=== PATIENT | male | born 1965 | race Caucasian/White ===

== ENCOUNTER 2018-12-12 05:18 | Inpatient (IN) | payer MEDICAID ==
[~2018-12-12] VITALS: Ht 170.2 cm; Wt 59.0 kg
[~2018-12-12 05:18] MED LIST: DIVA500T52 PO; QUET400T PO; QUET50TA PO; SIMV-260 PO
[2018-12-12] MEDS ORDERED: QUEtiapine FUMARATE 100 MG TABLET PO PRN (08:30)
[2018-12-12] MEDS ORDERED: LORazepam 2 MG TABLET PO PRN (08:30)
[2018-12-12] MEDS ORDERED: ZOLPIDEM TARTRATE 10 MG TABLET PO PRN (08:30)
[2018-12-12 10:46] VITALS: BP 133/77
[2018-12-12] MEDS ORDERED: NICOTINE 14 MG/24 HOUR PATCH TD PRN (11:15)
[2018-12-12] MEDS ORDERED: DOCUSATE SODIUM 100 MG CAPSULE PO PRN (11:15)
[2018-12-12] MEDS ORDERED: ACETAMINOPHEN 325 MG TABLET PO PRN (11:15)
[2018-12-12] MEDS ORDERED: IBUPROFEN 400 MG TABLET PO PRN (11:15)
[2018-12-12] MEDS ORDERED: PETROLATUM,WHITE 71 GM JELLY TP PRN (11:15)
[2018-12-12] MEDS ORDERED: GuaiFENesin/D-METHORPHAN [SUGAR-FREE] 200-20MG/10 ML SYRUP UDCUP PO PRN (11:15)
[2018-12-12] MEDS ORDERED: ONDANSETRON HCL 4 MG TABLET PO PRN (11:15)
[2018-12-12] MEDS ORDERED: LOPERAMIDE HCL 2 MG CAPSULE PO PRN (11:15)
[2018-12-12] MEDS ORDERED: ALBUTEROL SULFATE HFA 90 MCG/PUFF 8 GM INHALER IH PRN (11:15)
[2018-12-12] MEDS ORDERED: CloNIDine HCL 0.1 MG TABLET PO PRN (11:15)
[2018-12-12] MEDS ORDERED: MAGNESIUM HYDROXIDE SUSPENSION 30 ML UDCUP PO PRN (11:15)
[2018-12-12] MEDS ORDERED: MAG HYDROX/AL HYDROX/SIMETH ES 30 ML SUSPENSION UDCUP PO PRN (11:15)
[2018-12-12 12:18] VITALS: BP 133/77
[2018-12-12 17:18] VITALS: BP 112/65
[2018-12-12] MEDS: TraZODone HCL 150 MG TABLET PO SCH (20:27)
[2018-12-13 07:19] LABS: BASOPHILS % (AUTO) 0.5 % (0.0-2.0); EOSINOPHILS % (AUTO) 5.1 % (1.0-6.0); HEMATOCRIT 44.9 % (41-53); HEMOGLOBIN 15.3 g/dL (13.5-17.5); LYMPHOCYTES # (AUTO) 2.2 K/uL (1.0-4.8); LYMPHOCYTES % (AUTO) 39.8 % (22.0-44.0); MEAN CORPUSCULAR HEMOGLOBIN 34.1 pg (26.0-34.0); MEAN CORPUSCULAR HGB CONC 34.1 G/dL (31.0-37.0); MEAN CORPUSCULAR VOLUME 100 fL (80-100); MONOCYTES # (AUTO) 0.3 K/uL (0.1-1.0); MONOCYTES % (AUTO) 4.8 % (2.0-9.0); NEUTROPHILS # (AUTO) 2.7 K/uL (1.8-7.7); NEUTROPHILS % (AUTO) 49.8 % (40.0-70.0); PLATELET COUNT (AUTO) 258 K/uL (150-450); RED BLOOD CELL COUNT(AUTO) 4.49 MIL/uL (4.50-5.90); RED CELL DISTRIBUTION WIDTH 13.1 % (11.5-14.5)
[2018-12-13 07:20] VITALS: BP_SYST 116; BP_SYST 128; BP_DIAS 70; BP_DIAS 75
[2018-12-13 07:40] LABS: APPEARANCE,URINE TURBID (CLEAR); BILIRUBIN,URINE NEGATIVE (NEGATIVE); GLUCOSE, URINE (UA) NEGATIVE (NEGATIVE); KETONES,URINE TRACE mg/dL (NEGATIVE); LEUKOCYTE ESTERASE ,URINE NEGATIVE (NEGATIVE); NITRATE,URINE NEGATIVE (NEGATIVE); OCCULT BLOOD,URINE SMALL (NEGATIVE); PH,URINE 5.5 (5.0-8.0); PROTEIN,URINE NEGATIVE (NEGATIVE); UROBILINOGEN,URINE 0.2 mg/dL (<=1.0)
[2018-12-13 07:46] LABS: AMPHET/METH SCREEN,URINE NEGATIVE (NEGATIVE); BARBITURATE SCREEN, URINE NEGATIVE (NEGATIVE); CANNABINOID SCREEN,URINE NEGATIVE (NEGATIVE); COCAINE SCREEN,URINE NEGATIVE (NEGATIVE); METHADONE SCREEN, URINE NEGATIVE (NEGATIVE); OPIATE SCREEN,URINE NEGATIVE (NEGATIVE)
[2018-12-13 07:48] LABS: HEMOGLOBIN A1C 5.2 % (4.5-6.2)
[2018-12-13 07:54] LABS: ALANINE AMINOTRANSFERASE 20 U/L (12-78); ALBUMIN 3.4 g/dL (3.4-5.0); ALKALINE PHOSPHATASE 49 U/L (46-116); ANION GAP 6 mmol/L (8-16); ASPARTATE AMINOTRANSFERASE 9 U/L (15-37); BILIRUBIN,TOTAL 0.4 mg/dL (0.1-1.0); CALCIUM, TOTAL 8.3 mg/dL (8.8-10.5); CARBON DIOXIDE 29 mmol/L (22-29); CHLORIDE 110 mmol/L (98-107); CHOL/HDL RATIO 4.1 (4.2-7.3); CHOLESTEROL 186 mg/dL (131-200); CREATININE 0.91 mg/dL (0.60-1.30); GLOMERULAR FILTR. RATE CALC > 60 mL/min (>60); GLUCOSE,RANDOM 86 mg/dL (70-110); HDL CHOLESTEROL 45 mg/dL (40-60); LDL CHOL (CALC.) 129 mg/dL (0-130); POTASSIUM 4.7 mmol/L (3.5-5.1); SODIUM SERUM 145 mmol/L (136-145); TOTAL PROTEIN, SERUM 5.9 g/dL (6.4-8.2); TRIGLYCERIDES 58 mg/dL (15-150); UREA NITROGEN, BLOOD 18 mg/dL (7-18)
[2018-12-13 08:14] LABS: BACTERIA,URINE Moderate /HPF (None Seen); RBC,URINE 0-2 /HPF (0-2); WBC,URINE 0-2 /HPF (0-5)
[2018-12-13 08:15] LABS: AMORPHOUS SEDIMENT,UR Many /LPF (None Seen)
[2018-12-13 08:17] LABS: BENZODIAZEPINES SCREEN,URINE NEGATIVE (NEGATIVE)
[2018-12-13 08:18] LABS: PHENCYCLIDINE SCREEN,URINE NEGATIVE (NEGATIVE)
[2018-12-13 08:34] VITALS: BP 115/78
[2018-12-13] MEDS: CITALOPRAM HYDROBROMIDE 20 MG TABLET PO SCH (08:57)
[2018-12-13 16:12] VITALS: BP 113/78
[2018-12-13] MEDS: TraZODone HCL 150 MG TABLET PO SCH (20:43)
[2018-12-14 00:44] VITALS: BP 106/82
[2018-12-14 08:42] VITALS: BP 101/62
[2018-12-14] MEDS: SIMVASTATIN 20 MG TABLET PO SCH (09:03)
[2018-12-14] MEDS: CITALOPRAM HYDROBROMIDE 20 MG TABLET PO SCH (09:03)
[2018-12-14 16:34] VITALS: BP 106/73
[2018-12-14] MEDS: TraZODone HCL 150 MG TABLET PO SCH (20:42)
[2018-12-15 06:08] VITALS: BP 104/60
[2018-12-15] MEDS: SIMVASTATIN 20 MG TABLET PO SCH (08:44)
[2018-12-15] MEDS: CITALOPRAM HYDROBROMIDE 20 MG TABLET PO SCH (08:44)
[2018-12-15 09:09] VITALS: BP 102/60
[2018-12-15 16:43] VITALS: BP 121/77
[2018-12-15] MEDS: TraZODone HCL 150 MG TABLET PO SCH (20:41)
[2018-12-16 00:53] VITALS: BP 102/63
[2018-12-16 08:31] VITALS: BP 108/68
[2018-12-16] MEDS: SIMVASTATIN 20 MG TABLET PO SCH (09:29)
[2018-12-16] MEDS: CITALOPRAM HYDROBROMIDE 20 MG TABLET PO SCH (09:29)
[2018-12-16] MEDS ORDERED: TRAZ150 PO (13:51)
[2018-12-16] MEDS ORDERED: CITA-106 PO (13:51)
== END 2018-12-16 15:25 | disposition home or self-care (01) | DRG 751 ==
LOC: B2S 08:39
PROVIDERS: ADMIT Psychiatry & Neurology Psychiatry; ATTEND Psychiatry & Neurology Psychiatry
DX: F33.2 Major depressive disorder, recurrent severe without psychotic features (principal); R45.851 Suicidal ideations; E78.00 Pure hypercholesterolemia, unspecified; E78.5 Hyperlipidemia, unspecified; J44.9 Chronic obstructive pulmonary disease, unspecified; K21.9 Gastro-esophageal reflux disease without esophagitis; Z59.0 Homelessness; Z81.8 Family history of other mental and behavioral disorders; Z88.8 Allergy status to other drugs, medicaments and biological substances; Z87.891 Personal history of nicotine dependence
CPT/HCPCS: 80307; 83036; 84443; 87086

== ENCOUNTER 2018-12-23 03:30 | Inpatient (IN) | payer MEDICAID, OTHER ==
[~2018-12-23] VITALS: Ht 170.2 cm; Wt 57.7 kg
[~2018-12-23 03:30] MED LIST changes: +CITA-106 PO; -DIVA500T52 PO; -QUET400T PO; -QUET50TA PO; +TRAZ150 PO
[2018-12-23] MEDS ORDERED: ZOLPIDEM TARTRATE 10 MG TABLET PO PRN ×2 (04:45→05:15)
[2018-12-23] MEDS ORDERED: LORazepam 2 MG TABLET PO PRN (04:45)
[2018-12-23] MEDS ORDERED: HALOPERIDOL 5 MG TABLET PO PRN (04:45)
[2018-12-23 04:49] LABS: BASOPHILS % (AUTO) 0.3 % (0.0-2.0); EOSINOPHILS % (AUTO) 1.7 % (1.0-6.0); HEMATOCRIT 44.4 % (41-53); HEMOGLOBIN 15.4 g/dL (13.5-17.5); LYMPHOCYTES # (AUTO) 2.2 K/uL (1.0-4.8); LYMPHOCYTES % (AUTO) 21.2 % (22.0-44.0); MEAN CORPUSCULAR HEMOGLOBIN 34.1 pg (26.0-34.0); MEAN CORPUSCULAR HGB CONC 34.7 G/dL (31.0-37.0); MEAN CORPUSCULAR VOLUME 98 fL (80-100); MONOCYTES # (AUTO) 0.5 K/uL (0.1-1.0); MONOCYTES % (AUTO) 5.3 % (2.0-9.0); NEUTROPHILS # (AUTO) 7.4 K/uL (1.8-7.7); NEUTROPHILS % (AUTO) 71.5 % (40.0-70.0); PLATELET COUNT (AUTO) 255 K/uL (150-450); RED BLOOD CELL COUNT(AUTO) 4.51 MIL/uL (4.50-5.90); RED CELL DISTRIBUTION WIDTH 12.3 % (11.5-14.5)
[2018-12-23 04:54] LABS: ANION GAP 6 mmol/L (8-16); CALCIUM, TOTAL 8.8 mg/dL (8.8-10.5); CARBON DIOXIDE 32 mmol/L (22-29); CHLORIDE 101 mmol/L (98-107); CREATININE 1.04 mg/dL (0.60-1.30); GLOMERULAR FILTR. RATE CALC > 60 mL/min (>60); GLUCOSE,RANDOM 75 mg/dL (70-110); POTASSIUM 4.2 mmol/L (3.5-5.1); SODIUM SERUM 139 mmol/L (136-145); UREA NITROGEN, BLOOD 24 mg/dL (7-18)
[2018-12-23 05:00] LABS: ALANINE AMINOTRANSFERASE 21 U/L (12-78); ALBUMIN 3.8 g/dL (3.4-5.0); ALKALINE PHOSPHATASE 67 U/L (46-116); ASPARTATE AMINOTRANSFERASE 19 U/L (15-37); BILIRUBIN,TOTAL 0.6 mg/dL (0.1-1.0); TOTAL PROTEIN, SERUM 6.7 g/dL (6.4-8.2)
[2018-12-23 06:22] VITALS: BP 157/84
[2018-12-23 14:28] VITALS: BP 135/79
[2018-12-23] MEDS ORDERED: ALBUTEROL SULFATE HFA 90 MCG/PUFF 8 GM INHALER IH PRN (16:00)
[2018-12-23] MEDS ORDERED: IBUPROFEN 400 MG TABLET PO PRN (16:00)
[2018-12-23] MEDS ORDERED: ACETAMINOPHEN 325 MG TABLET PO PRN (16:00)
[2018-12-23] MEDS ORDERED: ONDANSETRON HCL 4 MG TABLET PO PRN (16:00)
[2018-12-23] MEDS ORDERED: LOPERAMIDE HCL 2 MG CAPSULE PO PRN (16:00)
[2018-12-23] MEDS ORDERED: CloNIDine HCL 0.1 MG TABLET PO PRN (16:00)
[2018-12-23] MEDS ORDERED: MAG HYDROX/AL HYDROX/SIMETH ES 30 ML SUSPENSION UDCUP PO PRN (16:00)
[2018-12-23] MEDS ORDERED: MAGNESIUM HYDROXIDE SUSPENSION 30 ML UDCUP PO PRN (16:00)
[2018-12-23] MEDS ORDERED: NICOTINE 14 MG/24 HOUR PATCH TD PRN (16:00)
[2018-12-23] MEDS ORDERED: PETROLATUM,WHITE 71 GM JELLY TP PRN (16:00)
[2018-12-23] MEDS ORDERED: DOCUSATE SODIUM 100 MG CAPSULE PO PRN (16:00)
[2018-12-23] MEDS ORDERED: GuaiFENesin/D-METHORPHAN [SUGAR-FREE] 200-20MG/10 ML SYRUP UDCUP PO PRN (16:00)
[2018-12-23 18:30] VITALS: BP 130/82
[2018-12-23] MEDS: MIRTAZAPINE 15 MG TABLET PO SCH (20:34)
[2018-12-24 07:15] LABS: ALANINE AMINOTRANSFERASE 22 U/L (12-78); ALBUMIN 3.5 g/dL (3.4-5.0); ALKALINE PHOSPHATASE 52 U/L (46-116); ANION GAP 4 mmol/L (8-16); ASPARTATE AMINOTRANSFERASE 13 U/L (15-37); BILIRUBIN,TOTAL 0.6 mg/dL (0.1-1.0); CALCIUM, TOTAL 8.4 mg/dL (8.8-10.5); CARBON DIOXIDE 31 mmol/L (22-29); CHLORIDE 107 mmol/L (98-107); CHOL/HDL RATIO 3.3 (4.2-7.3); CHOLESTEROL 147 mg/dL (131-200); GLOMERULAR FILTR. RATE CALC > 60 mL/min (>60); GLUCOSE,RANDOM 87 mg/dL (70-110); HDL CHOLESTEROL 44 mg/dL (40-60); LDL CHOL (CALC.) 91 mg/dL (0-130); POTASSIUM 3.9 mmol/L (3.5-5.1); SODIUM SERUM 142 mmol/L (136-145); THYROID STIMULATING HORMONE 0.63 uIU/mL (0.36-3.74); TOTAL PROTEIN, SERUM 6.1 g/dL (6.4-8.2); TRIGLYCERIDES 61 mg/dL (15-150); UREA NITROGEN, BLOOD 13 mg/dL (7-18)
[2018-12-24 07:37] LABS: BASOPHILS % (AUTO) 0.5 % (0.0-2.0); EOSINOPHILS % (AUTO) 5.8 % (1.0-6.0); HEMATOCRIT 42.6 % (41-53); HEMOGLOBIN 14.2 g/dL (13.5-17.5); MEAN CORPUSCULAR HEMOGLOBIN 32.6 pg (26.0-34.0); MEAN CORPUSCULAR HGB CONC 33.3 G/dL (31.0-37.0); MEAN CORPUSCULAR VOLUME 98 fL (80-100); MONOCYTES % (AUTO) 5.4 % (2.0-9.0); NEUTROPHILS % (AUTO) 42.3 % (40.0-70.0); PLATELET COUNT (AUTO) 199 K/uL (150-450); RED BLOOD CELL COUNT(AUTO) 4.36 MIL/uL (4.50-5.90); RED CELL DISTRIBUTION WIDTH 12.6 % (11.5-14.5)
[2018-12-24 07:38] LABS: LYMPHOCYTES # (AUTO) 2.3 K/uL (1.0-4.8); MONOCYTES # (AUTO) 0.3 K/uL (0.1-1.0); NEUTROPHILS # (AUTO) 2.1 K/uL (1.8-7.7)
[2018-12-24 07:52] LABS: HEMOGLOBIN A1C 5.4 % (4.5-6.2)
[2018-12-24 08:00] VITALS: BP 123/90
[2018-12-24] MEDS ORDERED: CITALOPRAM HYDROBROMIDE 20 MG TABLET PO SCH (09:00)
[2018-12-24] MEDS ORDERED: CITALOPRAM HYDROBROMIDE 20 MG TABLET PO ONE (11:15)
[2018-12-24 17:59] LABS: APPEARANCE,URINE CLEAR (CLEAR); BILIRUBIN,URINE NEGATIVE (NEGATIVE); GLUCOSE, URINE (UA) NEGATIVE (NEGATIVE); KETONES,URINE TRACE mg/dL (NEGATIVE); LEUKOCYTE ESTERASE ,URINE NEGATIVE (NEGATIVE); NITRATE,URINE NEGATIVE (NEGATIVE); OCCULT BLOOD,URINE TRACE (NEGATIVE); PH,URINE 5.5 (5.0-8.0); PROTEIN,URINE NEGATIVE (NEGATIVE); UROBILINOGEN,URINE 0.2 mg/dL (<=1.0)
[2018-12-24 18:02] LABS: AMPHET/METH SCREEN,URINE NEGATIVE (NEGATIVE); BARBITURATE SCREEN, URINE NEGATIVE (NEGATIVE); BENZODIAZEPINES SCREEN,URINE NEGATIVE (NEGATIVE); CANNABINOID SCREEN,URINE NEGATIVE (NEGATIVE); COCAINE SCREEN,URINE NEGATIVE (NEGATIVE); METHADONE SCREEN, URINE NEGATIVE (NEGATIVE); OPIATE SCREEN,URINE NEGATIVE (NEGATIVE)
[2018-12-24 18:03] LABS: PHENCYCLIDINE SCREEN,URINE NEGATIVE (NEGATIVE)
[2018-12-24 18:13] LABS: BACTERIA,URINE None Seen /HPF (None Seen); RBC,URINE 0-2 /HPF (0-2); SQUAMOUS EPITHELIAL CELL,UR Rare /LPF (None Seen); WBC,URINE None Seen /HPF (0-5)
[2018-12-24] MEDS: MIRTAZAPINE 15 MG TABLET PO SCH (21:04)
[2018-12-25] MEDS: CITALOPRAM HYDROBROMIDE 20 MG TABLET PO SCH (09:26)
[2018-12-25 10:24] VITALS: BP 152/91
[2018-12-25] MEDS: MIRTAZAPINE 15 MG TABLET PO SCH (21:01)
[2018-12-25 22:36] VITALS: BP 131/84
[2018-12-26 08:30] VITALS: BP 137/87
[2018-12-26] MEDS: CITALOPRAM HYDROBROMIDE 20 MG TABLET PO SCH (09:37)
[2018-12-26] MEDS: MIRTAZAPINE 15 MG TABLET PO SCH (20:36)
[2018-12-26 22:18] VITALS: BP 132/81
[2018-12-27 08:30] VITALS: BP 131/79
[2018-12-27] MEDS: CITALOPRAM HYDROBROMIDE 20 MG TABLET PO SCH (09:19)
[2018-12-27 17:12] VITALS: BP 132/73
[2018-12-27] MEDS: MIRTAZAPINE 15 MG TABLET PO SCH (21:16)
[2018-12-28 08:02] VITALS: BP 143/89
[2018-12-28] MEDS: CITALOPRAM HYDROBROMIDE 20 MG TABLET PO SCH (09:03)
[2018-12-28 16:34] VITALS: BP 174/96
[2018-12-28] MEDS: LORazepam 2 MG TABLET PO PRN (16:36)
[2018-12-28 17:34] VITALS: BP 103/52
[2018-12-28] MEDS: MIRTAZAPINE 15 MG TABLET PO SCH (20:33)
[2018-12-29 08:03] VITALS: BP 143/84
[2018-12-29] MEDS: CITALOPRAM HYDROBROMIDE 20 MG TABLET PO SCH (10:14)
[2018-12-29] MEDS: MIRTAZAPINE 15 MG TABLET PO SCH (21:00)
[2018-12-29 22:40] VITALS: BP 146/100
[2018-12-30 09:27] VITALS: BP 157/94
[2018-12-30] MEDS: CITALOPRAM HYDROBROMIDE 20 MG TABLET PO SCH (09:55)
[2018-12-30 16:30] VITALS: BP 120/76
[2018-12-30] MEDS: MIRTAZAPINE 15 MG TABLET PO SCH (21:14)
[2018-12-31 08:15] VITALS: BP 152/92
[2018-12-31] MEDS: CITALOPRAM HYDROBROMIDE 20 MG TABLET PO SCH (09:05)
[2018-12-31] MEDS: OLANZapine 5 MG TABLET PO SCH ×2 (11:00→16:07)
[2018-12-31] MEDS: HALOPERIDOL 5 MG TABLET PO PRN (17:23)
[2018-12-31] MEDS: MIRTAZAPINE 15 MG TABLET PO SCH (20:50)
[2018-12-31 22:25] VITALS: BP 148/84
[2019-01-01 04:39] VITALS: BP 142/106
[2019-01-01] MEDS: OLANZapine 5 MG TABLET PO SCH ×2 (08:10→17:00)
[2019-01-01] MEDS: LORazepam 2 MG TABLET PO PRN (08:10)
[2019-01-01] MEDS: CITALOPRAM HYDROBROMIDE 20 MG TABLET PO SCH (08:10)
[2019-01-01] MEDS: HALOPERIDOL 5 MG TABLET PO PRN (08:10)
[2019-01-01] MEDS: MIRTAZAPINE 15 MG TABLET PO SCH (21:00)
[2019-01-02 08:10] VITALS: BP 127/74
[2019-01-02] MEDS: LORazepam 2 MG TABLET PO PRN (08:38)
[2019-01-02] MEDS: CITALOPRAM HYDROBROMIDE 20 MG TABLET PO SCH (08:38)
[2019-01-02] MEDS: OLANZapine 5 MG TABLET PO SCH ×3 (08:38→17:00)
[2019-01-02 17:07] VITALS: BP 137/81
[2019-01-02] MEDS: MIRTAZAPINE 15 MG TABLET PO SCH (21:06)
[2019-01-03 01:11] VITALS: BP 138/82
[2019-01-03 08:23] VITALS: BP 147/83
[2019-01-03] MEDS: OLANZapine 5 MG TABLET PO SCH ×2 (08:33→17:00)
[2019-01-03] MEDS: CITALOPRAM HYDROBROMIDE 20 MG TABLET PO SCH (08:33)
[2019-01-03 18:22] VITALS: BP 133/84
[2019-01-03] MEDS ORDERED: LORazepam 2 MG/ML VIAL ONE (19:29)
[2019-01-03] MEDS ORDERED: HALOPERIDOL LACTATE 5 MG/ML VIAL IM ONE (19:30)
[2019-01-03] MEDS ORDERED: HALOPERIDOL LACTATE 5 MG/ML VIAL ONE (19:30)
[2019-01-03] MEDS ORDERED: LORazepam 2 MG/ML VIAL IM ONE (19:30)
[2019-01-03] MEDS ORDERED: DiphenhydrAMINE HCL 50 MG/ML VIAL IM ONE (19:30)
[2019-01-03] MEDS ORDERED: DiphenhydrAMINE HCL 50 MG/ML VIAL ONE (19:30)
[2019-01-03] MEDS: MIRTAZAPINE 15 MG TABLET PO SCH (21:00)
[2019-01-04 03:12] VITALS: BP 122/82
[2019-01-04] MEDS: OLANZapine 5 MG TABLET PO SCH (09:00)
[2019-01-04] MEDS: CITALOPRAM HYDROBROMIDE 20 MG TABLET PO SCH (10:00)
[2019-01-04 10:19] VITALS: BP 125/85
[2019-01-04 17:26] VITALS: BP 137/84
[2019-01-04] MEDS: MIRTAZAPINE 15 MG TABLET PO SCH (20:06)
[2019-01-05 04:39] VITALS: BP 142/89
[2019-01-05 09:45] VITALS: BP 144/93
[2019-01-05] MEDS: CITALOPRAM HYDROBROMIDE 20 MG TABLET PO SCH (11:12)
[2019-01-05 16:10] VITALS: BP 135/86
[2019-01-05] MEDS: MIRTAZAPINE 15 MG TABLET PO SCH (21:00)
[2019-01-06 00:30] VITALS: BP 140/81
[2019-01-06] MEDS: CITALOPRAM HYDROBROMIDE 20 MG TABLET PO SCH (08:28)
[2019-01-06 10:01] VITALS: BP 144/90
[2019-01-06] MEDS ORDERED: MIRT15 PO (12:56)
== END 2019-01-06 15:00 | disposition home or self-care (01) | DRG 753 ==
LOC: EMS 03:32 → 3EI 05:00
PROVIDERS: ADMIT Psychiatry & Neurology Psychiatry; ATTEND Psychiatry & Neurology Psychiatry
DX: F31.5 Bipolar disorder, current episode depressed, severe, with psychotic features (principal); R45.851 Suicidal ideations; E78.5 Hyperlipidemia, unspecified; F17.200 Nicotine dependence, unspecified, uncomplicated; Z71.6 Tobacco abuse counseling; J44.9 Chronic obstructive pulmonary disease, unspecified; K21.9 Gastro-esophageal reflux disease without esophagitis; Z59.0 Homelessness; Z88.8 Allergy status to other drugs, medicaments and biological substances
CPT/HCPCS: 80307; 83036; 84443; 87081; G0480; J1200; J1630; J2060

== ENCOUNTER 2019-01-06 20:50 | Emergency (ER) | payer MEDICAID ==
[~2019-01-06] VITALS: Ht 170.2 cm; Wt 64.5 kg
[~2019-01-06 20:50] MED LIST changes: +MIRT15 PO
[2019-01-06 21:53] VITALS: BP 158/92
[2019-01-06 22:57] LABS: BASOPHILS % (AUTO) 0.6 % (0.0-2.0); EOSINOPHILS % (AUTO) 1.5 % (1.0-6.0); HEMATOCRIT 45.5 % (41-53); LYMPHOCYTES # (AUTO) 2.9 K/uL (1.0-4.8); LYMPHOCYTES % (AUTO) 25.7 % (22.0-44.0); MEAN CORPUSCULAR HEMOGLOBIN 33.7 pg (26.0-34.0); MEAN CORPUSCULAR HGB CONC 35.2 G/dL (31.0-37.0); MEAN CORPUSCULAR VOLUME 96 fL (80-100); MONOCYTES # (AUTO) 0.4 K/uL (0.1-1.0); MONOCYTES % (AUTO) 3.9 % (2.0-9.0); NEUTROPHILS # (AUTO) 7.6 K/uL (1.8-7.7); NEUTROPHILS % (AUTO) 68.3 % (40.0-70.0); PLATELET COUNT (AUTO) 292 K/uL (150-450); RED BLOOD CELL COUNT(AUTO) 4.75 MIL/uL (4.50-5.90); RED CELL DISTRIBUTION WIDTH 12.6 % (11.5-14.5)
[2019-01-06 23:09] LABS: ALANINE AMINOTRANSFERASE 25 U/L (12-78); ALBUMIN 4.1 g/dL (3.4-5.0); ALKALINE PHOSPHATASE 62 U/L (46-116); ANION GAP 9 mmol/L (8-16); ASPARTATE AMINOTRANSFERASE 19 U/L (15-37); BILIRUBIN,TOTAL 0.4 mg/dL (0.1-1.0); CARBON DIOXIDE 28 mmol/L (22-29); CHLORIDE 104 mmol/L (98-107); CREATININE 0.91 mg/dL (0.60-1.30); GLOMERULAR FILTR. RATE CALC > 60 mL/min (>60); GLUCOSE,RANDOM 95 mg/dL (70-110); POTASSIUM 4.4 mmol/L (3.5-5.1); SODIUM SERUM 141 mmol/L (136-145); UREA NITROGEN, BLOOD 16 mg/dL (7-18)
== END 2019-01-07 00:48 | disposition left against medical advice (07) ==
LOC: EMS 20:52
DX: R45.851 Suicidal ideations (principal); Z53.21 Procedure and treatment not carried out due to patient leaving prior to being seen by health care provider
CPT/HCPCS: 36415; 80053; 85025; G0480

== ENCOUNTER 2019-01-08 08:57 | Inpatient (IN) | payer MEDICAID, OTHER ==
[~2019-01-08] VITALS: Ht 170.2 cm; Wt 58.2 kg
[~2019-01-08 08:57] MED LIST changes: -SIMV-260 PO; -TRAZ150 PO
[2019-01-08 09:37] LABS: BASOPHILS % (AUTO) 0.4 % (0.0-2.0); EOSINOPHILS % (AUTO) 3.1 % (1.0-6.0); HEMATOCRIT 47.8 % (41-53); HEMOGLOBIN 17.2 g/dL (13.5-17.5); LYMPHOCYTES # (AUTO) 1.8 K/uL (1.0-4.8); LYMPHOCYTES % (AUTO) 23.6 % (22.0-44.0); MEAN CORPUSCULAR HEMOGLOBIN 34.9 pg (26.0-34.0); MEAN CORPUSCULAR VOLUME 97 fL (80-100); MONOCYTES # (AUTO) 0.3 K/uL (0.1-1.0); MONOCYTES % (AUTO) 4.1 % (2.0-9.0); NEUTROPHILS # (AUTO) 5.1 K/uL (1.8-7.7); NEUTROPHILS % (AUTO) 68.8 % (40.0-70.0); PLATELET COUNT (AUTO) 306 K/uL (150-450); RED BLOOD CELL COUNT(AUTO) 4.93 MIL/uL (4.50-5.90); RED CELL DISTRIBUTION WIDTH 12.6 % (11.5-14.5)
[2019-01-08 09:45] LABS: ANION GAP 4 mmol/L (8-16); CARBON DIOXIDE 31 mmol/L (22-29); CHLORIDE 104 mmol/L (98-107); CREATININE 1.08 mg/dL (0.60-1.30); GLOMERULAR FILTR. RATE CALC > 60 mL/min (>60); GLUCOSE,RANDOM 93 mg/dL (70-110); POTASSIUM 4.2 mmol/L (3.5-5.1); SODIUM SERUM 139 mmol/L (136-145); UREA NITROGEN, BLOOD 14 mg/dL (7-18)
[2019-01-08 09:51] LABS: ALANINE AMINOTRANSFERASE 30 U/L (12-78); ALBUMIN 4.4 g/dL (3.4-5.0); ALKALINE PHOSPHATASE 69 U/L (46-116); ASPARTATE AMINOTRANSFERASE 22 U/L (15-37); BILIRUBIN,TOTAL 0.9 mg/dL (0.1-1.0); TOTAL PROTEIN, SERUM 7.6 g/dL (6.4-8.2)
[2019-01-08 10:11] LABS: AMPHET/METH SCREEN,URINE NEGATIVE (NEGATIVE); BARBITURATE SCREEN, URINE NEGATIVE (NEGATIVE); BENZODIAZEPINES SCREEN,URINE NEGATIVE (NEGATIVE); CANNABINOID SCREEN,URINE NEGATIVE (NEGATIVE); COCAINE SCREEN,URINE NEGATIVE (NEGATIVE); METHADONE SCREEN, URINE NEGATIVE (NEGATIVE); OPIATE SCREEN,URINE NEGATIVE (NEGATIVE)
[2019-01-08 10:16] LABS: PHENCYCLIDINE SCREEN,URINE NEGATIVE (NEGATIVE)
[2019-01-08] MEDS ORDERED: HALOPERIDOL 5 MG TABLET PO ONE (13:30)
[2019-01-08] MEDS ORDERED: LORazepam 2 MG TABLET PO ONE (13:30)
[2019-01-08] MEDS ORDERED: HALOPERIDOL 5 MG TABLET PO PRN (14:00)
[2019-01-08 17:20] VITALS: BP 115/73
[2019-01-08] MEDS ORDERED: ALBUTEROL SULFATE HFA 90 MCG/PUFF 8 GM INHALER IH PRN (17:30)
[2019-01-08] MEDS ORDERED: MAGNESIUM HYDROXIDE SUSPENSION 30 ML UDCUP PO PRN (17:30)
[2019-01-08] MEDS ORDERED: PETROLATUM,WHITE 71 GM JELLY TP PRN (17:30)
[2019-01-08] MEDS ORDERED: DOCUSATE SODIUM 100 MG CAPSULE PO PRN (17:30)
[2019-01-08] MEDS ORDERED: LOPERAMIDE HCL 2 MG CAPSULE PO PRN (17:30)
[2019-01-08] MEDS ORDERED: MAG HYDROX/AL HYDROX/SIMETH ES 30 ML SUSPENSION UDCUP PO PRN (17:30)
[2019-01-08] MEDS ORDERED: IBUPROFEN 400 MG TABLET PO PRN (17:30)
[2019-01-08] MEDS ORDERED: ONDANSETRON HCL 4 MG TABLET PO PRN (17:30)
[2019-01-08] MEDS ORDERED: NICOTINE 14 MG/24 HOUR PATCH TD PRN (17:30)
[2019-01-08] MEDS ORDERED: GuaiFENesin/D-METHORPHAN [SUGAR-FREE] 200-20MG/10 ML SYRUP UDCUP PO PRN (17:30)
[2019-01-08] MEDS ORDERED: CloNIDine HCL 0.1 MG TABLET PO PRN (17:30)
[2019-01-08] MEDS ORDERED: ACETAMINOPHEN 325 MG TABLET PO PRN (17:30)
[2019-01-08] MEDS ORDERED: PNEUMOCOCCAL VACCINE POLYVALENT 0.5 ML VIAL [PPSV23] IM ONE (17:45)
[2019-01-09 00:29] VITALS: BP 118/69
[2019-01-09 08:46] LABS: BASOPHILS % (AUTO) 0.6 % (0.0-2.0); EOSINOPHILS % (AUTO) 5.7 % (1.0-6.0); HEMATOCRIT 46.2 % (41-53); HEMOGLOBIN 16.6 g/dL (13.5-17.5); LYMPHOCYTES # (AUTO) 1.9 K/uL (1.0-4.8); LYMPHOCYTES % (AUTO) 32.7 % (22.0-44.0); MEAN CORPUSCULAR HEMOGLOBIN 35.3 pg (26.0-34.0); MEAN CORPUSCULAR HGB CONC 35.9 G/dL (31.0-37.0); MEAN CORPUSCULAR VOLUME 98 fL (80-100); MONOCYTES # (AUTO) 0.3 K/uL (0.1-1.0); MONOCYTES % (AUTO) 5.2 % (2.0-9.0); NEUTROPHILS # (AUTO) 3.2 K/uL (1.8-7.7); NEUTROPHILS % (AUTO) 55.8 % (40.0-70.0); PLATELET COUNT (AUTO) 311 K/uL (150-450); RED BLOOD CELL COUNT(AUTO) 4.71 MIL/uL (4.50-5.90); RED CELL DISTRIBUTION WIDTH 12.5 % (11.5-14.5)
[2019-01-09 08:57] VITALS: BP 126/65
[2019-01-09 09:10] LABS: HEMOGLOBIN A1C 5.3 % (4.5-6.2)
[2019-01-09 09:15] LABS: ALANINE AMINOTRANSFERASE 29 U/L (12-78); ALKALINE PHOSPHATASE 63 U/L (46-116); ANION GAP 5 mmol/L (8-16); ASPARTATE AMINOTRANSFERASE 15 U/L (15-37); BILIRUBIN,TOTAL 0.5 mg/dL (0.1-1.0); CARBON DIOXIDE 31 mmol/L (22-29); CHLORIDE 106 mmol/L (98-107); CHOL/HDL RATIO 3.1 (4.2-7.3); CHOLESTEROL 159 mg/dL (131-200); GLOMERULAR FILTR. RATE CALC > 60 mL/min (>60); GLUCOSE,RANDOM 84 mg/dL (70-110); HDL CHOLESTEROL 52 mg/dL (40-60); LDL CHOL (CALC.) 96 mg/dL (0-130); POTASSIUM 4.3 mmol/L (3.5-5.1); SODIUM SERUM 142 mmol/L (136-145); THYROID STIMULATING HORMONE 0.43 uIU/mL (0.36-3.74); TRIGLYCERIDES 56 mg/dL (15-150); UREA NITROGEN, BLOOD 14 mg/dL (7-18)
[2019-01-09] MEDS: CITALOPRAM HYDROBROMIDE 20 MG TABLET PO SCH (09:40)
[2019-01-09 16:12] VITALS: BP 141/77
[2019-01-09] MEDS: LORazepam 2 MG TABLET PO PRN (17:02)
[2019-01-10 01:50] VITALS: BP_SYST 124; BP_DIAS 16; BP_DIAS 61
[2019-01-10 08:20] VITALS: BP 119/74
[2019-01-10] MEDS: CITALOPRAM HYDROBROMIDE 20 MG TABLET PO SCH (08:28)
[2019-01-10 16:33] VITALS: BP 115/74
[2019-01-10] MEDS: ZOLPIDEM TARTRATE 10 MG TABLET PO PRN (20:48)
[2019-01-11 03:27] VITALS: BP 132/70
[2019-01-11 08:24] VITALS: BP 119/72
[2019-01-11] MEDS: CITALOPRAM HYDROBROMIDE 20 MG TABLET PO SCH (08:41)
[2019-01-11 16:00] VITALS: BP 129/85
[2019-01-11] MEDS: ZOLPIDEM TARTRATE 10 MG TABLET PO PRN (21:07)
[2019-01-12 03:21] VITALS: BP 118/75
[2019-01-12 08:14] VITALS: BP 116/71
[2019-01-12] MEDS: CITALOPRAM HYDROBROMIDE 20 MG TABLET PO SCH (08:46)
[2019-01-12] MEDS: ARIPiprazole 5 MG TABLET PO SCH (08:46)
[2019-01-12] MEDS: LORazepam 2 MG TABLET PO PRN ×2 (12:23→16:31)
[2019-01-12 16:32] VITALS: BP 128/73
[2019-01-12] MEDS: ZOLPIDEM TARTRATE 10 MG TABLET PO PRN (20:29)
[2019-01-13 02:59] VITALS: BP 115/67
[2019-01-13 08:25] VITALS: BP 123/68
[2019-01-13] MEDS: ARIPiprazole 5 MG TABLET PO SCH (08:30)
[2019-01-13] MEDS: CITALOPRAM HYDROBROMIDE 20 MG TABLET PO SCH (08:30)
[2019-01-13 16:15] VITALS: BP 117/70
[2019-01-13] MEDS: LORazepam 2 MG TABLET PO PRN (18:38)
[2019-01-14] MEDS: ZOLPIDEM TARTRATE 10 MG TABLET PO PRN ×2 (00:05→00:06)
[2019-01-14 00:53] VITALS: BP 117/71
[2019-01-14 08:16] VITALS: BP 116/70
[2019-01-14] MEDS: CITALOPRAM HYDROBROMIDE 20 MG TABLET PO SCH (08:24)
[2019-01-14] MEDS: ARIPiprazole 5 MG TABLET PO SCH (08:24)
[2019-01-14 16:29] VITALS: BP 107/77
[2019-01-15 01:21] VITALS: BP 116/75
[2019-01-15 08:00] VITALS: BP 136/77
[2019-01-15] MEDS: ARIPiprazole 5 MG TABLET PO SCH (08:40)
[2019-01-15] MEDS: CITALOPRAM HYDROBROMIDE 20 MG TABLET PO SCH (08:45)
[2019-01-15] MEDS ORDERED: CITA-106 PO ×2 (09:21→12:05)
[2019-01-15] MEDS ORDERED: ARIP5TAB8 PO ×2 (09:21→12:05)
== END 2019-01-15 13:45 | disposition home or self-care (01) | DRG 753 ==
LOC: EMS 08:58 → B3A 14:39
PROC: 3E0234Z Introduction of Serum, Toxoid and Vaccine into Muscle, Percutaneous Approach (ICD-10-PCS; principal; 2019-01-08)
DX: F31.5 Bipolar disorder, current episode depressed, severe, with psychotic features (principal); E78.5 Hyperlipidemia, unspecified; F41.9 Anxiety disorder, unspecified; F17.200 Nicotine dependence, unspecified, uncomplicated; J44.9 Chronic obstructive pulmonary disease, unspecified; K21.9 Gastro-esophageal reflux disease without esophagitis; Z59.0 Homelessness; Z79.899 Other long term (current) drug therapy; Z91.5 Personal history of self-harm; Z88.1 Allergy status to other antibiotic agents; Z88.8 Allergy status to other drugs, medicaments and biological substances; Z23 Encounter for immunization; Z71.6 Tobacco abuse counseling
CPT/HCPCS: 83036; 84443; 87081; 90732; G0480

== ENCOUNTER 2019-05-10 00:19 | Emergency (ER) | payer MEDICAID, OTHER ==
[~2019-05-10] VITALS: Ht 167.6 cm; Wt 64.5 kg
[~2019-05-10 00:19] MED LIST changes: +ARIP5TAB8 PO; -MIRT15 PO
[2019-05-10] MEDS ORDERED: TRAZ150 PO (01:04)
[2019-05-10] MEDS ORDERED: MIRT15 PO (01:04)
[2019-05-10] MEDS ORDERED: ACETAMINOPHEN 325 MG TABLET PO ONE (03:30)
[2019-05-10 04:14] VITALS: BP 155/98
== END 2019-05-10 04:25 | disposition home or self-care (01) ==
LOC: EMS 00:19
DX: S00.12XA Contusion of left eyelid and periocular area, initial encounter (principal); F31.9 Bipolar disorder, unspecified; F20.9 Schizophrenia, unspecified; F17.210 Nicotine dependence, cigarettes, uncomplicated; Z88.8 Allergy status to other drugs, medicaments and biological substances; Y04.2XXA Assault by strike against or bumped into by another person, initial encounter; Y93.89 Activity, other specified; Y92.89 Other specified places as the place of occurrence of the external cause; Y99.8 Other external cause status
CPT/HCPCS: 70450

== ENCOUNTER 2019-09-17 00:07 | Inpatient (IN) | payer MEDICAID, OTHER ==
[~2019-09-17] VITALS: Ht 170.2 cm; Wt 60.3 kg
[~2019-09-17 00:07] MED LIST changes: -ARIP5TAB8 PO; -CITA-106 PO; +MIRT15 PO; +TRAZ150 PO
[2019-09-17] MEDS ORDERED: LORazepam 1 MG TABLET PO PRN (02:30)
[2019-09-17] MEDS ORDERED: ZOLPIDEM TARTRATE 10 MG TABLET PO PRN (02:30)
[2019-09-17] MEDS ORDERED: HALOPERIDOL 5 MG TABLET PO PRN (02:30)
[2019-09-17] MEDS ORDERED: INFLUENZA VIRUS VACCINE QVS 2019-20 (3YR+)/PF 60 MCG/0.5 ML SYRINGE IM ONE (03:45)
[2019-09-17 08:09] VITALS: BP 106/60
[2019-09-17 16:12] VITALS: BP 135/88
[2019-09-17] MEDS: TraZODone HCL 150 MG TABLET PO SCH (20:16)
[2019-09-17] MEDS: MIRTAZAPINE 15 MG TABLET PO SCH (20:16)
[2019-09-18 05:48] VITALS: BP 118/70
[2019-09-18 07:10] LABS: BASOPHILS % (AUTO) 0.3 % (0.0-2.0); EOSINOPHILS % (AUTO) 2.6 % (1.0-6.0); HEMATOCRIT 42.7 % (41-53); HEMOGLOBIN 14.7 g/dL (13.5-17.5); LYMPHOCYTES # (AUTO) 1.8 K/uL (1.0-4.8); LYMPHOCYTES % (AUTO) 27.9 % (22.0-44.0); MEAN CORPUSCULAR HEMOGLOBIN 34.1 pg (26.0-34.0); MEAN CORPUSCULAR HGB CONC 34.5 G/dL (31.0-37.0); MEAN CORPUSCULAR VOLUME 99 fL (80-100); MONOCYTES # (AUTO) 0.2 K/uL (0.1-1.0); MONOCYTES % (AUTO) 3.5 % (2.0-9.0); NEUTROPHILS # (AUTO) 4.3 K/uL (1.8-7.7); NEUTROPHILS % (AUTO) 65.7 % (40.0-70.0); PLATELET COUNT (AUTO) 259 K/uL (150-450); RED BLOOD CELL COUNT(AUTO) 4.31 MIL/uL (4.50-5.90); RED CELL DISTRIBUTION WIDTH 12.7 % (11.5-14.5)
[2019-09-18 07:30] LABS: HEMOGLOBIN A1C 4.5 % (4.5-6.2)
[2019-09-18 07:37] LABS: ALANINE AMINOTRANSFERASE 19 U/L (12-78); ALBUMIN 3.6 g/dL (3.4-5.0); ALKALINE PHOSPHATASE 56 U/L (46-116); ANION GAP 6 mmol/L (8-16); ASPARTATE AMINOTRANSFERASE 8 U/L (15-37); BILIRUBIN,TOTAL 0.4 mg/dL (0.1-1.0); CALCIUM, TOTAL 8.4 mg/dL (8.8-10.5); CARBON DIOXIDE 28 mmol/L (22-29); CHLORIDE 107 mmol/L (98-107); CHOL/HDL RATIO 3.6 (4.2-7.3); CHOLESTEROL 166 mg/dL (131-200); CREATININE 0.95 mg/dL (0.60-1.30); GLOMERULAR FILTR. RATE CALC > 60 mL/min (>60); GLUCOSE,RANDOM 87 mg/dL (70-110); HDL CHOLESTEROL 46 mg/dL (40-60); LDL CHOL (CALC.) 108 mg/dL (0-130); POTASSIUM 4.7 mmol/L (3.5-5.1); SODIUM SERUM 141 mmol/L (136-145); TOTAL PROTEIN, SERUM 6.2 g/dL (6.4-8.2); TRIGLYCERIDES 60 mg/dL (15-150); UREA NITROGEN, BLOOD 16 mg/dL (7-18)
[2019-09-18 08:00] VITALS: BP 116/50
[2019-09-18 16:10] VITALS: BP 115/61
[2019-09-18] MEDS: MIRTAZAPINE 15 MG TABLET PO SCH (20:04)
[2019-09-18] MEDS: TraZODone HCL 150 MG TABLET PO SCH (20:04)
[2019-09-19 06:15] VITALS: BP 112/68
[2019-09-19 08:25] VITALS: BP 105/59
[2019-09-19 16:00] VITALS: BP 124/76
[2019-09-19] MEDS: MIRTAZAPINE 15 MG TABLET PO SCH (20:14)
[2019-09-19] MEDS: TraZODone HCL 150 MG TABLET PO SCH (20:14)
[2019-09-20 06:14] VITALS: BP 121/71
[2019-09-20 08:03] VITALS: BP 109/70
[2019-09-20 16:08] VITALS: BP 109/70
[2019-09-20] MEDS: MIRTAZAPINE 15 MG TABLET PO SCH (20:11)
[2019-09-20] MEDS: TraZODone HCL 150 MG TABLET PO SCH (20:11)
[2019-09-21 00:27] VITALS: BP 110/66
[2019-09-21 09:06] VITALS: BP 107/69
[2019-09-21 16:11] VITALS: BP 124/77
[2019-09-21] MEDS: MIRTAZAPINE 15 MG TABLET PO SCH (20:10)
[2019-09-21] MEDS: TraZODone HCL 150 MG TABLET PO SCH (20:11)
[2019-09-22 00:42] VITALS: BP 102/63
[2019-09-22 08:12] VITALS: BP 110/63
[2019-09-22 19:04] VITALS: BP 110/63
[2019-09-22] MEDS: TraZODone HCL 150 MG TABLET PO SCH (20:12)
[2019-09-22] MEDS: MIRTAZAPINE 15 MG TABLET PO SCH (20:12)
[2019-09-23 00:05] VITALS: BP 121/66
[2019-09-23] MEDS ORDERED: MIRT15 PO (08:14)
[2019-09-23 08:31] VITALS: BP 118/71
== END 2019-09-23 09:20 | disposition home or self-care (01) | DRG 751 ==
LOC: B2S 03:23
PROVIDERS: ADMIT Psychiatry & Neurology Child & Adolescent Psychiatry; ATTEND Psychiatry & Neurology Child & Adolescent Psychiatry
DX: F33.2 Major depressive disorder, recurrent severe without psychotic features (principal); R45.851 Suicidal ideations; E78.5 Hyperlipidemia, unspecified; F17.200 Nicotine dependence, unspecified, uncomplicated; F41.9 Anxiety disorder, unspecified; G47.00 Insomnia, unspecified; J44.9 Chronic obstructive pulmonary disease, unspecified; K21.9 Gastro-esophageal reflux disease without esophagitis; K59.00 Constipation, unspecified; Z59.0 Homelessness; Z53.20 Procedure and treatment not carried out because of patient's decision for unspecified reasons
CPT/HCPCS: 83036; 84439

== ENCOUNTER 2020-03-24 19:43 | Inpatient (IN) | payer MEDICAID ==
[~2020-03-24] VITALS: Ht 170.2 cm; Wt 60.3 kg
[~2020-03-24 19:43] MED LIST changes: +MIRT-89 PO; -MIRT15 PO
[2020-03-24] MEDS ORDERED: HALOPERIDOL 5 MG TABLET PO PRN (21:45)
[2020-03-24] MEDS ORDERED: LORazepam 2 MG TABLET PO PRN (21:45)
[2020-03-24] MEDS ORDERED: ZOLPIDEM TARTRATE 10 MG TABLET PO PRN (21:45)
[2020-03-24 22:42] VITALS: BP 129/77
[2020-03-25 00:19] VITALS: BP 108/70
[2020-03-25] MEDS ORDERED: ONDANSETRON HCL 4 MG TABLET PO PRN (08:15)
[2020-03-25] MEDS ORDERED: CloNIDine HCL 0.1 MG TABLET PO PRN (08:15)
[2020-03-25] MEDS ORDERED: BACITRACIN 28.4 GM OINTMENT TP PRN (08:15)
[2020-03-25] MEDS ORDERED: DOCUSATE SODIUM 100 MG CAPSULE PO PRN (08:15)
[2020-03-25] MEDS ORDERED: ALBUTEROL SULFATE HFA 90 MCG/PUFF 8 GM INHALER IH PRN (08:15)
[2020-03-25] MEDS ORDERED: MAGNESIUM HYDROXIDE SUSPENSION 30 ML UDCUP PO PRN (08:15)
[2020-03-25] MEDS ORDERED: IBUPROFEN 600 MG TABLET PO PRN (08:15)
[2020-03-25] MEDS ORDERED: PETROLATUM,WHITE 28 GM JELLY TP PRN (08:15)
[2020-03-25] MEDS ORDERED: MAG HYDROX/AL HYDROX/SIMETH ES 30 ML SUSPENSION UDCUP PO PRN (08:15)
[2020-03-25] MEDS ORDERED: OMEPRAZOLE 20 MG CAPSULE PO PRN (08:15)
[2020-03-25] MEDS ORDERED: BENZOCAINE/MENTHOL LOZENGE MM PRN (08:15)
[2020-03-25] MEDS ORDERED: ACETAMINOPHEN 325 MG TABLET PO PRN (08:15)
[2020-03-25] MEDS ORDERED: LOPERAMIDE HCL 2 MG CAPSULE PO PRN (08:15)
[2020-03-25 08:29] LABS: BASOPHILS % (AUTO) 0.4 % (0.0-2.0); EOSINOPHILS % (AUTO) 4.7 % (1.0-6.0); HEMATOCRIT 43.1 % (41-53); HEMOGLOBIN 14.6 g/dL (13.5-17.5); LYMPHOCYTES # (AUTO) 2.5 K/uL (1.0-4.8); LYMPHOCYTES % (AUTO) 37.5 % (22.0-44.0); MEAN CORPUSCULAR HEMOGLOBIN 33.7 pg (26.0-34.0); MEAN CORPUSCULAR VOLUME 99 fL (80-100); MONOCYTES # (AUTO) 0.4 K/uL (0.1-1.0); MONOCYTES % (AUTO) 5.8 % (2.0-9.0); NEUTROPHILS # (AUTO) 3.4 K/uL (1.8-7.7); NEUTROPHILS % (AUTO) 51.6 % (40.0-70.0); PLATELET COUNT (AUTO) 260 K/uL (150-450); RED BLOOD CELL COUNT(AUTO) 4.35 MIL/uL (4.50-5.90); RED CELL DISTRIBUTION WIDTH 12.3 % (11.5-14.5)
[2020-03-25 09:06] LABS: ALANINE AMINOTRANSFERASE 18 U/L (12-78); ALBUMIN 3.6 g/dL (3.4-5.0); ALKALINE PHOSPHATASE 47 U/L (46-116); ANION GAP 11 mmol/L (8-16); ASPARTATE AMINOTRANSFERASE 11 U/L (15-37); BILIRUBIN,TOTAL 0.4 mg/dL (0.1-1.0); CALCIUM, TOTAL 8.3 mg/dL (8.8-10.5); CARBON DIOXIDE 26 mmol/L (22-29); CHLORIDE 107 mmol/L (98-107); CHOL/HDL RATIO 4.1 (4.2-7.3); CHOLESTEROL 167 mg/dL (131-200); CREATININE 0.95 mg/dL (0.60-1.30); FREE T4 (FREE THYROXINE) 1.17 ng/dL (0.76-1.46); GLOMERULAR FILTR. RATE CALC > 60 mL/min (>60); GLUCOSE,RANDOM 74 mg/dL (70-110); HDL CHOLESTEROL 41 mg/dL (40-60); LDL CHOL (CALC.) 118 mg/dL (0-130); POTASSIUM 3.2 mmol/L (3.5-5.1); SODIUM SERUM 144 mmol/L (136-145); THYROID STIMULATING HORMONE 0.93 uIU/mL (0.36-3.74); TRIGLYCERIDES 39 mg/dL (15-150); UREA NITROGEN, BLOOD 15 mg/dL (7-18)
[2020-03-25 09:38] VITALS: BP 128/79
[2020-03-25] MEDS ORDERED: POTASSIUM CHLORIDE 10% 40 MEQ/30 ML LIQUID UDCUP PO ONE (10:15)
[2020-03-25] MEDS ORDERED: POTASSIUM CHLORIDE 20 MEQ ER TABLET PO ONE (10:45)
[2020-03-25 16:00] VITALS: BP 103/79
[2020-03-25] MEDS: MIRTAZAPINE 30 MG TABLET PO SCH (20:07)
[2020-03-25] MEDS: TraZODone HCL 150 MG TABLET PO SCH (20:07)
[2020-03-26 00:24] VITALS: BP 110/65
[2020-03-26 10:48] VITALS: BP 100/63
[2020-03-26 19:13] VITALS: BP 118/64
[2020-03-26] MEDS: MIRTAZAPINE 30 MG TABLET PO SCH (21:04)
[2020-03-26] MEDS: TraZODone HCL 150 MG TABLET PO SCH (21:04)
[2020-03-27 05:21] VITALS: BP 116/70
[2020-03-27 08:48] VITALS: BP 111/59
[2020-03-27 17:27] VITALS: BP 116/72
[2020-03-27] MEDS: MIRTAZAPINE 30 MG TABLET PO SCH (21:02)
[2020-03-27] MEDS: TraZODone HCL 150 MG TABLET PO SCH (21:03)
[2020-03-28 05:27] VITALS: BP 114/70
[2020-03-28 08:05] VITALS: BP 106/69
[2020-03-28 16:13] VITALS: BP 129/77
[2020-03-28] MEDS: MIRTAZAPINE 30 MG TABLET PO SCH (20:40)
[2020-03-28] MEDS: TraZODone HCL 150 MG TABLET PO SCH (20:40)
[2020-03-29 00:19] VITALS: BP 104/65
[2020-03-29 08:15] VITALS: BP 119/72
[2020-03-29 16:30] VITALS: BP 107/60
[2020-03-29] MEDS: TraZODone HCL 150 MG TABLET PO SCH (20:16)
[2020-03-29] MEDS: MIRTAZAPINE 30 MG TABLET PO SCH (20:16)
[2020-03-30 00:50] VITALS: BP 110/63
[2020-03-30 08:14] VITALS: BP 104/63
[2020-03-30 16:42] VITALS: BP 118/76
[2020-03-30] MEDS: TraZODone HCL 150 MG TABLET PO SCH (20:09)
[2020-03-30] MEDS: MIRTAZAPINE 30 MG TABLET PO SCH (20:09)
[2020-03-31 00:13] VITALS: BP 96/61
[2020-03-31 08:51] VITALS: BP 100/60
[2020-03-31 17:25] VITALS: BP 117/72
[2020-03-31] MEDS: MIRTAZAPINE 30 MG TABLET PO SCH (20:11)
[2020-03-31] MEDS: TraZODone HCL 150 MG TABLET PO SCH (20:11)
[2020-04-01 00:23] VITALS: BP 110/69
[2020-04-01 08:32] VITALS: BP 110/57
[2020-04-01 16:08] VITALS: BP 119/77
[2020-04-01] MEDS: TraZODone HCL 150 MG TABLET PO SCH (20:19)
[2020-04-01] MEDS: MIRTAZAPINE 30 MG TABLET PO SCH (20:20)
[2020-04-02 07:01] VITALS: BP 118/82
[2020-04-02 08:10] VITALS: BP 102/69
[2020-04-02 16:10] VITALS: BP 104/65
[2020-04-02] MEDS: TraZODone HCL 150 MG TABLET PO SCH (20:21)
[2020-04-02] MEDS: MIRTAZAPINE 30 MG TABLET PO SCH (20:21)
[2020-04-03 05:27] VITALS: BP 104/65
[2020-04-03 09:22] VITALS: BP 104/73
== END 2020-04-03 16:45 | disposition home or self-care (01) | DRG 754 ==
LOC: B2S 22:58
PROVIDERS: ADMIT Psychiatry & Neurology Child & Adolescent Psychiatry; ATTEND Psychiatry & Neurology Child & Adolescent Psychiatry
DX: F32.9 Major depressive disorder, single episode, unspecified (principal); R45.851 Suicidal ideations; Z91.19 Patient's noncompliance with other medical treatment and regimen; E78.5 Hyperlipidemia, unspecified; F41.9 Anxiety disorder, unspecified; J44.9 Chronic obstructive pulmonary disease, unspecified; Z59.0 Homelessness; G47.00 Insomnia, unspecified; K21.9 Gastro-esophageal reflux disease without esophagitis; K59.00 Constipation, unspecified
CPT/HCPCS: 84132; 84439; 84443

== ENCOUNTER 2020-05-06 18:42 | Inpatient (IN) | payer MEDICAID ==
[~2020-05-06] VITALS: Ht 170.2 cm; Wt 63.5 kg
[2020-05-06] MEDS ORDERED: ZOLPIDEM TARTRATE 10 MG TABLET PO PRN (22:00)
[2020-05-06] MEDS ORDERED: HALOPERIDOL 5 MG TABLET PO PRN (22:00)
[2020-05-06 22:16] VITALS: BP 140/81
[2020-05-07 00:39] VITALS: BP 116/74
[2020-05-07 07:11] LABS: BASOPHILS % (AUTO) 0.8 % (0.0-2.0); EOSINOPHILS % (AUTO) 7.9 % (1.0-6.0); HEMATOCRIT 43.7 % (41-53); LYMPHOCYTES # (AUTO) 2.4 K/uL (1.0-4.8); LYMPHOCYTES % (AUTO) 35.3 % (22.0-44.0); MEAN CORPUSCULAR HEMOGLOBIN 33.8 pg (26.0-34.0); MEAN CORPUSCULAR HGB CONC 34.3 G/dL (31.0-37.0); MEAN CORPUSCULAR VOLUME 98 fL (80-100); MONOCYTES # (AUTO) 0.3 K/uL (0.1-1.0); NEUTROPHILS # (AUTO) 3.5 K/uL (1.8-7.7); PLATELET COUNT (AUTO) 269 K/uL (150-450); RED BLOOD CELL COUNT(AUTO) 4.45 MIL/uL (4.50-5.90); RED CELL DISTRIBUTION WIDTH 13.3 % (11.5-14.5)
[2020-05-07 07:43] LABS: ALANINE AMINOTRANSFERASE 27 U/L (12-78); ALBUMIN 3.6 g/dL (3.4-5.0); ALKALINE PHOSPHATASE 50 U/L (46-116); ANION GAP 9 mmol/L (8-16); ASPARTATE AMINOTRANSFERASE 11 U/L (15-37); BILIRUBIN,TOTAL 0.3 mg/dL (0.1-1.0); CALCIUM, TOTAL 8.6 mg/dL (8.8-10.5); CARBON DIOXIDE 28 mmol/L (22-29); CHLORIDE 106 mmol/L (98-107); CHOL/HDL RATIO 4.5 (4.2-7.3); CHOLESTEROL 178 mg/dL (131-200); CREATININE 0.98 mg/dL (0.60-1.30); FREE T4 (FREE THYROXINE) 1.09 ng/dL (0.76-1.46); GLOMERULAR FILTR. RATE CALC > 60 mL/min (>60); GLUCOSE,RANDOM 93 mg/dL (70-110); HDL CHOLESTEROL 40 mg/dL (40-60); LDL CHOL (CALC.) 110 mg/dL (0-130); POTASSIUM 4.7 mmol/L (3.5-5.1); SODIUM SERUM 143 mmol/L (136-145); THYROID STIMULATING HORMONE 1.12 uIU/mL (0.36-3.74); TOTAL PROTEIN, SERUM 6.3 g/dL (6.4-8.2); TRIGLYCERIDES 142 mg/dL (15-150); UREA NITROGEN, BLOOD 14 mg/dL (7-18)
[2020-05-07 07:52] LABS: HEMOGLOBIN A1C 5.5 % (3.8-5.6)
[2020-05-07 08:19] VITALS: BP 132/89
[2020-05-07 17:08] VITALS: BP 128/75
[2020-05-07] MEDS: MIRTAZAPINE 15 MG TABLET PO SCH (20:18)
[2020-05-07] MEDS: TraZODone HCL 150 MG TABLET PO SCH (20:18)
[2020-05-08 06:03] VITALS: BP 124/82
[2020-05-08] MEDS ORDERED: OMEPRAZOLE 20 MG CAPSULE PO PRN (08:15)
[2020-05-08] MEDS ORDERED: ALBUTEROL SULFATE HFA 90 MCG/PUFF 8 GM INHALER IH PRN (08:15)
[2020-05-08] MEDS ORDERED: ACETAMINOPHEN 325 MG TABLET PO PRN (08:15)
[2020-05-08] MEDS ORDERED: MAG HYDROX/AL HYDROX/SIMETH ES 30 ML SUSPENSION UDCUP PO PRN (08:15)
[2020-05-08] MEDS ORDERED: MAGNESIUM HYDROXIDE SUSPENSION 30 ML UDCUP PO PRN (08:15)
[2020-05-08] MEDS ORDERED: LOPERAMIDE HCL 2 MG CAPSULE PO PRN (08:15)
[2020-05-08] MEDS ORDERED: PETROLATUM,WHITE 28 GM JELLY TP PRN (08:15)
[2020-05-08] MEDS ORDERED: ONDANSETRON HCL 4 MG TABLET PO PRN (08:15)
[2020-05-08] MEDS ORDERED: IBUPROFEN 600 MG TABLET PO PRN (08:15)
[2020-05-08] MEDS ORDERED: DOCUSATE SODIUM 100 MG CAPSULE PO PRN (08:15)
[2020-05-08] MEDS ORDERED: BACITRACIN 28.4 GM OINTMENT TP PRN (08:15)
[2020-05-08] MEDS ORDERED: BENZOCAINE/MENTHOL LOZENGE MM PRN (08:15)
[2020-05-08] MEDS ORDERED: CloNIDine HCL 0.1 MG TABLET PO PRN (08:15)
[2020-05-08 08:36] VITALS: BP 104/63
[2020-05-08 16:05] VITALS: BP 128/85
[2020-05-08] MEDS: MIRTAZAPINE 15 MG TABLET PO SCH (20:08)
[2020-05-08] MEDS: TraZODone HCL 150 MG TABLET PO SCH (20:08)
[2020-05-08] MEDS: LORazepam 2 MG TABLET PO PRN (20:08)
[2020-05-09 00:53] VITALS: BP 105/67
[2020-05-09 08:04] VITALS: BP 116/68
[2020-05-09 16:04] VITALS: BP 128/63
[2020-05-09] MEDS: LORazepam 2 MG TABLET PO PRN (20:11)
[2020-05-09] MEDS: TraZODone HCL 150 MG TABLET PO SCH (20:11)
[2020-05-09] MEDS: MIRTAZAPINE 15 MG TABLET PO SCH (20:11)
[2020-05-10 06:05] VITALS: BP 100/63
[2020-05-10 08:17] VITALS: BP 132/72
[2020-05-10 16:05] VITALS: BP 131/83
[2020-05-10] MEDS: MIRTAZAPINE 15 MG TABLET PO SCH (21:24)
[2020-05-10] MEDS: TraZODone HCL 150 MG TABLET PO SCH (21:24)
[2020-05-11 05:25] VITALS: BP 125/75
[2020-05-11 08:15] VITALS: BP 106/68
[2020-05-11 10:05] LABS: APPEARANCE,URINE CLEAR (CLEAR); BILIRUBIN,URINE NEGATIVE (NEGATIVE); GLUCOSE, URINE (UA) NEGATIVE (NEGATIVE); KETONES,URINE NEGATIVE (NEGATIVE); LEUKOCYTE ESTERASE ,URINE NEGATIVE (NEGATIVE); NITRATE,URINE NEGATIVE (NEGATIVE); OCCULT BLOOD,URINE NEGATIVE (NEGATIVE); PROTEIN,URINE NEGATIVE (NEGATIVE); UROBILINOGEN,URINE 0.2 mg/dL (<=1.0)
[2020-05-11 10:09] LABS: AMPHET/METH SCREEN,URINE NEGATIVE (NEGATIVE); BARBITURATE SCREEN, URINE NEGATIVE (NEGATIVE); BENZODIAZEPINES SCREEN,URINE NEGATIVE (NEGATIVE); CANNABINOID SCREEN,URINE NEGATIVE (NEGATIVE); COCAINE SCREEN,URINE NEGATIVE (NEGATIVE); METHADONE SCREEN, URINE NEGATIVE (NEGATIVE); OPIATE SCREEN,URINE NEGATIVE (NEGATIVE)
[2020-05-11 10:10] LABS: PHENCYCLIDINE SCREEN,URINE NEGATIVE (NEGATIVE)
[2020-05-11 16:13] VITALS: BP 109/72
[2020-05-11] MEDS: MIRTAZAPINE 15 MG TABLET PO SCH (20:26)
[2020-05-11] MEDS: TraZODone HCL 150 MG TABLET PO SCH (20:26)
[2020-05-12 05:26] VITALS: BP 100/60
[2020-05-12 08:05] VITALS: BP 106/56
[2020-05-12 16:07] VITALS: BP 123/66
[2020-05-12] MEDS: MIRTAZAPINE 15 MG TABLET PO SCH (20:37)
[2020-05-12] MEDS: TraZODone HCL 150 MG TABLET PO SCH (20:38)
[2020-05-13 00:30] VITALS: BP 128/79
[2020-05-13 08:41] VITALS: BP 100/64
[2020-05-13 16:00] VITALS: BP 122/83
[2020-05-13] MEDS: MIRTAZAPINE 15 MG TABLET PO SCH (20:10)
[2020-05-13] MEDS: TraZODone HCL 150 MG TABLET PO SCH (20:10)
[2020-05-14 06:35] VITALS: BP 119/74
[2020-05-14 08:08] VITALS: BP 115/67
[2020-05-14 16:44] VITALS: BP 117/79
[2020-05-14] MEDS: TraZODone HCL 150 MG TABLET PO SCH (20:27)
[2020-05-14] MEDS: MIRTAZAPINE 15 MG TABLET PO SCH (20:27)
[2020-05-15 05:34] VITALS: BP 126/84
[2020-05-15 08:07] VITALS: BP 115/67
== END 2020-05-15 15:30 | disposition home or self-care (01) | DRG 885 ==
LOC: B3A 21:55
DX: F33.2 Major depressive disorder, recurrent severe without psychotic features (principal); R45.851 Suicidal ideations; E78.5 Hyperlipidemia, unspecified; J44.9 Chronic obstructive pulmonary disease, unspecified; F41.9 Anxiety disorder, unspecified; G47.00 Insomnia, unspecified; K21.9 Gastro-esophageal reflux disease without esophagitis; Z59.0 Homelessness; Z79.899 Other long term (current) drug therapy
CPT/HCPCS: 80307; 83036; 84439; 84443

== ENCOUNTER 2020-12-12 19:57 | Inpatient (IN) | payer MEDICAID ==
[~2020-12-12] VITALS: Ht 170.2 cm; Wt 63.1 kg
[2020-12-12 21:57] LABS: COVID AG,FIA SOURCE NASAL SWAB
[2020-12-12] MEDS ORDERED: ZOLPIDEM TARTRATE 10 MG TABLET PO PRN (22:30)
[2020-12-12] MEDS ORDERED: LORazepam 2 MG TABLET PO PRN (22:30)
[2020-12-12] MEDS ORDERED: HALOPERIDOL 5 MG TABLET PO PRN (22:30)
[2020-12-13 00:01] VITALS: BP 130/71
[2020-12-13] MEDS ORDERED: NICOTINE 14 MG/24 HOUR PATCH TD PRN (08:15)
[2020-12-13] MEDS ORDERED: ONDANSETRON HCL 4 MG TABLET PO PRN (08:15)
[2020-12-13] MEDS ORDERED: LOPERAMIDE HCL 2 MG CAPSULE PO PRN (08:15)
[2020-12-13] MEDS ORDERED: GuaiFENesin/D-METHORPHAN [SUGAR-FREE] 200-20MG/10 ML SYRUP UDCUP PO PRN (08:15)
[2020-12-13] MEDS ORDERED: MAG HYDROX/AL HYDROX/SIMETH ES 30 ML SUSPENSION UDCUP PO PRN (08:15)
[2020-12-13] MEDS ORDERED: ACETAMINOPHEN 325 MG TABLET PO PRN (08:15)
[2020-12-13] MEDS ORDERED: CloNIDine HCL 0.1 MG TABLET PO PRN (08:15)
[2020-12-13] MEDS ORDERED: MAGNESIUM HYDROXIDE SUSPENSION 30 ML UDCUP PO PRN (08:15)
[2020-12-13] MEDS ORDERED: PETROLATUM,WHITE 28 GM JELLY TP PRN (08:15)
[2020-12-13] MEDS ORDERED: DOCUSATE SODIUM 100 MG CAPSULE PO PRN (08:15)
[2020-12-13] MEDS ORDERED: ALBUTEROL SULFATE HFA 90 MCG/PUFF 8 GM INHALER IH PRN (08:15)
[2020-12-13] MEDS ORDERED: IBUPROFEN 400 MG TABLET PO PRN (08:15)
[2020-12-13 08:40] VITALS: BP 132/79
[2020-12-13 16:12] VITALS: BP 131/78
[2020-12-13] MEDS ORDERED: TraZODone HCL 150 MG TABLET PO SCH (21:00)
[2020-12-13] MEDS: MIRTAZAPINE 15 MG TABLET PO SCH (21:01)
[2020-12-14 05:21] VITALS: BP 128/74
[2020-12-14 08:13] VITALS: BP 130/78
[2020-12-14 08:58] LABS: BASOPHILS % (AUTO) 0.5 % (0.0-2.0); EOSINOPHILS % (AUTO) 6.8 % (1.0-6.0); HEMATOCRIT 43.7 % (41-53); HEMOGLOBIN 15.1 g/dL (13.5-17.5); LYMPHOCYTES % (AUTO) 36.2 % (22.0-44.0); MEAN CORPUSCULAR HEMOGLOBIN 34.8 pg (26.0-34.0); MEAN CORPUSCULAR HGB CONC 34.7 G/dL (31.0-37.0); MEAN CORPUSCULAR VOLUME 100 fL (80-100); MONOCYTES # (AUTO) 0.3 K/uL (0.1-1.0); MONOCYTES % (AUTO) 5.1 % (2.0-9.0); NEUTROPHILS # (AUTO) 2.8 K/uL (1.8-7.7); NEUTROPHILS % (AUTO) 51.4 % (40.0-70.0); PLATELET COUNT (AUTO) 231 K/uL (150-450); RED BLOOD CELL COUNT(AUTO) 4.35 MIL/uL (4.50-5.90); RED CELL DISTRIBUTION WIDTH 12.2 % (11.5-14.5)
[2020-12-14 09:41] LABS: ALANINE AMINOTRANSFERASE 20 U/L (12-78); ALBUMIN 3.7 g/dL (3.4-5.0); ALKALINE PHOSPHATASE 58 U/L (46-116); ANION GAP 4 mmol/L (8-16); ASPARTATE AMINOTRANSFERASE 9 U/L (15-37); BILIRUBIN,TOTAL 0.6 mg/dL (0.1-1.0); CALCIUM, TOTAL 8.4 mg/dL (8.8-10.5); CARBON DIOXIDE 28 mmol/L (22-29); CHLORIDE 107 mmol/L (98-107); CHOL/HDL RATIO 4.7 (4.2-7.3); CHOLESTEROL 208 mg/dL (131-200); CREATININE 1.03 mg/dL (0.60-1.30); FREE T4 (FREE THYROXINE) 1.11 ng/dL (0.76-1.46); GLOMERULAR FILTR. RATE CALC > 60 mL/min (>60); GLUCOSE,RANDOM 75 mg/dL (70-110); HDL CHOLESTEROL 44 mg/dL (40-60); LDL CHOL (CALC.) 150 mg/dL (0-130); POTASSIUM 4.4 mmol/L (3.5-5.1); SODIUM SERUM 139 mmol/L (136-145); THYROID STIMULATING HORMONE 0.59 uIU/mL (0.36-3.74); TOTAL PROTEIN, SERUM 6.6 g/dL (6.4-8.2); TRIGLYCERIDES 71 mg/dL (15-150); UREA NITROGEN, BLOOD 13 mg/dL (7-18)
[2020-12-14 16:15] VITALS: BP 131/64
[2020-12-14] MEDS: MIRTAZAPINE 15 MG TABLET PO SCH (20:34)
[2020-12-14] MEDS: TraZODone HCL 50 MG TABLET PO SCH (20:34)
[2020-12-15 04:27] VITALS: BP 112/62
[2020-12-15 08:40] VITALS: BP 135/78
[2020-12-15 16:17] VITALS: BP 125/73
[2020-12-15] MEDS: TraZODone HCL 50 MG TABLET PO SCH (20:08)
[2020-12-15] MEDS: MIRTAZAPINE 15 MG TABLET PO SCH (20:08)
[2020-12-16 06:52] VITALS: BP 131/74
[2020-12-16 08:20] VITALS: BP 120/65
[2020-12-16 16:24] VITALS: BP 123/78
[2020-12-16] MEDS: MIRTAZAPINE 15 MG TABLET PO SCH (20:13)
[2020-12-16] MEDS: TraZODone HCL 50 MG TABLET PO SCH (20:13)
[2020-12-17 00:43] VITALS: BP 116/76
[2020-12-17 08:31] VITALS: BP 139/83
[2020-12-17 08:44] LABS: COVID AG,FIA SOURCE NASOPHARYNGEAL
[2020-12-17 08:59] LABS: APPEARANCE,URINE CLEAR (CLEAR); BILIRUBIN,URINE NEGATIVE (NEGATIVE); GLUCOSE, URINE (UA) NEGATIVE (NEGATIVE); KETONES,URINE NEGATIVE (NEGATIVE); LEUKOCYTE ESTERASE ,URINE NEGATIVE (NEGATIVE); NITRATE,URINE NEGATIVE (NEGATIVE); OCCULT BLOOD,URINE TRACE (NEGATIVE); PH,URINE 5.5 (5.0-8.0); PROTEIN,URINE NEGATIVE (NEGATIVE); UROBILINOGEN,URINE 0.2 mg/dL (<=1.0)
[2020-12-17 09:10] LABS: AMPHET/METH SCREEN,URINE NEGATIVE (NEGATIVE); BARBITURATE SCREEN, URINE NEGATIVE (NEGATIVE); BENZODIAZEPINES SCREEN,URINE NEGATIVE (NEGATIVE); CANNABINOID SCREEN,URINE NEGATIVE (NEGATIVE); COCAINE SCREEN,URINE NEGATIVE (NEGATIVE); METHADONE SCREEN, URINE NEGATIVE (NEGATIVE); OPIATE SCREEN,URINE NEGATIVE (NEGATIVE); PHENCYCLIDINE SCREEN,URINE NEGATIVE (NEGATIVE)
[2020-12-17 09:24] LABS: BACTERIA,URINE None Seen /HPF (None Seen); RBC,URINE 0-2 /HPF (0-2); SQUAMOUS EPITHELIAL CELL,UR Moderate /LPF (None Seen); WBC,URINE None Seen /HPF (0-5)
[2020-12-17 16:32] VITALS: BP 122/76
[2020-12-17] MEDS: TraZODone HCL 50 MG TABLET PO SCH (21:33)
[2020-12-17] MEDS: MIRTAZAPINE 15 MG TABLET PO SCH (21:33)
[2020-12-18 06:22] VITALS: BP 116/73
[2020-12-18 08:37] VITALS: BP 109/56
[2020-12-18 16:02] VITALS: BP 102/68
[2020-12-18] MEDS: TraZODone HCL 50 MG TABLET PO SCH (20:13)
[2020-12-18] MEDS ORDERED: MIRTAZAPINE 30 MG TABLET PO SCH (21:00)
[2020-12-19 00:31] VITALS: BP 103/62
[2020-12-19 08:08] VITALS: BP 121/69
[2020-12-19 16:08] VITALS: BP 113/72
[2020-12-19] MEDS ORDERED: MIRT30 PO (16:14)
[2020-12-19] MEDS ORDERED: TRAZ-184 PO (16:14)
== END 2020-12-19 17:00 | disposition designated cancer center or children's hospital (05) | DRG 751 ==
LOC: B2S 22:27
DX: F33.2 Major depressive disorder, recurrent severe without psychotic features (principal); R45.851 Suicidal ideations; E78.5 Hyperlipidemia, unspecified; Z20.822 Contact with and (suspected) exposure to COVID-19; K21.9 Gastro-esophageal reflux disease without esophagitis; J44.9 Chronic obstructive pulmonary disease, unspecified; Z59.0 Homelessness; Z87.11 Personal history of peptic ulcer disease; Z79.899 Other long term (current) drug therapy; Z88.8 Allergy status to other drugs, medicaments and biological substances
CPT/HCPCS: 80307; 83036; 84439; 84443; 87426

== ENCOUNTER 2021-01-27 16:14 | Inpatient (IN) | payer MEDICAID ==
[~2021-01-27] VITALS: Ht 170.2 cm; Wt 64.6 kg
[~2021-01-27 16:14] MED LIST changes: -MIRT-89 PO; +MIRT30 PO; +TRAZ-184 PO; -TRAZ150 PO
[2021-01-27 20:30] LABS: COVID AG,FIA SOURCE NASAL SWAB
[2021-01-27] MEDS ORDERED: HALOPERIDOL 5 MG TABLET PO PRN (21:15)
[2021-01-27] MEDS ORDERED: ZOLPIDEM TARTRATE 10 MG TABLET PO PRN (21:15)
[2021-01-27 21:22] VITALS: BP 155/84
[2021-01-27] MEDS: LORazepam 2 MG TABLET PO PRN (21:41)
[2021-01-27] MEDS ORDERED: -PHARMACY VACCINE NOTE- MISC ONE (22:30)
[2021-01-27 23:04] VITALS: BP 105/68
[2021-01-28 05:35] VITALS: BP 147/87
[2021-01-28 09:34] VITALS: BP 131/80
[2021-01-28] MEDS ORDERED: ALBUTEROL SULFATE HFA 90 MCG/PUFF 8 GM INHALER IH PRN (10:30)
[2021-01-28] MEDS ORDERED: ACETAMINOPHEN 325 MG TABLET PO PRN (10:30)
[2021-01-28] MEDS ORDERED: ONDANSETRON HCL 4 MG TABLET PO PRN (10:30)
[2021-01-28] MEDS ORDERED: PETROLATUM,WHITE 28 GM JELLY TP PRN (10:30)
[2021-01-28] MEDS ORDERED: CloNIDine HCL 0.1 MG TABLET PO PRN (10:30)
[2021-01-28] MEDS ORDERED: DOCUSATE SODIUM 100 MG CAPSULE PO PRN (10:30)
[2021-01-28] MEDS ORDERED: GuaiFENesin/D-METHORPHAN [SUGAR-FREE] 200-20MG/10 ML SYRUP UDCUP PO PRN (10:30)
[2021-01-28] MEDS ORDERED: NICOTINE 14 MG/24 HOUR PATCH TD PRN (10:30)
[2021-01-28] MEDS ORDERED: MAGNESIUM HYDROXIDE SUSPENSION 30 ML UDCUP PO PRN (10:30)
[2021-01-28] MEDS ORDERED: IBUPROFEN 400 MG TABLET PO PRN (10:30)
[2021-01-28] MEDS ORDERED: MAG HYDROX/AL HYDROX/SIMETH ES 30 ML SUSPENSION UDCUP PO PRN (10:30)
[2021-01-28] MEDS ORDERED: LOPERAMIDE HCL 2 MG CAPSULE PO PRN (10:30)
[2021-01-28 16:21] VITALS: BP 139/83
[2021-01-28] MEDS: TraZODone HCL 100 MG TABLET PO SCH (20:24)
[2021-01-28] MEDS: MIRTAZAPINE 15 MG TABLET PO SCH (20:24)
[2021-01-29 00:03] VITALS: BP 124/76
[2021-01-29 08:24] VITALS: BP 124/67
[2021-01-29] MEDS: LORazepam 2 MG TABLET PO PRN (09:39)
[2021-01-29 09:46] LABS: BASOPHILS % (AUTO) 0.3 % (0.0-2.0); EOSINOPHILS % (AUTO) 5.9 % (1.0-6.0); HEMATOCRIT 47.4 % (41-53); HEMOGLOBIN 15.7 g/dL (13.5-17.5); LYMPHOCYTES # (AUTO) 2.2 K/uL (1.0-4.8); LYMPHOCYTES % (AUTO) 36.6 % (22.0-44.0); MEAN CORPUSCULAR VOLUME 103 fL (80-100); MONOCYTES # (AUTO) 0.3 K/uL (0.1-1.0); MONOCYTES % (AUTO) 4.8 % (2.0-9.0); NEUTROPHILS # (AUTO) 3.1 K/uL (1.8-7.7); NEUTROPHILS % (AUTO) 52.4 % (40.0-70.0); PLATELET COUNT (AUTO) 260 K/uL (150-450); RED BLOOD CELL COUNT(AUTO) 4.61 MIL/uL (4.50-5.90); RED CELL DISTRIBUTION WIDTH 12.2 % (11.5-14.5)
[2021-01-29 10:03] LABS: HEMOGLOBIN A1C 4.8 % (3.8-5.6)
[2021-01-29 10:28] LABS: ALANINE AMINOTRANSFERASE 16 U/L (12-78); ALBUMIN 3.5 g/dL (3.4-5.0); ALKALINE PHOSPHATASE 53 U/L (46-116); ANION GAP 9 mmol/L (8-16); ASPARTATE AMINOTRANSFERASE 10 U/L (15-37); BILIRUBIN,TOTAL 0.4 mg/dL (0.1-1.0); CALCIUM, TOTAL 8.5 mg/dL (8.8-10.5); CARBON DIOXIDE 25 mmol/L (22-29); CHLORIDE 108 mmol/L (98-107); CHOL/HDL RATIO 4.2 (4.2-7.3); CHOLESTEROL 158 mg/dL (131-200); CREATININE 1.06 mg/dL (0.60-1.30); FREE T4 (FREE THYROXINE) 1.06 ng/dL (0.76-1.46); GLOMERULAR FILTR. RATE CALC > 60 mL/min (>60); GLUCOSE,RANDOM 76 mg/dL (70-110); HDL CHOLESTEROL 38 mg/dL (40-60); LDL CHOL (CALC.) 101 mg/dL (0-130); POTASSIUM 4.6 mmol/L (3.5-5.1); SODIUM SERUM 142 mmol/L (136-145); THYROID STIMULATING HORMONE 0.54 uIU/mL (0.36-3.74); TOTAL PROTEIN, SERUM 6.3 g/dL (6.4-8.2); TRIGLYCERIDES 96 mg/dL (15-150); UREA NITROGEN, BLOOD 14 mg/dL (7-18)
[2021-01-29 10:37] LABS: APPEARANCE,URINE CLEAR (CLEAR); BILIRUBIN,URINE NEGATIVE (NEGATIVE); GLUCOSE, URINE (UA) NEGATIVE (NEGATIVE); KETONES,URINE NEGATIVE (NEGATIVE); LEUKOCYTE ESTERASE ,URINE NEGATIVE (NEGATIVE); NITRATE,URINE NEGATIVE (NEGATIVE); OCCULT BLOOD,URINE SMALL (NEGATIVE); PH,URINE 6.5 (5.0-8.0); PROTEIN,URINE NEGATIVE (NEGATIVE); UROBILINOGEN,URINE 0.2 mg/dL (<=1.0)
[2021-01-29 10:45] LABS: AMPHET/METH SCREEN,URINE NEGATIVE (NEGATIVE); BARBITURATE SCREEN, URINE NEGATIVE (NEGATIVE); BENZODIAZEPINES SCREEN,URINE NEGATIVE (NEGATIVE); CANNABINOID SCREEN,URINE NEGATIVE (NEGATIVE); COCAINE SCREEN,URINE NEGATIVE (NEGATIVE); METHADONE SCREEN, URINE NEGATIVE (NEGATIVE); OPIATE SCREEN,URINE NEGATIVE (NEGATIVE)
[2021-01-29 10:49] LABS: PHENCYCLIDINE SCREEN,URINE NEGATIVE (NEGATIVE)
[2021-01-29 10:55] LABS: BACTERIA,URINE None Seen /HPF (None Seen); RBC,URINE 0-2 /HPF (0-2); WBC,URINE None Seen /HPF (0-5)
[2021-01-29 10:56] LABS: SQUAMOUS EPITHELIAL CELL,UR Few /LPF (None Seen); TRIPLE PHOSPHATE CRYSTAL,UR Few /LPF (None Seen)
[2021-01-29 16:16] VITALS: BP 101/60
[2021-01-29] MEDS: MIRTAZAPINE 15 MG TABLET PO SCH (20:27)
[2021-01-29] MEDS: TraZODone HCL 100 MG TABLET PO SCH (20:27)
[2021-01-30 04:31] VITALS: BP 101/68
[2021-01-30 08:16] VITALS: BP 111/62
[2021-01-30 16:25] VITALS: BP 111/76
[2021-01-30] MEDS: TraZODone HCL 100 MG TABLET PO SCH (20:32)
[2021-01-30] MEDS: MIRTAZAPINE 15 MG TABLET PO SCH (20:32)
[2021-01-31 01:08] VITALS: BP 102/63
[2021-01-31 08:42] VITALS: BP 122/60
[2021-01-31 16:17] VITALS: BP 123/78
[2021-01-31] MEDS: TraZODone HCL 100 MG TABLET PO SCH (20:13)
[2021-01-31] MEDS: MIRTAZAPINE 15 MG TABLET PO SCH (20:13)
[2021-02-01 06:19] VITALS: BP 116/68
[2021-02-01 08:20] LABS: COVID AG,FIA SOURCE NASOPHARYNGEAL
[2021-02-01 08:36] VITALS: BP 122/74
[2021-02-01 16:03] VITALS: BP 116/69
[2021-02-01] MEDS: TraZODone HCL 100 MG TABLET PO SCH (20:53)
[2021-02-01] MEDS: MIRTAZAPINE 15 MG TABLET PO SCH (20:53)
[2021-02-02 06:32] VITALS: BP 103/66
[2021-02-02 08:35] VITALS: BP 119/69
[2021-02-02 16:19] VITALS: BP 127/85
[2021-02-02] MEDS: MIRTAZAPINE 30 MG TABLET PO SCH (20:21)
[2021-02-02] MEDS: TraZODone HCL 100 MG TABLET PO SCH (20:21)
[2021-02-03 00:23] VITALS: BP 125/84
[2021-02-03 09:48] VITALS: BP 128/82
[2021-02-03 16:15] VITALS: BP 110/78
[2021-02-03] MEDS: TraZODone HCL 100 MG TABLET PO SCH (20:07)
[2021-02-03] MEDS: MIRTAZAPINE 30 MG TABLET PO SCH (20:07)
[2021-02-04 00:16] VITALS: BP 104/65
[2021-02-04 08:21] VITALS: BP 118/60
[2021-02-04 16:20] VITALS: BP 135/81
[2021-02-04] MEDS: MIRTAZAPINE 30 MG TABLET PO SCH (20:11)
[2021-02-04] MEDS: TraZODone HCL 100 MG TABLET PO SCH (20:11)
[2021-02-05 06:09] VITALS: BP 103/61
[2021-02-05 09:01] VITALS: BP 126/77
[2021-02-05 16:36] VITALS: BP 113/69
[2021-02-05] MEDS: TraZODone HCL 100 MG TABLET PO SCH (20:46)
[2021-02-05] MEDS: MIRTAZAPINE 30 MG TABLET PO SCH (20:46)
[2021-02-06 00:56] VITALS: BP 116/72
[2021-02-06 08:50] VITALS: BP 110/58
[2021-02-06 16:22] VITALS: BP 122/60
[2021-02-06] MEDS: TraZODone HCL 100 MG TABLET PO SCH (20:40)
[2021-02-06] MEDS: MIRTAZAPINE 30 MG TABLET PO SCH (20:40)
[2021-02-07 01:40] VITALS: BP 103/62
[2021-02-07 08:31] VITALS: BP 123/51
[2021-02-07 16:22] VITALS: BP 109/75
[2021-02-07] MEDS: MIRTAZAPINE 30 MG TABLET PO SCH (20:44)
[2021-02-07] MEDS: TraZODone HCL 100 MG TABLET PO SCH (20:44)
[2021-02-08 00:15] VITALS: BP 96/55
[2021-02-08 08:20] LABS: COVID AG,FIA SOURCE NASOPHARYNGEAL
[2021-02-08 08:27] VITALS: BP 111/79
[2021-02-08 16:34] VITALS: BP 124/82
[2021-02-08] MEDS: TraZODone HCL 100 MG TABLET PO SCH (20:28)
[2021-02-08] MEDS: MIRTAZAPINE 30 MG TABLET PO SCH (20:28)
[2021-02-09 01:10] VITALS: BP 102/64
[2021-02-09 08:35] VITALS: BP 119/66
[2021-02-09 16:21] VITALS: BP 105/61
[2021-02-09] MEDS: MIRTAZAPINE 30 MG TABLET PO SCH (20:33)
[2021-02-09] MEDS: TraZODone HCL 100 MG TABLET PO SCH (20:35)
[2021-02-10 06:04] VITALS: BP 119/78
[2021-02-10 08:25] VITALS: BP 128/75
[2021-02-10 16:00] VITALS: BP 119/77
[2021-02-10] MEDS: TraZODone HCL 100 MG TABLET PO SCH (20:25)
[2021-02-10] MEDS: MIRTAZAPINE 30 MG TABLET PO SCH (20:25)
[2021-02-11 06:02] VITALS: BP 103/50
[2021-02-11 08:00] VITALS: BP 124/75
[2021-02-11 16:23] VITALS: BP 111/64
[2021-02-11] MEDS: TraZODone HCL 100 MG TABLET PO SCH (20:47)
[2021-02-11] MEDS: MIRTAZAPINE 30 MG TABLET PO SCH (20:47)
[2021-02-12 06:27] VITALS: BP 120/83
[2021-02-12 08:46] VITALS: BP 110/71
[2021-02-12 16:24] VITALS: BP 117/68
[2021-02-12] MEDS: LORazepam 2 MG TABLET PO PRN (18:19)
[2021-02-12] MEDS: MIRTAZAPINE 30 MG TABLET PO SCH (20:25)
[2021-02-12] MEDS: TraZODone HCL 100 MG TABLET PO SCH (20:25)
[2021-02-13 00:42] VITALS: BP 105/60
[2021-02-13 08:45] VITALS: BP 106/68
[2021-02-13 16:20] VITALS: BP 115/91
[2021-02-13] MEDS: MIRTAZAPINE 30 MG TABLET PO SCH (20:34)
[2021-02-13] MEDS: TraZODone HCL 100 MG TABLET PO SCH (20:34)
[2021-02-14 06:30] VITALS: BP 119/69
[2021-02-14 08:36] VITALS: BP 138/96
[2021-02-14 16:49] VITALS: BP 118/67
[2021-02-14] MEDS: MIRTAZAPINE 30 MG TABLET PO SCH (20:27)
[2021-02-14] MEDS: TraZODone HCL 100 MG TABLET PO SCH (20:27)
[2021-02-15 01:02] VITALS: BP 105/62
[2021-02-15 08:11] VITALS: BP 114/72
[2021-02-15 08:18] LABS: COVID AG,FIA SOURCE NASOPHARYNGEAL
[2021-02-15] MEDS ORDERED: MIRT30 PO (11:02)
[2021-02-15] MEDS ORDERED: TRAZ-257 PO (11:02)
== END 2021-02-15 17:15 | disposition home or self-care (01) | DRG 751 ==
LOC: B3A 21:05 → B2S 01-28 18:51
DX: F33.2 Major depressive disorder, recurrent severe without psychotic features (principal); R45.851 Suicidal ideations; F41.9 Anxiety disorder, unspecified; J44.9 Chronic obstructive pulmonary disease, unspecified; K21.9 Gastro-esophageal reflux disease without esophagitis; E78.5 Hyperlipidemia, unspecified; G47.00 Insomnia, unspecified; Z88.8 Allergy status to other drugs, medicaments and biological substances; Z79.899 Other long term (current) drug therapy; Z20.822 Contact with and (suspected) exposure to COVID-19
CPT/HCPCS: 80307; 83036; 84439; 84443; 87426

== ENCOUNTER 2021-03-26 09:23 | Emergency (ER) | payer MEDICAID, OTHER ==
[~2021-03-26] VITALS: Ht 170.2 cm; Wt 65.0 kg
[~2021-03-26 09:23] MED LIST changes: -TRAZ-184 PO; +TRAZ-257 PO
[2021-03-26 10:42] LABS: BASOPHILS % (AUTO) 0.4 % (0.0-2.0); EOSINOPHILS % (AUTO) 1.4 % (1.0-6.0); HEMOGLOBIN 14.8 g/dL (13.5-17.5); LYMPHOCYTES # (AUTO) 1.8 K/uL (1.0-4.8); LYMPHOCYTES % (AUTO) 24.6 % (22.0-44.0); MEAN CORPUSCULAR HEMOGLOBIN 33.9 pg (26.0-34.0); MEAN CORPUSCULAR HGB CONC 34.3 G/dL (31.0-37.0); MEAN CORPUSCULAR VOLUME 99 fL (80-100); MONOCYTES # (AUTO) 0.3 K/uL (0.1-1.0); MONOCYTES % (AUTO) 4.3 % (2.0-9.0); NEUTROPHILS # (AUTO) 4.9 K/uL (1.8-7.7); NEUTROPHILS % (AUTO) 69.3 % (40.0-70.0); PLATELET COUNT (AUTO) 246 K/uL (150-450); RED BLOOD CELL COUNT(AUTO) 4.35 MIL/uL (4.50-5.90); RED CELL DISTRIBUTION WIDTH 12.5 % (11.5-14.5)
[2021-03-26 10:52] LABS: ANION GAP 8 mmol/L (8-16); CALCIUM, TOTAL 8.8 mg/dL (8.8-10.5); CARBON DIOXIDE 27 mmol/L (22-29); CHLORIDE 105 mmol/L (98-107); CREATININE 0.87 mg/dL (0.60-1.30); GLOMERULAR FILTR. RATE CALC > 60 mL/min (>60); GLUCOSE,RANDOM 82 mg/dL (70-110); POTASSIUM 5.1 mmol/L (3.5-5.1); SODIUM SERUM 140 mmol/L (136-145); UREA NITROGEN, BLOOD 18 mg/dL (7-18)
[2021-03-26 10:57] LABS: ALANINE AMINOTRANSFERASE 29 U/L (12-78); ALBUMIN 4.1 g/dL (3.4-5.0); ALKALINE PHOSPHATASE 59 U/L (46-116); ASPARTATE AMINOTRANSFERASE 17 U/L (15-37); BILIRUBIN,TOTAL 0.6 mg/dL (0.1-1.0); TOTAL PROTEIN, SERUM 6.6 g/dL (6.4-8.2)
[2021-03-26 11:38] LABS: AMPHET/METH SCREEN,URINE NEGATIVE (NEGATIVE); BARBITURATE SCREEN, URINE NEGATIVE (NEGATIVE); BENZODIAZEPINES SCREEN,URINE NEGATIVE (NEGATIVE); CANNABINOID SCREEN,URINE NEGATIVE (NEGATIVE); COCAINE SCREEN,URINE NEGATIVE (NEGATIVE); METHADONE SCREEN, URINE NEGATIVE (NEGATIVE); OPIATE SCREEN,URINE NEGATIVE (NEGATIVE)
[2021-03-26 11:39] LABS: PHENCYCLIDINE SCREEN,URINE NEGATIVE (NEGATIVE)
[2021-03-26 13:57] VITALS: BP 130/82
== END 2021-03-26 14:23 | disposition home or self-care (01) ==
LOC: EMS 09:27
DX: R45.851 Suicidal ideations (principal); G47.00 Insomnia, unspecified; F41.9 Anxiety disorder, unspecified; F31.9 Bipolar disorder, unspecified; F20.9 Schizophrenia, unspecified; F17.210 Nicotine dependence, cigarettes, uncomplicated; Z88.1 Allergy status to other antibiotic agents
CPT/HCPCS: 36415; 80053; 80307; 85025; 99284; G0480

== ENCOUNTER 2021-04-24 13:55 | Emergency (ER) | payer OTHER ==
[~2021-04-24] VITALS: Ht 170.2 cm; Wt 65.0 kg
[2021-04-24 18:23] LABS: BASOPHILS % (AUTO) 0.4 % (0.0-2.0); EOSINOPHILS % (AUTO) 1.4 % (1.0-6.0); HEMATOCRIT 48.9 % (41-53); HEMOGLOBIN 16.9 g/dL (13.5-17.5); LYMPHOCYTES # (AUTO) 2.3 K/uL (1.0-4.8); LYMPHOCYTES % (AUTO) 22.7 % (22.0-44.0); MEAN CORPUSCULAR HEMOGLOBIN 34.2 pg (26.0-34.0); MEAN CORPUSCULAR HGB CONC 34.6 G/dL (31.0-37.0); MEAN CORPUSCULAR VOLUME 99 fL (80-100); MONOCYTES # (AUTO) 0.4 K/uL (0.1-1.0); MONOCYTES % (AUTO) 3.7 % (2.0-9.0); NEUTROPHILS # (AUTO) 7.3 K/uL (1.8-7.7); NEUTROPHILS % (AUTO) 71.8 % (40.0-70.0); PLATELET COUNT (AUTO) 285 K/uL (150-450); RED BLOOD CELL COUNT(AUTO) 4.96 MIL/uL (4.50-5.90); RED CELL DISTRIBUTION WIDTH 12.5 % (11.5-14.5)
[2021-04-24 18:36] LABS: ANION GAP 12 mmol/L (8-16); CALCIUM, TOTAL 8.8 mg/dL (8.8-10.5); CARBON DIOXIDE 24 mmol/L (22-29); CHLORIDE 107 mmol/L (98-107); CREATININE 1.05 mg/dL (0.60-1.30); GLOMERULAR FILTR. RATE CALC > 60 mL/min (>60); GLUCOSE,RANDOM 97 mg/dL (70-110); SODIUM SERUM 143 mmol/L (136-145); UREA NITROGEN, BLOOD 14 mg/dL (7-18)
[2021-04-24 18:44] LABS: ALANINE AMINOTRANSFERASE 27 U/L (12-78); ALBUMIN 4.7 g/dL (3.4-5.0); ALKALINE PHOSPHATASE 68 U/L (46-116); ASPARTATE AMINOTRANSFERASE 16 U/L (15-37); BILIRUBIN,TOTAL 0.5 mg/dL (0.1-1.0); TOTAL PROTEIN, SERUM 7.7 g/dL (6.4-8.2)
[2021-04-24] MEDS ORDERED: LORazepam 2 MG TABLET PO PRN (19:30)
[2021-04-24] MEDS ORDERED: QUEtiapine FUMARATE 100 MG TABLET PO PRN (19:30)
[2021-04-24] MEDS ORDERED: ZOLPIDEM TARTRATE 10 MG TABLET PO PRN (19:30)
[2021-04-24 19:43] LABS: COVID AG,FIA SOURCE NASOPHARYNGEAL
[2021-04-24 20:32] LABS: AMPHET/METH SCREEN,URINE NEGATIVE (NEGATIVE); BARBITURATE SCREEN, URINE NEGATIVE (NEGATIVE); BENZODIAZEPINES SCREEN,URINE NEGATIVE (NEGATIVE); CANNABINOID SCREEN,URINE NEGATIVE (NEGATIVE); COCAINE SCREEN,URINE NEGATIVE (NEGATIVE); METHADONE SCREEN, URINE NEGATIVE (NEGATIVE); OPIATE SCREEN,URINE NEGATIVE (NEGATIVE); PHENCYCLIDINE SCREEN,URINE NEGATIVE (NEGATIVE)
[2021-04-25 02:23] LABS: APPEARANCE,URINE TURBID (CLEAR); BILIRUBIN,URINE NEGATIVE (NEGATIVE); GLUCOSE, URINE (UA) NEGATIVE (NEGATIVE); KETONES,URINE TRACE mg/dL (NEGATIVE); LEUKOCYTE ESTERASE ,URINE NEGATIVE (NEGATIVE); NITRATE,URINE NEGATIVE (NEGATIVE); OCCULT BLOOD,URINE MODERATE (NEGATIVE); PH,URINE 5.5 (5.0-8.0); PROTEIN,URINE NEGATIVE (NEGATIVE); UROBILINOGEN,URINE 0.2 mg/dL (<=1.0)
[2021-04-25 02:26] LABS: AMORPHOUS SEDIMENT,UR Many /LPF (None Seen); BACTERIA,URINE Moderate /HPF (None Seen); RBC,URINE 0-2 /HPF (0-2); WBC,URINE 0-2 /HPF (0-5)
[2021-04-25 02:26] LABS: CHOL/HDL RATIO 4.5 (4.2-7.3); CHOLESTEROL 238 mg/dL (131-200); HDL CHOLESTEROL 53 mg/dL (40-60); LDL CHOL (CALC.) 169 mg/dL (0-130); TRIGLYCERIDES 81 mg/dL (15-150)
[2021-04-25] MEDS ORDERED: DOCUSATE SODIUM 100 MG CAPSULE PO PRN (08:00)
[2021-04-25] MEDS ORDERED: ONDANSETRON HCL 4 MG TABLET PO PRN (08:00)
[2021-04-25] MEDS ORDERED: NICOTINE 14 MG/24 HOUR PATCH TD PRN (08:00)
[2021-04-25] MEDS ORDERED: LOPERAMIDE HCL 2 MG CAPSULE PO PRN (08:00)
[2021-04-25] MEDS ORDERED: CloNIDine HCL 0.1 MG TABLET PO PRN (08:00)
[2021-04-25] MEDS ORDERED: GuaiFENesin/D-METHORPHAN [SUGAR-FREE] 200-20MG/10 ML SYRUP UDCUP PO PRN (08:00)
[2021-04-25] MEDS ORDERED: MAG HYDROX/AL HYDROX/SIMETH ES 30 ML SUSPENSION UDCUP PO PRN (08:00)
[2021-04-25] MEDS ORDERED: ALBUTEROL SULFATE HFA 90 MCG/PUFF 8 GM INHALER IH PRN (08:00)
[2021-04-25] MEDS ORDERED: MAGNESIUM HYDROXIDE SUSPENSION 30 ML UDCUP PO PRN (08:00)
[2021-04-25] MEDS ORDERED: PETROLATUM,WHITE 28 GM JELLY TP PRN (08:00)
[2021-04-25] MEDS ORDERED: ACETAMINOPHEN 325 MG TABLET PO PRN (08:00)
[2021-04-25] MEDS ORDERED: IBUPROFEN 400 MG TABLET PO PRN (08:00)
[2021-04-25 14:27] VITALS: BP 140/88
== END 2021-04-25 16:58 | disposition home or self-care (01) ==
LOC: EMS 14:16
DX: F33.3 Major depressive disorder, recurrent, severe with psychotic symptoms (principal); Z20.822 Contact with and (suspected) exposure to COVID-19; R82.90 Unspecified abnormal findings in urine
CPT/HCPCS: 36415; 80053; 80061; 80307; 81001; 85025; 87086; 87426; 99285; G0480

== ENCOUNTER 2021-11-26 13:27 | Emergency (ER) | payer MEDICAID, OTHER ==
[~2021-11-26] VITALS: Ht 170.2 cm; Wt 65.9 kg
[~2021-11-26 13:27] MED LIST changes: +MELA5TAB40 PO; +MIRT-89 PO; -MIRT30 PO; +NALT50TA PO; +OLAN10TA26 PO; +OMEG-135 PO; -TRAZ-257 PO; +TRAZ-283 PO
[2021-11-26 13:51] VITALS: BP 147/110
[2021-11-26 14:23] LABS: BASOPHILS % (AUTO) 0.5 % (0.0-2.0); EOSINOPHILS % (AUTO) 0.1 % (1.0-6.0); HEMATOCRIT 52.4 % (41-53); HEMOGLOBIN 18.3 g/dL (13.5-17.5); LYMPHOCYTES # (AUTO) 0.9 K/uL (1.0-4.8); MEAN CORPUSCULAR HEMOGLOBIN 33.3 pg (26.0-34.0); MEAN CORPUSCULAR HGB CONC 34.8 G/dL (31.0-37.0); MEAN CORPUSCULAR VOLUME 96 fL (80-100); MONOCYTES # (AUTO) 0.3 K/uL (0.1-1.0); MONOCYTES % (AUTO) 7.9 % (2.0-9.0); NEUTROPHILS # (AUTO) 2.9 K/uL (1.8-7.7); NEUTROPHILS % (AUTO) 69.5 % (40.0-70.0); PLATELET COUNT (AUTO) 235 K/uL (150-450); RED BLOOD CELL COUNT(AUTO) 5.48 MIL/uL (4.50-5.90); RED CELL DISTRIBUTION WIDTH 12.5 % (11.5-14.5)
[2021-11-26 14:30] LABS: ANION GAP 9 mmol/L (8-16); CALCIUM, TOTAL 8.8 mg/dL (8.8-10.5); CARBON DIOXIDE 26 mmol/L (22-29); CHLORIDE 104 mmol/L (98-107); GLOMERULAR FILTR. RATE CALC 57 mL/min (>60); GLUCOSE,RANDOM 151 mg/dL (70-110); POTASSIUM 4.4 mmol/L (3.5-5.1); SODIUM SERUM 139 mmol/L (136-145); UREA NITROGEN, BLOOD 18 mg/dL (7-18)
[2021-11-26 14:36] LABS: ALANINE AMINOTRANSFERASE 23 U/L (12-78); ALBUMIN 4.2 g/dL (3.4-5.0); ALKALINE PHOSPHATASE 72 U/L (46-116); ASPARTATE AMINOTRANSFERASE 15 U/L (15-37); BILIRUBIN,TOTAL 0.5 mg/dL (0.1-1.0); LIPASE 633 U/L (73-393)
== END 2021-11-26 20:05 | disposition left against medical advice (07) ==
LOC: EMS 13:55
DX: F32.9 Major depressive disorder, single episode, unspecified (principal); R45.851 Suicidal ideations; F20.9 Schizophrenia, unspecified
CPT/HCPCS: 36415; 80053; 83690; 85025; 99283; G0480

== ENCOUNTER 2021-12-02 10:12 | Inpatient (IN) | payer OTHER ==
[~2021-12-02] VITALS: Ht 170.2 cm; Wt 58.3 kg
[2021-12-02 11:20] LABS: COVID AG,FIA SOURCE NASOPHARYNGEAL
[2021-12-02 11:30] LABS: BASOPHILS % (AUTO) 0.3 % (0.0-2.0); EOSINOPHILS % (AUTO) 0.1 % (1.0-6.0); HEMATOCRIT 50.8 % (41-53); HEMOGLOBIN 18.2 g/dL (13.5-17.5); LYMPHOCYTES # (AUTO) 1.1 K/uL (1.0-4.8); LYMPHOCYTES % (AUTO) 13.4 % (22.0-44.0); MEAN CORPUSCULAR HEMOGLOBIN 33.8 pg (26.0-34.0); MEAN CORPUSCULAR HGB CONC 35.8 G/dL (31.0-37.0); MEAN CORPUSCULAR VOLUME 94 fL (80-100); MONOCYTES # (AUTO) 0.6 K/uL (0.1-1.0); MONOCYTES % (AUTO) 6.9 % (2.0-9.0); NEUTROPHILS # (AUTO) 6.4 K/uL (1.8-7.7); NEUTROPHILS % (AUTO) 79.3 % (40.0-70.0); PLATELET COUNT (AUTO) 188 K/uL (150-450); RED BLOOD CELL COUNT(AUTO) 5.38 MIL/uL (4.50-5.90)
[2021-12-02 11:36] LABS: ANION GAP 10 mmol/L (8-16); CALCIUM, TOTAL 8.6 mg/dL (8.8-10.5); CARBON DIOXIDE 28 mmol/L (22-29); CHLORIDE 102 mmol/L (98-107); CREATININE 1.05 mg/dL (0.60-1.30); GLOMERULAR FILTR. RATE CALC > 60 mL/min (>60); GLUCOSE,RANDOM 99 mg/dL (70-110); POTASSIUM 4.2 mmol/L (3.5-5.1); SODIUM SERUM 140 mmol/L (136-145); UREA NITROGEN, BLOOD 14 mg/dL (7-18)
[2021-12-02 11:41] LABS: ALANINE AMINOTRANSFERASE 22 U/L (12-78); ALBUMIN 3.7 g/dL (3.4-5.0); ALKALINE PHOSPHATASE 78 U/L (46-116); ASPARTATE AMINOTRANSFERASE 15 U/L (15-37); BILIRUBIN,TOTAL 0.7 mg/dL (0.1-1.0); TOTAL PROTEIN, SERUM 7.6 g/dL (6.4-8.2)
[2021-12-02 11:48] LABS: AMPHET/METH SCREEN,URINE NEGATIVE (NEGATIVE); BARBITURATE SCREEN, URINE NEGATIVE (NEGATIVE); BENZODIAZEPINES SCREEN,URINE NEGATIVE (NEGATIVE); CANNABINOID SCREEN,URINE NEGATIVE (NEGATIVE); COCAINE SCREEN,URINE NEGATIVE (NEGATIVE); METHADONE SCREEN, URINE NEGATIVE (NEGATIVE); OPIATE SCREEN,URINE NEGATIVE (NEGATIVE); PHENCYCLIDINE SCREEN,URINE NEGATIVE (NEGATIVE)
[2021-12-02] MEDS ORDERED: ACETAMINOPHEN 325 MG TABLET PO PRN (13:00)
[2021-12-02] MEDS ORDERED: ONDANSETRON HCL 4 MG/2 ML VIAL IVP PRN (13:00)
[2021-12-02] MEDS ORDERED: MAGNESIUM HYDROXIDE SUSPENSION 30 ML UDCUP PO PRN (17:00)
[2021-12-02] MEDS ORDERED: ZOLPIDEM TARTRATE 5 MG TABLET PO PRN (17:00)
[2021-12-02] MEDS ORDERED: ALBUTEROL SULFATE HFA 90 MCG/PUFF 8 GM INHALER IH PRN (17:15)
[2021-12-02] MEDS ORDERED: BENZONATATE 100 MG CAPSULE PO PRN (17:15)
[2021-12-02 21:06] VITALS: BP 128/91
[2021-12-02] MEDS: ACETAMINOPHEN 325 MG TABLET PO PRN (21:20)
[2021-12-02] MEDS ORDERED: INFLUENZA VIRUS VACCINE QVS 2021-22 (6MO+)/PF 60 MCG/0.5 ML SYRINGE IM. ONE (21:45)
[2021-12-03] MEDS: HEPARIN SODIUM,PORCINE 5,000 UNITS/ML VIAL SQ SCH ×4 (00:17→23:17)
[2021-12-03 04:23] VITALS: BP 136/88
[2021-12-03 07:52] VITALS: BP 130/86
[2021-12-03] MEDS ORDERED: OLANZapine 5 MG RAPDIS TABLET PO PRN (09:45)
[2021-12-03] MEDS: FAMOTIDINE 20 MG TABLET PO SCH (10:21)
[2021-12-03] MEDS ORDERED: ZOLPIDEM TARTRATE 10 MG TABLET PO PRN (12:00)
[2021-12-03] MEDS ORDERED: HydrOXYzine PAMOATE 50 MG CAPSULE PO PRN (12:00)
[2021-12-03 12:23] LABS: COVID AG,FIA SOURCE NASAL SWAB
[2021-12-03] MEDS: LORazepam 2 MG TABLET PO PRN (12:29)
[2021-12-03 15:37] VITALS: BP 127/94
[2021-12-03 19:45] VITALS: BP 138/84
[2021-12-03] MEDS: MIRTAZAPINE 15 MG TABLET PO SCH (20:05)
[2021-12-03] MEDS: TraZODone HCL 50 MG TABLET PO SCH (20:05)
[2021-12-03] MEDS: MELATONIN 5 MG TABLET PO SCH (20:06)
[2021-12-03] MEDS: OLANZapine 5 MG RAPDIS TABLET PO SCH (20:06)
[2021-12-04 05:15] VITALS: BP 117/71
[2021-12-04] MEDS: ACETAMINOPHEN 325 MG TABLET PO PRN (05:27)
[2021-12-04 07:43] VITALS: BP 108/73
[2021-12-04] MEDS: HEPARIN SODIUM,PORCINE 5,000 UNITS/ML VIAL SQ SCH ×3 (08:00→23:29)
[2021-12-04] MEDS: NALTREXONE HCL 50 MG TABLET PO SCH (10:24)
[2021-12-04] MEDS: OMEGA-3/DHA/EPA/FISH OIL 1,000 MG CAPSULE PO SCH (10:24)
[2021-12-04] MEDS: FAMOTIDINE 20 MG TABLET PO SCH (10:24)
[2021-12-04 15:14] VITALS: BP 125/84
[2021-12-04] MEDS: MIRTAZAPINE 15 MG TABLET PO SCH (20:29)
[2021-12-04] MEDS: OLANZapine 5 MG RAPDIS TABLET PO SCH (20:29)
[2021-12-04] MEDS: TraZODone HCL 50 MG TABLET PO SCH (20:29)
[2021-12-04] MEDS: MELATONIN 5 MG TABLET PO SCH (20:29)
[2021-12-04 20:46] VITALS: BP 115/78
[2021-12-05 04:59] VITALS: BP 118/81
[2021-12-05 07:31] VITALS: BP 126/72
[2021-12-05] MEDS: HEPARIN SODIUM,PORCINE 5,000 UNITS/ML VIAL SQ SCH ×3 (09:28→23:37)
[2021-12-05] MEDS: NALTREXONE HCL 50 MG TABLET PO SCH (09:28)
[2021-12-05] MEDS: FAMOTIDINE 20 MG TABLET PO SCH (09:28)
[2021-12-05] MEDS: OMEGA-3/DHA/EPA/FISH OIL 1,000 MG CAPSULE PO SCH (09:28)
[2021-12-05 15:03] VITALS: BP 121/87
[2021-12-05 20:04] VITALS: BP 108/73
[2021-12-05] MEDS: MELATONIN 5 MG TABLET PO SCH (20:59)
[2021-12-05] MEDS: OLANZapine 5 MG RAPDIS TABLET PO SCH (21:00)
[2021-12-05] MEDS: MIRTAZAPINE 15 MG TABLET PO SCH (21:00)
[2021-12-05] MEDS: TraZODone HCL 50 MG TABLET PO SCH (21:00)
[2021-12-06 05:28] VITALS: BP 123/75
[2021-12-06 07:39] VITALS: BP 118/78
[2021-12-06] MEDS: OMEGA-3/DHA/EPA/FISH OIL 1,000 MG CAPSULE PO SCH (08:46)
[2021-12-06] MEDS: HEPARIN SODIUM,PORCINE 5,000 UNITS/ML VIAL SQ SCH ×3 (08:46→23:09)
[2021-12-06] MEDS: NALTREXONE HCL 50 MG TABLET PO SCH (08:46)
[2021-12-06] MEDS: FAMOTIDINE 20 MG TABLET PO SCH (08:46)
[2021-12-06 15:00] VITALS: BP 132/82
[2021-12-06] MEDS: LORazepam 2 MG TABLET PO PRN (15:10)
[2021-12-06 19:43] VITALS: BP 118/63
[2021-12-06] MEDS: MIRTAZAPINE 15 MG TABLET PO SCH (21:29)
[2021-12-06] MEDS: TraZODone HCL 50 MG TABLET PO SCH (21:29)
[2021-12-06] MEDS: OLANZapine 5 MG RAPDIS TABLET PO SCH (21:30)
[2021-12-06] MEDS: MELATONIN 5 MG TABLET PO SCH (21:30)
[2021-12-07 03:47] VITALS: BP 118/76
[2021-12-07 08:33] VITALS: BP 127/90
[2021-12-07] MEDS: HEPARIN SODIUM,PORCINE 5,000 UNITS/ML VIAL SQ SCH ×3 (08:42→23:42)
[2021-12-07] MEDS: OMEGA-3/DHA/EPA/FISH OIL 1,000 MG CAPSULE PO SCH (08:42)
[2021-12-07] MEDS: NALTREXONE HCL 50 MG TABLET PO SCH (08:43)
[2021-12-07] MEDS: FAMOTIDINE 20 MG TABLET PO SCH (08:43)
[2021-12-07 16:01] VITALS: BP 127/85
[2021-12-07 20:00] VITALS: BP 110/69
[2021-12-07] MEDS: MIRTAZAPINE 15 MG TABLET PO SCH (20:29)
[2021-12-07] MEDS: MELATONIN 5 MG TABLET PO SCH (20:29)
[2021-12-07] MEDS: TraZODone HCL 50 MG TABLET PO SCH (20:29)
[2021-12-07] MEDS: OLANZapine 5 MG RAPDIS TABLET PO SCH (20:30)
[2021-12-08 03:00] VITALS: BP 125/84
[2021-12-08 07:14] LABS: CHOL/HDL RATIO 7.1 (4.2-7.3); MAGNESIUM 2.4 mg/dL (1.80-2.40); PHOSPHORUS 3.6 mg/dL (2.5-4.9)
[2021-12-08] MEDS: OMEGA-3/DHA/EPA/FISH OIL 1,000 MG CAPSULE PO SCH (08:03)
[2021-12-08] MEDS: MULTIVITAMINS WITH MINERALS, THERAPEUTIC TABLET PO SCH (08:03)
[2021-12-08] MEDS: HEPARIN SODIUM,PORCINE 5,000 UNITS/ML VIAL SQ SCH ×3 (08:03→23:46)
[2021-12-08] MEDS: FAMOTIDINE 20 MG TABLET PO SCH (08:04)
[2021-12-08] MEDS: NALTREXONE HCL 50 MG TABLET PO SCH (08:04)
[2021-12-08 09:24] VITALS: BP 133/80
[2021-12-08 15:50] VITALS: BP 127/78
[2021-12-08 19:47] VITALS: BP 106/66
[2021-12-08] MEDS: TraZODone HCL 50 MG TABLET PO SCH (20:28)
[2021-12-08] MEDS: MELATONIN 5 MG TABLET PO SCH (20:28)
[2021-12-08] MEDS: MIRTAZAPINE 15 MG TABLET PO SCH (20:28)
[2021-12-08] MEDS: OLANZapine 5 MG RAPDIS TABLET PO SCH (21:00)
[2021-12-09 00:07] VITALS: BP 120/70
[2021-12-09 04:07] VITALS: BP 150/92
[2021-12-09 07:47] VITALS: BP 128/94
[2021-12-09] MEDS: HEPARIN SODIUM,PORCINE 5,000 UNITS/ML VIAL SQ SCH ×2 (08:29→15:21)
[2021-12-09] MEDS: OMEGA-3/DHA/EPA/FISH OIL 1,000 MG CAPSULE PO SCH (08:30)
[2021-12-09] MEDS: NALTREXONE HCL 50 MG TABLET PO SCH (08:30)
[2021-12-09] MEDS: FAMOTIDINE 20 MG TABLET PO SCH (08:30)
[2021-12-09] MEDS: MULTIVITAMINS WITH MINERALS, THERAPEUTIC TABLET PO SCH (08:30)
[2021-12-09] MEDS: LORazepam 2 MG TABLET PO PRN (10:50)
[2021-12-09 15:28] VITALS: BP 123/80
[2021-12-09 19:45] VITALS: BP 117/71
[2021-12-09] MEDS: OLANZapine 5 MG RAPDIS TABLET PO SCH (20:28)
[2021-12-09] MEDS: MELATONIN 5 MG TABLET PO SCH (20:28)
[2021-12-09] MEDS: TraZODone HCL 50 MG TABLET PO SCH (20:28)
[2021-12-09] MEDS: MIRTAZAPINE 15 MG TABLET PO SCH (20:28)
[2021-12-10 00:04] VITALS: BP 108/68
[2021-12-10] MEDS: HEPARIN SODIUM,PORCINE 5,000 UNITS/ML VIAL SQ SCH ×4 (00:04→23:27)
[2021-12-10 04:08] VITALS: BP 122/72
[2021-12-10 07:35] VITALS: BP 111/76
[2021-12-10] MEDS: FAMOTIDINE 20 MG TABLET PO SCH (09:04)
[2021-12-10] MEDS: MULTIVITAMINS WITH MINERALS, THERAPEUTIC TABLET PO SCH (09:04)
[2021-12-10] MEDS: NALTREXONE HCL 50 MG TABLET PO SCH (09:04)
[2021-12-10] MEDS: OMEGA-3/DHA/EPA/FISH OIL 1,000 MG CAPSULE PO SCH (09:04)
[2021-12-10 15:33] VITALS: BP 114/72
[2021-12-10] MEDS: LORazepam 2 MG TABLET PO PRN (15:39)
[2021-12-10 17:23] LABS: COVID AG,FIA SOURCE NASAL SWAB
[2021-12-10] MEDS: MIRTAZAPINE 15 MG TABLET PO SCH (19:51)
[2021-12-10] MEDS: MELATONIN 5 MG TABLET PO SCH (19:51)
[2021-12-10] MEDS: OLANZapine 5 MG RAPDIS TABLET PO SCH (19:52)
[2021-12-10] MEDS: TraZODone HCL 50 MG TABLET PO SCH (19:52)
[2021-12-10 20:20] VITALS: BP 107/77
[2021-12-10 23:55] VITALS: BP 101/71
[2021-12-11 04:00] VITALS: BP 135/88
[2021-12-11 07:33] VITALS: BP 128/77
[2021-12-11] MEDS: NALTREXONE HCL 50 MG TABLET PO SCH (08:12)
[2021-12-11] MEDS: FAMOTIDINE 20 MG TABLET PO SCH (08:12)
[2021-12-11] MEDS: MULTIVITAMINS WITH MINERALS, THERAPEUTIC TABLET PO SCH (08:12)
[2021-12-11] MEDS: HEPARIN SODIUM,PORCINE 5,000 UNITS/ML VIAL SQ SCH ×3 (08:12→23:15)
[2021-12-11] MEDS: OMEGA-3/DHA/EPA/FISH OIL 1,000 MG CAPSULE PO SCH (08:12)
[2021-12-11 15:46] VITALS: BP 119/71
[2021-12-11 19:50] VITALS: BP 119/74
[2021-12-11] MEDS: TraZODone HCL 50 MG TABLET PO SCH (20:15)
[2021-12-11] MEDS: OLANZapine 5 MG RAPDIS TABLET PO SCH (20:15)
[2021-12-11] MEDS: MIRTAZAPINE 15 MG TABLET PO SCH (20:15)
[2021-12-11] MEDS: MELATONIN 5 MG TABLET PO SCH (20:15)
[2021-12-12 04:35] VITALS: BP 132/87
[2021-12-12] MEDS: OMEGA-3/DHA/EPA/FISH OIL 1,000 MG CAPSULE PO SCH (08:02)
[2021-12-12] MEDS: NALTREXONE HCL 50 MG TABLET PO SCH (08:02)
[2021-12-12] MEDS: MULTIVITAMINS WITH MINERALS, THERAPEUTIC TABLET PO SCH (08:03)
[2021-12-12] MEDS: HEPARIN SODIUM,PORCINE 5,000 UNITS/ML VIAL SQ SCH (08:03)
[2021-12-12] MEDS: FAMOTIDINE 20 MG TABLET PO SCH (08:03)
[2021-12-12 08:19] VITALS: BP_SYST 123; BP_SYST 140; BP_DIAS 59; BP_DIAS 83
[2021-12-12] MEDS: LORazepam 2 MG TABLET PO PRN (08:19)
== END 2021-12-12 13:00 | disposition home or self-care (01) | DRG 137 ==
LOC: EMS 10:12 → 6N 18:09
PROVIDERS: ADMIT Internal Medicine; ATTEND Internal Medicine
DX: U07.1 COVID-19 (principal); R45.851 Suicidal ideations; F20.9 Schizophrenia, unspecified; E78.00 Pure hypercholesterolemia, unspecified; F31.9 Bipolar disorder, unspecified; Z91.51 Personal history of suicidal behavior; Z91.14 Patient's other noncompliance with medication regimen; Z87.891 Personal history of nicotine dependence; Z88.8 Allergy status to other drugs, medicaments and biological substances
CPT/HCPCS: 80053; 80061; 83735; 84100; 85025; 87081; 99285; G0480; J1644; Q9967

== ENCOUNTER 2021-12-24 10:08 | Emergency (ER) | payer OTHER ==
[~2021-12-24] VITALS: Ht 170.2 cm; Wt 65.9 kg
[~2021-12-24 10:08] MED LIST changes: -MELA5TAB40 PO; -NALT50TA PO
[2021-12-24 17:00] VITALS: BP 127/84
== END 2021-12-24 18:01 | disposition home or self-care (01) ==
LOC: EMS 10:12
DX: R45.851 Suicidal ideations (principal); F31.9 Bipolar disorder, unspecified; F41.9 Anxiety disorder, unspecified; F20.9 Schizophrenia, unspecified; Z88.8 Allergy status to other drugs, medicaments and biological substances; Z79.899 Other long term (current) drug therapy
CPT/HCPCS: 99284; Z7502

== ENCOUNTER 2022-01-01 16:07 | Inpatient (IN) | payer MEDICAID, OTHER ==
[~2022-01-01] VITALS: Ht 170.2 cm; Wt 61.8 kg
[2022-01-01 16:58] LABS: BASOPHILS % (AUTO) 0.6 % (0.0-2.0); EOSINOPHILS % (AUTO) 1.8 % (1.0-6.0); HEMATOCRIT 44.2 % (41-53); HEMOGLOBIN 15.5 g/dL (13.5-17.5); LYMPHOCYTES % (AUTO) 22.7 % (22.0-44.0); MEAN CORPUSCULAR HEMOGLOBIN 33.9 pg (26.0-34.0); MEAN CORPUSCULAR HGB CONC 35.1 G/dL (31.0-37.0); MEAN CORPUSCULAR VOLUME 97 fL (80-100); MONOCYTES # (AUTO) 0.4 K/uL (0.1-1.0); MONOCYTES % (AUTO) 4.1 % (2.0-9.0); NEUTROPHILS # (AUTO) 6.2 K/uL (1.8-7.7); NEUTROPHILS % (AUTO) 70.8 % (40.0-70.0); PLATELET COUNT (AUTO) 291 K/uL (150-450); RED BLOOD CELL COUNT(AUTO) 4.57 MIL/uL (4.50-5.90); RED CELL DISTRIBUTION WIDTH 13.3 % (11.5-14.5)
[2022-01-01 17:08] LABS: ANION GAP 9 mmol/L (8-16); CALCIUM, TOTAL 8.7 mg/dL (8.8-10.5); CARBON DIOXIDE 27 mmol/L (22-29); CHLORIDE 107 mmol/L (98-107); CREATININE 0.92 mg/dL (0.60-1.30); GLOMERULAR FILTR. RATE CALC > 60 mL/min (>60); GLUCOSE,RANDOM 96 mg/dL (70-110); SODIUM SERUM 143 mmol/L (136-145); UREA NITROGEN, BLOOD 18 mg/dL (7-18)
[2022-01-01 17:13] LABS: ALANINE AMINOTRANSFERASE 19 U/L (12-78); ALBUMIN 3.7 g/dL (3.4-5.0); ALKALINE PHOSPHATASE 63 U/L (46-116); ASPARTATE AMINOTRANSFERASE 10 U/L (15-37); BILIRUBIN,TOTAL 0.4 mg/dL (0.1-1.0); TOTAL PROTEIN, SERUM 6.9 g/dL (6.4-8.2)
[2022-01-01 17:34] LABS: AMPHET/METH SCREEN,URINE NEGATIVE (NEGATIVE); BARBITURATE SCREEN, URINE NEGATIVE (NEGATIVE); BENZODIAZEPINES SCREEN,URINE NEGATIVE (NEGATIVE); CANNABINOID SCREEN,URINE NEGATIVE (NEGATIVE); COCAINE SCREEN,URINE NEGATIVE (NEGATIVE); METHADONE SCREEN, URINE NEGATIVE (NEGATIVE); OPIATE SCREEN,URINE NEGATIVE (NEGATIVE); PHENCYCLIDINE SCREEN,URINE NEGATIVE (NEGATIVE)
[2022-01-01] MEDS ORDERED: ZOLPIDEM TARTRATE 10 MG TABLET PO PRN (20:15)
[2022-01-01] MEDS ORDERED: OLANZapine 5 MG RAPDIS TABLET PO PRN (20:15)
[2022-01-01 21:39] LABS: COVID AG,FIA SOURCE NASAL SWAB
[2022-01-02] MEDS: LORazepam 2 MG TABLET PO PRN (01:56)
[2022-01-02 02:05] VITALS: BP 138/87
[2022-01-02] MEDS ORDERED: INFLUENZA VIRUS VACCINE QVS 2021-22 (6MO+)/PF 60 MCG/0.5 ML SYRINGE IM. ONE (02:15)
[2022-01-02 07:55] LABS: HEMOGLOBIN A1C 5.3 % (3.8-5.6)
[2022-01-02 08:06] LABS: CHOL/HDL RATIO 5.2 (4.2-7.3); FREE T4 (FREE THYROXINE) 1.14 ng/dL (0.76-1.46); THYROID STIMULATING HORMONE 1.2 uIU/mL (0.36-3.74)
[2022-01-02 08:12] VITALS: BP 117/81
[2022-01-02] MEDS ORDERED: LOPERAMIDE HCL 2 MG CAPSULE PO PRN (12:15)
[2022-01-02] MEDS ORDERED: ACETAMINOPHEN 325 MG TABLET PO PRN (12:15)
[2022-01-02] MEDS ORDERED: CYANOCOBALAMIN 1,000 MCG/ML VIAL IM ONE (12:15)
[2022-01-02] MEDS ORDERED: GuaiFENesin/D-METHORPHAN [SUGAR-FREE] 200-20MG/10 ML SYRUP UDCUP PO PRN (12:15)
[2022-01-02] MEDS ORDERED: MAG HYDROX/AL HYDROX/SIMETH ES 30 ML SUSPENSION UDCUP PO PRN (12:15)
[2022-01-02] MEDS ORDERED: PALIPERIDONE PALMITATE 234 MG/1.5 ML SYRINGE IM ONE (12:15)
[2022-01-02] MEDS ORDERED: HydrOXYzine PAMOATE 50 MG CAPSULE PO PRN (12:15)
[2022-01-02] MEDS ORDERED: MAGNESIUM HYDROXIDE SUSPENSION 30 ML UDCUP PO PRN (12:15)
[2022-01-02] MEDS ORDERED: PROMETHAZINE HCL 25 MG TABLET PO PRN (12:15)
[2022-01-02 16:27] VITALS: BP 100/59
[2022-01-02] MEDS: THIAMINE 100 MG TABLET PO SCH (17:22)
[2022-01-02] MEDS: MIRTAZAPINE 15 MG TABLET PO SCH (21:00)
[2022-01-02] MEDS: TraZODone HCL 50 MG TABLET PO SCH (21:00)
[2022-01-02] MEDS ORDERED: OLANZapine 5 MG RAPDIS TABLET PO SCH (21:00)
[2022-01-02] MEDS: MELATONIN 5 MG TABLET PO SCH (21:00)
[2022-01-03 01:00] VITALS: BP 109/67
[2022-01-03 08:18] VITALS: BP 110/70
[2022-01-03] MEDS: FOLIC ACID 1 MG TABLET PO SCH (08:28)
[2022-01-03] MEDS: OMEGA-3/DHA/EPA/FISH OIL 1,000 MG CAPSULE PO SCH (08:28)
[2022-01-03] MEDS: NALTREXONE HCL 50 MG TABLET PO SCH (08:28)
[2022-01-03] MEDS: MULTIVITAMINS WITH MINERALS, THERAPEUTIC TABLET PO SCH (08:28)
[2022-01-03] MEDS: THIAMINE 100 MG TABLET PO SCH ×2 (08:28→15:56)
[2022-01-03 16:15] VITALS: BP 113/76
[2022-01-03] MEDS: MIRTAZAPINE 15 MG TABLET PO SCH (20:31)
[2022-01-03] MEDS: OLANZapine 10 MG RAPDIS TABLET PO SCH (20:31)
[2022-01-03] MEDS: TraZODone HCL 50 MG TABLET PO SCH (20:31)
[2022-01-03] MEDS: MELATONIN 5 MG TABLET PO SCH (20:31)
[2022-01-04 00:15] VITALS: BP 105/66
[2022-01-04 08:13] VITALS: BP 103/55
[2022-01-04 09:03] LABS: HEMOGLOBIN A1C 5.3 % (3.8-5.6)
[2022-01-04 09:12] LABS: CHOL/HDL RATIO 5.2 (4.2-7.3)
[2022-01-04] MEDS: MULTIVITAMINS WITH MINERALS, THERAPEUTIC TABLET PO SCH (09:24)
[2022-01-04] MEDS: FOLIC ACID 1 MG TABLET PO SCH (09:24)
[2022-01-04] MEDS: OMEGA-3/DHA/EPA/FISH OIL 1,000 MG CAPSULE PO SCH (09:24)
[2022-01-04] MEDS: THIAMINE 100 MG TABLET PO SCH ×2 (09:24→16:48)
[2022-01-04] MEDS: NALTREXONE HCL 50 MG TABLET PO SCH (09:24)
[2022-01-04 16:17] VITALS: BP 129/83
[2022-01-04] MEDS: TraZODone HCL 50 MG TABLET PO SCH (20:46)
[2022-01-04] MEDS: MELATONIN 5 MG TABLET PO SCH (20:46)
[2022-01-04] MEDS: MIRTAZAPINE 30 MG TABLET PO SCH (20:46)
[2022-01-04] MEDS: OLANZapine 10 MG RAPDIS TABLET PO SCH (20:46)
[2022-01-05 01:09] VITALS: BP 121/81
[2022-01-05 08:09] VITALS: BP 110/71
[2022-01-05] MEDS: MULTIVITAMINS WITH MINERALS, THERAPEUTIC TABLET PO SCH (08:24)
[2022-01-05] MEDS: NALTREXONE HCL 50 MG TABLET PO SCH (08:24)
[2022-01-05] MEDS: OMEGA-3/DHA/EPA/FISH OIL 1,000 MG CAPSULE PO SCH (08:24)
[2022-01-05] MEDS: FOLIC ACID 1 MG TABLET PO SCH (08:24)
[2022-01-05] MEDS: THIAMINE 100 MG TABLET PO SCH ×2 (08:24→16:19)
[2022-01-05 16:07] VITALS: BP 128/81
[2022-01-05] MEDS: OLANZapine 10 MG RAPDIS TABLET PO SCH (20:02)
[2022-01-05] MEDS: MIRTAZAPINE 30 MG TABLET PO SCH (20:02)
[2022-01-05] MEDS: TraZODone HCL 50 MG TABLET PO SCH (20:03)
[2022-01-05] MEDS: MELATONIN 5 MG TABLET PO SCH (20:03)
[2022-01-06 01:42] VITALS: BP 119/77
[2022-01-06 08:37] VITALS: BP 127/62
[2022-01-06] MEDS: NALTREXONE HCL 50 MG TABLET PO SCH (08:38)
[2022-01-06] MEDS: FOLIC ACID 1 MG TABLET PO SCH (08:38)
[2022-01-06] MEDS: THIAMINE 100 MG TABLET PO SCH ×2 (08:38→16:21)
[2022-01-06] MEDS: OMEGA-3/DHA/EPA/FISH OIL 1,000 MG CAPSULE PO SCH (08:38)
[2022-01-06] MEDS: MULTIVITAMINS WITH MINERALS, THERAPEUTIC TABLET PO SCH (08:38)
[2022-01-06] MEDS: LORazepam 2 MG TABLET PO PRN (08:38)
[2022-01-06] MEDS ORDERED: PALIPERIDONE PALMITATE 156 MG/ML SYRINGE IM ONE (09:00)
[2022-01-06 09:51] LABS: GLUCOMETER DEV NAME(LOC) POC.BV
[2022-01-06] MEDS ORDERED: BENZTROPINE MESYLATE 1 MG/ML 2 ML VIAL IM ONE (12:45)
[2022-01-06] MEDS ORDERED: LORazepam 2 MG/ML VIAL IM ONE (12:45)
[2022-01-06 14:52] LABS: GLUCOMETER DEV NAME(LOC) POC.BV
[2022-01-06 16:26] VITALS: BP 149/78
[2022-01-06] MEDS ORDERED: BENZ2AMP2 IM (22:16)
[2022-01-06] MEDS ORDERED: PALI156D IM (22:17)
[2022-01-06] MEDS: TraZODone HCL 50 MG TABLET PO SCH (23:06)
[2022-01-06] MEDS: MIRTAZAPINE 30 MG TABLET PO SCH (23:07)
[2022-01-06] MEDS: OLANZapine 10 MG RAPDIS TABLET PO SCH (23:07)
[2022-01-06] MEDS: MELATONIN 5 MG TABLET PO SCH (23:07)
[2022-01-07] MEDS ORDERED: BENZ2TAB10 PO (18:27)
[2022-01-21] MEDS ORDERED: OMEG-135 PO (14:01)
== END 2022-01-06 21:50 | disposition short-term general hospital (02) | DRG 750 ==
LOC: EMS 16:12 → B2S 01-02 00:01
PROVIDERS: ADMIT Psychiatry & Neurology Psychiatry; ATTEND Psychiatry & Neurology Psychiatry
DX: F25.1 Schizoaffective disorder, depressive type (principal); R45.851 Suicidal ideations; Z91.14 Patient's other noncompliance with medication regimen; E78.5 Hyperlipidemia, unspecified; Z20.822 Contact with and (suspected) exposure to COVID-19; F31.9 Bipolar disorder, unspecified; I10 Essential (primary) hypertension; J44.9 Chronic obstructive pulmonary disease, unspecified; F41.9 Anxiety disorder, unspecified; K21.9 Gastro-esophageal reflux disease without esophagitis; Z79.899 Other long term (current) drug therapy; Z86.16 Personal history of COVID-19; Z87.891 Personal history of nicotine dependence; Z88.8 Allergy status to other drugs, medicaments and biological substances
CPT/HCPCS: 80053; 80061; 83036; 84439; 84443; 85025; 87081; 99285; G0480; J0515; J2060; J3420; Q9967

== ENCOUNTER 2022-01-06 21:53 | Inpatient (IN) | payer MEDICAID, OTHER ==
[~2022-01-06] VITALS: Ht 177.8 cm; Wt 62.5 kg
[~2022-01-06 21:53] MED LIST changes: +OMEG-108 PO; -OMEG-135 PO
[2022-01-06] MEDS ORDERED: BENZ2AMP2 IM (22:16)
[2022-01-06] MEDS ORDERED: PALI156D IM (22:17)
[2022-01-06 22:46] LABS: COVID AG,FIA SOURCE NASOPHARYNGEAL
[2022-01-06 22:50] LABS: APPEARANCE,URINE CLEAR (CLEAR); BILIRUBIN,URINE NEGATIVE (NEGATIVE); GLUCOSE, URINE (UA) NEGATIVE (NEGATIVE); KETONES,URINE 15 mg/dL (NEGATIVE); LEUKOCYTE ESTERASE ,URINE NEGATIVE (NEGATIVE); NITRATE,URINE NEGATIVE (NEGATIVE); OCCULT BLOOD,URINE NEGATIVE (NEGATIVE); PH,URINE 6.5 (5.0-8.0); PROTEIN,URINE NEGATIVE (NEGATIVE); UROBILINOGEN,URINE 0.2 mg/dL (<=1.0)
[2022-01-06 22:54] LABS: BASOPHILS % (AUTO) 0.3 % (0.0-2.0); EOSINOPHILS % (AUTO) 0.2 % (1.0-6.0); HEMATOCRIT 42.7 % (41-53); HEMOGLOBIN 14.7 g/dL (13.5-17.5); LYMPHOCYTES # (AUTO) 1.4 K/uL (1.0-4.8); LYMPHOCYTES % (AUTO) 12.2 % (22.0-44.0); MEAN CORPUSCULAR HEMOGLOBIN 33.6 pg (26.0-34.0); MEAN CORPUSCULAR HGB CONC 34.6 G/dL (31.0-37.0); MEAN CORPUSCULAR VOLUME 97 fL (80-100); MONOCYTES # (AUTO) 0.4 K/uL (0.1-1.0); MONOCYTES % (AUTO) 3.8 % (2.0-9.0); NEUTROPHILS # (AUTO) 9.9 K/uL (1.8-7.7); NEUTROPHILS % (AUTO) 83.5 % (40.0-70.0); PLATELET COUNT (AUTO) 237 K/uL (150-450); RED BLOOD CELL COUNT(AUTO) 4.39 MIL/uL (4.50-5.90); RED CELL DISTRIBUTION WIDTH 13.4 % (11.5-14.5)
[2022-01-06 22:55] LABS: AMPHET/METH SCREEN,URINE NEGATIVE (NEGATIVE); BARBITURATE SCREEN, URINE NEGATIVE (NEGATIVE); BENZODIAZEPINES SCREEN,URINE NEGATIVE (NEGATIVE); CANNABINOID SCREEN,URINE NEGATIVE (NEGATIVE); COCAINE SCREEN,URINE NEGATIVE (NEGATIVE); METHADONE SCREEN, URINE NEGATIVE (NEGATIVE); OPIATE SCREEN,URINE NEGATIVE (NEGATIVE); PHENCYCLIDINE SCREEN,URINE NEGATIVE (NEGATIVE)
[2022-01-06 23:03] LABS: ANION GAP 10 mmol/L (8-16); CALCIUM, TOTAL 9.2 mg/dL (8.8-10.5); CARBON DIOXIDE 27 mmol/L (22-29); CHLORIDE 104 mmol/L (98-107); CREATININE 1.07 mg/dL (0.60-1.30); GLOMERULAR FILTR. RATE CALC > 60 mL/min (>60); GLUCOSE,RANDOM 113 mg/dL (70-110); SODIUM SERUM 141 mmol/L (136-145); UREA NITROGEN, BLOOD 15 mg/dL (7-18)
[2022-01-06 23:11] LABS: AMMONIA 11 umol/L (11-32); INR 1.1 (0.9-1.1); PROTHROMBIN TIME 11.4 SEC (9.4-11.6)
[2022-01-06 23:14] LABS: B-TYPE NATRIURETIC PEPTIDE 14 pg/mL (0-100)
[2022-01-06 23:22] LABS: LACTIC ACID 1.7 mmol/L (0.4-2.0)
[2022-01-06 23:39] LABS: ACETAMINOPHEN < 2 mcg/mL (10-30); ALANINE AMINOTRANSFERASE 27 U/L (12-78); ALBUMIN 3.8 g/dL (3.4-5.0); ALKALINE PHOSPHATASE 67 U/L (46-116); ASPARTATE AMINOTRANSFERASE 52 U/L (15-37); BILIRUBIN,TOTAL 0.5 mg/dL (0.1-1.0); CREATINE KINASE, TOTAL ONLY 2613 U/L (39-308); PHOSPHORUS 3.6 mg/dL (2.5-4.9); TOTAL PROTEIN, SERUM 7.2 g/dL (6.4-8.2)
[2022-01-06 23:42] LABS: LITHIUM < 0.20 mmol/L (0.60-1.20); SALICYLATE < 2.8 mg/dL (2.8-20.0)
[2022-01-07] VITALS (7 sets, daily range): BP systolic 112–135; BP diastolic 63–86
[2022-01-07] MEDS ORDERED: LORazepam 2 MG/ML VIAL IVP ONE
[2022-01-07] MEDS ORDERED: SODIUM CHLORIDE 0.9% 1,000 ML IV ONE ×2 (00:30)
[2022-01-07] MEDS ORDERED: ACETAMINOPHEN 325 MG TABLET PO PRN (00:30)
[2022-01-07] MEDS ORDERED: ONDANSETRON HCL 4 MG/2 ML VIAL IVP PRN (00:30)
[2022-01-07] MEDS ORDERED: 0.9% SODIUM CHLORIDE 10 ML SYRINGE IVP PRN (00:30)
[2022-01-07] MEDS ORDERED: BENZ2TAB10 PO (18:27)
[2022-01-07] MEDS: SODIUM CHLORIDE 0.9% 1,000 ML IV SCH (18:27)
[2022-01-08 04:46] VITALS: BP 113/73
[2022-01-08] MEDS: SODIUM CHLORIDE 0.9% 1,000 ML IV SCH ×2 (06:33→21:57)
[2022-01-08 07:32] LABS: BASOPHILS % (AUTO) 0.2 % (0.0-2.0); EOSINOPHILS % (AUTO) 2.9 % (1.0-6.0); HEMATOCRIT 40.8 % (41-53); HEMOGLOBIN 14.1 g/dL (13.5-17.5); LYMPHOCYTES # (AUTO) 1.4 K/uL (1.0-4.8); MEAN CORPUSCULAR HGB CONC 34.7 G/dL (31.0-37.0); MEAN CORPUSCULAR VOLUME 98 fL (80-100); MONOCYTES # (AUTO) 0.3 K/uL (0.1-1.0); MONOCYTES % (AUTO) 3.9 % (2.0-9.0); PLATELET COUNT (AUTO) 201 K/uL (150-450); RED BLOOD CELL COUNT(AUTO) 4.16 MIL/uL (4.50-5.90); RED CELL DISTRIBUTION WIDTH 13.5 % (11.5-14.5)
[2022-01-08 07:48] VITALS: BP 126/86
[2022-01-08 07:51] LABS: ALANINE AMINOTRANSFERASE 24 U/L (12-78); ALBUMIN 3.1 g/dL (3.4-5.0); ALKALINE PHOSPHATASE 58 U/L (46-116); ANION GAP 4 mmol/L (8-16); ASPARTATE AMINOTRANSFERASE 29 U/L (15-37); BILIRUBIN,TOTAL 0.6 mg/dL (0.1-1.0); CALCIUM, TOTAL 8.4 mg/dL (8.8-10.5); CARBON DIOXIDE 28 mmol/L (22-29); CHLORIDE 109 mmol/L (98-107); CREATININE 0.93 mg/dL (0.60-1.30); GLOMERULAR FILTR. RATE CALC > 60 mL/min (>60); GLUCOSE,RANDOM 89 mg/dL (70-110); POTASSIUM 4.6 mmol/L (3.5-5.1); SODIUM SERUM 141 mmol/L (136-145); TOTAL PROTEIN, SERUM 6.2 g/dL (6.4-8.2); UREA NITROGEN, BLOOD 10 mg/dL (7-18)
[2022-01-08 11:10] LABS: CREATINE KINASE, TOTAL ONLY 681 U/L (39-308)
[2022-01-08 11:45] VITALS: BP 119/79
[2022-01-08 15:45] VITALS: BP 143/85
[2022-01-08 19:15] VITALS: BP 125/80
[2022-01-08 23:51] VITALS: BP 143/80
[2022-01-09 04:07] VITALS: BP 126/85
[2022-01-09 08:01] VITALS: BP 141/82
[2022-01-09] MEDS: SODIUM CHLORIDE 0.9% 1,000 ML IV SCH (11:19)
[2022-01-09 12:11] VITALS: BP 149/86
[2022-01-09 12:17] VITALS: BP 149/86
[2022-01-09 16:35] VITALS: BP 142/85
[2022-01-10] VITALS (8 sets, daily range): BP systolic 128–152; BP diastolic 79–93
[2022-01-10] MEDS: SODIUM CHLORIDE 0.9% 1,000 ML IV SCH ×2 (13:24→19:02)
[2022-01-11 04:00] VITALS: BP 132/91
[2022-01-11 08:20] VITALS: BP 144/87
[2022-01-11] MEDS: SODIUM CHLORIDE 0.9% 1,000 ML IV SCH (08:44)
== END 2022-01-11 14:00 | disposition home or self-care (01) | DRG 52 ==
LOC: EMS 21:55 → 5S 01-07 00:26 → 6S 01-10 18:35
PROVIDERS: ADMIT Hospitalist; ATTEND Hospitalist
DX: G93.40 Encephalopathy, unspecified (principal); M62.82 Rhabdomyolysis; F25.8 Other schizoaffective disorders; Z20.822 Contact with and (suspected) exposure to COVID-19; E78.5 Hyperlipidemia, unspecified; J44.9 Chronic obstructive pulmonary disease, unspecified; F31.9 Bipolar disorder, unspecified; F17.210 Nicotine dependence, cigarettes, uncomplicated; Z88.8 Allergy status to other drugs, medicaments and biological substances
CPT/HCPCS: 70450; 71045; 80053; 80178; 81003; 82140; 82550; 83605; 83735; 83880; 84100; 84484; 85025; 85610; 85730; 93005; 99291; G0378; G0480; G0481; J2060; J7030; 36415-L1; 36415-TC

== ENCOUNTER 2022-01-14 11:08 | Inpatient (IN) | payer MEDICAID, OTHER ==
[~2022-01-14] VITALS: Ht 170.2 cm; Wt 61.2 kg
[~2022-01-14 11:08] MED LIST changes: +BENZ2TAB10 PO; +PALI156D IM
[2022-01-14 11:35] LABS: COVID AG,FIA SOURCE NASAL SWAB
[2022-01-14 11:42] LABS: BASOPHILS % (AUTO) 0.3 % (0.0-2.0); EOSINOPHILS % (AUTO) 1.1 % (1.0-6.0); HEMATOCRIT 44.6 % (41-53); HEMOGLOBIN 15.7 g/dL (13.5-17.5); LYMPHOCYTES # (AUTO) 1.4 K/uL (1.0-4.8); LYMPHOCYTES % (AUTO) 19.9 % (22.0-44.0); MEAN CORPUSCULAR HEMOGLOBIN 34.2 pg (26.0-34.0); MEAN CORPUSCULAR HGB CONC 35.2 G/dL (31.0-37.0); MEAN CORPUSCULAR VOLUME 97 fL (80-100); MONOCYTES # (AUTO) 0.2 K/uL (0.1-1.0); MONOCYTES % (AUTO) 3.2 % (2.0-9.0); NEUTROPHILS # (AUTO) 5.3 K/uL (1.8-7.7); NEUTROPHILS % (AUTO) 75.5 % (40.0-70.0); PLATELET COUNT (AUTO) 289 K/uL (150-450); RED BLOOD CELL COUNT(AUTO) 4.59 MIL/uL (4.50-5.90); RED CELL DISTRIBUTION WIDTH 13.7 % (11.5-14.5)
[2022-01-14 11:50] LABS: ANION GAP 11 mmol/L (8-16); CALCIUM, TOTAL 8.8 mg/dL (8.8-10.5); CARBON DIOXIDE 27 mmol/L (22-29); CHLORIDE 103 mmol/L (98-107); CREATININE 0.97 mg/dL (0.60-1.30); GLOMERULAR FILTR. RATE CALC > 60 mL/min (>60); GLUCOSE,RANDOM 101 mg/dL (70-110); POTASSIUM 3.9 mmol/L (3.5-5.1); SODIUM SERUM 141 mmol/L (136-145); UREA NITROGEN, BLOOD 11 mg/dL (7-18)
[2022-01-14 11:53] LABS: AMPHET/METH SCREEN,URINE NEGATIVE (NEGATIVE); BARBITURATE SCREEN, URINE NEGATIVE (NEGATIVE); BENZODIAZEPINES SCREEN,URINE NEGATIVE (NEGATIVE); CANNABINOID SCREEN,URINE NEGATIVE (NEGATIVE); COCAINE SCREEN,URINE NEGATIVE (NEGATIVE); METHADONE SCREEN, URINE NEGATIVE (NEGATIVE); OPIATE SCREEN,URINE NEGATIVE (NEGATIVE)
[2022-01-14 11:54] LABS: PHENCYCLIDINE SCREEN,URINE NEGATIVE (NEGATIVE)
[2022-01-14 11:54] LABS: ALANINE AMINOTRANSFERASE 25 U/L (12-78); ALBUMIN 4.1 g/dL (3.4-5.0); ALKALINE PHOSPHATASE 67 U/L (46-116); ASPARTATE AMINOTRANSFERASE 14 U/L (15-37); BILIRUBIN,TOTAL 0.6 mg/dL (0.1-1.0); TOTAL PROTEIN, SERUM 7.6 g/dL (6.4-8.2)
[2022-01-14] MEDS ORDERED: DiphenhydrAMINE HCL 50 MG CAPSULE PO ONE (12:15)
[2022-01-14] MEDS ORDERED: LORazepam 2 MG TABLET PO ONE (12:15)
[2022-01-14] MEDS ORDERED: HALOPERIDOL 5 MG TABLET PO ONE (12:15)
[2022-01-14] MEDS ORDERED: ACETAMINOPHEN 325 MG TABLET PO PRN (15:30)
[2022-01-14] MEDS ORDERED: LOPERAMIDE HCL 2 MG CAPSULE PO PRN (15:30)
[2022-01-14] MEDS ORDERED: ZOLPIDEM TARTRATE 10 MG TABLET PO PRN (15:30)
[2022-01-14] MEDS ORDERED: MAG HYDROX/AL HYDROX/SIMETH ES 30 ML SUSPENSION UDCUP PO PRN (15:30)
[2022-01-14] MEDS ORDERED: PROMETHAZINE HCL 25 MG TABLET PO PRN (15:30)
[2022-01-14] MEDS ORDERED: HydrOXYzine PAMOATE 50 MG CAPSULE PO PRN (15:30)
[2022-01-14] MEDS ORDERED: GuaiFENesin/D-METHORPHAN [SUGAR-FREE] 200-20MG/10 ML SYRUP UDCUP PO PRN (15:30)
[2022-01-14] MEDS ORDERED: MAGNESIUM HYDROXIDE SUSPENSION 30 ML UDCUP PO PRN (15:30)
[2022-01-14] MEDS: THIAMINE 100 MG TABLET PO SCH (16:39)
[2022-01-14 18:44] VITALS: BP 129/90
[2022-01-14] MEDS ORDERED: -PHARMACY VACCINE NOTE- MISC ONE (19:15)
[2022-01-14] MEDS: OLANZapine 5 MG RAPDIS TABLET PO SCH (20:35)
[2022-01-14] MEDS: MELATONIN 5 MG TABLET PO SCH (20:35)
[2022-01-15 01:57] VITALS: BP 120/83
[2022-01-15 07:58] LABS: CHOL/HDL RATIO 5.2 (4.2-7.3)
[2022-01-15 08:02] LABS: HEMOGLOBIN A1C 5.2 % (3.8-5.6)
[2022-01-15] MEDS: FLUoxetine HCL 20 MG CAPSULE PO SCH (08:22)
[2022-01-15] MEDS: FOLIC ACID 1 MG TABLET PO SCH (08:22)
[2022-01-15] MEDS: MULTIVITAMINS WITH MINERALS, THERAPEUTIC TABLET PO SCH (08:22)
[2022-01-15] MEDS: THIAMINE 100 MG TABLET PO SCH ×2 (08:22→16:29)
[2022-01-15] MEDS: OMEGA-3/DHA/EPA/FISH OIL 1,000 MG CAPSULE PO SCH (08:23)
[2022-01-15] MEDS: NALTREXONE HCL 50 MG TABLET PO SCH (08:23)
[2022-01-15 08:24] VITALS: BP 121/69
[2022-01-15 16:17] VITALS: BP 116/78
[2022-01-15] MEDS: OLANZapine 5 MG RAPDIS TABLET PO SCH (20:34)
[2022-01-15] MEDS: MELATONIN 5 MG TABLET PO SCH (20:34)
[2022-01-15] MEDS ORDERED: OLANZapine 5 MG RAPDIS TABLET PO ONE (21:00)
[2022-01-16 00:37] VITALS: BP 119/75
[2022-01-16 08:15] VITALS: BP 131/81
[2022-01-16] MEDS: FLUoxetine HCL 20 MG CAPSULE PO SCH (09:15)
[2022-01-16] MEDS: THIAMINE 100 MG TABLET PO SCH ×2 (09:15→16:28)
[2022-01-16] MEDS: NALTREXONE HCL 50 MG TABLET PO SCH (09:15)
[2022-01-16] MEDS: OMEGA-3/DHA/EPA/FISH OIL 1,000 MG CAPSULE PO SCH (09:15)
[2022-01-16] MEDS: MULTIVITAMINS WITH MINERALS, THERAPEUTIC TABLET PO SCH (09:15)
[2022-01-16] MEDS: FOLIC ACID 1 MG TABLET PO SCH (09:17)
[2022-01-16] MEDS: LORazepam 1 MG TABLET PO PRN (14:42)
[2022-01-16] MEDS: OLANZapine 5 MG RAPDIS TABLET PO PRN (14:43)
[2022-01-16 16:16] VITALS: BP 109/67
[2022-01-16] MEDS: OLANZapine 5 MG RAPDIS TABLET PO SCH (20:46)
[2022-01-16] MEDS: MELATONIN 5 MG TABLET PO SCH (20:46)
[2022-01-16] MEDS ORDERED: OLANZapine 5 MG RAPDIS TABLET PO SCH (21:00)
[2022-01-17 01:12] VITALS: BP 110/78
[2022-01-17] MEDS: OMEGA-3/DHA/EPA/FISH OIL 1,000 MG CAPSULE PO SCH (08:26)
[2022-01-17] MEDS: THIAMINE 100 MG TABLET PO SCH ×2 (08:26→16:18)
[2022-01-17] MEDS: FLUoxetine HCL 20 MG CAPSULE PO SCH (08:26)
[2022-01-17] MEDS: MULTIVITAMINS WITH MINERALS, THERAPEUTIC TABLET PO SCH (08:26)
[2022-01-17] MEDS: NALTREXONE HCL 50 MG TABLET PO SCH (08:26)
[2022-01-17] MEDS: FOLIC ACID 1 MG TABLET PO SCH (08:26)
[2022-01-17 08:33] VITALS: BP 135/88
[2022-01-17 16:09] VITALS: BP 114/74
[2022-01-17] MEDS: LORazepam 1 MG TABLET PO PRN (17:13)
[2022-01-17] MEDS: MELATONIN 5 MG TABLET PO SCH (20:31)
[2022-01-17] MEDS: OLANZapine 5 MG RAPDIS TABLET PO SCH (20:31)
[2022-01-18 00:40] VITALS: BP 111/69
[2022-01-18 08:18] VITALS: BP 127/70
[2022-01-18] MEDS: MULTIVITAMINS WITH MINERALS, THERAPEUTIC TABLET PO SCH (08:18)
[2022-01-18] MEDS: OMEGA-3/DHA/EPA/FISH OIL 1,000 MG CAPSULE PO SCH (08:19)
[2022-01-18] MEDS: FLUoxetine HCL 20 MG CAPSULE PO SCH (08:19)
[2022-01-18] MEDS: NALTREXONE HCL 50 MG TABLET PO SCH (08:19)
[2022-01-18] MEDS: THIAMINE 100 MG TABLET PO SCH ×2 (08:19→16:06)
[2022-01-18] MEDS: FOLIC ACID 1 MG TABLET PO SCH (08:19)
[2022-01-18] MEDS: LORazepam 1 MG TABLET PO PRN (13:06)
[2022-01-18 16:37] VITALS: BP 129/67
[2022-01-18] MEDS: OLANZapine 5 MG RAPDIS TABLET PO SCH (20:11)
[2022-01-18] MEDS: MELATONIN 5 MG TABLET PO SCH (20:11)
[2022-01-19 00:25] VITALS: BP 116/70
[2022-01-19 07:45] LABS: GLUCOMETER DEV NAME(LOC) POC.BV
[2022-01-19 08:19] VITALS: BP 120/70
[2022-01-19] MEDS: NALTREXONE HCL 50 MG TABLET PO SCH (08:46)
[2022-01-19] MEDS: FOLIC ACID 1 MG TABLET PO SCH (08:47)
[2022-01-19] MEDS: FLUoxetine HCL 20 MG CAPSULE PO SCH (08:47)
[2022-01-19] MEDS: THIAMINE 100 MG TABLET PO SCH ×2 (08:47→16:11)
[2022-01-19] MEDS: OMEGA-3/DHA/EPA/FISH OIL 1,000 MG CAPSULE PO SCH (08:47)
[2022-01-19] MEDS: MULTIVITAMINS WITH MINERALS, THERAPEUTIC TABLET PO SCH (08:47)
[2022-01-19] MEDS: LORazepam 1 MG TABLET PO PRN (12:21)
[2022-01-19 16:20] VITALS: BP 115/76
[2022-01-19] MEDS: MELATONIN 5 MG TABLET PO SCH (20:18)
[2022-01-19] MEDS: OLANZapine 5 MG RAPDIS TABLET PO SCH (20:18)
[2022-01-20 06:36] VITALS: BP 104/62
[2022-01-20 08:15] VITALS: BP 138/77
[2022-01-20] MEDS: OMEGA-3/DHA/EPA/FISH OIL 1,000 MG CAPSULE PO SCH (08:22)
[2022-01-20] MEDS: MULTIVITAMINS WITH MINERALS, THERAPEUTIC TABLET PO SCH (08:22)
[2022-01-20] MEDS: FLUoxetine HCL 20 MG CAPSULE PO SCH (08:22)
[2022-01-20] MEDS: THIAMINE 100 MG TABLET PO SCH ×2 (08:22→16:12)
[2022-01-20] MEDS: FOLIC ACID 1 MG TABLET PO SCH (08:22)
[2022-01-20] MEDS: NALTREXONE HCL 50 MG TABLET PO SCH (08:26)
[2022-01-20] MEDS: LORazepam 0.5 MG TABLET PO PRN (09:05)
[2022-01-20] MEDS: OLANZapine 5 MG RAPDIS TABLET PO PRN (09:29)
[2022-01-20 16:12] VITALS: BP 113/71
[2022-01-20] MEDS: MELATONIN 5 MG TABLET PO SCH (20:17)
[2022-01-20] MEDS: OLANZapine 5 MG RAPDIS TABLET PO SCH (20:18)
[2022-01-21 00:41] VITALS: BP 105/68
[2022-01-21 08:21] VITALS: BP 151/76
[2022-01-21] MEDS: FLUoxetine HCL 20 MG CAPSULE PO SCH (08:30)
[2022-01-21] MEDS: NALTREXONE HCL 50 MG TABLET PO SCH (08:30)
[2022-01-21] MEDS: FOLIC ACID 1 MG TABLET PO SCH (08:30)
[2022-01-21] MEDS: THIAMINE 100 MG TABLET PO SCH ×2 (08:30→16:35)
[2022-01-21] MEDS: OMEGA-3/DHA/EPA/FISH OIL 1,000 MG CAPSULE PO SCH (08:30)
[2022-01-21] MEDS: MULTIVITAMINS WITH MINERALS, THERAPEUTIC TABLET PO SCH (08:30)
[2022-01-21] MEDS: LORazepam 0.5 MG TABLET PO PRN (11:25)
[2022-01-21] MEDS: OLANZapine 5 MG RAPDIS TABLET PO PRN (12:05)
[2022-01-21] MEDS ORDERED: MELA5TAB40 PO (14:01)
[2022-01-21] MEDS ORDERED: NALT50TA PO (14:01)
[2022-01-21] MEDS ORDERED: OLAN5TAB94 PO (14:01)
[2022-01-21] MEDS ORDERED: PROZ20 PO (14:01)
[2022-01-21] MEDS ORDERED: OMEG-108 PO (14:01)
[2022-01-21 16:14] VITALS: BP 140/83
[2022-01-21] MEDS: MELATONIN 5 MG TABLET PO SCH (20:32)
[2022-01-21] MEDS: OLANZapine 5 MG RAPDIS TABLET PO SCH (20:32)
[2022-01-22 03:52] VITALS: BP 102/67
[2022-01-22 09:00] VITALS: BP 131/81
[2022-01-22] MEDS: OMEGA-3/DHA/EPA/FISH OIL 1,000 MG CAPSULE PO SCH (09:13)
[2022-01-22] MEDS: FLUoxetine HCL 20 MG CAPSULE PO SCH (09:14)
[2022-01-22] MEDS: FOLIC ACID 1 MG TABLET PO SCH (09:14)
[2022-01-22] MEDS: MULTIVITAMINS WITH MINERALS, THERAPEUTIC TABLET PO SCH (09:14)
[2022-01-22] MEDS: THIAMINE 100 MG TABLET PO SCH (09:14)
[2022-01-22] MEDS: NALTREXONE HCL 50 MG TABLET PO SCH (09:14)
[2022-01-22] MEDS: LORazepam 0.5 MG TABLET PO PRN (10:17)
== END 2022-01-22 15:20 | disposition home or self-care (01) | DRG 750 ==
LOC: EMS 11:11 → B2S 13:48
PROVIDERS: ADMIT Psychiatry & Neurology Psychiatry; ATTEND Psychiatry & Neurology Psychiatry
DX: F25.1 Schizoaffective disorder, depressive type (principal); R45.851 Suicidal ideations; F31.81 Bipolar II disorder; E78.5 Hyperlipidemia, unspecified; Z20.822 Contact with and (suspected) exposure to COVID-19; Z79.899 Other long term (current) drug therapy; Z88.8 Allergy status to other drugs, medicaments and biological substances; K21.9 Gastro-esophageal reflux disease without esophagitis; R82.4 Acetonuria; F41.9 Anxiety disorder, unspecified; I10 Essential (primary) hypertension; J44.9 Chronic obstructive pulmonary disease, unspecified; Z55.9 Problems related to education and literacy, unspecified; Z59.00 Homelessness unspecified; Z63.9 Problem related to primary support group, unspecified; Z65.3 Problems related to other legal circumstances; Z86.16 Personal history of COVID-19; Z87.891 Personal history of nicotine dependence; Z91.14 Patient's other noncompliance with medication regimen
CPT/HCPCS: 80053; 80061; 83036; 85025; 87081; 99285; G0480; Q9967

== ENCOUNTER 2022-01-23 11:47 | Inpatient (IN) | payer MEDICAID ==
[~2022-01-23] VITALS: Ht 170.2 cm; Wt 59.2 kg
[~2022-01-23 11:47] MED LIST changes: -BENZ2TAB10 PO; +MELA5TAB40 PO; -MIRT-89 PO; +NALT50TA PO; -OLAN10TA26 PO; +OLAN5TAB94 PO; -PALI156D IM; +PROZ20 PO; -TRAZ-283 PO
[2022-01-23 12:22] LABS: BASOPHILS % (AUTO) 0.4 % (0.0-2.0); EOSINOPHILS % (AUTO) 0.6 % (1.0-6.0); HEMATOCRIT 45.7 % (41-53); HEMOGLOBIN 15.7 g/dL (13.5-17.5); MEAN CORPUSCULAR HEMOGLOBIN 33.9 pg (26.0-34.0); MEAN CORPUSCULAR HGB CONC 34.4 G/dL (31.0-37.0); MEAN CORPUSCULAR VOLUME 99 fL (80-100); MONOCYTES # (AUTO) 0.2 K/uL (0.1-1.0); MONOCYTES % (AUTO) 2.4 % (2.0-9.0); PLATELET COUNT (AUTO) 264 K/uL (150-450); RED BLOOD CELL COUNT(AUTO) 4.64 MIL/uL (4.50-5.90); RED CELL DISTRIBUTION WIDTH 13.6 % (11.5-14.5)
[2022-01-23 12:28] LABS: NEUTROPHILS % (AUTO) 85.6 % (40.0-70.0)
[2022-01-23 12:40] LABS: ANION GAP 9 mmol/L (8-16); CALCIUM, TOTAL 8.8 mg/dL (8.8-10.5); CARBON DIOXIDE 27 mmol/L (22-29); CHLORIDE 107 mmol/L (98-107); CREATININE 1.06 mg/dL (0.60-1.30); GLOMERULAR FILTR. RATE CALC > 60 mL/min (>60); GLUCOSE,RANDOM 99 mg/dL (70-110); POTASSIUM 4.7 mmol/L (3.5-5.1); SODIUM SERUM 143 mmol/L (136-145); UREA NITROGEN, BLOOD 10 mg/dL (7-18)
[2022-01-23 12:46] LABS: ALANINE AMINOTRANSFERASE 18 U/L (12-78); ALBUMIN 4.1 g/dL (3.4-5.0); ALKALINE PHOSPHATASE 63 U/L (46-116); ASPARTATE AMINOTRANSFERASE 12 U/L (15-37); BILIRUBIN,TOTAL 0.4 mg/dL (0.1-1.0); TOTAL PROTEIN, SERUM 7.4 g/dL (6.4-8.2)
[2022-01-23 12:46] LABS: AMPHET/METH SCREEN,URINE NEGATIVE (NEGATIVE); BARBITURATE SCREEN, URINE NEGATIVE (NEGATIVE); BENZODIAZEPINES SCREEN,URINE NEGATIVE (NEGATIVE); CANNABINOID SCREEN,URINE NEGATIVE (NEGATIVE); COCAINE SCREEN,URINE NEGATIVE (NEGATIVE); METHADONE SCREEN, URINE NEGATIVE (NEGATIVE); OPIATE SCREEN,URINE NEGATIVE (NEGATIVE)
[2022-01-23 12:50] LABS: PHENCYCLIDINE SCREEN,URINE NEGATIVE (NEGATIVE)
[2022-01-23 18:40] LABS: COVID AG,FIA SOURCE NASOPHARYNGEAL
[2022-01-23] MEDS ORDERED: ZOLPIDEM TARTRATE 10 MG TABLET PO PRN (19:00)
[2022-01-23] MEDS ORDERED: HALOPERIDOL 5 MG TABLET PO PRN (19:00)
[2022-01-23 21:05] VITALS: BP 140/98
[2022-01-23] MEDS: LORazepam 2 MG TABLET PO PRN (21:15)
[2022-01-23] MEDS ORDERED: INFLUENZA VIRUS VACCINE QVS 2021-22 (6MO+)/PF 60 MCG/0.5 ML SYRINGE IM. ONE (23:00)
[2022-01-24 01:53] VITALS: BP 131/85
[2022-01-24 09:16] VITALS: BP 136/80
[2022-01-24] MEDS: LORazepam 2 MG TABLET PO PRN (09:57)
[2022-01-24] MEDS ORDERED: LOPERAMIDE HCL 2 MG CAPSULE PO PRN (15:00)
[2022-01-24] MEDS ORDERED: PROMETHAZINE HCL 25 MG TABLET PO PRN (15:00)
[2022-01-24] MEDS ORDERED: GuaiFENesin/D-METHORPHAN [SUGAR-FREE] 200-20MG/10 ML SYRUP UDCUP PO PRN (15:00)
[2022-01-24] MEDS ORDERED: MAG HYDROX/AL HYDROX/SIMETH ES 30 ML SUSPENSION UDCUP PO PRN (15:00)
[2022-01-24] MEDS ORDERED: ACETAMINOPHEN 325 MG TABLET PO PRN (15:00)
[2022-01-24] MEDS: THIAMINE 100 MG TABLET PO SCH (16:01)
[2022-01-24 16:16] VITALS: BP 130/80
[2022-01-24] MEDS: MELATONIN 5 MG TABLET PO SCH (20:19)
[2022-01-24] MEDS ORDERED: OLANZapine 5 MG RAPDIS TABLET PO SCH (21:00)
[2022-01-25 01:12] VITALS: BP 128/82
[2022-01-25] MEDS: NALTREXONE HCL 50 MG TABLET PO SCH (08:50)
[2022-01-25] MEDS: MULTIVITAMINS WITH MINERALS, THERAPEUTIC TABLET PO SCH (08:51)
[2022-01-25] MEDS: THIAMINE 100 MG TABLET PO SCH ×2 (08:51→17:00)
[2022-01-25] MEDS: OMEGA-3/DHA/EPA/FISH OIL 1,000 MG CAPSULE PO SCH (08:51)
[2022-01-25] MEDS: FLUoxetine HCL 20 MG CAPSULE PO SCH (08:51)
[2022-01-25] MEDS: FOLIC ACID 1 MG TABLET PO SCH (08:51)
[2022-01-25] MEDS: HydrOXYzine PAMOATE 50 MG CAPSULE PO PRN (09:52)
[2022-01-25 10:28] VITALS: BP 132/79
[2022-01-25] MEDS: OLANZapine 5 MG RAPDIS TABLET PO PRN (12:12)
[2022-01-25 16:27] VITALS: BP 121/77
[2022-01-25] MEDS: MELATONIN 5 MG TABLET PO SCH (20:14)
[2022-01-25] MEDS: OLANZapine 10 MG RAPDIS TABLET PO SCH (20:15)
[2022-01-26 00:38] VITALS: BP 120/68
[2022-01-26] MEDS: FOLIC ACID 1 MG TABLET PO SCH (08:07)
[2022-01-26] MEDS: FLUoxetine HCL 20 MG CAPSULE PO SCH (08:07)
[2022-01-26] MEDS: MULTIVITAMINS WITH MINERALS, THERAPEUTIC TABLET PO SCH (08:07)
[2022-01-26] MEDS: OMEGA-3/DHA/EPA/FISH OIL 1,000 MG CAPSULE PO SCH (08:07)
[2022-01-26] MEDS: THIAMINE 100 MG TABLET PO SCH ×2 (08:07→16:38)
[2022-01-26] MEDS: NALTREXONE HCL 50 MG TABLET PO SCH (08:07)
[2022-01-26 08:33] VITALS: BP 145/77
[2022-01-26] MEDS: LORazepam 0.5 MG TABLET PO PRN (09:06)
[2022-01-26] MEDS: HydrOXYzine PAMOATE 50 MG CAPSULE PO PRN (14:17)
[2022-01-26 16:22] VITALS: BP 107/65
[2022-01-26] MEDS: MELATONIN 5 MG TABLET PO SCH (20:33)
[2022-01-26] MEDS: OLANZapine 10 MG RAPDIS TABLET PO SCH (20:33)
[2022-01-27 00:52] VITALS: BP 115/68
[2022-01-27] MEDS: NALTREXONE HCL 50 MG TABLET PO SCH (08:16)
[2022-01-27] MEDS: OMEGA-3/DHA/EPA/FISH OIL 1,000 MG CAPSULE PO SCH (08:16)
[2022-01-27] MEDS: LORazepam 0.5 MG TABLET PO PRN (08:16)
[2022-01-27] MEDS: THIAMINE 100 MG TABLET PO SCH ×2 (08:16→16:42)
[2022-01-27] MEDS: MULTIVITAMINS WITH MINERALS, THERAPEUTIC TABLET PO SCH (08:16)
[2022-01-27] MEDS: FOLIC ACID 1 MG TABLET PO SCH (08:16)
[2022-01-27] MEDS: FLUoxetine HCL 20 MG CAPSULE PO SCH (08:16)
[2022-01-27 08:19] VITALS: BP 136/78
[2022-01-27] MEDS: HydrOXYzine PAMOATE 50 MG CAPSULE PO PRN (13:37)
[2022-01-27 16:01] VITALS: BP 136/78
[2022-01-27] MEDS: OLANZapine 10 MG RAPDIS TABLET PO SCH (20:16)
[2022-01-27] MEDS: MELATONIN 5 MG TABLET PO SCH (20:16)
[2022-01-28 07:34] VITALS: BP 132/80
[2022-01-28 07:36] LABS: APPEARANCE,URINE CLEAR (CLEAR); BILIRUBIN,URINE NEGATIVE (NEGATIVE); GLUCOSE, URINE (UA) NEGATIVE (NEGATIVE); KETONES,URINE NEGATIVE (NEGATIVE); LEUKOCYTE ESTERASE ,URINE NEGATIVE (NEGATIVE); NITRATE,URINE NEGATIVE (NEGATIVE); OCCULT BLOOD,URINE NEGATIVE (NEGATIVE); PROTEIN,URINE NEGATIVE (NEGATIVE); SPECIFIC GRAVITIY, URINE 1.021 (1.003-1.030); UROBILINOGEN,URINE <=1.0 mg/dL (<=1.0)
[2022-01-28 07:44] LABS: AMPHET/METH SCREEN,URINE NEGATIVE (NEGATIVE); BARBITURATE SCREEN, URINE NEGATIVE (NEGATIVE); BENZODIAZEPINES SCREEN,URINE NEGATIVE (NEGATIVE); CANNABINOID SCREEN,URINE NEGATIVE (NEGATIVE); COCAINE SCREEN,URINE NEGATIVE (NEGATIVE); METHADONE SCREEN, URINE NEGATIVE (NEGATIVE); OPIATE SCREEN,URINE NEGATIVE (NEGATIVE)
[2022-01-28 07:46] LABS: PHENCYCLIDINE SCREEN,URINE NEGATIVE (NEGATIVE)
[2022-01-28 08:35] LABS: GLUCOMETER DEV NAME(LOC) POC.BV
[2022-01-28 08:45] VITALS: BP 137/77
[2022-01-28] MEDS: OLANZapine 5 MG RAPDIS TABLET PO PRN (08:54)
[2022-01-28] MEDS: MULTIVITAMINS WITH MINERALS, THERAPEUTIC TABLET PO SCH (08:54)
[2022-01-28] MEDS: NALTREXONE HCL 50 MG TABLET PO SCH (08:54)
[2022-01-28] MEDS: THIAMINE 100 MG TABLET PO SCH ×2 (08:54→16:52)
[2022-01-28] MEDS: FLUoxetine HCL 20 MG CAPSULE PO SCH (08:54)
[2022-01-28] MEDS: FOLIC ACID 1 MG TABLET PO SCH (08:54)
[2022-01-28] MEDS: OMEGA-3/DHA/EPA/FISH OIL 1,000 MG CAPSULE PO SCH (08:54)
[2022-01-28] MEDS: HydrOXYzine PAMOATE 50 MG CAPSULE PO PRN (08:54)
[2022-01-28 16:19] VITALS: BP 144/88
[2022-01-28] MEDS: OLANZapine 10 MG RAPDIS TABLET PO SCH (20:20)
[2022-01-28] MEDS: MELATONIN 5 MG TABLET PO SCH (20:20)
[2022-01-29 00:55] VITALS: BP 135/80
[2022-01-29 06:31] VITALS: BP 138/96
[2022-01-29] MEDS: OLANZapine 5 MG RAPDIS TABLET PO PRN (06:53)
[2022-01-29] MEDS: THIAMINE 100 MG TABLET PO SCH ×2 (09:08→16:37)
[2022-01-29] MEDS: NALTREXONE HCL 50 MG TABLET PO SCH (09:08)
[2022-01-29] MEDS: OMEGA-3/DHA/EPA/FISH OIL 1,000 MG CAPSULE PO SCH (09:08)
[2022-01-29] MEDS: FOLIC ACID 1 MG TABLET PO SCH (09:08)
[2022-01-29] MEDS: FLUoxetine HCL 20 MG CAPSULE PO SCH (09:08)
[2022-01-29] MEDS: MULTIVITAMINS WITH MINERALS, THERAPEUTIC TABLET PO SCH (09:08)
[2022-01-29 09:45] VITALS: BP 126/70
[2022-01-29] MEDS: MAGNESIUM HYDROXIDE SUSPENSION 30 ML UDCUP PO PRN (12:30)
[2022-01-29] MEDS: LORazepam 0.5 MG TABLET PO PRN (15:42)
[2022-01-29 16:27] VITALS: BP 134/88
[2022-01-29] MEDS: MELATONIN 5 MG TABLET PO SCH (20:17)
[2022-01-29] MEDS: OLANZapine 10 MG RAPDIS TABLET PO SCH (20:17)
[2022-01-30 01:28] VITALS: BP 130/79
[2022-01-30 08:14] VITALS: BP 134/78
[2022-01-30] MEDS: NALTREXONE HCL 50 MG TABLET PO SCH (08:28)
[2022-01-30] MEDS: OMEGA-3/DHA/EPA/FISH OIL 1,000 MG CAPSULE PO SCH (08:29)
[2022-01-30] MEDS: THIAMINE 100 MG TABLET PO SCH ×2 (08:29→16:36)
[2022-01-30] MEDS: LORazepam 0.5 MG TABLET PO PRN ×2 (08:29→16:18)
[2022-01-30] MEDS: FLUoxetine HCL 20 MG CAPSULE PO SCH (08:29)
[2022-01-30] MEDS: FOLIC ACID 1 MG TABLET PO SCH (08:29)
[2022-01-30] MEDS: MULTIVITAMINS WITH MINERALS, THERAPEUTIC TABLET PO SCH (08:29)
[2022-01-30 16:18] VITALS: BP 128/82
[2022-01-30] MEDS: MAGNESIUM HYDROXIDE SUSPENSION 30 ML UDCUP PO PRN (16:18)
[2022-01-30] MEDS: MELATONIN 5 MG TABLET PO SCH (20:41)
[2022-01-30] MEDS: OLANZapine 10 MG RAPDIS TABLET PO SCH (20:41)
[2022-01-31 00:37] VITALS: BP 103/62
[2022-01-31 07:18] VITALS: BP 140/90
[2022-01-31] MEDS: OLANZapine 5 MG RAPDIS TABLET PO PRN (07:19)
[2022-01-31 08:06] VITALS: BP 119/68
[2022-01-31] MEDS: MULTIVITAMINS WITH MINERALS, THERAPEUTIC TABLET PO SCH (08:26)
[2022-01-31] MEDS: FLUoxetine HCL 20 MG CAPSULE PO SCH (08:26)
[2022-01-31] MEDS: OMEGA-3/DHA/EPA/FISH OIL 1,000 MG CAPSULE PO SCH (08:27)
[2022-01-31] MEDS: FOLIC ACID 1 MG TABLET PO SCH (08:27)
[2022-01-31] MEDS: THIAMINE 100 MG TABLET PO SCH ×2 (08:27→16:14)
[2022-01-31] MEDS: NALTREXONE HCL 50 MG TABLET PO SCH (08:27)
[2022-01-31] MEDS: LORazepam 0.5 MG TABLET PO PRN (08:55)
[2022-01-31 16:22] VITALS: BP 135/74
[2022-01-31] MEDS: OLANZapine 10 MG RAPDIS TABLET PO SCH (20:09)
[2022-01-31] MEDS: MELATONIN 5 MG TABLET PO SCH (20:09)
[2022-02-01 00:38] VITALS: BP 127/72
[2022-02-01] MEDS: LORazepam 0.5 MG TABLET PO PRN (07:10)
[2022-02-01 08:18] VITALS: BP 115/61
[2022-02-01] MEDS: NALTREXONE HCL 50 MG TABLET PO SCH (08:55)
[2022-02-01] MEDS: MULTIVITAMINS WITH MINERALS, THERAPEUTIC TABLET PO SCH (08:55)
[2022-02-01] MEDS: FLUoxetine HCL 20 MG CAPSULE PO SCH (08:56)
[2022-02-01] MEDS: THIAMINE 100 MG TABLET PO SCH ×2 (08:56→16:37)
[2022-02-01] MEDS: OMEGA-3/DHA/EPA/FISH OIL 1,000 MG CAPSULE PO SCH (08:56)
[2022-02-01] MEDS: FOLIC ACID 1 MG TABLET PO SCH (08:56)
[2022-02-01] MEDS: OLANZapine 5 MG RAPDIS TABLET PO PRN (13:29)
[2022-02-01 16:14] VITALS: BP 110/71
[2022-02-01] MEDS: OLANZapine 10 MG RAPDIS TABLET PO SCH (20:38)
[2022-02-01] MEDS: MELATONIN 5 MG TABLET PO SCH (20:38)
[2022-02-02 01:01] VITALS: BP 119/75
[2022-02-02] MEDS: FOLIC ACID 1 MG TABLET PO SCH (08:14)
[2022-02-02] MEDS: LORazepam 0.5 MG TABLET PO PRN ×2 (08:14→15:48)
[2022-02-02] MEDS: OMEGA-3/DHA/EPA/FISH OIL 1,000 MG CAPSULE PO SCH (08:14)
[2022-02-02] MEDS: THIAMINE 100 MG TABLET PO SCH ×2 (08:14→16:14)
[2022-02-02] MEDS: NALTREXONE HCL 50 MG TABLET PO SCH (08:14)
[2022-02-02] MEDS: FLUoxetine HCL 20 MG CAPSULE PO SCH (08:14)
[2022-02-02] MEDS: MULTIVITAMINS WITH MINERALS, THERAPEUTIC TABLET PO SCH (08:14)
[2022-02-02 08:26] VITALS: BP 143/94
[2022-02-02 16:16] VITALS: BP 128/82
[2022-02-02] MEDS: MELATONIN 5 MG TABLET PO SCH (20:25)
[2022-02-02] MEDS: OLANZapine 10 MG RAPDIS TABLET PO SCH (20:25)
[2022-02-03 06:15] VITALS: BP 118/83
[2022-02-03] MEDS: LORazepam 0.5 MG TABLET PO PRN (07:14)
[2022-02-03 08:17] VITALS: BP 129/72
[2022-02-03] MEDS: THIAMINE 100 MG TABLET PO SCH (08:45)
[2022-02-03] MEDS: FLUoxetine HCL 20 MG CAPSULE PO SCH (08:45)
[2022-02-03] MEDS: FOLIC ACID 1 MG TABLET PO SCH (08:45)
[2022-02-03] MEDS: OMEGA-3/DHA/EPA/FISH OIL 1,000 MG CAPSULE PO SCH (08:45)
[2022-02-03] MEDS: MULTIVITAMINS WITH MINERALS, THERAPEUTIC TABLET PO SCH (08:45)
[2022-02-03] MEDS: NALTREXONE HCL 50 MG TABLET PO SCH (08:45)
[2022-02-03 16:12] VITALS: BP 137/90
[2022-02-03] MEDS: MELATONIN 5 MG TABLET PO SCH (20:13)
[2022-02-03] MEDS: OLANZapine 10 MG RAPDIS TABLET PO SCH (20:13)
[2022-02-04 01:14] VITALS: BP 121/74
[2022-02-04 08:13] VITALS: BP 150/104
[2022-02-04] MEDS: MULTIVITAMINS WITH MINERALS, THERAPEUTIC TABLET PO SCH (08:41)
[2022-02-04] MEDS: OMEGA-3/DHA/EPA/FISH OIL 1,000 MG CAPSULE PO SCH (08:41)
[2022-02-04] MEDS: NALTREXONE HCL 50 MG TABLET PO SCH (08:42)
[2022-02-04] MEDS: FLUoxetine HCL 20 MG CAPSULE PO SCH (08:42)
[2022-02-04] MEDS: LORazepam 0.5 MG TABLET PO PRN ×2 (08:44→18:14)
[2022-02-04] MEDS: MAGNESIUM HYDROXIDE SUSPENSION 30 ML UDCUP PO PRN (09:09)
[2022-02-04 10:15] VITALS: BP 114/75
[2022-02-04 11:26] LABS: GLUCOMETER DEV NAME(LOC) POC.BV
[2022-02-04 16:34] VITALS: BP 125/85
[2022-02-04] MEDS: MELATONIN 5 MG TABLET PO SCH (20:36)
[2022-02-04] MEDS: OLANZapine 10 MG RAPDIS TABLET PO SCH (20:37)
[2022-02-05 00:30] VITALS: BP 126/82
[2022-02-05] MEDS: LORazepam 0.5 MG TABLET PO PRN (06:39)
[2022-02-05 08:13] VITALS: BP 114/61
[2022-02-05] MEDS ORDERED: TUBERCULIN, PURIFIED PROTEIN DERIVATIVE 5 TU/0.1 ML SYRINGE ID ONE (08:15)
[2022-02-05] MEDS: FLUoxetine HCL 20 MG CAPSULE PO SCH (08:57)
[2022-02-05] MEDS: NALTREXONE HCL 50 MG TABLET PO SCH (08:57)
[2022-02-05] MEDS: MULTIVITAMINS WITH MINERALS, THERAPEUTIC TABLET PO SCH (08:57)
[2022-02-05] MEDS: OMEGA-3/DHA/EPA/FISH OIL 1,000 MG CAPSULE PO SCH (08:57)
[2022-02-05] MEDS ORDERED: LACTULOSE 20 GM/30 ML SOLUTION UDCUP PO PRN (10:00)
[2022-02-05] MEDS ORDERED: BISACODYL 5 MG EC TABLET PO PRN (10:00)
[2022-02-05] MEDS: DOCUSATE SODIUM 250 MG CAPSULE PO SCH ×2 (10:43→16:11)
[2022-02-05] MEDS: MAGNESIUM HYDROXIDE SUSPENSION 30 ML UDCUP PO PRN (10:43)
[2022-02-05 16:02] VITALS: BP 128/83
[2022-02-05] MEDS: MELATONIN 5 MG TABLET PO SCH (20:05)
[2022-02-05] MEDS: OLANZapine 10 MG RAPDIS TABLET PO SCH (20:06)
[2022-02-06 01:10] VITALS: BP 120/78
[2022-02-06] MEDS: OLANZapine 5 MG RAPDIS TABLET PO PRN (06:42)
[2022-02-06 08:42] VITALS: BP 140/90
[2022-02-06] MEDS: NALTREXONE HCL 50 MG TABLET PO SCH (08:44)
[2022-02-06] MEDS: LORazepam 0.5 MG TABLET PO PRN (08:44)
[2022-02-06] MEDS: OMEGA-3/DHA/EPA/FISH OIL 1,000 MG CAPSULE PO SCH (08:44)
[2022-02-06] MEDS: MULTIVITAMINS WITH MINERALS, THERAPEUTIC TABLET PO SCH (08:44)
[2022-02-06] MEDS: DOCUSATE SODIUM 250 MG CAPSULE PO SCH ×2 (08:45→16:13)
[2022-02-06] MEDS: FLUoxetine HCL 20 MG CAPSULE PO SCH (08:45)
[2022-02-06 16:17] VITALS: BP 135/82
[2022-02-06] MEDS: OLANZapine 10 MG RAPDIS TABLET PO SCH (20:19)
[2022-02-06] MEDS: MELATONIN 5 MG TABLET PO SCH (20:19)
[2022-02-07 01:12] VITALS: BP 127/80
[2022-02-07] MEDS: OLANZapine 5 MG RAPDIS TABLET PO PRN (06:25)
[2022-02-07] MEDS: LORazepam 0.5 MG TABLET PO PRN (07:10)
[2022-02-07 08:27] VITALS: BP 113/68
[2022-02-07] MEDS: FLUoxetine HCL 20 MG CAPSULE PO SCH (08:53)
[2022-02-07] MEDS: MULTIVITAMINS WITH MINERALS, THERAPEUTIC TABLET PO SCH (08:53)
[2022-02-07] MEDS: OMEGA-3/DHA/EPA/FISH OIL 1,000 MG CAPSULE PO SCH (08:53)
[2022-02-07] MEDS: NALTREXONE HCL 50 MG TABLET PO SCH (08:53)
[2022-02-07] MEDS: DOCUSATE SODIUM 250 MG CAPSULE PO SCH ×2 (08:53→16:16)
[2022-02-07 16:25] VITALS: BP 134/86
[2022-02-07] MEDS: MELATONIN 5 MG TABLET PO SCH (20:15)
[2022-02-07] MEDS: OLANZapine 10 MG RAPDIS TABLET PO SCH (20:15)
[2022-02-08 01:29] VITALS: BP 121/79
[2022-02-08] MEDS: OLANZapine 5 MG RAPDIS TABLET PO PRN (05:37)
[2022-02-08] MEDS: LORazepam 0.5 MG TABLET PO PRN (05:55)
[2022-02-08] MEDS: OMEGA-3/DHA/EPA/FISH OIL 1,000 MG CAPSULE PO SCH (08:36)
[2022-02-08] MEDS: MULTIVITAMINS WITH MINERALS, THERAPEUTIC TABLET PO SCH (08:36)
[2022-02-08] MEDS: NALTREXONE HCL 50 MG TABLET PO SCH (08:36)
[2022-02-08] MEDS: DOCUSATE SODIUM 250 MG CAPSULE PO SCH ×2 (08:36→17:20)
[2022-02-08] MEDS: FLUoxetine HCL 20 MG CAPSULE PO SCH (08:36)
[2022-02-08 08:37] VITALS: BP 115/66
[2022-02-08 16:21] VITALS: BP 119/73
[2022-02-08] MEDS: OLANZapine 10 MG RAPDIS TABLET PO SCH (20:16)
[2022-02-08] MEDS: MELATONIN 5 MG TABLET PO SCH (20:16)
[2022-02-09 00:30] VITALS: BP 118/70
[2022-02-09] MEDS: OLANZapine 5 MG RAPDIS TABLET PO PRN (07:11)
[2022-02-09] MEDS: LORazepam 0.5 MG TABLET PO PRN (07:11)
[2022-02-09] MEDS: MULTIVITAMINS WITH MINERALS, THERAPEUTIC TABLET PO SCH (08:13)
[2022-02-09] MEDS: FLUoxetine HCL 20 MG CAPSULE PO SCH (08:13)
[2022-02-09] MEDS: DOCUSATE SODIUM 250 MG CAPSULE PO SCH ×2 (08:13→17:09)
[2022-02-09] MEDS: NALTREXONE HCL 50 MG TABLET PO SCH (08:13)
[2022-02-09] MEDS: OMEGA-3/DHA/EPA/FISH OIL 1,000 MG CAPSULE PO SCH (08:13)
[2022-02-09 10:32] VITALS: BP 110/66
[2022-02-09 16:41] VITALS: BP 111/68
[2022-02-09] MEDS: MELATONIN 5 MG TABLET PO SCH (20:04)
[2022-02-09] MEDS: OLANZapine 10 MG RAPDIS TABLET PO SCH (20:04)
[2022-02-10 05:56] VITALS: BP 142/93
[2022-02-10] MEDS: OLANZapine 5 MG RAPDIS TABLET PO PRN (05:56)
[2022-02-10] MEDS: LORazepam 0.5 MG TABLET PO PRN ×2 (06:03→15:47)
[2022-02-10] MEDS: MULTIVITAMINS WITH MINERALS, THERAPEUTIC TABLET PO SCH (08:47)
[2022-02-10] MEDS: FLUoxetine HCL 20 MG CAPSULE PO SCH (08:47)
[2022-02-10] MEDS: NALTREXONE HCL 50 MG TABLET PO SCH (08:47)
[2022-02-10] MEDS: OMEGA-3/DHA/EPA/FISH OIL 1,000 MG CAPSULE PO SCH (08:47)
[2022-02-10] MEDS: DOCUSATE SODIUM 250 MG CAPSULE PO SCH ×2 (08:47→16:09)
[2022-02-10 08:55] VITALS: BP 123/75
[2022-02-10 17:08] VITALS: BP 128/94
[2022-02-10] MEDS: OLANZapine 10 MG RAPDIS TABLET PO SCH (20:13)
[2022-02-10] MEDS: MELATONIN 5 MG TABLET PO SCH (20:13)
[2022-02-11 05:39] VITALS: BP 132/88
[2022-02-11 06:18] VITALS: BP 142/98
[2022-02-11] MEDS: LORazepam 0.5 MG TABLET PO PRN ×2 (06:23→13:35)
[2022-02-11 08:16] LABS: GLUCOMETER DEV NAME(LOC) POC.BV
[2022-02-11 08:34] VITALS: BP 100/60
[2022-02-11] MEDS: DOCUSATE SODIUM 250 MG CAPSULE PO SCH ×2 (09:00→16:24)
[2022-02-11] MEDS: NALTREXONE HCL 50 MG TABLET PO SCH (09:00)
[2022-02-11] MEDS: MULTIVITAMINS WITH MINERALS, THERAPEUTIC TABLET PO SCH (09:00)
[2022-02-11] MEDS: OMEGA-3/DHA/EPA/FISH OIL 1,000 MG CAPSULE PO SCH (09:00)
[2022-02-11] MEDS: FLUoxetine HCL 20 MG CAPSULE PO SCH (09:00)
[2022-02-11 16:54] VITALS: BP 130/89
[2022-02-11] MEDS: OLANZapine 10 MG RAPDIS TABLET PO SCH (20:24)
[2022-02-11] MEDS: MELATONIN 5 MG TABLET PO SCH (20:24)
[2022-02-12 06:10] VITALS: BP 136/90
[2022-02-12] MEDS: LORazepam 0.5 MG TABLET PO PRN (06:14)
[2022-02-12] MEDS: OLANZapine 5 MG RAPDIS TABLET PO PRN (08:36)
[2022-02-12] MEDS: DOCUSATE SODIUM 250 MG CAPSULE PO SCH ×2 (08:36→16:11)
[2022-02-12] MEDS: MULTIVITAMINS WITH MINERALS, THERAPEUTIC TABLET PO SCH (08:36)
[2022-02-12] MEDS: FLUoxetine HCL 20 MG CAPSULE PO SCH (08:36)
[2022-02-12] MEDS: OMEGA-3/DHA/EPA/FISH OIL 1,000 MG CAPSULE PO SCH (08:36)
[2022-02-12] MEDS: NALTREXONE HCL 50 MG TABLET PO SCH (08:36)
[2022-02-12 08:40] VITALS: BP 99/57
[2022-02-12 16:34] VITALS: BP 128/87
[2022-02-12] MEDS: OLANZapine 10 MG RAPDIS TABLET PO SCH (20:05)
[2022-02-12] MEDS: MELATONIN 5 MG TABLET PO SCH (20:05)
[2022-02-13 00:50] VITALS: BP 116/68
[2022-02-13 05:56] VITALS: BP 141/95
[2022-02-13] MEDS: LORazepam 0.5 MG TABLET PO PRN (06:02)
[2022-02-13 08:15] VITALS: BP 120/66
[2022-02-13] MEDS: OLANZapine 5 MG RAPDIS TABLET PO PRN (08:15)
[2022-02-13] MEDS: FLUoxetine HCL 20 MG CAPSULE PO SCH (08:46)
[2022-02-13] MEDS: NALTREXONE HCL 50 MG TABLET PO SCH (08:46)
[2022-02-13] MEDS: DOCUSATE SODIUM 250 MG CAPSULE PO SCH ×2 (08:46→16:19)
[2022-02-13] MEDS: OMEGA-3/DHA/EPA/FISH OIL 1,000 MG CAPSULE PO SCH (08:46)
[2022-02-13] MEDS: MULTIVITAMINS WITH MINERALS, THERAPEUTIC TABLET PO SCH (08:46)
[2022-02-13 16:20] VITALS: BP 127/85
[2022-02-13] MEDS: OLANZapine 10 MG RAPDIS TABLET PO SCH (20:05)
[2022-02-13] MEDS: MELATONIN 5 MG TABLET PO SCH (20:05)
[2022-02-14 01:25] VITALS: BP 122/79
[2022-02-14 05:30] VITALS: BP 142/103
[2022-02-14] MEDS: LORazepam 0.5 MG TABLET PO PRN ×2 (05:37→12:53)
[2022-02-14 06:50] VITALS: BP 140/90
[2022-02-14] MEDS: OLANZapine 5 MG RAPDIS TABLET PO PRN (07:00)
[2022-02-14 08:17] VITALS: BP 109/64
[2022-02-14] MEDS: FLUoxetine HCL 20 MG CAPSULE PO SCH (08:33)
[2022-02-14] MEDS: NALTREXONE HCL 50 MG TABLET PO SCH (08:33)
[2022-02-14] MEDS: DOCUSATE SODIUM 250 MG CAPSULE PO SCH ×2 (08:33→17:00)
[2022-02-14] MEDS: MULTIVITAMINS WITH MINERALS, THERAPEUTIC TABLET PO SCH (08:33)
[2022-02-14] MEDS: OMEGA-3/DHA/EPA/FISH OIL 1,000 MG CAPSULE PO SCH (08:33)
[2022-02-14 16:44] VITALS: BP 113/70
[2022-02-14] MEDS: MELATONIN 5 MG TABLET PO SCH (20:25)
[2022-02-14] MEDS: OLANZapine 10 MG RAPDIS TABLET PO SCH (20:25)
[2022-02-15 01:13] VITALS: BP 119/77
[2022-02-15] MEDS: LORazepam 0.5 MG TABLET PO PRN ×2 (02:53→08:30)
[2022-02-15] MEDS: OLANZapine 5 MG RAPDIS TABLET PO PRN (06:30)
[2022-02-15] MEDS: DOCUSATE SODIUM 250 MG CAPSULE PO SCH ×2 (08:30→16:16)
[2022-02-15] MEDS: NALTREXONE HCL 50 MG TABLET PO SCH (08:30)
[2022-02-15] MEDS: OMEGA-3/DHA/EPA/FISH OIL 1,000 MG CAPSULE PO SCH (08:30)
[2022-02-15] MEDS: MULTIVITAMINS WITH MINERALS, THERAPEUTIC TABLET PO SCH (08:30)
[2022-02-15] MEDS: FLUoxetine HCL 20 MG CAPSULE PO SCH (08:30)
[2022-02-15 08:36] VITALS: BP 118/68
[2022-02-15 16:23] VITALS: BP 123/84
[2022-02-15] MEDS: MELATONIN 5 MG TABLET PO SCH (20:17)
[2022-02-15] MEDS: OLANZapine 10 MG RAPDIS TABLET PO SCH (20:17)
[2022-02-16 00:51] VITALS: BP 111/63
[2022-02-16] MEDS: LORazepam 0.5 MG TABLET PO PRN ×2 (05:54→22:22)
[2022-02-16 08:30] VITALS: BP 126/69
[2022-02-16] MEDS: OLANZapine 5 MG RAPDIS TABLET PO PRN (08:37)
[2022-02-16] MEDS: DOCUSATE SODIUM 250 MG CAPSULE PO SCH ×2 (08:37→16:16)
[2022-02-16] MEDS: MULTIVITAMINS WITH MINERALS, THERAPEUTIC TABLET PO SCH (08:37)
[2022-02-16] MEDS: NALTREXONE HCL 50 MG TABLET PO SCH (08:37)
[2022-02-16] MEDS: OMEGA-3/DHA/EPA/FISH OIL 1,000 MG CAPSULE PO SCH (08:37)
[2022-02-16] MEDS: FLUoxetine HCL 20 MG CAPSULE PO SCH (08:37)
[2022-02-16 16:19] VITALS: BP 144/89
[2022-02-16] MEDS: MELATONIN 5 MG TABLET PO SCH (20:11)
[2022-02-16] MEDS: OLANZapine 10 MG RAPDIS TABLET PO SCH (20:11)
[2022-02-16] MEDS ORDERED: BENZTROPINE MESYLATE 2 MG TABLET PO ONE (22:45)
[2022-02-17 06:44] VITALS: BP 135/76
[2022-02-17] MEDS: LORazepam 0.5 MG TABLET PO PRN (07:03)
[2022-02-17 08:38] VITALS: BP 133/72
[2022-02-17] MEDS: NALTREXONE HCL 50 MG TABLET PO SCH (08:51)
[2022-02-17] MEDS: OMEGA-3/DHA/EPA/FISH OIL 1,000 MG CAPSULE PO SCH (08:51)
[2022-02-17] MEDS: DOCUSATE SODIUM 250 MG CAPSULE PO SCH ×2 (08:51→16:17)
[2022-02-17] MEDS: FLUoxetine HCL 20 MG CAPSULE PO SCH (08:51)
[2022-02-17] MEDS: MULTIVITAMINS WITH MINERALS, THERAPEUTIC TABLET PO SCH (08:51)
[2022-02-17 16:14] VITALS: BP 132/76
[2022-02-17] MEDS: BENZTROPINE MESYLATE 2 MG TABLET PO SCH (20:20)
[2022-02-17] MEDS: MELATONIN 5 MG TABLET PO SCH (20:20)
[2022-02-17] MEDS: OLANZapine 10 MG RAPDIS TABLET PO SCH (20:20)
[2022-02-18 01:09] VITALS: BP 127/73
[2022-02-18 08:33] VITALS: BP 130/64
[2022-02-18] MEDS: DOCUSATE SODIUM 250 MG CAPSULE PO SCH ×2 (08:54→16:31)
[2022-02-18] MEDS: FLUoxetine HCL 20 MG CAPSULE PO SCH (08:55)
[2022-02-18] MEDS: OMEGA-3/DHA/EPA/FISH OIL 1,000 MG CAPSULE PO SCH (08:55)
[2022-02-18] MEDS: MULTIVITAMINS WITH MINERALS, THERAPEUTIC TABLET PO SCH (08:55)
[2022-02-18] MEDS: NALTREXONE HCL 50 MG TABLET PO SCH (08:55)
[2022-02-18] MEDS: LORazepam 0.5 MG TABLET PO PRN ×2 (08:59→16:31)
[2022-02-18 10:01] LABS: GLUCOMETER DEV NAME(LOC) POC.BV
[2022-02-18 16:19] VITALS: BP 136/75
[2022-02-18] MEDS: OLANZapine 10 MG RAPDIS TABLET PO SCH (20:26)
[2022-02-18] MEDS: BENZTROPINE MESYLATE 2 MG TABLET PO SCH (20:26)
[2022-02-18] MEDS: MELATONIN 5 MG TABLET PO SCH (20:27)
[2022-02-19 01:06] VITALS: BP 128/78
[2022-02-19 08:10] VITALS: BP 125/75
[2022-02-19] MEDS: MULTIVITAMINS WITH MINERALS, THERAPEUTIC TABLET PO SCH (08:37)
[2022-02-19] MEDS: BuPROPion HCL XL 150 MG ER TABLET PO SCH (08:37)
[2022-02-19] MEDS: LORazepam 0.5 MG TABLET PO PRN (08:37)
[2022-02-19] MEDS: FLUoxetine HCL 20 MG CAPSULE PO SCH (08:37)
[2022-02-19] MEDS: NALTREXONE HCL 50 MG TABLET PO SCH (08:37)
[2022-02-19] MEDS: OMEGA-3/DHA/EPA/FISH OIL 1,000 MG CAPSULE PO SCH (08:37)
[2022-02-19] MEDS: DOCUSATE SODIUM 250 MG CAPSULE PO SCH ×2 (08:37→16:56)
[2022-02-19 16:22] VITALS: BP 133/79
[2022-02-19] MEDS: OLANZapine 10 MG RAPDIS TABLET PO SCH (20:35)
[2022-02-19] MEDS: MELATONIN 5 MG TABLET PO SCH (20:35)
[2022-02-19] MEDS: BENZTROPINE MESYLATE 2 MG TABLET PO SCH (20:35)
[2022-02-20 00:16] VITALS: BP 119/79
[2022-02-20 08:27] VITALS: BP 135/76
[2022-02-20] MEDS: NALTREXONE HCL 50 MG TABLET PO SCH (08:37)
[2022-02-20] MEDS: BuPROPion HCL XL 150 MG ER TABLET PO SCH (08:38)
[2022-02-20] MEDS: DOCUSATE SODIUM 250 MG CAPSULE PO SCH ×2 (08:38→16:20)
[2022-02-20] MEDS: OMEGA-3/DHA/EPA/FISH OIL 1,000 MG CAPSULE PO SCH (08:38)
[2022-02-20] MEDS: MULTIVITAMINS WITH MINERALS, THERAPEUTIC TABLET PO SCH (08:38)
[2022-02-20] MEDS: FLUoxetine HCL 20 MG CAPSULE PO SCH (08:39)
[2022-02-20] MEDS: OLANZapine 5 MG RAPDIS TABLET PO PRN (13:02)
[2022-02-20] MEDS: LORazepam 0.5 MG TABLET PO PRN (13:02)
[2022-02-20 16:17] VITALS: BP 141/95
[2022-02-20] MEDS: BENZTROPINE MESYLATE 2 MG TABLET PO SCH (20:19)
[2022-02-20] MEDS: OLANZapine 10 MG RAPDIS TABLET PO SCH (20:19)
[2022-02-20] MEDS: MELATONIN 5 MG TABLET PO SCH (20:19)
[2022-02-21 00:53] VITALS: BP 125/76
[2022-02-21 08:31] VITALS: BP 155/101
[2022-02-21] MEDS: FLUoxetine HCL 20 MG CAPSULE PO SCH (08:54)
[2022-02-21] MEDS: NALTREXONE HCL 50 MG TABLET PO SCH (08:54)
[2022-02-21] MEDS: DOCUSATE SODIUM 250 MG CAPSULE PO SCH (08:54)
[2022-02-21] MEDS: OMEGA-3/DHA/EPA/FISH OIL 1,000 MG CAPSULE PO SCH (08:55)
[2022-02-21] MEDS: MULTIVITAMINS WITH MINERALS, THERAPEUTIC TABLET PO SCH (08:55)
[2022-02-21] MEDS ORDERED: BuPROPion HCL XL 150 MG ER TABLET PO SCH (09:00)
[2022-02-21] MEDS ORDERED: OMEG-108 PO (13:34)
[2022-02-21] MEDS ORDERED: OLAN10TA26 PO (13:34)
[2022-02-21] MEDS ORDERED: MELA5TAB40 PO (13:34)
[2022-02-21] MEDS ORDERED: BENZ2TAB76 PO (13:34)
[2022-02-21] MEDS ORDERED: BUPR-50 PO (13:34)
[2022-02-21] MEDS ORDERED: NALT50TA PO (13:34)
[2022-02-21] MEDS ORDERED: PROZ20 PO (13:34)
== END 2022-02-21 15:10 | disposition home or self-care (01) | DRG 750 ==
LOC: EMS 11:56 → B2S 19:01
PROVIDERS: ADMIT Psychiatry & Neurology Psychiatry; ATTEND Psychiatry & Neurology Psychiatry
DX: F25.1 Schizoaffective disorder, depressive type (principal); R45.851 Suicidal ideations; Z59.00 Homelessness unspecified; E78.5 Hyperlipidemia, unspecified; F41.9 Anxiety disorder, unspecified; Z20.822 Contact with and (suspected) exposure to COVID-19; I10 Essential (primary) hypertension; J44.9 Chronic obstructive pulmonary disease, unspecified; Z55.9 Problems related to education and literacy, unspecified; Z63.9 Problem related to primary support group, unspecified; Z65.3 Problems related to other legal circumstances; Z79.899 Other long term (current) drug therapy; Z86.16 Personal history of COVID-19; Z87.891 Personal history of nicotine dependence; Z91.14 Patient's other noncompliance with medication regimen; Z88.8 Allergy status to other drugs, medicaments and biological substances
CPT/HCPCS: 80053; 80307; 81003; 85025; 87081; 90686; 99285; G0480; Q9967

== ENCOUNTER 2022-04-01 18:26 | Inpatient (IN) | payer MEDICAID, OTHER ==
[~2022-04-01] VITALS: Ht 167.6 cm; Wt 57.6 kg
[~2022-04-01 18:26] MED LIST changes: +BENZ2TAB76 PO; +BUPR-50 PO; +OLAN10TA26 PO
[2022-04-01] MEDS ORDERED: ZOLPIDEM TARTRATE 10 MG TABLET PO PRN (20:00)
[2022-04-01] MEDS ORDERED: OLANZapine 5 MG RAPDIS TABLET PO PRN (20:00)
[2022-04-01 20:15] LABS: BASOPHILS % (AUTO) 0.4 % (0.0-2.0); EOSINOPHILS % (AUTO) 0.9 % (1.0-6.0); HEMATOCRIT 47.1 % (41-53); HEMOGLOBIN 16.6 g/dL (13.5-17.5); LYMPHOCYTES # (AUTO) 2.3 K/uL (1.0-4.8); LYMPHOCYTES % (AUTO) 23.5 % (22.0-44.0); MEAN CORPUSCULAR HEMOGLOBIN 33.7 pg (26.0-34.0); MEAN CORPUSCULAR HGB CONC 35.3 G/dL (31.0-37.0); MEAN CORPUSCULAR VOLUME 96 fL (80-100); MONOCYTES # (AUTO) 0.4 K/uL (0.1-1.0); MONOCYTES % (AUTO) 3.9 % (2.0-9.0); NEUTROPHILS # (AUTO) 6.9 K/uL (1.8-7.7); NEUTROPHILS % (AUTO) 71.3 % (40.0-70.0); PLATELET COUNT (AUTO) 309 K/uL (150-450); RED BLOOD CELL COUNT(AUTO) 4.93 MIL/uL (4.50-5.90); RED CELL DISTRIBUTION WIDTH 12.2 % (11.5-14.5)
[2022-04-01 20:27] LABS: ANION GAP 7 mmol/L (8-16); CARBON DIOXIDE 28 mmol/L (22-29); CHLORIDE 103 mmol/L (98-107); CREATININE 0.96 mg/dL (0.60-1.30); GLOMERULAR FILTR. RATE CALC > 60 mL/min (>60); GLUCOSE,RANDOM 99 mg/dL (70-110); POTASSIUM 4.1 mmol/L (3.5-5.1); SODIUM SERUM 138 mmol/L (136-145); UREA NITROGEN, BLOOD 14 mg/dL (7-18)
[2022-04-01 20:33] LABS: ALANINE AMINOTRANSFERASE 18 U/L (12-78); ALBUMIN 4.2 g/dL (3.4-5.0); ALKALINE PHOSPHATASE 72 U/L (46-116); ASPARTATE AMINOTRANSFERASE 8 U/L (15-37); BILIRUBIN,TOTAL 0.5 mg/dL (0.1-1.0); TOTAL PROTEIN, SERUM 7.8 g/dL (6.4-8.2)
[2022-04-01 21:09] LABS: COVID AG,FIA SOURCE NASOPHARYNGEAL
[2022-04-01] MEDS ORDERED: ACETAMINOPHEN 325 MG TABLET PO ONE (23:30)
[2022-04-02 03:28] VITALS: BP 150/92
[2022-04-02 03:40] VITALS: BP 150/92
[2022-04-02] MEDS ORDERED: PALIPERIDONE PALMITATE 234 MG/1.5 ML SYRINGE IM ONE (12:30)
[2022-04-02] MEDS ORDERED: MAGNESIUM HYDROXIDE SUSPENSION 30 ML UDCUP PO PRN (12:30)
[2022-04-02] MEDS ORDERED: LOPERAMIDE HCL 2 MG CAPSULE PO PRN (12:30)
[2022-04-02] MEDS ORDERED: GuaiFENesin/D-METHORPHAN [SUGAR-FREE] 200-20MG/10 ML SYRUP UDCUP PO PRN (12:30)
[2022-04-02] MEDS ORDERED: PROMETHAZINE HCL 25 MG TABLET PO PRN (12:30)
[2022-04-02] MEDS ORDERED: MAG HYDROX/AL HYDROX/SIMETH ES 30 ML SUSPENSION UDCUP PO PRN (12:30)
[2022-04-02] MEDS ORDERED: ACETAMINOPHEN 325 MG TABLET PO PRN (12:30)
[2022-04-02] MEDS ORDERED: HydrOXYzine PAMOATE 50 MG CAPSULE PO PRN (12:30)
[2022-04-02] MEDS ORDERED: CloNIDine HCL 0.1 MG TABLET PO PRN (13:15)
[2022-04-02 16:00] VITALS: BP 116/72
[2022-04-02] MEDS: THIAMINE 100 MG TABLET PO SCH (16:57)
[2022-04-02] MEDS: MELATONIN 5 MG TABLET PO SCH (20:35)
[2022-04-02] MEDS ORDERED: OLANZapine 5 MG RAPDIS TABLET PO SCH (21:00)
[2022-04-03 06:40] LABS: CHOL/HDL RATIO 4.6 (4.2-7.3)
[2022-04-03 06:41] LABS: HEMOGLOBIN A1C 5.3 % (3.8-5.6)
[2022-04-03] MEDS: FLUoxetine HCL 20 MG CAPSULE PO SCH (08:23)
[2022-04-03] MEDS: THIAMINE 100 MG TABLET PO SCH ×2 (08:23→16:31)
[2022-04-03] MEDS: FOLIC ACID 1 MG TABLET PO SCH (08:23)
[2022-04-03] MEDS: OMEGA-3/DHA/EPA/FISH OIL 1,000 MG CAPSULE PO SCH (08:23)
[2022-04-03] MEDS: NALTREXONE HCL 50 MG TABLET PO SCH (08:23)
[2022-04-03] MEDS: MULTIVITAMINS WITH MINERALS, THERAPEUTIC TABLET PO SCH (08:23)
[2022-04-03 08:30] VITALS: BP 131/85
[2022-04-03 16:46] VITALS: BP 113/77
[2022-04-03] MEDS: MELATONIN 5 MG TABLET PO SCH (20:36)
[2022-04-04 08:04] VITALS: BP 120/79
[2022-04-04] MEDS: NALTREXONE HCL 50 MG TABLET PO SCH ×2 (08:43→20:31)
[2022-04-04] MEDS: MULTIVITAMINS WITH MINERALS, THERAPEUTIC TABLET PO SCH ×2 (08:43→20:31)
[2022-04-04] MEDS: FOLIC ACID 1 MG TABLET PO SCH ×2 (08:43→20:31)
[2022-04-04] MEDS: OMEGA-3/DHA/EPA/FISH OIL 1,000 MG CAPSULE PO SCH ×2 (08:43→20:31)
[2022-04-04] MEDS: THIAMINE 100 MG TABLET PO SCH ×2 (08:43→20:31)
[2022-04-04] MEDS: FLUoxetine HCL 20 MG CAPSULE PO SCH ×2 (08:43→20:31)
[2022-04-04 16:42] VITALS: BP 107/74
[2022-04-04] MEDS: MELATONIN 5 MG TABLET PO SCH (20:30)
[2022-04-05 08:03] VITALS: BP 112/59
[2022-04-05 16:00] VITALS: BP 119/83
[2022-04-05] MEDS: OMEGA-3/DHA/EPA/FISH OIL 1,000 MG CAPSULE PO SCH (20:23)
[2022-04-05] MEDS: MELATONIN 5 MG TABLET PO SCH (20:23)
[2022-04-05] MEDS: FLUoxetine HCL 20 MG CAPSULE PO SCH (20:23)
[2022-04-05] MEDS: FOLIC ACID 1 MG TABLET PO SCH (20:24)
[2022-04-05] MEDS: NALTREXONE HCL 50 MG TABLET PO SCH (20:24)
[2022-04-05] MEDS: THIAMINE 100 MG TABLET PO SCH (20:28)
[2022-04-05] MEDS: MULTIVITAMINS WITH MINERALS, THERAPEUTIC TABLET PO SCH (20:28)
[2022-04-06 08:55] VITALS: BP 103/62
[2022-04-06] MEDS ORDERED: PALIPERIDONE PALMITATE 156 MG/ML SYRINGE IM ONE (09:00)
[2022-04-06 16:33] VITALS: BP 135/88
[2022-04-06] MEDS: FLUoxetine HCL 20 MG CAPSULE PO SCH (20:06)
[2022-04-06] MEDS: MELATONIN 5 MG TABLET PO SCH (20:07)
[2022-04-06] MEDS: FOLIC ACID 1 MG TABLET PO SCH (20:07)
[2022-04-06] MEDS: THIAMINE 100 MG TABLET PO SCH (20:07)
[2022-04-06] MEDS: NALTREXONE HCL 50 MG TABLET PO SCH (20:07)
[2022-04-06] MEDS: OMEGA-3/DHA/EPA/FISH OIL 1,000 MG CAPSULE PO SCH (20:07)
[2022-04-06] MEDS: MULTIVITAMINS WITH MINERALS, THERAPEUTIC TABLET PO SCH (20:07)
[2022-04-07 00:38] VITALS: BP 135/83
[2022-04-07] MEDS: LORazepam 2 MG TABLET PO PRN (08:29)
[2022-04-07 09:47] VITALS: BP 135/75
[2022-04-07 11:03] LABS: COVID AG,FIA SOURCE NASAL SWAB
[2022-04-07 16:30] VITALS: BP 99/78
[2022-04-07] MEDS: THIAMINE 100 MG TABLET PO SCH (20:24)
[2022-04-07] MEDS: MULTIVITAMINS WITH MINERALS, THERAPEUTIC TABLET PO SCH (20:24)
[2022-04-07] MEDS: FOLIC ACID 1 MG TABLET PO SCH (20:24)
[2022-04-07] MEDS: MELATONIN 5 MG TABLET PO SCH (20:24)
[2022-04-07] MEDS: NALTREXONE HCL 50 MG TABLET PO SCH (20:25)
[2022-04-07] MEDS: FLUoxetine HCL 20 MG CAPSULE PO SCH (20:25)
[2022-04-07] MEDS: OMEGA-3/DHA/EPA/FISH OIL 1,000 MG CAPSULE PO SCH (20:25)
[2022-04-08 09:11] VITALS: BP 100/64
[2022-04-08 16:16] VITALS: BP 122/80
[2022-04-08] MEDS: MELATONIN 5 MG TABLET PO SCH (20:18)
[2022-04-08] MEDS: THIAMINE 100 MG TABLET PO SCH (20:18)
[2022-04-08] MEDS: NALTREXONE HCL 50 MG TABLET PO SCH (20:18)
[2022-04-08] MEDS: FOLIC ACID 1 MG TABLET PO SCH (20:18)
[2022-04-08] MEDS: OMEGA-3/DHA/EPA/FISH OIL 1,000 MG CAPSULE PO SCH (20:18)
[2022-04-08] MEDS: MULTIVITAMINS WITH MINERALS, THERAPEUTIC TABLET PO SCH (20:18)
[2022-04-08] MEDS: FLUoxetine HCL 20 MG CAPSULE PO SCH (20:21)
[2022-04-09] MEDS: LORazepam 2 MG TABLET PO PRN (08:19)
[2022-04-09 16:00] VITALS: BP 109/69
[2022-04-09] MEDS: FLUoxetine HCL 20 MG CAPSULE PO SCH (20:14)
[2022-04-09] MEDS: THIAMINE 100 MG TABLET PO SCH (20:14)
[2022-04-09] MEDS: MULTIVITAMINS WITH MINERALS, THERAPEUTIC TABLET PO SCH (20:14)
[2022-04-09] MEDS: MELATONIN 5 MG TABLET PO SCH (20:14)
[2022-04-09] MEDS: OMEGA-3/DHA/EPA/FISH OIL 1,000 MG CAPSULE PO SCH (20:14)
[2022-04-09] MEDS: FOLIC ACID 1 MG TABLET PO SCH (20:14)
[2022-04-09] MEDS: NALTREXONE HCL 50 MG TABLET PO SCH (20:14)
[2022-04-10 08:30] VITALS: BP 114/70
[2022-04-10 16:41] VITALS: BP 132/82
[2022-04-10] MEDS: NALTREXONE HCL 50 MG TABLET PO SCH (20:38)
[2022-04-10] MEDS: FLUoxetine HCL 20 MG CAPSULE PO SCH (20:38)
[2022-04-10] MEDS: FOLIC ACID 1 MG TABLET PO SCH (20:38)
[2022-04-10] MEDS: THIAMINE 100 MG TABLET PO SCH (20:38)
[2022-04-10] MEDS: MULTIVITAMINS WITH MINERALS, THERAPEUTIC TABLET PO SCH (20:38)
[2022-04-10] MEDS: OMEGA-3/DHA/EPA/FISH OIL 1,000 MG CAPSULE PO SCH (20:38)
[2022-04-10] MEDS: MELATONIN 5 MG TABLET PO SCH (20:38)
[2022-04-11 08:30] VITALS: BP 119/74
[2022-04-11] MEDS: LORazepam 2 MG TABLET PO PRN (09:34)
[2022-04-11] MEDS ORDERED: PROZ20 PO (10:06)
[2022-04-11] MEDS ORDERED: PALI117D IM (10:06)
[2022-04-11] MEDS ORDERED: OMEG-108 PO (10:06)
[2022-04-11] MEDS ORDERED: MELA5TAB40 PO (10:06)
[2022-04-11] MEDS ORDERED: NALT50TA PO (10:06)
[2022-04-11 16:27] VITALS: BP 113/79
[2022-04-11] MEDS: MELATONIN 5 MG TABLET PO SCH ×2 (20:11→21:00)
[2022-04-11] MEDS: FOLIC ACID 1 MG TABLET PO SCH (20:11)
[2022-04-11] MEDS: OMEGA-3/DHA/EPA/FISH OIL 1,000 MG CAPSULE PO SCH ×2 (20:11→21:00)
[2022-04-11] MEDS: THIAMINE 100 MG TABLET PO SCH ×2 (20:12→21:00)
[2022-04-11] MEDS: NALTREXONE HCL 50 MG TABLET PO SCH ×2 (20:12→21:00)
[2022-04-11] MEDS: MULTIVITAMINS WITH MINERALS, THERAPEUTIC TABLET PO SCH ×2 (20:12→21:00)
[2022-04-11] MEDS: FLUoxetine HCL 20 MG CAPSULE PO SCH ×2 (20:12→21:00)
[2022-04-12 08:44] VITALS: BP 104/64
== END 2022-04-12 15:00 | disposition home or self-care (01) | DRG 750 ==
LOC: EMS 18:26 → 3EI 04-02 01:04
PROVIDERS: ADMIT Psychiatry & Neurology Psychiatry; ATTEND Psychiatry & Neurology Psychiatry
DX: F25.1 Schizoaffective disorder, depressive type (principal); R45.851 Suicidal ideations; Z91.19 Patient's noncompliance with other medical treatment and regimen; E78.5 Hyperlipidemia, unspecified; F31.9 Bipolar disorder, unspecified; Z20.822 Contact with and (suspected) exposure to COVID-19; F60.0 Paranoid personality disorder; I10 Essential (primary) hypertension; Z55.9 Problems related to education and literacy, unspecified; Z88.8 Allergy status to other drugs, medicaments and biological substances; Z59.9 Problem related to housing and economic circumstances, unspecified; Z63.9 Problem related to primary support group, unspecified; Z65.3 Problems related to other legal circumstances; Z86.16 Personal history of COVID-19
CPT/HCPCS: 80053; 80061; 83036; 85025; 99285; G0480; Q9967

== ENCOUNTER 2022-04-14 22:04 | Emergency (ER) | payer MEDICAID, OTHER ==
[~2022-04-14] VITALS: Ht 167.6 cm; Wt 57.3 kg
[~2022-04-14 22:04] MED LIST changes: -BENZ2TAB76 PO; -BUPR-50 PO; -OLAN10TA26 PO; -OLAN5TAB94 PO; +PALI117D IM
[2022-04-14] MEDS ORDERED: KETOROLAC TROMETHAMINE 30 MG/ML VIAL IM ONE (23:45)
[2022-04-15 03:27] VITALS: BP 129/67
[2022-04-15 03:31] LABS: APPEARANCE,URINE CLEAR (CLEAR); BILIRUBIN,URINE NEGATIVE (NEGATIVE); GLUCOSE, URINE (UA) NEGATIVE (NEGATIVE); LEUKOCYTE ESTERASE ,URINE NEGATIVE (NEGATIVE); NITRATE,URINE NEGATIVE (NEGATIVE); OCCULT BLOOD,URINE SMALL (NEGATIVE); PH,URINE 5.5 (5.0-8.0); PROTEIN,URINE TRACE mg/dL (NEGATIVE); SPECIFIC GRAVITIY, URINE 1.031 (1.003-1.030); UROBILINOGEN,URINE <=1.0 mg/dL (<=1.0)
[2022-04-15 03:38] LABS: BACTERIA,URINE None Seen /HPF (None Seen); MUCUS,URINE Moderate LPF (None Seen); WBC,URINE 0-2 /HPF (0-5)
[2022-04-15] MEDS ORDERED: CYCL-448 PO (03:56)
== END 2022-04-15 06:38 | disposition home or self-care (01) ==
LOC: EMS 22:08
DX: M54.50 Low back pain, unspecified (principal); F31.9 Bipolar disorder, unspecified; F41.9 Anxiety disorder, unspecified; F20.9 Schizophrenia, unspecified; Z88.8 Allergy status to other drugs, medicaments and biological substances; Z79.899 Other long term (current) drug therapy
CPT/HCPCS: 74018; 81001; 96372; 99284; J1885

== ENCOUNTER 2022-04-15 11:07 | Emergency (ER) | payer OTHER ==
[~2022-04-15] VITALS: Ht 167.6 cm; Wt 56.8 kg
[~2022-04-15 11:07] MED LIST changes: +CYCL-448 PO
[2022-04-15] MEDS ORDERED: BACLOFEN 10 MG TABLET PO ONE (12:30)
[2022-04-15] MEDS ORDERED: LORazepam 2 MG/ML VIAL IM ONE (12:30)
[2022-04-15] MEDS ORDERED: KETOROLAC TROMETHAMINE 60 MG/2 ML VIAL IM ONE (12:30)
[2022-04-15 12:36] LABS: BASOPHILS % (AUTO) 0.2 % (0.0-2.0); EOSINOPHILS % (AUTO) 0.4 % (1.0-6.0); HEMATOCRIT 42.3 % (41-53); HEMOGLOBIN 14.9 g/dL (13.5-17.5); LYMPHOCYTES # (AUTO) 1.2 K/uL (1.0-4.8); MEAN CORPUSCULAR HEMOGLOBIN 33.5 pg (26.0-34.0); MEAN CORPUSCULAR HGB CONC 35.3 G/dL (31.0-37.0); MEAN CORPUSCULAR VOLUME 95 fL (80-100); MONOCYTES # (AUTO) 0.3 K/uL (0.1-1.0); MONOCYTES % (AUTO) 3.1 % (2.0-9.0); NEUTROPHILS # (AUTO) 8.2 K/uL (1.8-7.7); NEUTROPHILS % (AUTO) 84.3 % (40.0-70.0); PLATELET COUNT (AUTO) 268 K/uL (150-450); RED BLOOD CELL COUNT(AUTO) 4.45 MIL/uL (4.50-5.90); RED CELL DISTRIBUTION WIDTH 12.4 % (11.5-14.5)
[2022-04-15 12:57] LABS: ANION GAP 10 mmol/L (8-16); CARBON DIOXIDE 28 mmol/L (22-29); CHLORIDE 105 mmol/L (98-107); GLOMERULAR FILTR. RATE CALC > 60 mL/min (>60); GLUCOSE,RANDOM 93 mg/dL (70-110); POTASSIUM 4.3 mmol/L (3.5-5.1); SODIUM SERUM 143 mmol/L (136-145); UREA NITROGEN, BLOOD 13 mg/dL (7-18)
[2022-04-15 13:01] LABS: LACTIC ACID 0.8 mmol/L (0.4-2.0)
[2022-04-15 13:08] LABS: ALANINE AMINOTRANSFERASE 31 U/L (12-78); ALBUMIN 3.7 g/dL (3.4-5.0); ALKALINE PHOSPHATASE 64 U/L (46-116); ASPARTATE AMINOTRANSFERASE 22 U/L (15-37); BILIRUBIN,TOTAL 0.6 mg/dL (0.1-1.0); LIPASE 171 U/L (73-393); TOTAL PROTEIN, SERUM 7.2 g/dL (6.4-8.2)
[2022-04-15 14:08] VITALS: BP 125/84
== END 2022-04-15 14:34 | disposition home or self-care (01) ==
LOC: EMS 11:07
DX: S39.012A Strain of muscle, fascia and tendon of lower back, initial encounter (principal); F31.9 Bipolar disorder, unspecified; F41.9 Anxiety disorder, unspecified; F25.1 Schizoaffective disorder, depressive type; Z88.8 Allergy status to other drugs, medicaments and biological substances; Z79.899 Other long term (current) drug therapy; X50.9XXA Other and unspecified overexertion or strenuous movements or postures, initial encounter; Y93.89 Activity, other specified; Y92.89 Other specified places as the place of occurrence of the external cause; Y99.8 Other external cause status
CPT/HCPCS: 36415; 80053; 83605; 83690; 84484; 85025; 96372; 99284; J1885; J2060

== ENCOUNTER 2022-05-05 17:40 | Emergency (ER) | payer OTHER ==
[~2022-05-05] VITALS: Ht 167.6 cm; Wt 55.5 kg
[2022-05-05 19:40] LABS: BASOPHILS % (AUTO) 0.3 % (0.0-2.0); EOSINOPHILS % (AUTO) 2.2 % (1.0-6.0); HEMATOCRIT 42.8 % (41-53); HEMOGLOBIN 14.7 g/dL (13.5-17.5); LYMPHOCYTES # (AUTO) 1.9 K/uL (1.0-4.8); LYMPHOCYTES % (AUTO) 20.5 % (22.0-44.0); MEAN CORPUSCULAR HGB CONC 34.3 G/dL (31.0-37.0); MEAN CORPUSCULAR VOLUME 96 fL (80-100); MONOCYTES # (AUTO) 0.4 K/uL (0.1-1.0); NEUTROPHILS # (AUTO) 6.8 K/uL (1.8-7.7); PLATELET COUNT (AUTO) 362 K/uL (150-450); RED BLOOD CELL COUNT(AUTO) 4.45 MIL/uL (4.50-5.90); RED CELL DISTRIBUTION WIDTH 13.3 % (11.5-14.5)
[2022-05-05 19:44] LABS: ANION GAP 10 mmol/L (8-16); CALCIUM, TOTAL 8.9 mg/dL (8.8-10.5); CARBON DIOXIDE 29 mmol/L (22-29); CHLORIDE 104 mmol/L (98-107); CREATININE 0.95 mg/dL (0.60-1.30); GLOMERULAR FILTR. RATE CALC > 60 mL/min (>60); GLUCOSE,RANDOM 105 mg/dL (70-110); POTASSIUM 3.9 mmol/L (3.5-5.1); SODIUM SERUM 143 mmol/L (136-145); UREA NITROGEN, BLOOD 11 mg/dL (7-18)
[2022-05-05 19:45] LABS: AMPHET/METH SCREEN,URINE NEGATIVE (NEGATIVE); BARBITURATE SCREEN, URINE NEGATIVE (NEGATIVE); BENZODIAZEPINES SCREEN,URINE NEGATIVE (NEGATIVE); CANNABINOID SCREEN,URINE NEGATIVE (NEGATIVE); COCAINE SCREEN,URINE NEGATIVE (NEGATIVE); METHADONE SCREEN, URINE NEGATIVE (NEGATIVE); OPIATE SCREEN,URINE NEGATIVE (NEGATIVE)
[2022-05-05 19:46] LABS: PHENCYCLIDINE SCREEN,URINE NEGATIVE (NEGATIVE)
[2022-05-05 19:51] LABS: ALANINE AMINOTRANSFERASE 20 U/L (12-78); ALBUMIN 3.8 g/dL (3.4-5.0); ALKALINE PHOSPHATASE 64 U/L (46-116); ASPARTATE AMINOTRANSFERASE 5 U/L (15-37); BILIRUBIN,TOTAL 0.4 mg/dL (0.1-1.0); TOTAL PROTEIN, SERUM 6.9 g/dL (6.4-8.2)
[2022-05-05 23:20] VITALS: BP 113/73
== END 2022-05-06 | disposition home or self-care (01) ==
LOC: EMS 17:40
DX: S50.01XA Contusion of right elbow, initial encounter (principal); M25.561 Pain in right knee; I10 Essential (primary) hypertension; F31.9 Bipolar disorder, unspecified; F20.9 Schizophrenia, unspecified; Z88.8 Allergy status to other drugs, medicaments and biological substances; Z79.899 Other long term (current) drug therapy; W18.39XA Other fall on same level, initial encounter; Y93.89 Activity, other specified; Y92.89 Other specified places as the place of occurrence of the external cause; Y99.8 Other external cause status
CPT/HCPCS: 36415; 73080; 73562; 80053; 80307; 85025; 99284; G0480

== ENCOUNTER 2022-05-27 17:29 | Inpatient (IN) | payer MEDICAID, OTHER ==
[~2022-05-27] VITALS: Ht 167.6 cm; Wt 58.1 kg
[~2022-05-27 17:29] MED LIST changes: -OMEG-108 PO; +OMEG-135 PO
[2022-05-27] MEDS ORDERED: LITH300C3 PO (19:20)
[2022-05-27] MEDS ORDERED: QUET100T PO (19:20)
[2022-05-27] MEDS ORDERED: CHOL25TA4 PO (19:20)
[2022-05-27] MEDS ORDERED: AMLO-257 PO (19:20)
[2022-05-27] MEDS ORDERED: MIRT30 PO (19:22)
[2022-05-27] MEDS ORDERED: ATOR10TA84 PO (19:22)
[2022-05-27 20:17] LABS: BASOPHILS % (AUTO) 0.6 % (0.0-2.0); EOSINOPHILS % (AUTO) 1.4 % (1.0-6.0); HEMATOCRIT 43.3 % (41-53); HEMOGLOBIN 14.9 g/dL (13.5-17.5); LYMPHOCYTES # (AUTO) 1.9 K/uL (1.0-4.8); LYMPHOCYTES % (AUTO) 21.8 % (22.0-44.0); MEAN CORPUSCULAR HEMOGLOBIN 33.3 pg (26.0-34.0); MEAN CORPUSCULAR HGB CONC 34.5 G/dL (31.0-37.0); MEAN CORPUSCULAR VOLUME 97 fL (80-100); MONOCYTES # (AUTO) 0.3 K/uL (0.1-1.0); MONOCYTES % (AUTO) 3.2 % (2.0-9.0); NEUTROPHILS # (AUTO) 6.4 K/uL (1.8-7.7); PLATELET COUNT (AUTO) 296 K/uL (150-450); RED BLOOD CELL COUNT(AUTO) 4.48 MIL/uL (4.50-5.90); RED CELL DISTRIBUTION WIDTH 13.3 % (11.5-14.5)
[2022-05-27 20:27] LABS: ANION GAP 10 mmol/L (8-16); CALCIUM, TOTAL 8.9 mg/dL (8.8-10.5); CARBON DIOXIDE 25 mmol/L (22-29); CHLORIDE 106 mmol/L (98-107); CREATININE 0.89 mg/dL (0.60-1.30); GLOMERULAR FILTR. RATE CALC > 60 mL/min (>60); GLUCOSE,RANDOM 99 mg/dL (70-110); POTASSIUM 3.7 mmol/L (3.5-5.1); SODIUM SERUM 141 mmol/L (136-145); UREA NITROGEN, BLOOD 10 mg/dL (7-18)
[2022-05-27 20:32] LABS: ALANINE AMINOTRANSFERASE 17 U/L (12-78); ALBUMIN 3.8 g/dL (3.4-5.0); ALKALINE PHOSPHATASE 65 U/L (46-116); ASPARTATE AMINOTRANSFERASE 8 U/L (15-37); BILIRUBIN,TOTAL 0.5 mg/dL (0.1-1.0); TOTAL PROTEIN, SERUM 6.8 g/dL (6.4-8.2)
[2022-05-27 20:35] LABS: AMPHET/METH SCREEN,URINE NEGATIVE (NEGATIVE); BARBITURATE SCREEN, URINE NEGATIVE (NEGATIVE); BENZODIAZEPINES SCREEN,URINE NEGATIVE (NEGATIVE); CANNABINOID SCREEN,URINE NEGATIVE (NEGATIVE); COCAINE SCREEN,URINE NEGATIVE (NEGATIVE); METHADONE SCREEN, URINE NEGATIVE (NEGATIVE); OPIATE SCREEN,URINE NEGATIVE (NEGATIVE)
[2022-05-27 20:36] LABS: PHENCYCLIDINE SCREEN,URINE NEGATIVE (NEGATIVE)
[2022-05-27] MEDS ORDERED: ZOLPIDEM TARTRATE 10 MG TABLET PO PRN (21:30)
[2022-05-28 05:54] LABS: COVID AG,FIA SOURCE NASOPHARYNGEAL
[2022-05-28 11:28] VITALS: BP 152/98
[2022-05-28] MEDS ORDERED: -PHARMACY VACCINE NOTE- MISC ONE (12:00)
[2022-05-28] MEDS: AmLODIPine BESYLATE 5 MG TABLET PO SCH (14:47)
[2022-05-28] MEDS: LORazepam 2 MG TABLET PO PRN (16:10)
[2022-05-28] MEDS: HALOPERIDOL 5 MG TABLET PO PRN (16:10)
[2022-05-28 16:22] VITALS: BP 123/77
[2022-05-29 06:13] VITALS: BP 128/75
[2022-05-29] MEDS ORDERED: ALBUTEROL SULFATE HFA 90 MCG/PUFF 8 GM INHALER IH PRN (07:00)
[2022-05-29] MEDS ORDERED: NICOTINE 14 MG/24 HOUR PATCH TD PRN (07:00)
[2022-05-29] MEDS ORDERED: LOPERAMIDE HCL 2 MG CAPSULE PO PRN (07:00)
[2022-05-29] MEDS ORDERED: PETROLATUM,WHITE 28 GM JELLY TP PRN (07:00)
[2022-05-29] MEDS ORDERED: IBUPROFEN 400 MG TABLET PO PRN (07:00)
[2022-05-29] MEDS ORDERED: DOCUSATE SODIUM 100 MG CAPSULE PO PRN (07:00)
[2022-05-29] MEDS ORDERED: ACETAMINOPHEN 325 MG TABLET PO PRN (07:00)
[2022-05-29] MEDS ORDERED: MAGNESIUM HYDROXIDE SUSPENSION 30 ML UDCUP PO PRN (07:00)
[2022-05-29] MEDS ORDERED: ONDANSETRON HCL 4 MG TABLET PO PRN (07:00)
[2022-05-29] MEDS ORDERED: CloNIDine HCL 0.1 MG TABLET PO PRN (07:00)
[2022-05-29] MEDS ORDERED: GuaiFENesin/D-METHORPHAN [SUGAR-FREE] 200-20MG/10 ML SYRUP UDCUP PO PRN (07:00)
[2022-05-29] MEDS ORDERED: MAG HYDROX/AL HYDROX/SIMETH ES 30 ML SUSPENSION UDCUP PO PRN (07:00)
[2022-05-29] MEDS: CHOLECALCIFEROL (VIT D3) 1,000 UNITS [25 MCG] TABLET PO SCH (08:12)
[2022-05-29] MEDS: AmLODIPine BESYLATE 5 MG TABLET PO SCH (08:12)
[2022-05-29] MEDS: CYCLOBENZAPRINE HCL 10 MG TABLET PO SCH ×2 (08:12→17:10)
[2022-05-29 08:21] VITALS: BP 120/72
[2022-05-29] MEDS ORDERED: AmLODIPine BESYLATE 5 MG TABLET PO SCH (09:00)
[2022-05-29 16:50] VITALS: BP 113/74
[2022-05-29] MEDS: MELATONIN 5 MG TABLET PO SCH (20:42)
[2022-05-29] MEDS: ATORVASTATIN CALCIUM 10 MG TABLET PO SCH (20:42)
[2022-05-29] MEDS: LORazepam 2 MG TABLET PO PRN (20:43)
[2022-05-30 06:32] VITALS: BP 109/80
[2022-05-30 08:15] VITALS: BP 110/66
[2022-05-30] MEDS: AmLODIPine BESYLATE 5 MG TABLET PO SCH (08:25)
[2022-05-30] MEDS: CYCLOBENZAPRINE HCL 10 MG TABLET PO SCH ×2 (08:25→17:13)
[2022-05-30] MEDS: CHOLECALCIFEROL (VIT D3) 1,000 UNITS [25 MCG] TABLET PO SCH (08:25)
[2022-05-30] MEDS ORDERED: PALIPERIDONE PALMITATE 156 MG/ML SYRINGE IM ONE (16:00)
[2022-05-30 16:09] VITALS: BP 105/61
[2022-05-30] MEDS: LORazepam 2 MG TABLET PO PRN (17:13)
[2022-05-30] MEDS: HALOPERIDOL 5 MG TABLET PO PRN (17:13)
[2022-05-30] MEDS: MELATONIN 5 MG TABLET PO SCH (20:46)
[2022-05-30] MEDS: ATORVASTATIN CALCIUM 10 MG TABLET PO SCH (20:46)
[2022-05-31] MEDS: CYCLOBENZAPRINE HCL 10 MG TABLET PO SCH ×2 (08:23→17:14)
[2022-05-31] MEDS: AmLODIPine BESYLATE 5 MG TABLET PO SCH (08:23)
[2022-05-31] MEDS: CHOLECALCIFEROL (VIT D3) 1,000 UNITS [25 MCG] TABLET PO SCH (08:23)
[2022-05-31] MEDS: LORazepam 2 MG TABLET PO PRN (08:24)
[2022-05-31] MEDS: HALOPERIDOL 5 MG TABLET PO PRN (08:24)
[2022-05-31 08:54] VITALS: BP 115/62
[2022-05-31 20:18] VITALS: BP 106/70
[2022-05-31] MEDS: MELATONIN 5 MG TABLET PO SCH (20:40)
[2022-05-31] MEDS: ATORVASTATIN CALCIUM 10 MG TABLET PO SCH (20:40)
[2022-06-01] MEDS: AmLODIPine BESYLATE 5 MG TABLET PO SCH (08:37)
[2022-06-01] MEDS: CYCLOBENZAPRINE HCL 10 MG TABLET PO SCH ×2 (08:37→16:26)
[2022-06-01] MEDS: CHOLECALCIFEROL (VIT D3) 1,000 UNITS [25 MCG] TABLET PO SCH (08:37)
[2022-06-01 09:30] VITALS: BP 93/61
[2022-06-01] MEDS: MELATONIN 5 MG TABLET PO SCH (20:15)
[2022-06-01] MEDS: ATORVASTATIN CALCIUM 10 MG TABLET PO SCH (20:15)
[2022-06-01 20:55] VITALS: BP 104/75
[2022-06-02] MEDS: CHOLECALCIFEROL (VIT D3) 1,000 UNITS [25 MCG] TABLET PO SCH (08:38)
[2022-06-02] MEDS: AmLODIPine BESYLATE 5 MG TABLET PO SCH (08:38)
[2022-06-02] MEDS: CYCLOBENZAPRINE HCL 10 MG TABLET PO SCH ×2 (08:38→16:35)
[2022-06-02 11:13] VITALS: BP 106/66
[2022-06-02] MEDS: ATORVASTATIN CALCIUM 10 MG TABLET PO SCH (21:09)
[2022-06-02] MEDS: MELATONIN 5 MG TABLET PO SCH (21:09)
[2022-06-03 02:13] VITALS: BP 101/64
[2022-06-03 08:27] VITALS: BP 113/78
[2022-06-03] MEDS: CYCLOBENZAPRINE HCL 10 MG TABLET PO SCH ×2 (08:42→16:52)
[2022-06-03] MEDS: CHOLECALCIFEROL (VIT D3) 1,000 UNITS [25 MCG] TABLET PO SCH (08:43)
[2022-06-03] MEDS: LORazepam 2 MG TABLET PO PRN (08:43)
[2022-06-03] MEDS: AmLODIPine BESYLATE 5 MG TABLET PO SCH (08:43)
[2022-06-03] MEDS: ATORVASTATIN CALCIUM 10 MG TABLET PO SCH (20:31)
[2022-06-03] MEDS: MELATONIN 5 MG TABLET PO SCH (20:31)
[2022-06-04 04:26] VITALS: BP 110/69
[2022-06-04 08:12] VITALS: BP 118/64
[2022-06-04] MEDS: CYCLOBENZAPRINE HCL 10 MG TABLET PO SCH ×2 (08:16→17:02)
[2022-06-04] MEDS: CHOLECALCIFEROL (VIT D3) 1,000 UNITS [25 MCG] TABLET PO SCH (08:16)
[2022-06-04] MEDS: LORazepam 2 MG TABLET PO PRN ×2 (08:16→20:34)
[2022-06-04] MEDS: AmLODIPine BESYLATE 5 MG TABLET PO SCH (08:16)
[2022-06-04] MEDS: HALOPERIDOL 5 MG TABLET PO PRN (17:02)
[2022-06-04 20:15] VITALS: BP 104/77
[2022-06-04] MEDS: MELATONIN 5 MG TABLET PO SCH (20:33)
[2022-06-04] MEDS: ATORVASTATIN CALCIUM 10 MG TABLET PO SCH (20:34)
[2022-06-05] MEDS: HALOPERIDOL 5 MG TABLET PO PRN (03:54)
[2022-06-05 08:22] VITALS: BP 102/68
[2022-06-05] MEDS: CYCLOBENZAPRINE HCL 10 MG TABLET PO SCH ×2 (08:37→16:09)
[2022-06-05] MEDS: AmLODIPine BESYLATE 5 MG TABLET PO SCH (08:37)
[2022-06-05] MEDS: LORazepam 2 MG TABLET PO PRN (08:37)
[2022-06-05] MEDS: CHOLECALCIFEROL (VIT D3) 1,000 UNITS [25 MCG] TABLET PO SCH (08:37)
[2022-06-05] MEDS: ATORVASTATIN CALCIUM 10 MG TABLET PO SCH (20:03)
[2022-06-05] MEDS: MELATONIN 5 MG TABLET PO SCH (20:03)
[2022-06-05 20:13] VITALS: BP 116/79
[2022-06-06] MEDS: CYCLOBENZAPRINE HCL 10 MG TABLET PO SCH ×2 (08:31→17:03)
[2022-06-06] MEDS: AmLODIPine BESYLATE 5 MG TABLET PO SCH (08:31)
[2022-06-06] MEDS: CHOLECALCIFEROL (VIT D3) 1,000 UNITS [25 MCG] TABLET PO SCH (08:31)
[2022-06-06 09:19] VITALS: BP 13/89
[2022-06-06 09:32] LABS: GLUCOMETER DEV NAME(LOC) POC.BV
[2022-06-06] MEDS: ATORVASTATIN CALCIUM 10 MG TABLET PO SCH (20:28)
[2022-06-06] MEDS: LORazepam 2 MG TABLET PO PRN (20:28)
[2022-06-06] MEDS: MELATONIN 5 MG TABLET PO SCH (20:28)
[2022-06-07 06:10] VITALS: BP 111/78
[2022-06-07 08:21] VITALS: BP 102/65
[2022-06-07] MEDS: CHOLECALCIFEROL (VIT D3) 1,000 UNITS [25 MCG] TABLET PO SCH (08:21)
[2022-06-07] MEDS: CYCLOBENZAPRINE HCL 10 MG TABLET PO SCH ×2 (08:21→16:17)
[2022-06-07] MEDS: AmLODIPine BESYLATE 5 MG TABLET PO SCH (08:21)
[2022-06-07] MEDS: ATORVASTATIN CALCIUM 10 MG TABLET PO SCH (20:17)
[2022-06-07] MEDS: MELATONIN 5 MG TABLET PO SCH (20:17)
[2022-06-07 21:26] VITALS: BP 98/66
[2022-06-08 08:18] VITALS: BP 104/69
[2022-06-08] MEDS: CHOLECALCIFEROL (VIT D3) 1,000 UNITS [25 MCG] TABLET PO SCH (08:31)
[2022-06-08] MEDS: CYCLOBENZAPRINE HCL 10 MG TABLET PO SCH ×2 (08:31→17:06)
[2022-06-08] MEDS: AmLODIPine BESYLATE 5 MG TABLET PO SCH ×2 (08:31→09:47)
[2022-06-08 09:46] VITALS: BP 114/78
[2022-06-08] MEDS: LORazepam 2 MG TABLET PO PRN (09:47)
[2022-06-08 20:19] VITALS: BP 99/65
[2022-06-08] MEDS: MELATONIN 5 MG TABLET PO SCH (20:38)
[2022-06-08] MEDS: ATORVASTATIN CALCIUM 10 MG TABLET PO SCH (20:38)
[2022-06-09] MEDS: CYCLOBENZAPRINE HCL 10 MG TABLET PO SCH ×2 (08:16→17:07)
[2022-06-09] MEDS: AmLODIPine BESYLATE 5 MG TABLET PO SCH (08:16)
[2022-06-09] MEDS: CHOLECALCIFEROL (VIT D3) 1,000 UNITS [25 MCG] TABLET PO SCH (08:16)
[2022-06-09 09:06] VITALS: BP 133/81
[2022-06-09 20:21] VITALS: BP 120/80
[2022-06-09] MEDS: MELATONIN 5 MG TABLET PO SCH (20:26)
[2022-06-09] MEDS: ATORVASTATIN CALCIUM 10 MG TABLET PO SCH (20:26)
[2022-06-10 08:27] VITALS: BP 133/68
[2022-06-10] MEDS: LORazepam 2 MG TABLET PO PRN (08:39)
[2022-06-10] MEDS: CYCLOBENZAPRINE HCL 10 MG TABLET PO SCH ×2 (08:39→16:58)
[2022-06-10] MEDS: CHOLECALCIFEROL (VIT D3) 1,000 UNITS [25 MCG] TABLET PO SCH (08:39)
[2022-06-10] MEDS: AmLODIPine BESYLATE 5 MG TABLET PO SCH (08:39)
[2022-06-10 20:11] VITALS: BP 121/83
[2022-06-10] MEDS: MELATONIN 5 MG TABLET PO SCH (20:42)
[2022-06-10] MEDS: ATORVASTATIN CALCIUM 10 MG TABLET PO SCH (20:42)
[2022-06-11 08:24] VITALS: BP 125/85
[2022-06-11] MEDS: AmLODIPine BESYLATE 5 MG TABLET PO SCH (09:01)
[2022-06-11] MEDS: CHOLECALCIFEROL (VIT D3) 1,000 UNITS [25 MCG] TABLET PO SCH (09:01)
[2022-06-11] MEDS: CYCLOBENZAPRINE HCL 10 MG TABLET PO SCH ×2 (09:03→16:39)
[2022-06-11 20:09] VITALS: BP 106/75
[2022-06-11] MEDS: MELATONIN 5 MG TABLET PO SCH (20:36)
[2022-06-11] MEDS: ATORVASTATIN CALCIUM 10 MG TABLET PO SCH (20:36)
[2022-06-12] MEDS: CYCLOBENZAPRINE HCL 10 MG TABLET PO SCH ×2 (08:13→17:00)
[2022-06-12] MEDS: AmLODIPine BESYLATE 5 MG TABLET PO SCH (08:14)
[2022-06-12] MEDS: CHOLECALCIFEROL (VIT D3) 1,000 UNITS [25 MCG] TABLET PO SCH (08:14)
[2022-06-12 08:27] VITALS: BP 116/64
[2022-06-12 20:29] VITALS: BP 101/60
[2022-06-12] MEDS: ATORVASTATIN CALCIUM 10 MG TABLET PO SCH (20:40)
[2022-06-12] MEDS: MELATONIN 5 MG TABLET PO SCH (20:40)
[2022-06-13] MEDS: AmLODIPine BESYLATE 5 MG TABLET PO SCH (08:40)
[2022-06-13] MEDS: CHOLECALCIFEROL (VIT D3) 1,000 UNITS [25 MCG] TABLET PO SCH (08:40)
[2022-06-13] MEDS: CYCLOBENZAPRINE HCL 10 MG TABLET PO SCH ×2 (08:41→16:33)
[2022-06-13 09:33] VITALS: BP 112/65
[2022-06-13 20:13] VITALS: BP 116/62
[2022-06-13] MEDS: ATORVASTATIN CALCIUM 10 MG TABLET PO SCH (20:41)
[2022-06-13] MEDS: MELATONIN 5 MG TABLET PO SCH (20:41)
[2022-06-14] MEDS: CHOLECALCIFEROL (VIT D3) 1,000 UNITS [25 MCG] TABLET PO SCH (08:17)
[2022-06-14] MEDS: AmLODIPine BESYLATE 5 MG TABLET PO SCH (08:17)
[2022-06-14] MEDS: CYCLOBENZAPRINE HCL 10 MG TABLET PO SCH ×2 (08:17→16:12)
[2022-06-14 08:23] VITALS: BP 118/78
[2022-06-14] MEDS: LORazepam 2 MG TABLET PO PRN (12:17)
[2022-06-14 15:01] LABS: GLUCOMETER DEV NAME(LOC) POC.BV
[2022-06-14 20:00] VITALS: BP 115/86
[2022-06-14] MEDS: ATORVASTATIN CALCIUM 10 MG TABLET PO SCH (20:21)
[2022-06-14] MEDS: MELATONIN 5 MG TABLET PO SCH (20:21)
[2022-06-15 08:08] VITALS: BP 116/64
[2022-06-15] MEDS: CHOLECALCIFEROL (VIT D3) 1,000 UNITS [25 MCG] TABLET PO SCH (08:18)
[2022-06-15] MEDS: CYCLOBENZAPRINE HCL 10 MG TABLET PO SCH ×2 (08:18→16:07)
[2022-06-15] MEDS: AmLODIPine BESYLATE 5 MG TABLET PO SCH (08:18)
[2022-06-15] MEDS: LORazepam 2 MG TABLET PO PRN (16:08)
[2022-06-15] MEDS: MELATONIN 5 MG TABLET PO SCH (21:06)
[2022-06-15] MEDS: ATORVASTATIN CALCIUM 10 MG TABLET PO SCH (21:06)
[2022-06-15 22:26] VITALS: BP 118/71
[2022-06-16] MEDS: CHOLECALCIFEROL (VIT D3) 1,000 UNITS [25 MCG] TABLET PO SCH (09:04)
[2022-06-16] MEDS: CYCLOBENZAPRINE HCL 10 MG TABLET PO SCH ×2 (09:04→16:19)
[2022-06-16 09:24] VITALS: BP 107/72
[2022-06-16] MEDS: AmLODIPine BESYLATE 5 MG TABLET PO SCH (10:21)
[2022-06-16 17:37] VITALS: BP 119/83
[2022-06-16] MEDS: ATORVASTATIN CALCIUM 10 MG TABLET PO SCH (20:51)
[2022-06-16] MEDS: MELATONIN 5 MG TABLET PO SCH (20:51)
[2022-06-16 22:58] VITALS: BP 110/69
[2022-06-17 08:13] VITALS: BP 100/65
[2022-06-17] MEDS: AmLODIPine BESYLATE 5 MG TABLET PO SCH (08:24)
[2022-06-17] MEDS: CHOLECALCIFEROL (VIT D3) 1,000 UNITS [25 MCG] TABLET PO SCH (08:24)
[2022-06-17] MEDS: CYCLOBENZAPRINE HCL 10 MG TABLET PO SCH ×2 (08:24→17:15)
[2022-06-17] MEDS: MELATONIN 5 MG TABLET PO SCH (20:34)
[2022-06-17] MEDS: ATORVASTATIN CALCIUM 10 MG TABLET PO SCH (20:34)
[2022-06-17 20:43] VITALS: BP 106/79
[2022-06-18] MEDS: CHOLECALCIFEROL (VIT D3) 1,000 UNITS [25 MCG] TABLET PO SCH (08:48)
[2022-06-18] MEDS: CYCLOBENZAPRINE HCL 10 MG TABLET PO SCH ×2 (08:48→16:20)
[2022-06-18] MEDS: AmLODIPine BESYLATE 5 MG TABLET PO SCH (08:48)
[2022-06-18 09:04] VITALS: BP 106/67
[2022-06-18] MEDS: ATORVASTATIN CALCIUM 10 MG TABLET PO SCH (20:12)
[2022-06-18] MEDS: MELATONIN 5 MG TABLET PO SCH (20:12)
[2022-06-18 20:30] VITALS: BP 101/68
[2022-06-19 08:44] VITALS: BP 123/76
[2022-06-19] MEDS: CYCLOBENZAPRINE HCL 10 MG TABLET PO SCH ×2 (09:13→16:26)
[2022-06-19] MEDS: AmLODIPine BESYLATE 5 MG TABLET PO SCH (09:13)
[2022-06-19] MEDS: CHOLECALCIFEROL (VIT D3) 1,000 UNITS [25 MCG] TABLET PO SCH (09:13)
[2022-06-19] MEDS: ATORVASTATIN CALCIUM 10 MG TABLET PO SCH (20:14)
[2022-06-19] MEDS: MELATONIN 5 MG TABLET PO SCH (20:14)
[2022-06-19 20:19] VITALS: BP 109/69
[2022-06-20 05:34] VITALS: BP 113/74
[2022-06-20 08:22] VITALS: BP 116/74
[2022-06-20] MEDS: CHOLECALCIFEROL (VIT D3) 1,000 UNITS [25 MCG] TABLET PO SCH (08:59)
[2022-06-20] MEDS: CYCLOBENZAPRINE HCL 10 MG TABLET PO SCH ×2 (08:59→16:22)
[2022-06-20] MEDS: AmLODIPine BESYLATE 5 MG TABLET PO SCH (08:59)
[2022-06-20] MEDS: MELATONIN 5 MG TABLET PO SCH (20:23)
[2022-06-20] MEDS: ATORVASTATIN CALCIUM 10 MG TABLET PO SCH (20:23)
[2022-06-20 21:18] VITALS: BP 106/68
[2022-06-21] MEDS: CHOLECALCIFEROL (VIT D3) 1,000 UNITS [25 MCG] TABLET PO SCH (08:47)
[2022-06-21] MEDS: AmLODIPine BESYLATE 5 MG TABLET PO SCH (08:47)
[2022-06-21] MEDS: CYCLOBENZAPRINE HCL 10 MG TABLET PO SCH ×2 (08:48→16:24)
[2022-06-21 08:52] VITALS: BP 124/89
[2022-06-21 13:07] LABS: GLUCOMETER DEV NAME(LOC) POC.BV
[2022-06-21] MEDS: LORazepam 2 MG TABLET PO PRN (13:45)
[2022-06-21] MEDS: MELATONIN 5 MG TABLET PO SCH (20:19)
[2022-06-21] MEDS: ATORVASTATIN CALCIUM 10 MG TABLET PO SCH (20:19)
[2022-06-21 21:26] VITALS: BP 121/69
[2022-06-22] MEDS: CHOLECALCIFEROL (VIT D3) 1,000 UNITS [25 MCG] TABLET PO SCH (08:28)
[2022-06-22] MEDS: CYCLOBENZAPRINE HCL 10 MG TABLET PO SCH ×2 (08:28→16:07)
[2022-06-22] MEDS: AmLODIPine BESYLATE 5 MG TABLET PO SCH (08:29)
[2022-06-22 08:33] VITALS: BP 116/73
[2022-06-22] MEDS: ATORVASTATIN CALCIUM 10 MG TABLET PO SCH (20:27)
[2022-06-22] MEDS: MELATONIN 5 MG TABLET PO SCH (20:27)
[2022-06-22 20:29] VITALS: BP 115/71
[2022-06-23] MEDS: LORazepam 2 MG TABLET PO PRN (02:55)
[2022-06-23 08:43] VITALS: BP 121/90
[2022-06-23] MEDS: CHOLECALCIFEROL (VIT D3) 1,000 UNITS [25 MCG] TABLET PO SCH (09:37)
[2022-06-23] MEDS: CYCLOBENZAPRINE HCL 10 MG TABLET PO SCH ×2 (09:38→16:29)
[2022-06-23] MEDS: AmLODIPine BESYLATE 5 MG TABLET PO SCH (09:38)
[2022-06-23] MEDS: ATORVASTATIN CALCIUM 10 MG TABLET PO SCH (20:51)
[2022-06-23] MEDS: MELATONIN 5 MG TABLET PO SCH (20:51)
[2022-06-23 20:52] VITALS: BP 120/84
[2022-06-24 08:44] VITALS: BP 124/61
[2022-06-24] MEDS: CYCLOBENZAPRINE HCL 10 MG TABLET PO SCH ×2 (09:52→16:30)
[2022-06-24] MEDS: AmLODIPine BESYLATE 5 MG TABLET PO SCH (09:52)
[2022-06-24] MEDS: CHOLECALCIFEROL (VIT D3) 1,000 UNITS [25 MCG] TABLET PO SCH (09:53)
[2022-06-24 20:31] VITALS: BP 115/83
[2022-06-24] MEDS: ATORVASTATIN CALCIUM 10 MG TABLET PO SCH (21:20)
[2022-06-24] MEDS: MELATONIN 5 MG TABLET PO SCH (21:21)
[2022-06-25 08:21] VITALS: BP 123/69
[2022-06-25] MEDS: AmLODIPine BESYLATE 5 MG TABLET PO SCH (09:20)
[2022-06-25] MEDS: CHOLECALCIFEROL (VIT D3) 1,000 UNITS [25 MCG] TABLET PO SCH (09:20)
[2022-06-25] MEDS: CYCLOBENZAPRINE HCL 10 MG TABLET PO SCH ×2 (09:20→16:42)
[2022-06-25 20:22] VITALS: BP 118/76
[2022-06-25] MEDS: ATORVASTATIN CALCIUM 10 MG TABLET PO SCH (20:31)
[2022-06-25] MEDS: MELATONIN 5 MG TABLET PO SCH (20:31)
[2022-06-26 08:31] VITALS: BP 113/74
[2022-06-26] MEDS: CYCLOBENZAPRINE HCL 10 MG TABLET PO SCH (09:00)
[2022-06-26] MEDS: AmLODIPine BESYLATE 5 MG TABLET PO SCH (09:01)
[2022-06-26] MEDS: CHOLECALCIFEROL (VIT D3) 1,000 UNITS [25 MCG] TABLET PO SCH (09:01)
[2022-06-26] MEDS ORDERED: MELA5TAB40 PO (10:44)
[2022-06-27] MEDS ORDERED: PALIPERIDONE PALMITATE 156 MG/ML SYRINGE IM SCH (09:00)
== END 2022-06-26 14:03 | disposition home or self-care (01) | DRG 750 ==
LOC: EMS 17:29 → B3A 05-28 09:52 → B2S 06-17 19:59
PROVIDERS: ADMIT Psychiatry & Neurology Child & Adolescent Psychiatry; ATTEND Psychiatry & Neurology Child & Adolescent Psychiatry
DX: F25.1 Schizoaffective disorder, depressive type (principal); R45.851 Suicidal ideations; F31.9 Bipolar disorder, unspecified; F41.9 Anxiety disorder, unspecified; I10 Essential (primary) hypertension; J44.9 Chronic obstructive pulmonary disease, unspecified; E56.9 Vitamin deficiency, unspecified; E78.5 Hyperlipidemia, unspecified; E55.9 Vitamin D deficiency, unspecified; Z20.822 Contact with and (suspected) exposure to COVID-19; Z59.00 Homelessness unspecified; Z79.899 Other long term (current) drug therapy; Z88.8 Allergy status to other drugs, medicaments and biological substances
CPT/HCPCS: 80053; 85025; 87081; 99285; G0480; Q9967

== ENCOUNTER 2022-07-01 09:47 | Inpatient (IN) | payer MEDICAID, OTHER ==
[~2022-07-01] VITALS: Ht 167.6 cm; Wt 59.0 kg
[~2022-07-01 09:47] MED LIST changes: +AMLO-257 PO; +ATOR10TA84 PO; -NALT50TA PO; -OMEG-135 PO; -PALI117D IM; -PROZ20 PO
[2022-07-01 10:35] LABS: COVID AG,FIA SOURCE NASOPHARYNGEAL
[2022-07-01 10:54] LABS: BASOPHILS % (AUTO) 0.4 % (0.0-2.0); EOSINOPHILS % (AUTO) 1.6 % (1.0-6.0); HEMATOCRIT 42.2 % (41-53); HEMOGLOBIN 14.8 g/dL (13.5-17.5); LYMPHOCYTES # (AUTO) 1.7 K/uL (1.0-4.8); LYMPHOCYTES % (AUTO) 24.2 % (22.0-44.0); MEAN CORPUSCULAR HEMOGLOBIN 33.1 pg (26.0-34.0); MEAN CORPUSCULAR HGB CONC 35.1 G/dL (31.0-37.0); MEAN CORPUSCULAR VOLUME 94 fL (80-100); MONOCYTES # (AUTO) 0.3 K/uL (0.1-1.0); NEUTROPHILS # (AUTO) 4.8 K/uL (1.8-7.7); NEUTROPHILS % (AUTO) 69.8 % (40.0-70.0); PLATELET COUNT (AUTO) 290 K/uL (150-450); RED BLOOD CELL COUNT(AUTO) 4.49 MIL/uL (4.50-5.90); RED CELL DISTRIBUTION WIDTH 12.2 % (11.5-14.5)
[2022-07-01 11:00] LABS: ANION GAP 6 mmol/L (8-16); CALCIUM, TOTAL 8.3 mg/dL (8.8-10.5); CARBON DIOXIDE 28 mmol/L (22-29); CHLORIDE 103 mmol/L (98-107); CREATININE 0.84 mg/dL (0.60-1.30); GLUCOSE,RANDOM 93 mg/dL (70-110); POTASSIUM 3.9 mmol/L (3.5-5.1); SODIUM SERUM 137 mmol/L (136-145); UREA NITROGEN, BLOOD 12 mg/dL (7-18)
[2022-07-01 11:04] LABS: GLOMERULAR FILTR. RATE CALC > 60 mL/min (>60)
[2022-07-01 11:06] LABS: ALANINE AMINOTRANSFERASE 21 U/L (12-78); ALBUMIN 3.9 g/dL (3.4-5.0); ALKALINE PHOSPHATASE 67 U/L (46-116); ASPARTATE AMINOTRANSFERASE 9 U/L (15-37); BILIRUBIN,TOTAL 0.7 mg/dL (0.1-1.0); TOTAL PROTEIN, SERUM 6.7 g/dL (6.4-8.2)
[2022-07-01] MEDS ORDERED: HALOPERIDOL 5 MG TABLET PO PRN (11:15)
[2022-07-01] MEDS ORDERED: ZOLPIDEM TARTRATE 10 MG TABLET PO PRN (11:15)
[2022-07-01] MEDS ORDERED: LORazepam 2 MG TABLET PO PRN (11:15)
[2022-07-01 15:15] VITALS: BP 145/91
[2022-07-01 16:33] VITALS: BP 145/85
[2022-07-01 20:15] VITALS: BP 138/74
[2022-07-02] MEDS ORDERED: PETROLATUM,WHITE 28 GM JELLY TP PRN (06:45)
[2022-07-02] MEDS ORDERED: MAG HYDROX/AL HYDROX/SIMETH ES 30 ML SUSPENSION UDCUP PO PRN (06:45)
[2022-07-02] MEDS ORDERED: ACETAMINOPHEN 325 MG TABLET PO PRN (06:45)
[2022-07-02] MEDS ORDERED: ALBUTEROL SULFATE HFA 90 MCG/PUFF 8 GM INHALER IH PRN (06:45)
[2022-07-02] MEDS ORDERED: IBUPROFEN 400 MG TABLET PO PRN (06:45)
[2022-07-02] MEDS ORDERED: CloNIDine HCL 0.1 MG TABLET PO PRN (06:45)
[2022-07-02] MEDS ORDERED: LOPERAMIDE HCL 2 MG CAPSULE PO PRN (06:45)
[2022-07-02] MEDS ORDERED: MAGNESIUM HYDROXIDE SUSPENSION 30 ML UDCUP PO PRN (06:45)
[2022-07-02] MEDS ORDERED: NICOTINE 14 MG/24 HOUR PATCH TD PRN (06:45)
[2022-07-02] MEDS ORDERED: GuaiFENesin/D-METHORPHAN [SUGAR-FREE] 200-20MG/10 ML SYRUP UDCUP PO PRN (06:45)
[2022-07-02] MEDS ORDERED: DOCUSATE SODIUM 100 MG CAPSULE PO PRN (06:45)
[2022-07-02] MEDS ORDERED: ONDANSETRON HCL 4 MG TABLET PO PRN (06:45)
[2022-07-02] MEDS: AmLODIPine BESYLATE 5 MG TABLET PO SCH (09:23)
[2022-07-02] MEDS: CYCLOBENZAPRINE HCL 10 MG TABLET PO SCH ×2 (09:24→16:35)
[2022-07-02] MEDS ORDERED: PALIPERIDONE PALMITATE 156 MG/ML SYRINGE IM ONE (10:15)
[2022-07-02 16:33] VITALS: BP 117/88
[2022-07-02] MEDS: MELATONIN 5 MG TABLET PO SCH (20:41)
[2022-07-02] MEDS: ATORVASTATIN CALCIUM 10 MG TABLET PO SCH (20:41)
[2022-07-03 08:30] VITALS: BP 107/77
[2022-07-03] MEDS: CYCLOBENZAPRINE HCL 10 MG TABLET PO SCH ×2 (08:30→17:19)
[2022-07-03] MEDS: AmLODIPine BESYLATE 5 MG TABLET PO SCH (08:30)
[2022-07-03 16:00] VITALS: BP 123/74
[2022-07-03] MEDS: MELATONIN 5 MG TABLET PO SCH (20:49)
[2022-07-03] MEDS: ATORVASTATIN CALCIUM 10 MG TABLET PO SCH (20:49)
[2022-07-04 08:01] VITALS: BP 140/82
[2022-07-04 09:16] VITALS: BP 141/81
[2022-07-04] MEDS: AmLODIPine BESYLATE 5 MG TABLET PO SCH (09:37)
[2022-07-04] MEDS: CYCLOBENZAPRINE HCL 10 MG TABLET PO SCH ×2 (09:37→16:32)
[2022-07-04 16:42] VITALS: BP 121/70
[2022-07-04] MEDS: MELATONIN 5 MG TABLET PO SCH (20:01)
[2022-07-04] MEDS: ATORVASTATIN CALCIUM 10 MG TABLET PO SCH (20:01)
[2022-07-05 08:00] VITALS: BP 114/74
[2022-07-05] MEDS: CYCLOBENZAPRINE HCL 10 MG TABLET PO SCH ×2 (08:21→16:45)
[2022-07-05] MEDS: AmLODIPine BESYLATE 5 MG TABLET PO SCH (08:21)
[2022-07-05 16:00] VITALS: BP 116/79
[2022-07-05] MEDS: ATORVASTATIN CALCIUM 10 MG TABLET PO SCH (20:53)
[2022-07-05] MEDS: MELATONIN 5 MG TABLET PO SCH (20:53)
[2022-07-06 08:00] VITALS: BP 115/78
[2022-07-06] MEDS: CYCLOBENZAPRINE HCL 10 MG TABLET PO SCH ×2 (08:16→16:28)
[2022-07-06] MEDS: AmLODIPine BESYLATE 5 MG TABLET PO SCH (08:17)
[2022-07-06 16:55] VITALS: BP 125/86
[2022-07-06] MEDS: MELATONIN 5 MG TABLET PO SCH (20:16)
[2022-07-06] MEDS: ATORVASTATIN CALCIUM 10 MG TABLET PO SCH (20:16)
[2022-07-07 06:47] LABS: COVID AG,FIA SOURCE NASAL SWAB
[2022-07-07] MEDS: AmLODIPine BESYLATE 5 MG TABLET PO SCH (08:28)
[2022-07-07] MEDS: CYCLOBENZAPRINE HCL 10 MG TABLET PO SCH ×2 (08:28→16:29)
[2022-07-07 10:23] VITALS: BP 129/89
[2022-07-07 16:00] VITALS: BP 122/75
[2022-07-07] MEDS: ATORVASTATIN CALCIUM 10 MG TABLET PO SCH (21:18)
[2022-07-07] MEDS: MELATONIN 5 MG TABLET PO SCH (21:18)
[2022-07-08 08:05] VITALS: BP 111/71
[2022-07-08] MEDS: AmLODIPine BESYLATE 5 MG TABLET PO SCH (08:49)
[2022-07-08] MEDS: CYCLOBENZAPRINE HCL 10 MG TABLET PO SCH ×2 (08:49→16:36)
[2022-07-08 16:15] VITALS: BP 108/69
[2022-07-08] MEDS: MELATONIN 5 MG TABLET PO SCH (20:16)
[2022-07-08] MEDS: ATORVASTATIN CALCIUM 10 MG TABLET PO SCH (20:16)
[2022-07-08 20:33] VITALS: BP 123/80
[2022-07-09 08:00] VITALS: BP 87/56
[2022-07-09] MEDS: AmLODIPine BESYLATE 5 MG TABLET PO SCH ×2 (08:28→08:55)
[2022-07-09] MEDS: CYCLOBENZAPRINE HCL 10 MG TABLET PO SCH ×2 (08:28→16:17)
[2022-07-09 10:36] VITALS: BP 105/64
[2022-07-09 16:00] VITALS: BP 104/63
[2022-07-09] MEDS: MELATONIN 5 MG TABLET PO SCH (20:02)
[2022-07-09] MEDS: ATORVASTATIN CALCIUM 10 MG TABLET PO SCH (20:02)
[2022-07-10 08:06] VITALS: BP 105/72
[2022-07-10] MEDS: AmLODIPine BESYLATE 5 MG TABLET PO SCH ×2 (08:20→09:00)
[2022-07-10] MEDS: CYCLOBENZAPRINE HCL 10 MG TABLET PO SCH ×2 (08:20→16:10)
[2022-07-10 16:34] VITALS: BP 130/78
[2022-07-10] MEDS: MELATONIN 5 MG TABLET PO SCH (20:34)
[2022-07-10] MEDS: ATORVASTATIN CALCIUM 10 MG TABLET PO SCH (20:34)
[2022-07-11 08:12] VITALS: BP 138/104
[2022-07-11] MEDS: AmLODIPine BESYLATE 5 MG TABLET PO SCH (08:22)
[2022-07-11] MEDS: CYCLOBENZAPRINE HCL 10 MG TABLET PO SCH (08:22)
[2022-07-11] MEDS ORDERED: CYCL-448 PO (14:01)
[2022-07-11] MEDS ORDERED: PALI156D IM (14:01)
[2022-07-11] MEDS ORDERED: MELA5TAB40 PO (14:01)
[2022-07-11] MEDS ORDERED: ATOR10TA84 PO (14:01)
[2022-07-11] MEDS ORDERED: AMLO-257 PO (14:01)
== END 2022-07-11 16:30 | disposition home or self-care (01) | DRG 750 ==
LOC: EMS 09:49 → 3EI 13:30
PROVIDERS: ADMIT Psychiatry & Neurology Child & Adolescent Psychiatry; ATTEND Psychiatry & Neurology Child & Adolescent Psychiatry
DX: F25.1 Schizoaffective disorder, depressive type (principal); R45.851 Suicidal ideations; Z91.14 Patient's other noncompliance with medication regimen; F31.9 Bipolar disorder, unspecified; F41.0 Panic disorder [episodic paroxysmal anxiety]; G47.00 Insomnia, unspecified; I10 Essential (primary) hypertension; E78.5 Hyperlipidemia, unspecified; Z20.822 Contact with and (suspected) exposure to COVID-19; Z88.8 Allergy status to other drugs, medicaments and biological substances; Z79.899 Other long term (current) drug therapy; Z59.00 Homelessness unspecified
CPT/HCPCS: 80053; 85025; 87081; 99285; G0480; Q9967

== ENCOUNTER 2022-07-12 14:30 | Emergency (ER) | payer MEDICAID, OTHER ==
[~2022-07-12] VITALS: Ht 167.6 cm; Wt 59.0 kg
[~2022-07-12 14:30] MED LIST changes: +PALI156D IM
[2022-07-12 15:46] LABS: BASOPHILS % (AUTO) 0.5 % (0.0-2.0); HEMATOCRIT 44.4 % (41-53); HEMOGLOBIN 15.1 g/dL (13.5-17.5); LYMPHOCYTES # (AUTO) 1.7 K/uL (1.0-4.8); MEAN CORPUSCULAR HEMOGLOBIN 32.7 pg (26.0-34.0); MEAN CORPUSCULAR VOLUME 96 fL (80-100); MONOCYTES # (AUTO) 0.3 K/uL (0.1-1.0); MONOCYTES % (AUTO) 3.6 % (2.0-9.0); NEUTROPHILS # (AUTO) 7.1 K/uL (1.8-7.7); NEUTROPHILS % (AUTO) 76.9 % (40.0-70.0); PLATELET COUNT (AUTO) 304 K/uL (150-450); RED BLOOD CELL COUNT(AUTO) 4.63 MIL/uL (4.50-5.90); RED CELL DISTRIBUTION WIDTH 12.1 % (11.5-14.5)
[2022-07-12 15:56] LABS: ANION GAP 8 mmol/L (8-16); CALCIUM, TOTAL 9.1 mg/dL (8.8-10.5); CARBON DIOXIDE 30 mmol/L (22-29); CHLORIDE 101 mmol/L (98-107); GLUCOSE,RANDOM 129 mg/dL (70-110); POTASSIUM 4.2 mmol/L (3.5-5.1); SODIUM SERUM 139 mmol/L (136-145); UREA NITROGEN, BLOOD 13 mg/dL (7-18)
[2022-07-12 15:59] LABS: GLOMERULAR FILTR. RATE CALC > 60 mL/min (>60)
[2022-07-12 16:03] LABS: ALANINE AMINOTRANSFERASE 29 U/L (12-78); ALKALINE PHOSPHATASE 63 U/L (46-116); ASPARTATE AMINOTRANSFERASE 14 U/L (15-37); BILIRUBIN,TOTAL 0.3 mg/dL (0.1-1.0); TOTAL PROTEIN, SERUM 7.2 g/dL (6.4-8.2)
[2022-07-12 18:59] LABS: AMPHET/METH SCREEN,URINE NEGATIVE (NEGATIVE); BARBITURATE SCREEN, URINE NEGATIVE (NEGATIVE); BENZODIAZEPINES SCREEN,URINE NEGATIVE (NEGATIVE); CANNABINOID SCREEN,URINE NEGATIVE (NEGATIVE); COCAINE SCREEN,URINE NEGATIVE (NEGATIVE); METHADONE SCREEN, URINE NEGATIVE (NEGATIVE); OPIATE SCREEN,URINE NEGATIVE (NEGATIVE)
[2022-07-12 19:00] LABS: PHENCYCLIDINE SCREEN,URINE NEGATIVE (NEGATIVE)
[2022-07-12 20:00] VITALS: BP 125/73
[2022-07-12] MEDS ORDERED: HALOPERIDOL 5 MG TABLET PO ONE (20:00)
[2022-07-12] MEDS ORDERED: LORazepam 1 MG TABLET PO ONE (20:00)
[2022-07-12] MEDS ORDERED: CYCLOBENZAPRINE HCL 10 MG TABLET PO ONE (20:00)
[2022-07-12] MEDS ORDERED: GuaiFENesin/D-METHORPHAN [SUGAR-FREE] 200-20MG/10 ML SYRUP UDCUP PO ONE (20:00)
== END 2022-07-12 23:44 | disposition home or self-care (01) ==
LOC: EMS 14:30
DX: F25.1 Schizoaffective disorder, depressive type (principal); F31.9 Bipolar disorder, unspecified; F41.9 Anxiety disorder, unspecified; I10 Essential (primary) hypertension; Z88.8 Allergy status to other drugs, medicaments and biological substances
CPT/HCPCS: 99284; 80053; 85025; 36415; 80307; G0480

== ENCOUNTER 2022-07-14 16:09 | Emergency (ER) | payer OTHER ==
[~2022-07-14] VITALS: Ht 170.2 cm; Wt 70.5 kg
[2022-07-14 17:30] LABS: BASOPHILS % (AUTO) 0.5 % (0.0-2.0); HEMATOCRIT 43.1 % (41-53); HEMOGLOBIN 14.9 g/dL (13.5-17.5); LYMPHOCYTES % (AUTO) 22.9 % (22.0-44.0); MEAN CORPUSCULAR HGB CONC 34.6 G/dL (31.0-37.0); MEAN CORPUSCULAR VOLUME 95 fL (80-100); MONOCYTES # (AUTO) 0.3 K/uL (0.1-1.0); MONOCYTES % (AUTO) 3.6 % (2.0-9.0); NEUTROPHILS # (AUTO) 6.3 K/uL (1.8-7.7); PLATELET COUNT (AUTO) 279 K/uL (150-450); RED BLOOD CELL COUNT(AUTO) 4.52 MIL/uL (4.50-5.90); RED CELL DISTRIBUTION WIDTH 11.8 % (11.5-14.5)
[2022-07-14 17:37] LABS: ANION GAP 2 mmol/L (8-16); CALCIUM, TOTAL 9.2 mg/dL (8.8-10.5); CARBON DIOXIDE 29 mmol/L (22-29); CHLORIDE 103 mmol/L (98-107); CREATININE 0.98 mg/dL (0.60-1.30); GLOMERULAR FILTR. RATE CALC > 60 mL/min (>60); GLUCOSE,RANDOM 88 mg/dL (70-110); POTASSIUM 3.8 mmol/L (3.5-5.1); SODIUM SERUM 134 mmol/L (136-145); UREA NITROGEN, BLOOD 10 mg/dL (7-18)
[2022-07-14 17:43] LABS: ALANINE AMINOTRANSFERASE 23 U/L (12-78); ALKALINE PHOSPHATASE 69 U/L (46-116); ASPARTATE AMINOTRANSFERASE 12 U/L (15-37); BILIRUBIN,TOTAL 0.4 mg/dL (0.1-1.0); TOTAL PROTEIN, SERUM 7.3 g/dL (6.4-8.2)
[2022-07-14 19:13] VITALS: BP 155/98
[2022-07-14] MEDS ORDERED: DIPH25CA85 PO (20:35)
[2022-07-15 11:28] LABS: AMPHET/METH SCREEN,URINE NEGATIVE (NEGATIVE); BARBITURATE SCREEN, URINE NEGATIVE (NEGATIVE); BENZODIAZEPINES SCREEN,URINE NEGATIVE (NEGATIVE); CANNABINOID SCREEN,URINE NEGATIVE (NEGATIVE); COCAINE SCREEN,URINE NEGATIVE (NEGATIVE); METHADONE SCREEN, URINE NEGATIVE (NEGATIVE); OPIATE SCREEN,URINE NEGATIVE (NEGATIVE)
[2022-07-15 11:30] LABS: PHENCYCLIDINE SCREEN,URINE NEGATIVE (NEGATIVE)
== END 2022-07-14 20:42 | disposition home or self-care (01) ==
LOC: EMS 16:11
DX: F25.1 Schizoaffective disorder, depressive type (principal); G47.00 Insomnia, unspecified; F31.9 Bipolar disorder, unspecified; F41.9 Anxiety disorder, unspecified; I10 Essential (primary) hypertension; Z88.8 Allergy status to other drugs, medicaments and biological substances; Z79.899 Other long term (current) drug therapy
CPT/HCPCS: 99284; 80053; 85025; 36415; 80307; G0480

== ENCOUNTER 2022-07-15 08:32 | Inpatient (IN) | payer MEDICAID, OTHER ==
[~2022-07-15] VITALS: Ht 167.6 cm; Wt 59.0 kg
[~2022-07-15 08:32] MED LIST changes: +DIPH25CA85 PO
[2022-07-15 11:50] LABS: COVID AG,FIA SOURCE NASAL SWAB
[2022-07-15 12:08] LABS: BASOPHILS % (AUTO) 0.4 % (0.0-2.0); EOSINOPHILS % (AUTO) 1.9 % (1.0-6.0); HEMATOCRIT 42.8 % (41-53); HEMOGLOBIN 14.9 g/dL (13.5-17.5); LYMPHOCYTES # (AUTO) 1.6 K/uL (1.0-4.8); MEAN CORPUSCULAR HEMOGLOBIN 33.2 pg (26.0-34.0); MEAN CORPUSCULAR HGB CONC 34.9 G/dL (31.0-37.0); MEAN CORPUSCULAR VOLUME 95 fL (80-100); MONOCYTES # (AUTO) 0.2 K/uL (0.1-1.0); NEUTROPHILS # (AUTO) 4.1 K/uL (1.8-7.7); NEUTROPHILS % (AUTO) 67.7 % (40.0-70.0); PLATELET COUNT (AUTO) 272 K/uL (150-450)
[2022-07-15 12:30] LABS: ANION GAP 5 mmol/L (8-16); CALCIUM, TOTAL 8.9 mg/dL (8.8-10.5); CARBON DIOXIDE 32 mmol/L (22-29); CHLORIDE 102 mmol/L (98-107); CREATININE 0.94 mg/dL (0.60-1.30); GLUCOSE,RANDOM 87 mg/dL (70-110); POTASSIUM 4.2 mmol/L (3.5-5.1); SODIUM SERUM 139 mmol/L (136-145); UREA NITROGEN, BLOOD 9 mg/dL (7-18)
[2022-07-15 12:31] LABS: GLOMERULAR FILTR. RATE CALC > 60 mL/min (>60)
[2022-07-15 12:38] LABS: ALANINE AMINOTRANSFERASE 23 U/L (12-78); ALBUMIN 3.8 g/dL (3.4-5.0); ALKALINE PHOSPHATASE 65 U/L (46-116); ASPARTATE AMINOTRANSFERASE 12 U/L (15-37); BILIRUBIN,TOTAL 0.5 mg/dL (0.1-1.0)
[2022-07-15 14:54] LABS: APPEARANCE,URINE CLEAR (CLEAR); BILIRUBIN,URINE NEGATIVE (NEGATIVE); GLUCOSE, URINE (UA) NEGATIVE (NEGATIVE); KETONES,URINE NEGATIVE (NEGATIVE); LEUKOCYTE ESTERASE ,URINE NEGATIVE (NEGATIVE); NITRATE,URINE NEGATIVE (NEGATIVE); OCCULT BLOOD,URINE SMALL (NEGATIVE); PH,URINE 7.5 (5.0-8.0); PROTEIN,URINE NEGATIVE (NEGATIVE); SPECIFIC GRAVITIY, URINE 1.009 (1.003-1.030); UROBILINOGEN,URINE <=1.0 mg/dL (<=1.0)
[2022-07-15 14:58] LABS: AMPHET/METH SCREEN,URINE NEGATIVE (NEGATIVE); BARBITURATE SCREEN, URINE NEGATIVE (NEGATIVE); BENZODIAZEPINES SCREEN,URINE NEGATIVE (NEGATIVE); CANNABINOID SCREEN,URINE NEGATIVE (NEGATIVE); COCAINE SCREEN,URINE NEGATIVE (NEGATIVE); METHADONE SCREEN, URINE NEGATIVE (NEGATIVE); OPIATE SCREEN,URINE NEGATIVE (NEGATIVE)
[2022-07-15 14:59] LABS: PHENCYCLIDINE SCREEN,URINE NEGATIVE (NEGATIVE)
[2022-07-15 15:09] LABS: BACTERIA,URINE None Seen /HPF (None Seen); SQUAMOUS EPITHELIAL CELL,UR Few /LPF (None Seen); WBC,URINE 0-2 /HPF (0-5)
[2022-07-15] MEDS: LORazepam 2 MG TABLET PO PRN (19:56)
[2022-07-15] MEDS: HALOPERIDOL 5 MG TABLET PO PRN (19:57)
[2022-07-15 20:03] VITALS: BP 131/87
[2022-07-15] MEDS: ATORVASTATIN CALCIUM 10 MG TABLET PO SCH (21:21)
[2022-07-16] MEDS ORDERED: DOCUSATE SODIUM 100 MG CAPSULE PO PRN (06:15)
[2022-07-16] MEDS ORDERED: ALBUTEROL SULFATE HFA 90 MCG/PUFF 8 GM INHALER IH PRN (06:15)
[2022-07-16] MEDS ORDERED: GuaiFENesin/D-METHORPHAN [SUGAR-FREE] 200-20MG/10 ML SYRUP UDCUP PO PRN (06:15)
[2022-07-16] MEDS ORDERED: MAG HYDROX/AL HYDROX/SIMETH ES 30 ML SUSPENSION UDCUP PO PRN (06:15)
[2022-07-16] MEDS ORDERED: ACETAMINOPHEN 325 MG TABLET PO PRN (06:15)
[2022-07-16] MEDS ORDERED: LOPERAMIDE HCL 2 MG CAPSULE PO PRN (06:15)
[2022-07-16] MEDS ORDERED: CloNIDine HCL 0.1 MG TABLET PO PRN (06:15)
[2022-07-16] MEDS ORDERED: ONDANSETRON HCL 4 MG TABLET PO PRN (06:15)
[2022-07-16] MEDS ORDERED: IBUPROFEN 400 MG TABLET PO PRN (06:15)
[2022-07-16] MEDS ORDERED: MAGNESIUM HYDROXIDE SUSPENSION 30 ML UDCUP PO PRN (06:15)
[2022-07-16] MEDS ORDERED: PETROLATUM,WHITE 28 GM JELLY TP PRN (06:15)
[2022-07-16] MEDS ORDERED: NICOTINE 14 MG/24 HOUR PATCH TD PRN (06:15)
[2022-07-16 08:04] VITALS: BP 124/77
[2022-07-16] MEDS: AmLODIPine BESYLATE 5 MG TABLET PO SCH (08:18)
[2022-07-16] MEDS: LORazepam 2 MG TABLET PO PRN ×2 (08:18→17:03)
[2022-07-16] MEDS: CYCLOBENZAPRINE HCL 10 MG TABLET PO SCH ×2 (08:18→17:03)
[2022-07-16] MEDS: HALOPERIDOL 5 MG TABLET PO PRN (08:18)
[2022-07-16 08:32] LABS: HEMOGLOBIN A1C 5.2 % (3.8-5.6)
[2022-07-16 08:36] LABS: CHOL/HDL RATIO 3.7 (4.2-7.3); FREE T4 (FREE THYROXINE) 1.14 ng/dL (0.76-1.46); THYROID STIMULATING HORMONE 1.12 uIU/mL (0.36-3.74)
[2022-07-16] MEDS: QUEtiapine FUMARATE 25 MG TABLET PO SCH (17:03)
[2022-07-16 20:15] VITALS: BP 120/77
[2022-07-16] MEDS: ATORVASTATIN CALCIUM 10 MG TABLET PO SCH (20:44)
[2022-07-16] MEDS: ZOLPIDEM TARTRATE 10 MG TABLET PO PRN (20:44)
[2022-07-17] MEDS: AmLODIPine BESYLATE 5 MG TABLET PO SCH (08:13)
[2022-07-17] MEDS: CYCLOBENZAPRINE HCL 10 MG TABLET PO SCH ×2 (08:13→17:10)
[2022-07-17] MEDS: LORazepam 2 MG TABLET PO PRN (08:13)
[2022-07-17] MEDS: QUEtiapine FUMARATE 25 MG TABLET PO SCH ×2 (08:13→17:10)
[2022-07-17 08:19] VITALS: BP 125/68
[2022-07-17 20:12] VITALS: BP 115/74
[2022-07-17] MEDS: ATORVASTATIN CALCIUM 10 MG TABLET PO SCH (20:39)
[2022-07-18 04:44] VITALS: BP 103/63
[2022-07-18 08:08] VITALS: BP 116/70
[2022-07-18] MEDS: QUEtiapine FUMARATE 25 MG TABLET PO SCH ×2 (08:24→17:00)
[2022-07-18] MEDS: AmLODIPine BESYLATE 5 MG TABLET PO SCH (08:24)
[2022-07-18] MEDS: CYCLOBENZAPRINE HCL 10 MG TABLET PO SCH ×2 (08:24→17:00)
[2022-07-18] MEDS: LORazepam 2 MG TABLET PO PRN (08:25)
[2022-07-18] MEDS: ATORVASTATIN CALCIUM 10 MG TABLET PO SCH (20:13)
[2022-07-18 20:18] VITALS: BP 105/69
[2022-07-18] MEDS: ZOLPIDEM TARTRATE 10 MG TABLET PO PRN (21:16)
[2022-07-19 08:28] VITALS: BP 121/80
[2022-07-19] MEDS: QUEtiapine FUMARATE 25 MG TABLET PO SCH ×2 (08:32→16:52)
[2022-07-19] MEDS: CYCLOBENZAPRINE HCL 10 MG TABLET PO SCH ×2 (08:32→16:52)
[2022-07-19] MEDS: AmLODIPine BESYLATE 5 MG TABLET PO SCH (08:32)
[2022-07-19] MEDS: LORazepam 2 MG TABLET PO PRN (16:52)
[2022-07-19] MEDS: ATORVASTATIN CALCIUM 10 MG TABLET PO SCH (20:37)
[2022-07-19 20:38] VITALS: BP 109/64
[2022-07-20] MEDS: CYCLOBENZAPRINE HCL 10 MG TABLET PO SCH ×2 (08:27→17:03)
[2022-07-20] MEDS: LORazepam 2 MG TABLET PO PRN (08:27)
[2022-07-20] MEDS: AmLODIPine BESYLATE 5 MG TABLET PO SCH (08:27)
[2022-07-20] MEDS: QUEtiapine FUMARATE 25 MG TABLET PO SCH ×2 (08:27→17:03)
[2022-07-20 08:39] VITALS: BP 109/76
[2022-07-20 20:23] VITALS: BP 109/76
[2022-07-20] MEDS: ATORVASTATIN CALCIUM 10 MG TABLET PO SCH (20:46)
[2022-07-20] MEDS: ZOLPIDEM TARTRATE 10 MG TABLET PO PRN (20:46)
[2022-07-21] MEDS: CYCLOBENZAPRINE HCL 10 MG TABLET PO SCH ×2 (08:16→17:06)
[2022-07-21] MEDS: AmLODIPine BESYLATE 5 MG TABLET PO SCH (08:16)
[2022-07-21] MEDS: QUEtiapine FUMARATE 25 MG TABLET PO SCH ×2 (08:16→17:06)
[2022-07-21 10:32] VITALS: BP 118/79
[2022-07-21 20:14] VITALS: BP 112/75
[2022-07-21] MEDS: ATORVASTATIN CALCIUM 10 MG TABLET PO SCH (20:20)
[2022-07-22] MEDS: LORazepam 2 MG TABLET PO PRN (08:26)
[2022-07-22] MEDS: AmLODIPine BESYLATE 5 MG TABLET PO SCH (08:26)
[2022-07-22] MEDS: QUEtiapine FUMARATE 25 MG TABLET PO SCH ×2 (08:26→16:07)
[2022-07-22] MEDS: CYCLOBENZAPRINE HCL 10 MG TABLET PO SCH ×2 (08:26→16:07)
[2022-07-22 08:40] VITALS: BP 118/71
[2022-07-22] MEDS: ATORVASTATIN CALCIUM 10 MG TABLET PO SCH (20:04)
[2022-07-22] MEDS: ZOLPIDEM TARTRATE 10 MG TABLET PO PRN (20:04)
[2022-07-22 20:17] VITALS: BP 114/75
[2022-07-23] MEDS: CYCLOBENZAPRINE HCL 10 MG TABLET PO SCH ×2 (08:29→16:43)
[2022-07-23] MEDS: AmLODIPine BESYLATE 5 MG TABLET PO SCH (08:29)
[2022-07-23] MEDS: QUEtiapine FUMARATE 25 MG TABLET PO SCH ×2 (08:29→16:43)
[2022-07-23] MEDS: LORazepam 2 MG TABLET PO PRN (08:29)
[2022-07-23 08:55] VITALS: BP 124/76
[2022-07-23 20:09] VITALS: BP 126/80
[2022-07-23] MEDS: ATORVASTATIN CALCIUM 10 MG TABLET PO SCH (20:32)
[2022-07-24 08:11] VITALS: BP 140/73
[2022-07-24] MEDS: QUEtiapine FUMARATE 25 MG TABLET PO SCH ×2 (08:46→16:50)
[2022-07-24] MEDS: CYCLOBENZAPRINE HCL 10 MG TABLET PO SCH ×2 (08:46→16:51)
[2022-07-24] MEDS: AmLODIPine BESYLATE 5 MG TABLET PO SCH (08:46)
[2022-07-24] MEDS: LORazepam 2 MG TABLET PO PRN (12:29)
[2022-07-24 13:51] LABS: GLUCOMETER DEV NAME(LOC) POC.BV
[2022-07-24 20:25] VITALS: BP 107/76
[2022-07-24] MEDS: ATORVASTATIN CALCIUM 10 MG TABLET PO SCH (20:40)
[2022-07-25] VITALS (10 sets, daily range): BP systolic 94–129; BP diastolic 51–92
[2022-07-25] MEDS: LORazepam 2 MG TABLET PO PRN (08:18)
[2022-07-25] MEDS: AmLODIPine BESYLATE 5 MG TABLET PO SCH (08:18)
[2022-07-25] MEDS: CYCLOBENZAPRINE HCL 10 MG TABLET PO SCH ×2 (08:18→17:22)
[2022-07-25] MEDS: QUEtiapine FUMARATE 25 MG TABLET PO SCH ×2 (08:18→17:22)
[2022-07-25] MEDS ORDERED: HydrOXYzine PAMOATE 50 MG CAPSULE PO PRN (17:00)
[2022-07-25] MEDS: ATORVASTATIN CALCIUM 10 MG TABLET PO SCH (20:11)
[2022-07-26 08:19] VITALS: BP 105/72
[2022-07-26 08:53] VITALS: BP 112/72
[2022-07-26] MEDS: CYCLOBENZAPRINE HCL 10 MG TABLET PO SCH ×2 (08:53→16:12)
[2022-07-26] MEDS: AmLODIPine BESYLATE 5 MG TABLET PO SCH (08:53)
[2022-07-26] MEDS: QUEtiapine FUMARATE 25 MG TABLET PO SCH ×2 (08:53→16:12)
[2022-07-26 10:18] VITALS: BP 105/72
[2022-07-26 20:00] VITALS: BP 123/82
[2022-07-26] MEDS: ATORVASTATIN CALCIUM 10 MG TABLET PO SCH (20:09)
[2022-07-27 08:02] VITALS: BP 113/80
[2022-07-27] MEDS: CYCLOBENZAPRINE HCL 10 MG TABLET PO SCH ×2 (08:23→16:24)
[2022-07-27] MEDS: AmLODIPine BESYLATE 5 MG TABLET PO SCH (08:23)
[2022-07-27] MEDS: QUEtiapine FUMARATE 25 MG TABLET PO SCH ×2 (08:24→16:24)
[2022-07-27] MEDS: ATORVASTATIN CALCIUM 10 MG TABLET PO SCH (20:05)
[2022-07-27 20:24] VITALS: BP 108/70
[2022-07-28] MEDS: AmLODIPine BESYLATE 5 MG TABLET PO SCH (08:23)
[2022-07-28] MEDS: QUEtiapine FUMARATE 25 MG TABLET PO SCH ×2 (08:23→16:26)
[2022-07-28] MEDS: CYCLOBENZAPRINE HCL 10 MG TABLET PO SCH ×2 (08:23→16:26)
[2022-07-28 09:01] VITALS: BP 124/72
[2022-07-28] MEDS: ATORVASTATIN CALCIUM 10 MG TABLET PO SCH (20:30)
[2022-07-28 20:35] VITALS: BP 123/81
[2022-07-29 08:20] VITALS: BP 128/78
[2022-07-29] MEDS: AmLODIPine BESYLATE 5 MG TABLET PO SCH (08:44)
[2022-07-29] MEDS: CYCLOBENZAPRINE HCL 10 MG TABLET PO SCH ×2 (08:44→15:46)
[2022-07-29] MEDS: QUEtiapine FUMARATE 25 MG TABLET PO SCH ×2 (08:44→15:46)
[2022-07-29 20:05] VITALS: BP 117/75
[2022-07-29] MEDS: ATORVASTATIN CALCIUM 10 MG TABLET PO SCH (20:21)
[2022-07-30] MEDS: AmLODIPine BESYLATE 5 MG TABLET PO SCH (08:01)
[2022-07-30] MEDS: CYCLOBENZAPRINE HCL 10 MG TABLET PO SCH (08:02)
[2022-07-30] MEDS: QUEtiapine FUMARATE 25 MG TABLET PO SCH (08:02)
[2022-07-30 08:14] VITALS: BP 125/76
[2022-07-30] MEDS ORDERED: QUET25TA36 PO (13:05)
== END 2022-07-30 13:15 | disposition home or self-care (01) | DRG 751 ==
LOC: EMS 08:36 → B3A 16:17 → B2S 07-23 16:50
PROVIDERS: ADMIT Psychiatry & Neurology Child & Adolescent Psychiatry; ATTEND Psychiatry & Neurology Child & Adolescent Psychiatry
DX: F33.2 Major depressive disorder, recurrent severe without psychotic features (principal); R45.851 Suicidal ideations; E78.5 Hyperlipidemia, unspecified; Z20.822 Contact with and (suspected) exposure to COVID-19; F41.9 Anxiety disorder, unspecified; G47.00 Insomnia, unspecified; I10 Essential (primary) hypertension; J44.9 Chronic obstructive pulmonary disease, unspecified; Z59.00 Homelessness unspecified; Z88.8 Allergy status to other drugs, medicaments and biological substances
CPT/HCPCS: 80053; 80061; 81001; 83036; 84439; 84443; 85025; 87081; 99285; G0480

== ENCOUNTER 2022-08-26 18:03 | Inpatient (IN) | payer MEDICAID, OTHER ==
[~2022-08-26] VITALS: Ht 168.9 cm; Wt 58.1 kg
[~2022-08-26 18:03] MED LIST changes: -AMLO-257 PO; -ATOR10TA84 PO; -CYCL-448 PO; -DIPH25CA85 PO; -MELA5TAB40 PO; -PALI156D IM; +QUET25TA36 PO
[2022-08-26 20:10] LABS: BASOPHILS % (AUTO) 0.3 % (0.0-2.0); EOSINOPHILS % (AUTO) 2.5 % (1.0-6.0); HEMATOCRIT 47.9 % (41-53); HEMOGLOBIN 16.6 g/dL (13.5-17.5); LYMPHOCYTES # (AUTO) 2.3 K/uL (1.0-4.8); LYMPHOCYTES % (AUTO) 25.4 % (22.0-44.0); MEAN CORPUSCULAR HEMOGLOBIN 32.9 pg (26.0-34.0); MEAN CORPUSCULAR HGB CONC 34.5 G/dL (31.0-37.0); MEAN CORPUSCULAR VOLUME 95 fL (80-100); MONOCYTES # (AUTO) 0.4 K/uL (0.1-1.0); MONOCYTES % (AUTO) 3.8 % (2.0-9.0); NEUTROPHILS # (AUTO) 6.3 K/uL (1.8-7.7); PLATELET COUNT (AUTO) 304 K/uL (150-450); RED BLOOD CELL COUNT(AUTO) 5.03 MIL/uL (4.50-5.90); RED CELL DISTRIBUTION WIDTH 12.4 % (11.5-14.5)
[2022-08-26 20:18] LABS: ANION GAP 6 mmol/L (8-16); CALCIUM, TOTAL 9.2 mg/dL (8.8-10.5); CARBON DIOXIDE 28 mmol/L (22-29); CHLORIDE 106 mmol/L (98-107); CREATININE 0.93 mg/dL (0.60-1.30); GLUCOSE,RANDOM 89 mg/dL (70-110); POTASSIUM 4.1 mmol/L (3.5-5.1); SODIUM SERUM 140 mmol/L (136-145); UREA NITROGEN, BLOOD 10 mg/dL (7-18)
[2022-08-26 20:24] LABS: ALANINE AMINOTRANSFERASE 16 U/L (12-78); ALBUMIN 4.2 g/dL (3.4-5.0); ALKALINE PHOSPHATASE 69 U/L (46-116); ASPARTATE AMINOTRANSFERASE 10 U/L (15-37); BILIRUBIN,TOTAL 0.5 mg/dL (0.1-1.0); TOTAL PROTEIN, SERUM 7.7 g/dL (6.4-8.2)
[2022-08-26 20:25] LABS: GLOMERULAR FILTR. RATE CALC > 60 mL/min (>60)
[2022-08-26] MEDS ORDERED: DiphenhydrAMINE HCL 25 MG CAPSULE PO ONE (21:30)
[2022-08-26] MEDS ORDERED: HALOPERIDOL 5 MG TABLET PO ONE (21:30)
[2022-08-26] MEDS ORDERED: LORazepam 1 MG TABLET PO ONE (21:30)
[2022-08-26] MEDS ORDERED: LORazepam 2 MG TABLET PO PRN (21:45)
[2022-08-26 21:47] LABS: COVID AG,FIA SOURCE NASAL SWAB
[2022-08-27 00:05] VITALS: BP 141/102
[2022-08-27 06:26] VITALS: BP 125/80
[2022-08-27] MEDS ORDERED: MAG HYDROX/AL HYDROX/SIMETH ES 30 ML SUSPENSION UDCUP PO PRN (07:00)
[2022-08-27] MEDS ORDERED: ALBUTEROL SULFATE HFA 90 MCG/PUFF 8 GM INHALER IH PRN (07:00)
[2022-08-27] MEDS ORDERED: PETROLATUM,WHITE 28 GM JELLY TP PRN (07:00)
[2022-08-27] MEDS ORDERED: ONDANSETRON HCL 4 MG TABLET PO PRN (07:00)
[2022-08-27] MEDS ORDERED: CloNIDine HCL 0.1 MG TABLET PO PRN (07:00)
[2022-08-27] MEDS ORDERED: NICOTINE 14 MG/24 HOUR PATCH TD PRN (07:00)
[2022-08-27] MEDS ORDERED: LOPERAMIDE HCL 2 MG CAPSULE PO PRN (07:00)
[2022-08-27] MEDS ORDERED: DOCUSATE SODIUM 100 MG CAPSULE PO PRN (07:00)
[2022-08-27] MEDS ORDERED: GuaiFENesin/D-METHORPHAN [SUGAR-FREE] 200-20MG/10 ML SYRUP UDCUP PO PRN (07:00)
[2022-08-27] MEDS ORDERED: MAGNESIUM HYDROXIDE SUSPENSION 30 ML UDCUP PO PRN (07:00)
[2022-08-27] MEDS ORDERED: ACETAMINOPHEN 325 MG TABLET PO PRN (07:00)
[2022-08-27 08:00] VITALS: BP 135/78
[2022-08-27] MEDS: AmLODIPine BESYLATE 5 MG TABLET PO SCH (09:00)
[2022-08-27 16:00] VITALS: BP 125/77
[2022-08-28 08:00] VITALS: BP 106/71
[2022-08-28] MEDS: HALOPERIDOL 5 MG TABLET PO PRN ×2 (08:42→17:43)
[2022-08-28] MEDS: AmLODIPine BESYLATE 5 MG TABLET PO SCH (08:48)
[2022-08-28 10:49] LABS: APPEARANCE,URINE CLEAR (CLEAR); BILIRUBIN,URINE NEGATIVE (NEGATIVE); GLUCOSE, URINE (UA) NEGATIVE (NEGATIVE); KETONES,URINE NEGATIVE (NEGATIVE); LEUKOCYTE ESTERASE ,URINE TRACE (NEGATIVE); NITRATE,URINE NEGATIVE (NEGATIVE); OCCULT BLOOD,URINE TRACE (NEGATIVE); PH,URINE 5.5 (5.0-8.0); PROTEIN,URINE TRACE mg/dL (NEGATIVE); SPECIFIC GRAVITIY, URINE 1.033 (1.003-1.030); UROBILINOGEN,URINE <=1.0 mg/dL (<=1.0)
[2022-08-28 10:55] LABS: AMPHET/METH SCREEN,URINE NEGATIVE (NEGATIVE); BARBITURATE SCREEN, URINE NEGATIVE (NEGATIVE); BENZODIAZEPINES SCREEN,URINE NEGATIVE (NEGATIVE); CANNABINOID SCREEN,URINE NEGATIVE (NEGATIVE); COCAINE SCREEN,URINE NEGATIVE (NEGATIVE); METHADONE SCREEN, URINE NEGATIVE (NEGATIVE); OPIATE SCREEN,URINE NEGATIVE (NEGATIVE)
[2022-08-28 11:04] LABS: PHENCYCLIDINE SCREEN,URINE NEGATIVE (NEGATIVE)
[2022-08-28 11:22] LABS: SQUAMOUS EPITHELIAL CELL,UR Few /LPF (None Seen)
[2022-08-28 11:24] LABS: BACTERIA,URINE Rare /HPF (None Seen); CALCIUM OXALATE CRYSTALS,UR Moderate /LPF (None Seen); RBC,URINE 0-2 /HPF (0-2)
[2022-08-28 16:05] VITALS: BP 105/65
[2022-08-29] MEDS: HALOPERIDOL 5 MG TABLET PO PRN ×2 (06:40→21:18)
[2022-08-29] MEDS: HydrOXYzine PAMOATE 50 MG CAPSULE PO PRN ×3 (06:40→17:56)
[2022-08-29] MEDS: AmLODIPine BESYLATE 5 MG TABLET PO SCH (08:13)
[2022-08-29 08:32] VITALS: BP 144/92
[2022-08-29 16:39] VITALS: BP 136/90
[2022-08-29 17:56] VITALS: BP 136/90
[2022-08-29] MEDS: IBUPROFEN 400 MG TABLET PO PRN (17:56)
[2022-08-29] MEDS: ZOLPIDEM TARTRATE 10 MG TABLET PO PRN (21:18)
[2022-08-30 03:04] VITALS: BP 132/92
[2022-08-30] MEDS: HALOPERIDOL 5 MG TABLET PO PRN ×2 (03:08→21:01)
[2022-08-30] MEDS: HydrOXYzine PAMOATE 50 MG CAPSULE PO PRN ×2 (03:08→21:01)
[2022-08-30 08:00] VITALS: BP 134/79
[2022-08-30] MEDS: AmLODIPine BESYLATE 5 MG TABLET PO SCH (09:34)
[2022-08-30 16:50] VITALS: BP 151/107
[2022-08-30 17:59] VITALS: BP 130/96
[2022-08-30] MEDS: QUEtiapine FUMARATE 25 MG TABLET PO SCH (21:01)
[2022-08-30] MEDS: ZOLPIDEM TARTRATE 10 MG TABLET PO PRN (22:45)
[2022-08-31] MEDS: HydrOXYzine PAMOATE 50 MG CAPSULE PO PRN ×2 (05:13→20:26)
[2022-08-31] MEDS: HALOPERIDOL 5 MG TABLET PO PRN ×2 (05:13→20:26)
[2022-08-31 05:35] VITALS: BP 140/104
[2022-08-31 08:00] VITALS: BP 123/90
[2022-08-31] MEDS: AmLODIPine BESYLATE 5 MG TABLET PO SCH (10:00)
[2022-08-31] MEDS: QUEtiapine FUMARATE 25 MG TABLET PO SCH ×2 (10:00→20:26)
[2022-08-31 17:09] VITALS: BP 135/83
[2022-09-01 05:57] LABS: COVID AG,FIA SOURCE NASAL SWAB
[2022-09-01 08:00] VITALS: BP 126/76
[2022-09-01] MEDS: HydrOXYzine PAMOATE 50 MG CAPSULE PO PRN (09:02)
[2022-09-01] MEDS: AmLODIPine BESYLATE 5 MG TABLET PO SCH (09:02)
[2022-09-01] MEDS: QUEtiapine FUMARATE 25 MG TABLET PO SCH ×2 (09:02→20:10)
[2022-09-01 16:00] VITALS: BP 134/84
[2022-09-02] VITALS (7 sets, daily range): BP systolic 123–135; BP diastolic 76–94
[2022-09-02] MEDS: QUEtiapine FUMARATE 25 MG TABLET PO SCH ×2 (08:37→21:11)
[2022-09-02] MEDS: AmLODIPine BESYLATE 5 MG TABLET PO SCH (08:37)
[2022-09-02] MEDS ORDERED: QUET25TA36 PO (10:44)
[2022-09-03 08:00] VITALS: BP 137/89
[2022-09-03] MEDS: AmLODIPine BESYLATE 5 MG TABLET PO SCH (08:37)
[2022-09-03] MEDS: QUEtiapine FUMARATE 25 MG TABLET PO SCH ×2 (08:37→20:28)
[2022-09-03 16:00] VITALS: BP 132/93
[2022-09-03 20:53] VITALS: BP 126/81
[2022-09-04 08:00] VITALS: BP 121/65
[2022-09-04] MEDS: QUEtiapine FUMARATE 25 MG TABLET PO SCH ×2 (08:34→21:19)
[2022-09-04] MEDS: AmLODIPine BESYLATE 5 MG TABLET PO SCH (08:35)
[2022-09-04] MEDS: VENLAFAXINE HCL 150 MG ER CAPSULE PO SCH (12:24)
[2022-09-04 16:00] VITALS: BP 113/60
[2022-09-04] MEDS: BusPIRone HCL 15 MG TABLET PO SCH (16:40)
[2022-09-04] MEDS: OLANZapine 5 MG TABLET PO SCH (21:19)
[2022-09-05 10:03] VITALS: BP 129/83
[2022-09-05] MEDS: QUEtiapine FUMARATE 25 MG TABLET PO SCH ×2 (10:05→20:25)
[2022-09-05] MEDS: BusPIRone HCL 15 MG TABLET PO SCH ×2 (10:05→16:14)
[2022-09-05] MEDS: AmLODIPine BESYLATE 5 MG TABLET PO SCH (10:05)
[2022-09-05] MEDS: VENLAFAXINE HCL 150 MG ER CAPSULE PO SCH (10:05)
[2022-09-05 16:16] VITALS: BP 143/85
[2022-09-05] MEDS: OLANZapine 5 MG TABLET PO SCH (20:26)
[2022-09-06 08:36] VITALS: BP 125/81
[2022-09-06] MEDS: VENLAFAXINE HCL 150 MG ER CAPSULE PO SCH (08:48)
[2022-09-06] MEDS: BusPIRone HCL 15 MG TABLET PO SCH ×2 (08:48→16:45)
[2022-09-06] MEDS: QUEtiapine FUMARATE 25 MG TABLET PO SCH ×2 (08:48→20:29)
[2022-09-06] MEDS: AmLODIPine BESYLATE 5 MG TABLET PO SCH (08:49)
[2022-09-06 16:05] VITALS: BP 112/73
[2022-09-06] MEDS: OLANZapine 5 MG TABLET PO SCH (20:28)
[2022-09-07 08:30] VITALS: BP 141/94
[2022-09-07] MEDS: BusPIRone HCL 15 MG TABLET PO SCH ×2 (08:54→16:21)
[2022-09-07] MEDS: AmLODIPine BESYLATE 5 MG TABLET PO SCH (08:54)
[2022-09-07] MEDS: QUEtiapine FUMARATE 25 MG TABLET PO SCH ×2 (08:54→20:33)
[2022-09-07] MEDS: VENLAFAXINE HCL 150 MG ER CAPSULE PO SCH (08:54)
[2022-09-07 16:05] VITALS: BP 134/84
[2022-09-07] MEDS: OLANZapine 5 MG TABLET PO SCH (20:33)
[2022-09-08 06:37] LABS: COVID AG,FIA SOURCE NASAL SWAB
[2022-09-08 08:10] VITALS: BP 134/93
[2022-09-08] MEDS: VENLAFAXINE HCL 150 MG ER CAPSULE PO SCH (08:13)
[2022-09-08] MEDS: IBUPROFEN 400 MG TABLET PO PRN (08:13)
[2022-09-08] MEDS: AmLODIPine BESYLATE 5 MG TABLET PO SCH (08:13)
[2022-09-08] MEDS: BusPIRone HCL 15 MG TABLET PO SCH ×2 (08:13→16:59)
[2022-09-08] MEDS: QUEtiapine FUMARATE 25 MG TABLET PO SCH ×2 (08:13→20:49)
[2022-09-08 16:15] VITALS: BP 138/82
[2022-09-08] MEDS: OLANZapine 5 MG TABLET PO SCH (20:49)
[2022-09-09 08:36] VITALS: BP 148/90
[2022-09-09] MEDS: AmLODIPine BESYLATE 5 MG TABLET PO SCH (08:45)
[2022-09-09] MEDS: VENLAFAXINE HCL 150 MG ER CAPSULE PO SCH (08:46)
[2022-09-09] MEDS: BusPIRone HCL 15 MG TABLET PO SCH ×2 (08:46→16:18)
[2022-09-09] MEDS: QUEtiapine FUMARATE 25 MG TABLET PO SCH ×2 (08:46→20:16)
[2022-09-09 16:25] VITALS: BP 153/83
[2022-09-09] MEDS: OLANZapine 5 MG TABLET PO SCH (20:16)
[2022-09-10 08:00] VITALS: BP 165/90
[2022-09-10] MEDS: QUEtiapine FUMARATE 25 MG TABLET PO SCH ×2 (09:17→20:51)
[2022-09-10] MEDS: VENLAFAXINE HCL 150 MG ER CAPSULE PO SCH (09:17)
[2022-09-10] MEDS: AmLODIPine BESYLATE 5 MG TABLET PO SCH (09:17)
[2022-09-10] MEDS: BusPIRone HCL 15 MG TABLET PO SCH ×2 (09:17→18:24)
[2022-09-10 16:00] VITALS: BP 134/84
[2022-09-10] MEDS: OLANZapine 5 MG TABLET PO SCH (20:51)
[2022-09-11 08:00] VITALS: BP 127/82
[2022-09-11] MEDS: AmLODIPine BESYLATE 5 MG TABLET PO SCH (09:21)
[2022-09-11] MEDS: VENLAFAXINE HCL 150 MG ER CAPSULE PO SCH (09:21)
[2022-09-11] MEDS: QUEtiapine FUMARATE 25 MG TABLET PO SCH ×2 (09:22→20:29)
[2022-09-11] MEDS: BusPIRone HCL 15 MG TABLET PO SCH ×2 (09:23→16:28)
[2022-09-11 16:00] VITALS: BP 117/75
[2022-09-11 16:11] VITALS: BP 117/75
[2022-09-11] MEDS: OLANZapine 5 MG TABLET PO SCH (20:29)
[2022-09-12 08:54] VITALS: BP 125/77
[2022-09-12] MEDS: BusPIRone HCL 15 MG TABLET PO SCH ×2 (08:54→16:19)
[2022-09-12] MEDS: VENLAFAXINE HCL 150 MG ER CAPSULE PO SCH (08:54)
[2022-09-12] MEDS: QUEtiapine FUMARATE 25 MG TABLET PO SCH ×2 (08:54→20:46)
[2022-09-12] MEDS: AmLODIPine BESYLATE 5 MG TABLET PO SCH (08:54)
[2022-09-12 08:55] VITALS: BP 132/87
[2022-09-12 16:13] VITALS: BP 127/62
[2022-09-12] MEDS: OLANZapine 5 MG TABLET PO SCH (20:46)
[2022-09-13] MEDS: QUEtiapine FUMARATE 25 MG TABLET PO SCH ×2 (08:38→20:51)
[2022-09-13] MEDS: VENLAFAXINE HCL 150 MG ER CAPSULE PO SCH (08:38)
[2022-09-13] MEDS: BusPIRone HCL 15 MG TABLET PO SCH ×2 (08:38→16:55)
[2022-09-13 09:10] VITALS: BP 121/80
[2022-09-13] MEDS: AmLODIPine BESYLATE 5 MG TABLET PO SCH (09:12)
[2022-09-13 16:31] VITALS: BP 123/73
[2022-09-13] MEDS: OLANZapine 5 MG TABLET PO SCH (20:51)
[2022-09-14 08:00] VITALS: BP 126/87
[2022-09-14] MEDS: QUEtiapine FUMARATE 25 MG TABLET PO SCH ×2 (08:56→20:53)
[2022-09-14] MEDS: BusPIRone HCL 15 MG TABLET PO SCH ×2 (08:56→16:32)
[2022-09-14] MEDS: VENLAFAXINE HCL 150 MG ER CAPSULE PO SCH (08:56)
[2022-09-14] MEDS: AmLODIPine BESYLATE 5 MG TABLET PO SCH (08:57)
[2022-09-14 16:15] VITALS: BP 113/75
[2022-09-14] MEDS: OLANZapine 5 MG TABLET PO SCH (20:53)
[2022-09-15 07:53] LABS: COVID AG,FIA SOURCE NASAL SWAB
[2022-09-15 08:00] VITALS: BP 112/75
[2022-09-15] MEDS: BusPIRone HCL 15 MG TABLET PO SCH ×2 (08:35→16:02)
[2022-09-15] MEDS: VENLAFAXINE HCL 150 MG ER CAPSULE PO SCH (08:35)
[2022-09-15] MEDS: QUEtiapine FUMARATE 25 MG TABLET PO SCH ×2 (08:35→20:52)
[2022-09-15] MEDS: AmLODIPine BESYLATE 5 MG TABLET PO SCH (08:36)
[2022-09-15 16:00] VITALS: BP 122/84
[2022-09-15] MEDS: OLANZapine 5 MG TABLET PO SCH (20:51)
[2022-09-16 08:00] VITALS: BP 158/89
[2022-09-16] MEDS: VENLAFAXINE HCL 150 MG ER CAPSULE PO SCH (09:30)
[2022-09-16] MEDS: BusPIRone HCL 15 MG TABLET PO SCH ×2 (09:30→16:40)
[2022-09-16] MEDS: QUEtiapine FUMARATE 25 MG TABLET PO SCH ×2 (09:31→20:44)
[2022-09-16] MEDS: AmLODIPine BESYLATE 5 MG TABLET PO SCH (09:31)
[2022-09-16 16:23] VITALS: BP 118/73
[2022-09-16] MEDS: OLANZapine 5 MG TABLET PO SCH (20:44)
[2022-09-17] MEDS: VENLAFAXINE HCL 150 MG ER CAPSULE PO SCH (08:18)
[2022-09-17] MEDS: BusPIRone HCL 15 MG TABLET PO SCH ×2 (08:18→17:10)
[2022-09-17] MEDS: QUEtiapine FUMARATE 25 MG TABLET PO SCH ×2 (08:19→21:12)
[2022-09-17] MEDS: AmLODIPine BESYLATE 5 MG TABLET PO SCH (08:19)
[2022-09-17 08:31] VITALS: BP 142/98
[2022-09-17 17:19] VITALS: BP 133/94
[2022-09-17 17:20] VITALS: BP 133/94
[2022-09-17] MEDS: OLANZapine 5 MG TABLET PO SCH (21:12)
[2022-09-18 08:00] VITALS: BP 119/73
[2022-09-18] MEDS: VENLAFAXINE HCL 150 MG ER CAPSULE PO SCH (08:51)
[2022-09-18] MEDS: QUEtiapine FUMARATE 25 MG TABLET PO SCH ×2 (08:51→20:44)
[2022-09-18] MEDS: AmLODIPine BESYLATE 5 MG TABLET PO SCH (08:51)
[2022-09-18] MEDS: BusPIRone HCL 15 MG TABLET PO SCH ×2 (08:51→16:19)
[2022-09-18 16:55] VITALS: BP 118/75
[2022-09-18] MEDS: OLANZapine 5 MG TABLET PO SCH (20:44)
[2022-09-19 08:00] VITALS: BP 108/66
[2022-09-19] MEDS: BusPIRone HCL 15 MG TABLET PO SCH ×2 (10:26→16:18)
[2022-09-19] MEDS: VENLAFAXINE HCL 150 MG ER CAPSULE PO SCH (10:26)
[2022-09-19] MEDS: AmLODIPine BESYLATE 5 MG TABLET PO SCH (10:26)
[2022-09-19] MEDS: QUEtiapine FUMARATE 25 MG TABLET PO SCH ×2 (10:27→20:43)
[2022-09-19 16:00] VITALS: BP 104/65
[2022-09-19] MEDS: OLANZapine 5 MG TABLET PO SCH (20:43)
[2022-09-20] MEDS: QUEtiapine FUMARATE 25 MG TABLET PO SCH ×2 (08:46→20:25)
[2022-09-20] MEDS: VENLAFAXINE HCL 150 MG ER CAPSULE PO SCH (08:46)
[2022-09-20] MEDS: BusPIRone HCL 15 MG TABLET PO SCH ×2 (08:46→17:27)
[2022-09-20] MEDS: AmLODIPine BESYLATE 5 MG TABLET PO SCH (08:46)
[2022-09-20 09:37] VITALS: BP 111/81
[2022-09-20 16:00] VITALS: BP 123/83
[2022-09-20] MEDS: OLANZapine 5 MG TABLET PO SCH (20:25)
[2022-09-21] MEDS: VENLAFAXINE HCL 150 MG ER CAPSULE PO SCH (09:10)
[2022-09-21] MEDS: BusPIRone HCL 15 MG TABLET PO SCH ×2 (09:12→16:27)
[2022-09-21] MEDS: AmLODIPine BESYLATE 5 MG TABLET PO SCH (09:13)
[2022-09-21] MEDS: QUEtiapine FUMARATE 25 MG TABLET PO SCH ×2 (09:13→21:16)
[2022-09-21 09:26] VITALS: BP 121/80
[2022-09-21 17:15] VITALS: BP 115/81
[2022-09-21] MEDS: OLANZapine 5 MG TABLET PO SCH (21:16)
[2022-09-21 22:22] VITALS: BP 122/77
[2022-09-22 06:43] LABS: COVID AG,FIA SOURCE NASAL SWAB
[2022-09-22] MEDS: VENLAFAXINE HCL 150 MG ER CAPSULE PO SCH (09:23)
[2022-09-22] MEDS: BusPIRone HCL 15 MG TABLET PO SCH ×2 (09:23→16:13)
[2022-09-22] MEDS: QUEtiapine FUMARATE 25 MG TABLET PO SCH ×2 (09:23→20:12)
[2022-09-22] MEDS: AmLODIPine BESYLATE 5 MG TABLET PO SCH (09:23)
[2022-09-22 09:36] VITALS: BP 116/68
[2022-09-22] MEDS: OLANZapine 5 MG TABLET PO SCH (20:12)
[2022-09-22 21:00] VITALS: BP 129/67
[2022-09-23 09:00] VITALS: BP 115/74
[2022-09-23] MEDS: AmLODIPine BESYLATE 5 MG TABLET PO SCH (09:04)
[2022-09-23] MEDS: VENLAFAXINE HCL 150 MG ER CAPSULE PO SCH (09:04)
[2022-09-23] MEDS: QUEtiapine FUMARATE 25 MG TABLET PO SCH ×2 (09:04→20:30)
[2022-09-23] MEDS: BusPIRone HCL 15 MG TABLET PO SCH ×2 (09:04→17:30)
[2022-09-23 16:52] VITALS: BP 110/77
[2022-09-23] MEDS: OLANZapine 5 MG TABLET PO SCH (20:30)
[2022-09-23 21:34] VITALS: BP 120/73
[2022-09-24 08:30] VITALS: BP 146/86
[2022-09-24] MEDS: VENLAFAXINE HCL 150 MG ER CAPSULE PO SCH (08:39)
[2022-09-24] MEDS: BusPIRone HCL 15 MG TABLET PO SCH ×2 (08:39→16:40)
[2022-09-24] MEDS: QUEtiapine FUMARATE 25 MG TABLET PO SCH ×2 (08:39→20:40)
[2022-09-24] MEDS: AmLODIPine BESYLATE 5 MG TABLET PO SCH (08:39)
[2022-09-24] MEDS: OLANZapine 5 MG TABLET PO SCH (20:40)
[2022-09-25] MEDS ORDERED: AMLO-257 PO (07:53)
[2022-09-25] MEDS: VENLAFAXINE HCL 150 MG ER CAPSULE PO SCH (08:23)
[2022-09-25] MEDS: AmLODIPine BESYLATE 5 MG TABLET PO SCH (08:23)
[2022-09-25] MEDS: BusPIRone HCL 15 MG TABLET PO SCH (08:23)
[2022-09-25] MEDS: QUEtiapine FUMARATE 25 MG TABLET PO SCH (08:23)
[2022-09-25] MEDS ORDERED: BUSP15 PO (09:07)
[2022-09-25] MEDS ORDERED: OLAN5TAB52 PO (09:07)
[2022-09-25] MEDS ORDERED: VENL150C4 PO (09:07)
== END 2022-09-25 08:40 | DRG 750 ==
LOC: EMS 18:03 → 3EI 08-27 00:24
PROVIDERS: ADMIT Psychiatry & Neurology Child & Adolescent Psychiatry; ATTEND Psychiatry & Neurology Child & Adolescent Psychiatry
DX: F25.1 Schizoaffective disorder, depressive type (principal); R45.851 Suicidal ideations; E78.5 Hyperlipidemia, unspecified; F31.9 Bipolar disorder, unspecified; J44.9 Chronic obstructive pulmonary disease, unspecified; Z20.822 Contact with and (suspected) exposure to COVID-19; I10 Essential (primary) hypertension; Z59.00 Homelessness unspecified; Z88.8 Allergy status to other drugs, medicaments and biological substances; Z79.899 Other long term (current) drug therapy
CPT/HCPCS: 80053; 80307; 81001; 85025; 87081; 99285; G0480

== ENCOUNTER 2022-10-12 11:17 | Emergency (ER) | payer MEDICAID ==
[~2022-10-12] VITALS: Ht 167.6 cm; Wt 58.0 kg
[~2022-10-12 11:17] MED LIST changes: +AMLO-257 PO; +BUSP15 PO; +OLAN5TAB52 PO; +VENL150C4 PO
[2022-10-12 11:25] VITALS: BP 139/89
[2022-10-12 12:02] LABS: BASOPHILS % (AUTO) 0.3 % (0.0-2.0); EOSINOPHILS % (AUTO) 0.8 % (1.0-6.0); HEMATOCRIT 46.1 % (41-53); HEMOGLOBIN 15.7 g/dL (13.5-17.5); LYMPHOCYTES # (AUTO) 1.1 K/uL (1.0-4.8); LYMPHOCYTES % (AUTO) 7.2 % (22.0-44.0); MEAN CORPUSCULAR HEMOGLOBIN 32.9 pg (26.0-34.0); MEAN CORPUSCULAR HGB CONC 34.1 G/dL (31.0-37.0); MEAN CORPUSCULAR VOLUME 96 fL (80-100); MONOCYTES # (AUTO) 0.6 K/uL (0.1-1.0); MONOCYTES % (AUTO) 3.8 % (2.0-9.0); NEUTROPHILS % (AUTO) 87.9 % (40.0-70.0); PLATELET COUNT (AUTO) 289 K/uL (150-450); RED BLOOD CELL COUNT(AUTO) 4.78 MIL/uL (4.50-5.90); RED CELL DISTRIBUTION WIDTH 13.7 % (11.5-14.5)
[2022-10-12 12:14] LABS: ANION GAP 6 mmol/L (8-16); CALCIUM, TOTAL 8.7 mg/dL (8.8-10.5); CARBON DIOXIDE 28 mmol/L (22-29); CHLORIDE 105 mmol/L (98-107); GLUCOSE,RANDOM 101 mg/dL (70-110); POTASSIUM 4.3 mmol/L (3.5-5.1); SODIUM SERUM 139 mmol/L (136-145); UREA NITROGEN, BLOOD 20 mg/dL (7-18)
[2022-10-12 12:15] LABS: GLOMERULAR FILTR. RATE CALC > 60 mL/min (>60)
[2022-10-12 12:17] LABS: ALANINE AMINOTRANSFERASE 14 U/L (12-78); ALBUMIN 3.9 g/dL (3.4-5.0); ALKALINE PHOSPHATASE 66 U/L (46-116); ASPARTATE AMINOTRANSFERASE 8 U/L (15-37); BILIRUBIN,TOTAL 0.3 mg/dL (0.1-1.0); TOTAL PROTEIN, SERUM 7.1 g/dL (6.4-8.2)
[2022-10-12 12:31] LABS: AMPHET/METH SCREEN,URINE NEGATIVE (NEGATIVE); BARBITURATE SCREEN, URINE NEGATIVE (NEGATIVE); BENZODIAZEPINES SCREEN,URINE NEGATIVE (NEGATIVE); CANNABINOID SCREEN,URINE NEGATIVE (NEGATIVE); COCAINE SCREEN,URINE NEGATIVE (NEGATIVE); METHADONE SCREEN, URINE NEGATIVE (NEGATIVE); OPIATE SCREEN,URINE NEGATIVE (NEGATIVE)
[2022-10-12 12:33] LABS: PHENCYCLIDINE SCREEN,URINE NEGATIVE (NEGATIVE)
[2022-10-12] MEDS ORDERED: OLANZapine 5 MG RAPDIS TABLET PO ONE (13:00)
== END 2022-10-12 13:32 | disposition home or self-care (01) ==
LOC: EMS 11:20
DX: F25.1 Schizoaffective disorder, depressive type (principal); R45.851 Suicidal ideations; F41.8 Other specified anxiety disorders; F31.9 Bipolar disorder, unspecified; I10 Essential (primary) hypertension; Z88.5 Allergy status to narcotic agent
CPT/HCPCS: 99284; 80053; 85025; 36415; 80307; G0480

== ENCOUNTER 2022-10-15 15:30 | Inpatient (IN) | payer MEDICAID, OTHER ==
[~2022-10-15] VITALS: Ht 167.6 cm; Wt 58.3 kg
[2022-10-15] MEDS ORDERED: OLANZapine 5 MG TABLET PO ONE (17:15)
[2022-10-15] MEDS ORDERED: HALOPERIDOL 5 MG TABLET PO PRN (18:15)
[2022-10-15] MEDS ORDERED: ZOLPIDEM TARTRATE 10 MG TABLET PO PRN (18:15)
[2022-10-15] MEDS ORDERED: LORazepam 2 MG TABLET PO PRN (18:15)
[2022-10-15 18:36] LABS: BASOPHILS % (AUTO) 0.6 % (0.0-2.0); HEMATOCRIT 44.6 % (41-53); HEMOGLOBIN 15.3 g/dL (13.5-17.5); LYMPHOCYTES # (AUTO) 2.9 K/uL (1.0-4.8); LYMPHOCYTES % (AUTO) 28.8 % (22.0-44.0); MEAN CORPUSCULAR HGB CONC 34.3 G/dL (31.0-37.0); MEAN CORPUSCULAR VOLUME 96 fL (80-100); MONOCYTES # (AUTO) 0.4 K/uL (0.1-1.0); MONOCYTES % (AUTO) 4.2 % (2.0-9.0); NEUTROPHILS # (AUTO) 6.6 K/uL (1.8-7.7); NEUTROPHILS % (AUTO) 64.4 % (40.0-70.0); PLATELET COUNT (AUTO) 311 K/uL (150-450); RED BLOOD CELL COUNT(AUTO) 4.64 MIL/uL (4.50-5.90); RED CELL DISTRIBUTION WIDTH 13.5 % (11.5-14.5)
[2022-10-15 18:41] LABS: AMPHET/METH SCREEN,URINE NEGATIVE (NEGATIVE); BARBITURATE SCREEN, URINE NEGATIVE (NEGATIVE); BENZODIAZEPINES SCREEN,URINE NEGATIVE (NEGATIVE); CANNABINOID SCREEN,URINE NEGATIVE (NEGATIVE); COCAINE SCREEN,URINE NEGATIVE (NEGATIVE); METHADONE SCREEN, URINE NEGATIVE (NEGATIVE); OPIATE SCREEN,URINE NEGATIVE (NEGATIVE)
[2022-10-15 18:42] LABS: PHENCYCLIDINE SCREEN,URINE NEGATIVE (NEGATIVE)
[2022-10-15 18:45] LABS: ANION GAP 7 mmol/L (8-16); CALCIUM, TOTAL 9.1 mg/dL (8.8-10.5); CARBON DIOXIDE 27 mmol/L (22-29); CHLORIDE 103 mmol/L (98-107); CREATININE 0.89 mg/dL (0.60-1.30); GLUCOSE,RANDOM 93 mg/dL (70-110); POTASSIUM 3.3 mmol/L (3.5-5.1); SODIUM SERUM 137 mmol/L (136-145); UREA NITROGEN, BLOOD 12 mg/dL (7-18)
[2022-10-15 18:49] LABS: GLOMERULAR FILTR. RATE CALC > 60 mL/min (>60)
[2022-10-15 18:50] LABS: COVID AG,FIA SOURCE NASOPHARYNGEAL
[2022-10-15 18:51] LABS: ALANINE AMINOTRANSFERASE 11 U/L (12-78); ALKALINE PHOSPHATASE 61 U/L (46-116); ASPARTATE AMINOTRANSFERASE 10 U/L (15-37); BILIRUBIN,TOTAL 0.5 mg/dL (0.1-1.0)
[2022-10-15] MEDS ORDERED: POTASSIUM CHLORIDE 10% 40 MEQ/30 ML LIQUID UDCUP PO ONE (19:30)
[2022-10-16 00:03] VITALS: BP 148/102
[2022-10-16 08:50] VITALS: BP 130/90
[2022-10-16] MEDS: QUEtiapine FUMARATE 100 MG TABLET PO SCH ×2 (09:59→20:31)
[2022-10-16] MEDS: VENLAFAXINE HCL 150 MG ER CAPSULE PO SCH (09:59)
[2022-10-16] MEDS: BusPIRone HCL 15 MG TABLET PO SCH ×2 (09:59→20:31)
[2022-10-16 20:36] VITALS: BP 128/88
[2022-10-17 08:21] VITALS: BP 130/84
[2022-10-17] MEDS: VENLAFAXINE HCL 150 MG ER CAPSULE PO SCH (09:49)
[2022-10-17] MEDS: BusPIRone HCL 15 MG TABLET PO SCH ×2 (09:50→20:37)
[2022-10-17] MEDS: QUEtiapine FUMARATE 100 MG TABLET PO SCH ×2 (09:50→20:37)
[2022-10-17 20:47] VITALS: BP 124/82
[2022-10-18] MEDS: BusPIRone HCL 15 MG TABLET PO SCH ×2 (09:30→20:17)
[2022-10-18] MEDS: VENLAFAXINE HCL 150 MG ER CAPSULE PO SCH (09:30)
[2022-10-18] MEDS: QUEtiapine FUMARATE 100 MG TABLET PO SCH ×2 (09:30→20:17)
[2022-10-18 09:42] VITALS: BP 126/81
[2022-10-18 20:11] VITALS: BP 147/85
[2022-10-19] MEDS: BusPIRone HCL 15 MG TABLET PO SCH ×2 (08:24→20:40)
[2022-10-19] MEDS: VENLAFAXINE HCL 150 MG ER CAPSULE PO SCH (08:24)
[2022-10-19] MEDS: QUEtiapine FUMARATE 100 MG TABLET PO SCH ×2 (08:24→20:40)
[2022-10-19 08:43] VITALS: BP 123/84
[2022-10-19 20:29] VITALS: BP 130/76
[2022-10-20 08:29] VITALS: BP 141/79
[2022-10-20 08:50] LABS: GLUCOMETER DEV NAME(LOC) POC.BV
[2022-10-20] MEDS: BusPIRone HCL 15 MG TABLET PO SCH ×2 (09:15→21:19)
[2022-10-20] MEDS: VENLAFAXINE HCL 150 MG ER CAPSULE PO SCH (09:15)
[2022-10-20] MEDS: QUEtiapine FUMARATE 100 MG TABLET PO SCH ×2 (09:15→21:19)
[2022-10-20 21:20] VITALS: BP 117/76
[2022-10-21 08:35] VITALS: BP 133/85
[2022-10-21] MEDS: QUEtiapine FUMARATE 100 MG TABLET PO SCH ×2 (09:16→20:46)
[2022-10-21] MEDS: BusPIRone HCL 15 MG TABLET PO SCH ×2 (09:16→20:46)
[2022-10-21] MEDS: VENLAFAXINE HCL 150 MG ER CAPSULE PO SCH (09:16)
[2022-10-21 20:06] VITALS: BP 124/83
[2022-10-22 08:24] VITALS: BP 120/80
[2022-10-22] MEDS: QUEtiapine FUMARATE 100 MG TABLET PO SCH ×2 (09:04→20:31)
[2022-10-22] MEDS: VENLAFAXINE HCL 150 MG ER CAPSULE PO SCH (09:04)
[2022-10-22] MEDS: BusPIRone HCL 15 MG TABLET PO SCH ×2 (09:04→20:31)
[2022-10-22 21:00] VITALS: BP 129/85
[2022-10-23 08:48] VITALS: BP 132/75
[2022-10-23] MEDS: VENLAFAXINE HCL 150 MG ER CAPSULE PO SCH (08:52)
[2022-10-23] MEDS: BusPIRone HCL 15 MG TABLET PO SCH ×2 (08:52→20:32)
[2022-10-23] MEDS: QUEtiapine FUMARATE 100 MG TABLET PO SCH ×2 (08:52→20:32)
[2022-10-23 20:21] VITALS: BP 111/82
[2022-10-24 09:17] VITALS: BP 136/77
[2022-10-24] MEDS: QUEtiapine FUMARATE 100 MG TABLET PO SCH ×2 (09:47→20:35)
[2022-10-24] MEDS: BusPIRone HCL 15 MG TABLET PO SCH ×2 (09:47→20:35)
[2022-10-24] MEDS: VENLAFAXINE HCL 150 MG ER CAPSULE PO SCH (09:47)
[2022-10-24 15:51] LABS: GLUCOMETER DEV NAME(LOC) POC.BV
[2022-10-24 20:40] VITALS: BP 110/61
[2022-10-25 09:04] VITALS: BP 123/88
[2022-10-25] MEDS: BusPIRone HCL 15 MG TABLET PO SCH ×2 (09:14→20:25)
[2022-10-25] MEDS: QUEtiapine FUMARATE 100 MG TABLET PO SCH ×2 (09:14→20:25)
[2022-10-25] MEDS: VENLAFAXINE HCL 150 MG ER CAPSULE PO SCH (09:14)
[2022-10-25] MEDS ORDERED: VENL150C4 PO (12:21)
[2022-10-25] MEDS ORDERED: BUSP15 PO (12:21)
[2022-10-25] MEDS ORDERED: QUET100T34 PO (12:21)
[2022-10-25 20:00] VITALS: BP 120/88
== END 2022-10-26 07:00 | disposition home or self-care (01) | DRG 750 ==
LOC: EMS 15:34 → B2S 19:00
PROVIDERS: ADMIT Psychiatry & Neurology Psychiatry; ATTEND Psychiatry & Neurology Child & Adolescent Psychiatry
DX: F25.1 Schizoaffective disorder, depressive type (principal); E78.5 Hyperlipidemia, unspecified; Z20.822 Contact with and (suspected) exposure to COVID-19; E87.6 Hypokalemia; F41.9 Anxiety disorder, unspecified; I10 Essential (primary) hypertension; J44.9 Chronic obstructive pulmonary disease, unspecified; Z59.00 Homelessness unspecified; Z88.8 Allergy status to other drugs, medicaments and biological substances; Z91.51 Personal history of suicidal behavior; Z79.899 Other long term (current) drug therapy
CPT/HCPCS: 80053; 84132; 85025; 87081; 99285; G0480

== ENCOUNTER 2022-12-21 11:24 | Emergency (ER) | payer MEDICAID, OTHER ==
[~2022-12-21] VITALS: Ht 167.6 cm; Wt 60.0 kg
[~2022-12-21 11:24] MED LIST changes: -AMLO-257 PO; -OLAN5TAB52 PO; +QUET100T34 PO; -QUET25TA36 PO
[2022-12-21 12:16] LABS: COVID AG,FIA SOURCE NASOPHARYNGEAL
[2022-12-21 12:52] LABS: BASOPHILS % (AUTO) 0.4 % (0.0-2.0); HEMOGLOBIN 15.1 g/dL (13.5-17.5); LYMPHOCYTES # (AUTO) 1.8 K/uL (1.0-4.8); LYMPHOCYTES % (AUTO) 29.9 % (22.0-44.0); MEAN CORPUSCULAR HEMOGLOBIN 32.9 pg (26.0-34.0); MEAN CORPUSCULAR HGB CONC 33.5 G/dL (31.0-37.0); MEAN CORPUSCULAR VOLUME 98 fL (80-100); MONOCYTES # (AUTO) 0.3 K/uL (0.1-1.0); MONOCYTES % (AUTO) 4.5 % (2.0-9.0); NEUTROPHILS # (AUTO) 3.8 K/uL (1.8-7.7); NEUTROPHILS % (AUTO) 63.2 % (40.0-70.0); PLATELET COUNT (AUTO) 273 K/uL (150-450); RED BLOOD CELL COUNT(AUTO) 4.58 MIL/uL (4.50-5.90); RED CELL DISTRIBUTION WIDTH 12.6 % (11.5-14.5)
[2022-12-21 13:11] LABS: ANION GAP 8 mmol/L (8-16); CALCIUM, TOTAL 8.8 mg/dL (8.8-10.5); CARBON DIOXIDE 29 mmol/L (22-29); CHLORIDE 105 mmol/L (98-107); CREATININE 0.96 mg/dL (0.60-1.30); GLUCOSE,RANDOM 90 mg/dL (70-110); POTASSIUM 4.4 mmol/L (3.5-5.1); SODIUM SERUM 142 mmol/L (136-145); UREA NITROGEN, BLOOD 9 mg/dL (7-18)
[2022-12-21 13:14] LABS: GLOMERULAR FILTR. RATE CALC > 60 mL/min (>60)
[2022-12-21 13:16] LABS: ALANINE AMINOTRANSFERASE 20 U/L (12-78); ALBUMIN 3.8 g/dL (3.4-5.0); ALKALINE PHOSPHATASE 66 U/L (46-116); ASPARTATE AMINOTRANSFERASE 12 U/L (15-37); BILIRUBIN,TOTAL 0.3 mg/dL (0.1-1.0); TOTAL PROTEIN, SERUM 7.2 g/dL (6.4-8.2)
[2022-12-21 14:03] LABS: AMPHET/METH SCREEN,URINE NEGATIVE (NEGATIVE); BARBITURATE SCREEN, URINE NEGATIVE (NEGATIVE); BENZODIAZEPINES SCREEN,URINE NEGATIVE (NEGATIVE); CANNABINOID SCREEN,URINE NEGATIVE (NEGATIVE); COCAINE SCREEN,URINE NEGATIVE (NEGATIVE); METHADONE SCREEN, URINE NEGATIVE (NEGATIVE); OPIATE SCREEN,URINE NEGATIVE (NEGATIVE)
[2022-12-21 14:15] LABS: PHENCYCLIDINE SCREEN,URINE NEGATIVE (NEGATIVE)
[2022-12-22 08:24] VITALS: BP 140/91
== END 2022-12-22 09:13 | disposition home or self-care (01) ==
LOC: EMS 11:40
DX: F25.1 Schizoaffective disorder, depressive type (principal); F41.9 Anxiety disorder, unspecified; F31.9 Bipolar disorder, unspecified; I10 Essential (primary) hypertension; F17.210 Nicotine dependence, cigarettes, uncomplicated; Z88.5 Allergy status to narcotic agent; Z88.8 Allergy status to other drugs, medicaments and biological substances; Z20.822 Contact with and (suspected) exposure to COVID-19
CPT/HCPCS: 99285; 87426; 80053; 85025; 36415; 80307 ×2; G0480

== ENCOUNTER 2022-12-26 04:51 | Inpatient (IN) | payer MEDICAID ==
[~2022-12-26] VITALS: Ht 167.6 cm; Wt 59.0 kg
[2022-12-26 10:36] VITALS: BP 135/90
[2022-12-26] MEDS: LORazepam 2 MG TABLET PO PRN (11:23)
[2022-12-26] MEDS ORDERED: INFLUENZA VIRUS VACCINE QVS 2022-23 (6MO+)/PF 60 MCG/0.5 ML SYRINGE IM. ONE (12:45)
[2022-12-26 20:20] VITALS: BP 138/82
[2022-12-27] MEDS ORDERED: LOPERAMIDE HCL 2 MG CAPSULE PO PRN (06:45)
[2022-12-27] MEDS ORDERED: GuaiFENesin/D-METHORPHAN [SUGAR-FREE] 200-20MG/10 ML SYRUP UDCUP PO PRN (06:45)
[2022-12-27] MEDS ORDERED: DOCUSATE SODIUM 100 MG CAPSULE PO PRN (06:45)
[2022-12-27] MEDS ORDERED: MAG HYDROX/AL HYDROX/SIMETH ES 30 ML SUSPENSION UDCUP PO PRN (06:45)
[2022-12-27] MEDS ORDERED: ONDANSETRON HCL 4 MG TABLET PO PRN (06:45)
[2022-12-27] MEDS ORDERED: NICOTINE 14 MG/24 HOUR PATCH TD PRN (06:45)
[2022-12-27] MEDS ORDERED: CloNIDine HCL 0.1 MG TABLET PO PRN (06:45)
[2022-12-27] MEDS ORDERED: ACETAMINOPHEN 325 MG TABLET PO PRN (06:45)
[2022-12-27] MEDS ORDERED: PETROLATUM,WHITE 28 GM JELLY TP PRN (06:45)
[2022-12-27] MEDS ORDERED: MAGNESIUM HYDROXIDE SUSPENSION 30 ML UDCUP PO PRN (06:45)
[2022-12-27] MEDS ORDERED: ALBUTEROL SULFATE HFA 90 MCG/PUFF 8 GM INHALER IH PRN (06:45)
[2022-12-27 07:24] LABS: BASOPHILS % (AUTO) 0.5 % (0.0-2.0); EOSINOPHILS % (AUTO) 4.6 % (1.0-6.0); HEMATOCRIT 44.4 % (41-53); HEMOGLOBIN 15.3 g/dL (13.5-17.5); LYMPHOCYTES # (AUTO) 2.1 K/uL (1.0-4.8); LYMPHOCYTES % (AUTO) 29.7 % (22.0-44.0); MEAN CORPUSCULAR HEMOGLOBIN 33.7 pg (26.0-34.0); MEAN CORPUSCULAR HGB CONC 34.5 G/dL (31.0-37.0); MEAN CORPUSCULAR VOLUME 98 fL (80-100); MONOCYTES # (AUTO) 0.4 K/uL (0.1-1.0); MONOCYTES % (AUTO) 5.6 % (2.0-9.0); NEUTROPHILS # (AUTO) 4.2 K/uL (1.8-7.7); NEUTROPHILS % (AUTO) 59.6 % (40.0-70.0); PLATELET COUNT (AUTO) 274 K/uL (150-450); RED BLOOD CELL COUNT(AUTO) 4.55 MIL/uL (4.50-5.90); RED CELL DISTRIBUTION WIDTH 12.2 % (11.5-14.5)
[2022-12-27 07:33] LABS: HEMOGLOBIN A1C 5.4 % (3.8-5.6)
[2022-12-27 07:53] LABS: ALANINE AMINOTRANSFERASE 19 U/L (12-78); ALBUMIN 3.4 g/dL (3.4-5.0); ALKALINE PHOSPHATASE 60 U/L (46-116); ANION GAP 7 mmol/L (8-16); ASPARTATE AMINOTRANSFERASE 11 U/L (15-37); BILIRUBIN,TOTAL 0.4 mg/dL (0.1-1.0); CALCIUM, TOTAL 8.4 mg/dL (8.8-10.5); CARBON DIOXIDE 27 mmol/L (22-29); CHLORIDE 109 mmol/L (98-107); CHOLESTEROL 204 mg/dL (131-200); CREATININE 0.95 mg/dL (0.60-1.30); FREE T4 (FREE THYROXINE) 1.04 ng/dL (0.76-1.46); GLOMERULAR FILTR. RATE CALC > 60 mL/min (>60); GLUCOSE,RANDOM 86 mg/dL (70-110); HDL CHOLESTEROL 41 mg/dL (40-60); LDL CHOL (CALC.) 145 mg/dL (0-130); POTASSIUM 4.2 mmol/L (3.5-5.1); SODIUM SERUM 143 mmol/L (136-145); THYROID STIMULATING HORMONE 0.71 uIU/mL (0.36-3.74); TOTAL PROTEIN, SERUM 6.5 g/dL (6.4-8.2); TRIGLYCERIDES 89 mg/dL (15-150); UREA NITROGEN, BLOOD 14 mg/dL (7-18)
[2022-12-27 09:35] VITALS: BP 140/83
[2022-12-27] MEDS: LORazepam 2 MG TABLET PO PRN (10:02)
[2022-12-27] MEDS: HALOPERIDOL 5 MG TABLET PO PRN (10:02)
[2022-12-27] MEDS: BusPIRone HCL 15 MG TABLET PO SCH ×2 (13:56→20:15)
[2022-12-27] MEDS: VENLAFAXINE HCL 150 MG ER CAPSULE PO SCH (13:56)
[2022-12-27] MEDS: QUEtiapine FUMARATE 100 MG TABLET PO SCH ×2 (13:56→20:15)
[2022-12-27 20:12] VITALS: BP 124/65
[2022-12-28] MEDS: QUEtiapine FUMARATE 100 MG TABLET PO SCH ×2 (08:14→20:22)
[2022-12-28] MEDS: BusPIRone HCL 15 MG TABLET PO SCH ×2 (08:14→20:22)
[2022-12-28] MEDS: VENLAFAXINE HCL 150 MG ER CAPSULE PO SCH (08:14)
[2022-12-28 08:52] VITALS: BP 135/88
[2022-12-28 20:04] VITALS: BP 126/82
[2022-12-29] MEDS: VENLAFAXINE HCL 150 MG ER CAPSULE PO SCH (08:39)
[2022-12-29] MEDS: BusPIRone HCL 15 MG TABLET PO SCH ×2 (08:39→21:01)
[2022-12-29] MEDS: QUEtiapine FUMARATE 100 MG TABLET PO SCH ×2 (08:39→21:01)
[2022-12-29 11:13] VITALS: BP 145/94
[2022-12-29 23:45] VITALS: BP 136/98
[2022-12-30] MEDS: BusPIRone HCL 15 MG TABLET PO SCH ×2 (08:13→20:25)
[2022-12-30] MEDS: QUEtiapine FUMARATE 100 MG TABLET PO SCH ×2 (08:13→20:25)
[2022-12-30] MEDS: VENLAFAXINE HCL 150 MG ER CAPSULE PO SCH (08:13)
[2022-12-30 08:21] VITALS: BP 119/76
[2022-12-30 20:17] VITALS: BP 124/75
[2022-12-31 07:50] LABS: APPEARANCE,URINE CLEAR (CLEAR); BILIRUBIN,URINE NEGATIVE (NEGATIVE); GLUCOSE, URINE (UA) NEGATIVE (NEGATIVE); KETONES,URINE NEGATIVE (NEGATIVE); LEUKOCYTE ESTERASE ,URINE NEGATIVE (NEGATIVE); NITRATE,URINE NEGATIVE (NEGATIVE); OCCULT BLOOD,URINE NEGATIVE (NEGATIVE); PROTEIN,URINE TRACE mg/dL (NEGATIVE); SPECIFIC GRAVITIY, URINE 1.022 (1.003-1.030); UROBILINOGEN,URINE <=1.0 mg/dL (<=1.0)
[2022-12-31 07:56] LABS: AMPHET/METH SCREEN,URINE NEGATIVE (NEGATIVE); BARBITURATE SCREEN, URINE NEGATIVE (NEGATIVE); BENZODIAZEPINES SCREEN,URINE NEGATIVE (NEGATIVE); CANNABINOID SCREEN,URINE NEGATIVE (NEGATIVE); COCAINE SCREEN,URINE NEGATIVE (NEGATIVE); METHADONE SCREEN, URINE NEGATIVE (NEGATIVE); OPIATE SCREEN,URINE NEGATIVE (NEGATIVE); PHENCYCLIDINE SCREEN,URINE NEGATIVE (NEGATIVE)
[2022-12-31] MEDS: QUEtiapine FUMARATE 100 MG TABLET PO SCH ×2 (08:20→20:13)
[2022-12-31] MEDS: BusPIRone HCL 15 MG TABLET PO SCH ×2 (08:20→20:13)
[2022-12-31] MEDS: VENLAFAXINE HCL 150 MG ER CAPSULE PO SCH (08:20)
[2022-12-31 08:25] VITALS: BP 106/69
[2022-12-31 20:24] VITALS: BP 116/68
[2023-01-01 08:25] VITALS: BP 140/83
[2023-01-01] MEDS: QUEtiapine FUMARATE 100 MG TABLET PO SCH ×2 (08:26→20:19)
[2023-01-01] MEDS: VENLAFAXINE HCL 150 MG ER CAPSULE PO SCH (08:26)
[2023-01-01] MEDS: BusPIRone HCL 15 MG TABLET PO SCH ×2 (08:27→20:19)
[2023-01-01 20:11] VITALS: BP 116/80
[2023-01-02 09:37] VITALS: BP 124/76
[2023-01-02] MEDS: VENLAFAXINE HCL 150 MG ER CAPSULE PO SCH (09:45)
[2023-01-02] MEDS: QUEtiapine FUMARATE 100 MG TABLET PO SCH ×2 (09:45→20:07)
[2023-01-02] MEDS: BusPIRone HCL 15 MG TABLET PO SCH ×2 (09:45→20:07)
[2023-01-02 09:55] LABS: GLUCOMETER DEV NAME(LOC) POC.BV
[2023-01-02 20:18] VITALS: BP 123/74
[2023-01-03 08:41] VITALS: BP 126/76
[2023-01-03] MEDS: BusPIRone HCL 15 MG TABLET PO SCH ×2 (08:53→20:25)
[2023-01-03] MEDS: VENLAFAXINE HCL 150 MG ER CAPSULE PO SCH (08:53)
[2023-01-03] MEDS: QUEtiapine FUMARATE 100 MG TABLET PO SCH ×2 (08:53→20:25)
[2023-01-03 20:43] VITALS: BP 118/93
[2023-01-04] MEDS: QUEtiapine FUMARATE 100 MG TABLET PO SCH ×2 (08:11→20:28)
[2023-01-04] MEDS: BusPIRone HCL 15 MG TABLET PO SCH ×2 (08:11→20:28)
[2023-01-04] MEDS: VENLAFAXINE HCL 150 MG ER CAPSULE PO SCH (08:11)
[2023-01-04 09:21] VITALS: BP 122/76
[2023-01-04 20:16] VITALS: BP 117/74
[2023-01-05] MEDS: VENLAFAXINE HCL 150 MG ER CAPSULE PO SCH (08:40)
[2023-01-05] MEDS: QUEtiapine FUMARATE 100 MG TABLET PO SCH ×2 (08:40→20:13)
[2023-01-05] MEDS: BusPIRone HCL 15 MG TABLET PO SCH ×2 (08:40→20:13)
[2023-01-05 08:44] VITALS: BP 111/61
[2023-01-05 20:15] VITALS: BP 130/82
[2023-01-06] MEDS: VENLAFAXINE HCL 150 MG ER CAPSULE PO SCH (08:23)
[2023-01-06] MEDS: BusPIRone HCL 15 MG TABLET PO SCH ×2 (08:23→20:21)
[2023-01-06] MEDS: QUEtiapine FUMARATE 100 MG TABLET PO SCH ×2 (08:23→20:21)
[2023-01-06 09:57] VITALS: BP 113/69
[2023-01-06 20:12] VITALS: BP 128/75
[2023-01-07] MEDS: LORazepam 2 MG TABLET PO PRN (07:22)
[2023-01-07 08:16] VITALS: BP 111/70
[2023-01-07] MEDS: QUEtiapine FUMARATE 100 MG TABLET PO SCH ×2 (08:18→20:26)
[2023-01-07] MEDS: VENLAFAXINE HCL 150 MG ER CAPSULE PO SCH (08:18)
[2023-01-07] MEDS: BusPIRone HCL 15 MG TABLET PO SCH ×2 (08:18→20:26)
[2023-01-07 20:13] VITALS: BP 120/83
[2023-01-08 08:22] VITALS: BP 125/71
[2023-01-08] MEDS: QUEtiapine FUMARATE 100 MG TABLET PO SCH ×2 (08:39→20:17)
[2023-01-08] MEDS: VENLAFAXINE HCL 150 MG ER CAPSULE PO SCH (08:39)
[2023-01-08] MEDS: BusPIRone HCL 15 MG TABLET PO SCH ×2 (08:39→20:17)
[2023-01-08 20:03] VITALS: BP 118/90
[2023-01-09] MEDS: QUEtiapine FUMARATE 100 MG TABLET PO SCH ×2 (08:49→20:16)
[2023-01-09] MEDS: BusPIRone HCL 15 MG TABLET PO SCH ×2 (08:49→20:16)
[2023-01-09] MEDS: VENLAFAXINE HCL 150 MG ER CAPSULE PO SCH (08:49)
[2023-01-09 09:26] VITALS: BP 128/79
[2023-01-09 09:36] LABS: GLUCOMETER DEV NAME(LOC) POC.BV
[2023-01-09 20:15] VITALS: BP 129/90
[2023-01-09] MEDS: LORazepam 2 MG TABLET PO PRN (20:16)
[2023-01-10 08:46] VITALS: BP 116/75
[2023-01-10] MEDS: BusPIRone HCL 15 MG TABLET PO SCH ×2 (08:52→20:16)
[2023-01-10] MEDS: VENLAFAXINE HCL 150 MG ER CAPSULE PO SCH (08:52)
[2023-01-10] MEDS: QUEtiapine FUMARATE 100 MG TABLET PO SCH ×2 (08:52→20:16)
[2023-01-10 20:13] VITALS: BP 126/84
[2023-01-11] MEDS: LORazepam 2 MG TABLET PO PRN (08:17)
[2023-01-11] MEDS: BusPIRone HCL 15 MG TABLET PO SCH ×2 (08:17→20:45)
[2023-01-11] MEDS: VENLAFAXINE HCL 150 MG ER CAPSULE PO SCH (08:17)
[2023-01-11] MEDS: QUEtiapine FUMARATE 100 MG TABLET PO SCH ×2 (08:17→20:45)
[2023-01-11 09:46] VITALS: BP 125/89
[2023-01-11 20:33] VITALS: BP 127/77
[2023-01-12 08:00] VITALS: BP 129/80
[2023-01-12] MEDS: VENLAFAXINE HCL 150 MG ER CAPSULE PO SCH (08:51)
[2023-01-12] MEDS: QUEtiapine FUMARATE 100 MG TABLET PO SCH ×2 (08:52→20:13)
[2023-01-12] MEDS: BusPIRone HCL 15 MG TABLET PO SCH ×2 (08:52→20:13)
[2023-01-12 20:41] VITALS: BP 135/94
[2023-01-13] MEDS: VENLAFAXINE HCL 150 MG ER CAPSULE PO SCH (08:22)
[2023-01-13] MEDS: QUEtiapine FUMARATE 100 MG TABLET PO SCH ×2 (08:23→21:19)
[2023-01-13] MEDS: BusPIRone HCL 15 MG TABLET PO SCH ×2 (08:23→21:19)
[2023-01-13 08:33] VITALS: BP 138/81
[2023-01-13] MEDS: LORazepam 2 MG TABLET PO PRN ×2 (12:52→21:20)
[2023-01-13 20:12] VITALS: BP 131/90
[2023-01-14] MEDS: BusPIRone HCL 15 MG TABLET PO SCH ×2 (08:23→20:25)
[2023-01-14] MEDS: VENLAFAXINE HCL 150 MG ER CAPSULE PO SCH (08:23)
[2023-01-14] MEDS: QUEtiapine FUMARATE 100 MG TABLET PO SCH ×2 (08:23→20:25)
[2023-01-14 08:42] VITALS: BP 116/79
[2023-01-14 20:11] VITALS: BP 132/72
[2023-01-15 08:18] VITALS: BP 131/85
[2023-01-15] MEDS: QUEtiapine FUMARATE 100 MG TABLET PO SCH ×2 (08:25→20:02)
[2023-01-15] MEDS: BusPIRone HCL 15 MG TABLET PO SCH ×2 (08:25→20:02)
[2023-01-15] MEDS: VENLAFAXINE HCL 150 MG ER CAPSULE PO SCH (08:26)
[2023-01-15] MEDS: LORazepam 2 MG TABLET PO PRN ×2 (12:22→20:02)
[2023-01-15 20:09] VITALS: BP 123/77
[2023-01-16] MEDS: BusPIRone HCL 15 MG TABLET PO SCH ×2 (08:07→20:47)
[2023-01-16] MEDS: VENLAFAXINE HCL 150 MG ER CAPSULE PO SCH (08:07)
[2023-01-16] MEDS: QUEtiapine FUMARATE 100 MG TABLET PO SCH ×2 (08:07→20:47)
[2023-01-16] MEDS: PALIPERIDONE PALMITATE 234 MG/1.5 ML SYRINGE IM SCH (09:25)
[2023-01-16 09:39] VITALS: BP 127/83
[2023-01-16] MEDS ORDERED: TUBERCULIN, PURIFIED PROTEIN DERIVATIVE 5 TU/0.1 ML SYRINGE ID ONE (15:45)
[2023-01-16 18:12] LABS: GLUCOMETER DEV NAME(LOC) POC.BV
[2023-01-16 20:13] VITALS: BP 140/83
[2023-01-16] MEDS: LORazepam 2 MG TABLET PO PRN (20:47)
[2023-01-17 08:31] VITALS: BP 140/85
[2023-01-17] MEDS: BusPIRone HCL 15 MG TABLET PO SCH ×2 (08:33→20:12)
[2023-01-17] MEDS: VENLAFAXINE HCL 150 MG ER CAPSULE PO SCH (08:33)
[2023-01-17] MEDS: QUEtiapine FUMARATE 100 MG TABLET PO SCH ×2 (08:33→20:11)
[2023-01-17 20:00] VITALS: BP 135/85
[2023-01-18] MEDS: QUEtiapine FUMARATE 100 MG TABLET PO SCH ×2 (08:42→20:19)
[2023-01-18] MEDS: VENLAFAXINE HCL 150 MG ER CAPSULE PO SCH (08:42)
[2023-01-18] MEDS: BusPIRone HCL 15 MG TABLET PO SCH ×2 (08:42→20:19)
[2023-01-18] MEDS: LORazepam 2 MG TABLET PO PRN (08:42)
[2023-01-18 10:36] VITALS: BP 128/88
[2023-01-18 20:40] VITALS: BP 124/99
[2023-01-19] MEDS: QUEtiapine FUMARATE 100 MG TABLET PO SCH ×2 (08:11→21:16)
[2023-01-19] MEDS: BusPIRone HCL 15 MG TABLET PO SCH ×2 (08:11→21:16)
[2023-01-19] MEDS: VENLAFAXINE HCL 150 MG ER CAPSULE PO SCH (08:11)
[2023-01-19 08:20] VITALS: BP 134/84
[2023-01-19 23:30] VITALS: BP 132/80
[2023-01-20 08:22] VITALS: BP 108/77
[2023-01-20] MEDS: BusPIRone HCL 15 MG TABLET PO SCH ×2 (09:06→20:30)
[2023-01-20] MEDS: QUEtiapine FUMARATE 100 MG TABLET PO SCH ×2 (09:06→20:30)
[2023-01-20] MEDS: VENLAFAXINE HCL 150 MG ER CAPSULE PO SCH (09:06)
[2023-01-20 18:40] LABS: GLUCOMETER DEV NAME(LOC) POC.BV
[2023-01-20 20:25] VITALS: BP 101/62
[2023-01-21 08:15] VITALS: BP 114/78
[2023-01-21] MEDS: BusPIRone HCL 15 MG TABLET PO SCH ×2 (08:22→20:27)
[2023-01-21] MEDS: QUEtiapine FUMARATE 100 MG TABLET PO SCH ×2 (08:22→20:28)
[2023-01-21] MEDS: VENLAFAXINE HCL 150 MG ER CAPSULE PO SCH (08:22)
[2023-01-21 20:27] VITALS: BP 136/94
[2023-01-22 08:31] VITALS: BP 129/79
[2023-01-22] MEDS: VENLAFAXINE HCL 150 MG ER CAPSULE PO SCH (09:28)
[2023-01-22] MEDS: QUEtiapine FUMARATE 100 MG TABLET PO SCH ×2 (09:28→20:04)
[2023-01-22] MEDS: BusPIRone HCL 15 MG TABLET PO SCH ×2 (09:28→20:04)
[2023-01-22 20:16] VITALS: BP 126/76
[2023-01-23] MEDS: VENLAFAXINE HCL 150 MG ER CAPSULE PO SCH (08:52)
[2023-01-23] MEDS: BusPIRone HCL 15 MG TABLET PO SCH ×2 (08:52→20:03)
[2023-01-23 09:08] VITALS: BP 131/83
[2023-01-23 12:22] LABS: GLUCOMETER DEV NAME(LOC) POC.BV
[2023-01-23 20:18] VITALS: BP 141/97
[2023-01-24 02:21] VITALS: BP 132/90
[2023-01-24] MEDS: ZOLPIDEM TARTRATE 10 MG TABLET PO PRN (02:21)
[2023-01-24 08:39] VITALS: BP 131/75
[2023-01-24] MEDS: VENLAFAXINE HCL 150 MG ER CAPSULE PO SCH (08:46)
[2023-01-24] MEDS: BusPIRone HCL 15 MG TABLET PO SCH ×2 (08:47→20:28)
[2023-01-24] MEDS: LORazepam 2 MG TABLET PO PRN (09:54)
[2023-01-24 20:08] VITALS: BP 131/80
[2023-01-25] VITALS (8 sets, daily range): BP systolic 120–146; BP diastolic 80–95
[2023-01-25] MEDS: BusPIRone HCL 15 MG TABLET PO SCH ×2 (08:59→20:19)
[2023-01-25] MEDS: VENLAFAXINE HCL 150 MG ER CAPSULE PO SCH (08:59)
[2023-01-26 08:40] LABS: BASOPHILS % (AUTO) 0.2 % (0.0-2.0); EOSINOPHILS % (AUTO) 0.5 % (1.0-6.0); HEMATOCRIT 48.2 % (41-53); HEMOGLOBIN 16.2 g/dL (13.5-17.5); LYMPHOCYTES # (AUTO) 1.5 K/uL (1.0-4.8); LYMPHOCYTES % (AUTO) 14.5 % (22.0-44.0); MEAN CORPUSCULAR HEMOGLOBIN 32.7 pg (26.0-34.0); MEAN CORPUSCULAR HGB CONC 33.7 G/dL (31.0-37.0); MEAN CORPUSCULAR VOLUME 97 fL (80-100); MONOCYTES # (AUTO) 0.4 K/uL (0.1-1.0); MONOCYTES % (AUTO) 3.9 % (2.0-9.0); NEUTROPHILS # (AUTO) 8.5 K/uL (1.8-7.7); NEUTROPHILS % (AUTO) 80.9 % (40.0-70.0); PLATELET COUNT (AUTO) 303 K/uL (150-450); RED BLOOD CELL COUNT(AUTO) 4.96 MIL/uL (4.50-5.90); RED CELL DISTRIBUTION WIDTH 12.5 % (11.5-14.5)
[2023-01-26 08:45] VITALS: BP 135/90
[2023-01-26 09:23] LABS: ALANINE AMINOTRANSFERASE 19 U/L (12-78); ALBUMIN 4.3 g/dL (3.4-5.0); ALKALINE PHOSPHATASE 72 U/L (46-116); ANION GAP 16 mmol/L (8-16); ASPARTATE AMINOTRANSFERASE 23 U/L (15-37); BILIRUBIN,TOTAL 0.6 mg/dL (0.1-1.0); CALCIUM, TOTAL 9.1 mg/dL (8.8-10.5); CARBON DIOXIDE 23 mmol/L (22-29); CHLORIDE 101 mmol/L (98-107); CREATININE 0.94 mg/dL (0.60-1.30); GLOMERULAR FILTR. RATE CALC > 60 mL/min (>60); GLUCOSE,RANDOM 109 mg/dL (70-110); POTASSIUM 3.5 mmol/L (3.5-5.1); SODIUM SERUM 140 mmol/L (136-145); TOTAL PROTEIN, SERUM 7.6 g/dL (6.4-8.2); UREA NITROGEN, BLOOD 7 mg/dL (7-18)
[2023-01-26] MEDS: VENLAFAXINE HCL 150 MG ER CAPSULE PO SCH (09:45)
[2023-01-26] MEDS: BusPIRone HCL 15 MG TABLET PO SCH ×2 (09:46→20:19)
[2023-01-26 21:49] VITALS: BP 152/93
[2023-01-27 08:56] VITALS: BP 115/74
[2023-01-27] MEDS: VENLAFAXINE HCL 150 MG ER CAPSULE PO SCH (09:04)
[2023-01-27] MEDS: BusPIRone HCL 15 MG TABLET PO SCH ×2 (09:04→20:32)
[2023-01-27 20:31] VITALS: BP 123/80
[2023-01-28] MEDS ORDERED: LORazepam 2 MG/ML VIAL IM ONE ×2 (09:00→11:15)
[2023-01-28] MEDS: BusPIRone HCL 15 MG TABLET PO SCH ×2 (09:23→20:31)
[2023-01-28] MEDS: VENLAFAXINE HCL 150 MG ER CAPSULE PO SCH (09:23)
[2023-01-28 09:36] VITALS: BP 136/96
[2023-01-28 10:30] VITALS: BP 130/90
[2023-01-28 20:21] VITALS: BP 120/90
[2023-01-29 07:45] LABS: APPEARANCE,URINE TURBID (CLEAR); BILIRUBIN,URINE NEGATIVE (NEGATIVE); GLUCOSE, URINE (UA) NEGATIVE (NEGATIVE); KETONES,URINE 40-60 mg/dL (NEGATIVE); LEUKOCYTE ESTERASE ,URINE NEGATIVE (NEGATIVE); NITRATE,URINE NEGATIVE (NEGATIVE); OCCULT BLOOD,URINE TRACE (NEGATIVE); PH,URINE 5.5 (5.0-8.0); PROTEIN,URINE 30-70 mg/dL (NEGATIVE); SPECIFIC GRAVITIY, URINE 1.032 (1.003-1.030); UROBILINOGEN,URINE <=1.0 mg/dL (<=1.0)
[2023-01-29 07:54] LABS: BACTERIA,URINE Moderate /HPF (None Seen); RBC,URINE None Seen /HPF (0-2); SQUAMOUS EPITHELIAL CELL,UR Few /LPF (None Seen); WBC,URINE 0-2 /HPF (0-5)
[2023-01-29 08:11] VITALS: BP 117/82
[2023-01-29] MEDS: VENLAFAXINE HCL 150 MG ER CAPSULE PO SCH (08:57)
[2023-01-29] MEDS: BusPIRone HCL 15 MG TABLET PO SCH ×2 (08:57→20:21)
[2023-01-29 20:13] VITALS: BP_SYST 135; BP_SYST 143; BP_DIAS 82
[2023-01-29] MEDS: ZOLPIDEM TARTRATE 10 MG TABLET PO PRN (22:48)
[2023-01-30] VITALS (9 sets, daily range): BP systolic 125–142; BP diastolic 76–94
[2023-01-30] MEDS: IBUPROFEN 400 MG TABLET PO PRN (00:04)
[2023-01-30] MEDS: VENLAFAXINE HCL 150 MG ER CAPSULE PO SCH (08:07)
[2023-01-30] MEDS: BusPIRone HCL 15 MG TABLET PO SCH ×2 (08:07→21:53)
[2023-01-30 10:52] LABS: GLUCOMETER DEV NAME(LOC) POC.BV
[2023-01-31] VITALS (12 sets, daily range): BP systolic 123–145; BP diastolic 73–95
[2023-01-31] MEDS: BusPIRone HCL 15 MG TABLET PO SCH ×2 (08:09→20:08)
[2023-01-31] MEDS: VENLAFAXINE HCL 150 MG ER CAPSULE PO SCH (08:09)
[2023-01-31] MEDS ORDERED: BACITRACIN 28 GM OINTMENT TP PRN (20:30)
[2023-01-31] MEDS: ZOLPIDEM TARTRATE 10 MG TABLET PO PRN (22:02)
[2023-02-01 08:02] VITALS: BP 147/90
[2023-02-01] MEDS: VENLAFAXINE HCL 150 MG ER CAPSULE PO SCH (08:06)
[2023-02-01] MEDS: HALOPERIDOL 5 MG TABLET PO PRN (08:06)
[2023-02-01] MEDS: BusPIRone HCL 15 MG TABLET PO SCH ×2 (08:06→21:37)
[2023-02-01] MEDS: LORazepam 2 MG TABLET PO PRN (19:36)
[2023-02-01 20:08] VITALS: BP 143/97
[2023-02-02] MEDS: BusPIRone HCL 15 MG TABLET PO SCH ×2 (09:26→21:29)
[2023-02-02] MEDS: VENLAFAXINE HCL 150 MG ER CAPSULE PO SCH (09:26)
[2023-02-02 10:45] VITALS: BP 135/74
[2023-02-02 20:00] VITALS: BP 148/86
[2023-02-02] MEDS: ZOLPIDEM TARTRATE 10 MG TABLET PO PRN (21:29)
[2023-02-02] MEDS: LORazepam 2 MG TABLET PO PRN (21:29)
[2023-02-03] VITALS (9 sets, daily range): BP systolic 110–145; BP diastolic 58–90
[2023-02-03 07:34] LABS: BASOPHILS % (AUTO) 0.5 % (0.0-2.0); EOSINOPHILS % (AUTO) 3.3 % (1.0-6.0); HEMATOCRIT 42.2 % (41-53); HEMOGLOBIN 14.8 g/dL (13.5-17.5); LYMPHOCYTES # (AUTO) 2.5 K/uL (1.0-4.8); LYMPHOCYTES % (AUTO) 30.2 % (22.0-44.0); MEAN CORPUSCULAR HEMOGLOBIN 33.8 pg (26.0-34.0); MEAN CORPUSCULAR HGB CONC 35.2 G/dL (31.0-37.0); MEAN CORPUSCULAR VOLUME 96 fL (80-100); MONOCYTES # (AUTO) 0.4 K/uL (0.1-1.0); MONOCYTES % (AUTO) 4.9 % (2.0-9.0); NEUTROPHILS # (AUTO) 5.1 K/uL (1.8-7.7); NEUTROPHILS % (AUTO) 61.1 % (40.0-70.0); PLATELET COUNT (AUTO) 276 K/uL (150-450); RED BLOOD CELL COUNT(AUTO) 4.39 MIL/uL (4.50-5.90); RED CELL DISTRIBUTION WIDTH 12.1 % (11.5-14.5)
[2023-02-03 07:48] LABS: ANION GAP 4 mmol/L (8-16); CALCIUM, TOTAL 8.5 mg/dL (8.8-10.5); CARBON DIOXIDE 32 mmol/L (22-29); CHLORIDE 106 mmol/L (98-107); CREATININE 0.97 mg/dL (0.60-1.30); GLOMERULAR FILTR. RATE CALC > 60 mL/min (>60); GLUCOSE,RANDOM 85 mg/dL (70-110); POTASSIUM 3.6 mmol/L (3.5-5.1); SODIUM SERUM 142 mmol/L (136-145); UREA NITROGEN, BLOOD 10 mg/dL (7-18)
[2023-02-03] MEDS: BusPIRone HCL 15 MG TABLET PO SCH ×2 (08:56→20:27)
[2023-02-03] MEDS: VENLAFAXINE HCL 150 MG ER CAPSULE PO SCH (08:56)
[2023-02-03] MEDS: ZOLPIDEM TARTRATE 10 MG TABLET PO PRN (22:09)
[2023-02-04 07:30] LABS: APPEARANCE,URINE CLEAR (CLEAR); BILIRUBIN,URINE NEGATIVE (NEGATIVE); GLUCOSE, URINE (UA) NEGATIVE (NEGATIVE); KETONES,URINE NEGATIVE (NEGATIVE); LEUKOCYTE ESTERASE ,URINE NEGATIVE (NEGATIVE); NITRATE,URINE NEGATIVE (NEGATIVE); OCCULT BLOOD,URINE NEGATIVE (NEGATIVE); PROTEIN,URINE NEGATIVE (NEGATIVE); SPECIFIC GRAVITIY, URINE 1.017 (1.003-1.030); UROBILINOGEN,URINE <=1.0 mg/dL (<=1.0)
[2023-02-04] MEDS: BusPIRone HCL 15 MG TABLET PO SCH ×2 (08:15→20:25)
[2023-02-04] MEDS: VENLAFAXINE HCL 150 MG ER CAPSULE PO SCH (08:15)
[2023-02-04 09:05] VITALS: BP 146/77
[2023-02-05 08:15] VITALS: BP 142/96
[2023-02-05] MEDS: VENLAFAXINE HCL 150 MG ER CAPSULE PO SCH (08:58)
[2023-02-05] MEDS: BusPIRone HCL 15 MG TABLET PO SCH ×2 (08:59→20:30)
[2023-02-06] MEDS: VENLAFAXINE HCL 150 MG ER CAPSULE PO SCH (08:12)
[2023-02-06] MEDS: BusPIRone HCL 15 MG TABLET PO SCH ×2 (08:12→20:26)
[2023-02-06 10:35] LABS: GLUCOMETER DEV NAME(LOC) POC.BV
[2023-02-06 20:20] VITALS: BP 134/89
[2023-02-07] MEDS: BusPIRone HCL 15 MG TABLET PO SCH ×2 (08:28→20:14)
[2023-02-07] MEDS: VENLAFAXINE HCL 150 MG ER CAPSULE PO SCH (08:28)
[2023-02-07 08:56] VITALS: BP 147/89
[2023-02-07 20:11] VITALS: BP 121/86
[2023-02-08 08:07] VITALS: BP 125/86
[2023-02-08] MEDS: VENLAFAXINE HCL 150 MG ER CAPSULE PO SCH (08:37)
[2023-02-08] MEDS: BusPIRone HCL 15 MG TABLET PO SCH ×2 (08:37→20:29)
[2023-02-08 20:45] VITALS: BP 146/92
[2023-02-09 08:13] VITALS: BP 118/69
[2023-02-09] MEDS: VENLAFAXINE HCL 150 MG ER CAPSULE PO SCH (08:16)
[2023-02-09] MEDS: BusPIRone HCL 15 MG TABLET PO SCH ×2 (08:16→20:39)
[2023-02-09 20:46] VITALS: BP 136/91
[2023-02-10 08:55] VITALS: BP 129/89
[2023-02-10] MEDS: VENLAFAXINE HCL 150 MG ER CAPSULE PO SCH (09:04)
[2023-02-10] MEDS: BusPIRone HCL 15 MG TABLET PO SCH ×2 (09:04→20:05)
[2023-02-10] MEDS: MULTIVITAMINS WITH MINERALS, THERAPEUTIC TABLET PO SCH (13:27)
[2023-02-10] MEDS: MEGESTROL ACETATE 400 MG/10 ML SUSPENSION UDCUP PO SCH (16:28)
[2023-02-10 20:15] VITALS: BP 134/81
[2023-02-11 08:13] VITALS: BP 135/85
[2023-02-11] MEDS: VENLAFAXINE HCL 150 MG ER CAPSULE PO SCH (08:57)
[2023-02-11] MEDS: MEGESTROL ACETATE 400 MG/10 ML SUSPENSION UDCUP PO SCH (08:57)
[2023-02-11] MEDS: MULTIVITAMINS WITH MINERALS, THERAPEUTIC TABLET PO SCH (08:57)
[2023-02-11] MEDS: BusPIRone HCL 15 MG TABLET PO SCH ×2 (08:57→20:13)
[2023-02-11 20:21] VITALS: BP 113/80
[2023-02-12] MEDS: VENLAFAXINE HCL 150 MG ER CAPSULE PO SCH (08:49)
[2023-02-12] MEDS: MULTIVITAMINS WITH MINERALS, THERAPEUTIC TABLET PO SCH (08:49)
[2023-02-12] MEDS: BusPIRone HCL 15 MG TABLET PO SCH ×2 (08:49→20:37)
[2023-02-12] MEDS: MEGESTROL ACETATE 400 MG/10 ML SUSPENSION UDCUP PO SCH (08:49)
[2023-02-12 09:13] VITALS: BP 119/77
[2023-02-12 20:25] VITALS: BP 116/77
[2023-02-13] MEDS: VENLAFAXINE HCL 150 MG ER CAPSULE PO SCH (08:59)
[2023-02-13] MEDS: PALIPERIDONE PALMITATE 234 MG/1.5 ML SYRINGE IM SCH (08:59)
[2023-02-13] MEDS: BusPIRone HCL 15 MG TABLET PO SCH ×2 (08:59→21:35)
[2023-02-13] MEDS: MULTIVITAMINS WITH MINERALS, THERAPEUTIC TABLET PO SCH (09:34)
[2023-02-13] MEDS: MEGESTROL ACETATE 400 MG/10 ML SUSPENSION UDCUP PO SCH (09:34)
[2023-02-13 10:34] VITALS: BP 140/72
[2023-02-13 16:15] LABS: GLUCOMETER DEV NAME(LOC) POC.BV
[2023-02-13 20:09] VITALS: BP 136/82
[2023-02-14 08:02] VITALS: BP 118/81
[2023-02-14] MEDS: VENLAFAXINE HCL 150 MG ER CAPSULE PO SCH (08:27)
[2023-02-14] MEDS: BusPIRone HCL 15 MG TABLET PO SCH ×2 (08:28→20:32)
[2023-02-14] MEDS: MEGESTROL ACETATE 400 MG/10 ML SUSPENSION UDCUP PO SCH (08:28)
[2023-02-14] MEDS: MULTIVITAMINS WITH MINERALS, THERAPEUTIC TABLET PO SCH (08:28)
[2023-02-14 16:30] VITALS: BP 155/105
[2023-02-15] MEDS: BusPIRone HCL 15 MG TABLET PO SCH ×3 (01:30→20:30)
[2023-02-15] MEDS: IBUPROFEN 400 MG TABLET PO PRN (01:31)
[2023-02-15] MEDS: ZOLPIDEM TARTRATE 10 MG TABLET PO PRN (01:31)
[2023-02-15 01:33] VITALS: BP 113/69
[2023-02-15 08:32] VITALS: BP 143/83
[2023-02-15] MEDS: MULTIVITAMINS WITH MINERALS, THERAPEUTIC TABLET PO SCH (08:45)
[2023-02-15] MEDS: VENLAFAXINE HCL 150 MG ER CAPSULE PO SCH (08:45)
[2023-02-15] MEDS: MEGESTROL ACETATE 400 MG/10 ML SUSPENSION UDCUP PO SCH (08:46)
[2023-02-15 20:11] VITALS: BP 133/80
[2023-02-16] MEDS: MULTIVITAMINS WITH MINERALS, THERAPEUTIC TABLET PO SCH (08:41)
[2023-02-16] MEDS: BusPIRone HCL 15 MG TABLET PO SCH ×2 (08:41→20:33)
[2023-02-16] MEDS: VENLAFAXINE HCL 150 MG ER CAPSULE PO SCH (08:41)
[2023-02-16] MEDS: MEGESTROL ACETATE 400 MG/10 ML SUSPENSION UDCUP PO SCH (08:41)
[2023-02-16] MEDS: IBUPROFEN 400 MG TABLET PO PRN (10:10)
[2023-02-16] MEDS: LORazepam 2 MG TABLET PO PRN (12:40)
[2023-02-16 16:04] VITALS: BP 121/75
[2023-02-16 20:11] VITALS: BP 118/68
[2023-02-16] MEDS: ZOLPIDEM TARTRATE 10 MG TABLET PO PRN (20:34)
[2023-02-17 08:21] VITALS: BP 121/78
[2023-02-17] MEDS: MEGESTROL ACETATE 400 MG/10 ML SUSPENSION UDCUP PO SCH (08:44)
[2023-02-17] MEDS: VENLAFAXINE HCL 150 MG ER CAPSULE PO SCH (08:44)
[2023-02-17] MEDS: BusPIRone HCL 15 MG TABLET PO SCH ×2 (09:19→20:19)
[2023-02-17] MEDS: MULTIVITAMINS WITH MINERALS, THERAPEUTIC TABLET PO SCH (09:20)
[2023-02-17 20:10] VITALS: BP 126/74
[2023-02-18] MEDS: BusPIRone HCL 15 MG TABLET PO SCH ×2 (08:12→20:19)
[2023-02-18] MEDS: MULTIVITAMINS WITH MINERALS, THERAPEUTIC TABLET PO SCH (08:12)
[2023-02-18] MEDS: VENLAFAXINE HCL 150 MG ER CAPSULE PO SCH (08:12)
[2023-02-18] MEDS: MEGESTROL ACETATE 400 MG/10 ML SUSPENSION UDCUP PO SCH (08:13)
[2023-02-18 08:53] VITALS: BP 125/77
[2023-02-18 20:33] VITALS: BP 134/75
[2023-02-19 08:39] VITALS: BP 132/80
[2023-02-19] MEDS: BusPIRone HCL 15 MG TABLET PO SCH ×2 (09:06→20:31)
[2023-02-19] MEDS: MULTIVITAMINS WITH MINERALS, THERAPEUTIC TABLET PO SCH (09:06)
[2023-02-19] MEDS: VENLAFAXINE HCL 150 MG ER CAPSULE PO SCH (09:06)
[2023-02-19] MEDS: MEGESTROL ACETATE 400 MG/10 ML SUSPENSION UDCUP PO SCH (09:14)
[2023-02-19 15:31] LABS: GLUCOMETER DEV NAME(LOC) POC.BV
[2023-02-19 20:17] VITALS: BP 123/75
[2023-02-20] MEDS: VENLAFAXINE HCL 150 MG ER CAPSULE PO SCH (08:22)
[2023-02-20] MEDS: MULTIVITAMINS WITH MINERALS, THERAPEUTIC TABLET PO SCH (08:22)
[2023-02-20] MEDS: BusPIRone HCL 15 MG TABLET PO SCH (08:22)
[2023-02-20 08:30] VITALS: BP 113/70
[2023-02-20 09:00] VITALS: BP 113/70
[2023-02-20] MEDS: MEGESTROL ACETATE 400 MG/10 ML SUSPENSION UDCUP PO SCH (09:21)
[2023-02-20] MEDS ORDERED: BUSP15 PO (09:55)
[2023-02-20] MEDS ORDERED: VENL150C4 PO (09:55)
[2023-02-20] MEDS ORDERED: MEGE400O23 PO (09:55)
[2023-02-20] MEDS ORDERED: MULT-1239 PO (09:55)
[2023-02-20] MEDS ORDERED: PALI234D IM (09:55)
[2023-02-20 15:40] VITALS: BP 113/70
[2023-02-20 16:07] VITALS: BP 132/80
== END 2023-02-20 19:12 | DRG 750 ==
LOC: B3A 09:35 → B2S 01-18 13:07 → B3A 02-05 12:00
PROVIDERS: ADMIT Psychiatry & Neurology Psychiatry; ATTEND Psychiatry & Neurology Psychiatry
DX: F25.1 Schizoaffective disorder, depressive type (principal); R45.851 Suicidal ideations; E78.5 Hyperlipidemia, unspecified; Z20.822 Contact with and (suspected) exposure to COVID-19; F10.10 Alcohol abuse, uncomplicated; F41.9 Anxiety disorder, unspecified; F19.10 Other psychoactive substance abuse, uncomplicated; I10 Essential (primary) hypertension; J44.9 Chronic obstructive pulmonary disease, unspecified; Z59.00 Homelessness unspecified; Z71.41 Alcohol abuse counseling and surveillance of alcoholic; Z76.5 Malingerer [conscious simulation]; Z79.899 Other long term (current) drug therapy; Z88.8 Allergy status to other drugs, medicaments and biological substances
CPT/HCPCS: 71046; 80048; 80053; 80061; 80307; 81001; 81003; 83036; 84436; 84439; 84443; 85025; 86592; 87081; 87086; 87186; G0480; J2060; 36415-L1; 36415-TC

== ENCOUNTER 2023-01-30 15:30 | Emergency (ER) | payer MEDICAID, OTHER ==
[~2023-01-30] VITALS: Ht 167.6 cm; Wt 55.5 kg
[2023-01-30] MEDS ORDERED: DiphenhydrAMINE HCL 50 MG/ML VIAL IVP ONE (19:15)
[2023-01-30 19:38] LABS: BASOPHILS % (AUTO) 0.5 % (0.0-2.0); EOSINOPHILS % (AUTO) 2.4 % (1.0-6.0); HEMOGLOBIN 16.4 g/dL (13.5-17.5); LYMPHOCYTES # (AUTO) 2.2 K/uL (1.0-4.8); LYMPHOCYTES % (AUTO) 25.3 % (22.0-44.0); MEAN CORPUSCULAR HGB CONC 34.2 G/dL (31.0-37.0); MEAN CORPUSCULAR VOLUME 96 fL (80-100); MONOCYTES # (AUTO) 0.4 K/uL (0.1-1.0); MONOCYTES % (AUTO) 4.2 % (2.0-9.0); NEUTROPHILS # (AUTO) 5.9 K/uL (1.8-7.7); NEUTROPHILS % (AUTO) 67.6 % (40.0-70.0); PLATELET COUNT (AUTO) 292 K/uL (150-450); RED BLOOD CELL COUNT(AUTO) 4.98 MIL/uL (4.50-5.90); RED CELL DISTRIBUTION WIDTH 12.3 % (11.5-14.5)
[2023-01-30 19:44] LABS: ANION GAP 7 mmol/L (8-16); CALCIUM, TOTAL 8.9 mg/dL (8.8-10.5); CARBON DIOXIDE 31 mmol/L (22-29); CHLORIDE 103 mmol/L (98-107); CREATININE 0.97 mg/dL (0.60-1.30); GLOMERULAR FILTR. RATE CALC > 60 mL/min (>60); GLUCOSE,RANDOM 99 mg/dL (70-110); POTASSIUM 3.5 mmol/L (3.5-5.1); SODIUM SERUM 141 mmol/L (136-145); UREA NITROGEN, BLOOD 8 mg/dL (7-18)
[2023-01-30 20:09] LABS: ALANINE AMINOTRANSFERASE 17 U/L (12-78); ALKALINE PHOSPHATASE 67 U/L (46-116); ASPARTATE AMINOTRANSFERASE 15 U/L (15-37); BILIRUBIN,TOTAL 0.6 mg/dL (0.1-1.0); CREATINE KINASE, TOTAL ONLY 98 U/L (39-308); TOTAL PROTEIN, SERUM 7.1 g/dL (6.4-8.2)
[2023-01-30 21:19] VITALS: BP 140/93
== END 2023-01-30 21:34 | disposition home or self-care (01) ==
LOC: EMS 15:37
DX: S80.211A Abrasion, right knee, initial encounter (principal); G24.9 Dystonia, unspecified; F41.9 Anxiety disorder, unspecified; F31.9 Bipolar disorder, unspecified; I10 Essential (primary) hypertension; F20.9 Schizophrenia, unspecified; F17.210 Nicotine dependence, cigarettes, uncomplicated; Z88.8 Allergy status to other drugs, medicaments and biological substances; W19.XXXA Unspecified fall, initial encounter; Y93.89 Activity, other specified; Y92.89 Other specified places as the place of occurrence of the external cause; Y99.8 Other external cause status
CPT/HCPCS: 99284; 96374; 70450; 80053; 82550; 85025; 36415; J1200

== ENCOUNTER 2023-02-04 22:31 | Emergency (ER) | payer OTHER ==
[~2023-02-04] VITALS: Ht 167.6 cm; Wt 54.5 kg
[2023-02-05] MEDS ORDERED: SODIUM CHLORIDE 0.9% 1,000 ML IV ONE
[2023-02-05] MEDS ORDERED: HALOPERIDOL LACTATE 5 MG/ML VIAL IM ONE (00:30)
[2023-02-05] MEDS ORDERED: DiphenhydrAMINE HCL 50 MG/ML VIAL IM ONE (00:30)
[2023-02-05] MEDS ORDERED: LORazepam 2 MG/ML VIAL IM ONE (00:30)
[2023-02-05 00:35] LABS: BASOPHILS % (AUTO) 0.5 % (0.0-2.0); EOSINOPHILS % (AUTO) 1.6 % (1.0-6.0); HEMATOCRIT 44.9 % (41-53); HEMOGLOBIN 15.3 g/dL (13.5-17.5); LYMPHOCYTES % (AUTO) 22.3 % (22.0-44.0); MEAN CORPUSCULAR HEMOGLOBIN 33.1 pg (26.0-34.0); MEAN CORPUSCULAR HGB CONC 34.2 G/dL (31.0-37.0); MEAN CORPUSCULAR VOLUME 97 fL (80-100); MONOCYTES # (AUTO) 0.6 K/uL (0.1-1.0); MONOCYTES % (AUTO) 6.2 % (2.0-9.0); NEUTROPHILS # (AUTO) 6.4 K/uL (1.8-7.7); NEUTROPHILS % (AUTO) 69.4 % (40.0-70.0); PLATELET COUNT (AUTO) 295 K/uL (150-450); RED BLOOD CELL COUNT(AUTO) 4.63 MIL/uL (4.50-5.90); RED CELL DISTRIBUTION WIDTH 12.3 % (11.5-14.5)
[2023-02-05 00:43] LABS: ANION GAP 10 mmol/L (8-16); CALCIUM, TOTAL 8.8 mg/dL (8.8-10.5); CARBON DIOXIDE 27 mmol/L (22-29); CHLORIDE 104 mmol/L (98-107); CREATININE 0.94 mg/dL (0.60-1.30); GLOMERULAR FILTR. RATE CALC > 60 mL/min (>60); GLUCOSE,RANDOM 103 mg/dL (70-110); POTASSIUM 3.6 mmol/L (3.5-5.1); SODIUM SERUM 141 mmol/L (136-145); UREA NITROGEN, BLOOD 9 mg/dL (7-18)
[2023-02-05 00:58] LABS: B-TYPE NATRIURETIC PEPTIDE 5 pg/mL (0-100)
[2023-02-05 00:59] LABS: ALANINE AMINOTRANSFERASE 7 U/L (12-78); ALBUMIN 3.7 g/dL (3.4-5.0); ALKALINE PHOSPHATASE 63 U/L (46-116); ASPARTATE AMINOTRANSFERASE 15 U/L (15-37); BILIRUBIN,TOTAL 0.4 mg/dL (0.1-1.0); CREATINE KINASE, TOTAL ONLY 115 U/L (39-308); TOTAL PROTEIN, SERUM 6.6 g/dL (6.4-8.2)
[2023-02-05 02:48] VITALS: BP 133/90
== END 2023-02-05 05:54 | disposition home or self-care (01) ==
LOC: EMS 22:39
DX: F31.9 Bipolar disorder, unspecified (principal); I10 Essential (primary) hypertension; F20.9 Schizophrenia, unspecified; F17.210 Nicotine dependence, cigarettes, uncomplicated; Z88.6 Allergy status to analgesic agent
CPT/HCPCS: 99285; 80053; 82550; 83880; 84484; 85025; 96360; 70450; 71045; 93005; G0480; J7030

== ENCOUNTER 2023-02-14 17:14 | Emergency (ER) | payer OTHER ==
[~2023-02-14] VITALS: Ht 167.6 cm; Wt 55.9 kg
[2023-02-14 20:04] VITALS: BP 138/87
[2023-02-14] MEDS ORDERED: ACETAMINOPHEN 325 MG TABLET PO ONE (22:15)
== END 2023-02-15 01:31 ==
LOC: EMS 17:15
DX: S80.01XA Contusion of right knee, initial encounter (principal); S80.02XA Contusion of left knee, initial encounter; F20.9 Schizophrenia, unspecified; F41.9 Anxiety disorder, unspecified; F31.9 Bipolar disorder, unspecified; I10 Essential (primary) hypertension; F17.210 Nicotine dependence, cigarettes, uncomplicated; Z88.8 Allergy status to other drugs, medicaments and biological substances; W19.XXXA Unspecified fall, initial encounter; Y93.89 Activity, other specified; Y92.89 Other specified places as the place of occurrence of the external cause; Y99.8 Other external cause status
CPT/HCPCS: 99285; 73562-TC; Z7502; Z7610

== ENCOUNTER 2023-02-22 14:09 | Inpatient (IN) | payer MEDICAID, OTHER ==
[~2023-02-22] VITALS: Ht 165.1 cm; Wt 52.6 kg
[~2023-02-22 14:09] MED LIST changes: +MEGE400O17 PO; +MULT-1239 PO; +PALI234D IM; -QUET100T34 PO
[2023-02-22 15:05] LABS: BASOPHILS % (AUTO) 0.3 % (0.0-2.0); EOSINOPHILS % (AUTO) 0.9 % (1.0-6.0); HEMATOCRIT 42.9 % (41-53); HEMOGLOBIN 14.5 g/dL (13.5-17.5); LYMPHOCYTES # (AUTO) 1.7 K/uL (1.0-4.8); LYMPHOCYTES % (AUTO) 21.6 % (22.0-44.0); MEAN CORPUSCULAR HEMOGLOBIN 33.1 pg (26.0-34.0); MEAN CORPUSCULAR HGB CONC 33.8 G/dL (31.0-37.0); MEAN CORPUSCULAR VOLUME 98 fL (80-100); MONOCYTES # (AUTO) 0.3 K/uL (0.1-1.0); MONOCYTES % (AUTO) 3.8 % (2.0-9.0); NEUTROPHILS # (AUTO) 5.9 K/uL (1.8-7.7); NEUTROPHILS % (AUTO) 73.4 % (40.0-70.0); PLATELET COUNT (AUTO) 269 K/uL (150-450); RED BLOOD CELL COUNT(AUTO) 4.38 MIL/uL (4.50-5.90); RED CELL DISTRIBUTION WIDTH 13.1 % (11.5-14.5)
[2023-02-22 15:15] LABS: ANION GAP 5 mmol/L (8-16); CALCIUM, TOTAL 8.8 mg/dL (8.8-10.5); CARBON DIOXIDE 27 mmol/L (22-29); CHLORIDE 109 mmol/L (98-107); GLOMERULAR FILTR. RATE CALC > 60 mL/min (>60); GLUCOSE,RANDOM 158 mg/dL (70-110); POTASSIUM 3.8 mmol/L (3.5-5.1); SODIUM SERUM 141 mmol/L (136-145)
[2023-02-22 15:29] LABS: ALANINE AMINOTRANSFERASE 18 U/L (12-78); ALBUMIN 3.4 g/dL (3.4-5.0); ALKALINE PHOSPHATASE 57 U/L (46-116); ASPARTATE AMINOTRANSFERASE 11 U/L (15-37); BILIRUBIN,TOTAL 0.3 mg/dL (0.1-1.0); THYROID STIMULATING HORMONE 0.87 uIU/mL (0.36-3.74); TOTAL PROTEIN, SERUM 6.2 g/dL (6.4-8.2)
[2023-02-22] MEDS ORDERED: LORA2I IM (16:10)
[2023-02-22] MEDS ORDERED: MYLANTA SUSPENSION PO (16:10)
[2023-02-22] MEDS ORDERED: BUSP15 PO (16:10)
[2023-02-22] MEDS ORDERED: ACET-784 PO (16:10)
[2023-02-22] MEDS ORDERED: MULT-1239 PO (16:10)
[2023-02-22] MEDS ORDERED: LORA-1001 PO (16:10)
[2023-02-22] MEDS ORDERED: MAGN-169 PO (16:10)
[2023-02-22] MEDS ORDERED: BISA10SU11 PR (16:10)
[2023-02-22] MEDS ORDERED: NA P133E4 PR (16:10)
[2023-02-22] MEDS ORDERED: NALO4SPR NASAL (16:10)
[2023-02-22] MEDS ORDERED: HALO5VIA16 IM (16:10)
[2023-02-22] MEDS ORDERED: ZOLP10TA8 PO (16:10)
[2023-02-22] MEDS ORDERED: HALO5TAB23 PO (16:10)
[2023-02-22 17:05] LABS: COVID AG,FIA SOURCE NASOPHARYNGEAL
[2023-02-22 17:15] LABS: AMPHET/METH SCREEN,URINE NEGATIVE (NEGATIVE); BARBITURATE SCREEN, URINE NEGATIVE (NEGATIVE); BENZODIAZEPINES SCREEN,URINE NEGATIVE (NEGATIVE); CANNABINOID SCREEN,URINE NEGATIVE (NEGATIVE); COCAINE SCREEN,URINE NEGATIVE (NEGATIVE); METHADONE SCREEN, URINE NEGATIVE (NEGATIVE); OPIATE SCREEN,URINE NEGATIVE (NEGATIVE); PHENCYCLIDINE SCREEN,URINE NEGATIVE (NEGATIVE)
[2023-02-22 17:18] LABS: APPEARANCE,URINE CLEAR (CLEAR)
[2023-02-22 17:19] LABS: BILIRUBIN,URINE NEGATIVE (NEGATIVE); GLUCOSE, URINE (UA) NEGATIVE (NEGATIVE); OCCULT BLOOD,URINE TRACE (NEGATIVE); PROTEIN,URINE NEGATIVE (NEGATIVE)
[2023-02-22 17:20] LABS: KETONES,URINE NEGATIVE (NEGATIVE); LEUKOCYTE ESTERASE ,URINE NEGATIVE (NEGATIVE); NITRATE,URINE NEGATIVE (NEGATIVE); UROBILINOGEN,URINE <=1.0 mg/dL (<=1.0)
[2023-02-22 17:31] LABS: BACTERIA,URINE Few /HPF (None Seen); SQUAMOUS EPITHELIAL CELL,UR Rare /LPF (None Seen); WBC,URINE 0-2 /HPF (0-5)
[2023-02-22] MEDS ORDERED: MAG10ORA PO (18:51)
[2023-02-24] MEDS ORDERED: MAG HYDROX/AL HYDROX/SIMETH ES 30 ML SUSPENSION UDCUP PO PRN (06:45)
[2023-02-24] MEDS ORDERED: ALBUTEROL SULFATE HFA 90 MCG/PUFF 8 GM INHALER IH PRN (06:45)
[2023-02-24] MEDS ORDERED: CloNIDine HCL 0.1 MG TABLET PO PRN (06:45)
[2023-02-24] MEDS ORDERED: ACETAMINOPHEN 325 MG TABLET PO PRN (06:45)
[2023-02-24] MEDS ORDERED: GuaiFENesin/D-METHORPHAN [SUGAR-FREE] 200-20MG/10 ML SYRUP UDCUP PO PRN (06:45)
[2023-02-24] MEDS ORDERED: DOCUSATE SODIUM 100 MG CAPSULE PO PRN (06:45)
[2023-02-24] MEDS ORDERED: NICOTINE 14 MG/24 HOUR PATCH TD PRN (06:45)
[2023-02-24] MEDS ORDERED: PETROLATUM,WHITE 28 GM JELLY TP PRN (06:45)
[2023-02-24] MEDS ORDERED: ONDANSETRON HCL 4 MG TABLET PO PRN (06:45)
[2023-02-24] MEDS ORDERED: LOPERAMIDE HCL 2 MG CAPSULE PO PRN (06:45)
[2023-02-24 08:44] VITALS: BP 118/91
[2023-02-24] MEDS: VENLAFAXINE HCL 150 MG ER CAPSULE PO SCH (10:43)
[2023-02-24] MEDS: MULTIVITAMINS WITH MINERALS, THERAPEUTIC TABLET PO SCH (10:43)
[2023-02-24] MEDS: BusPIRone HCL 15 MG TABLET PO SCH ×2 (10:44→17:13)
[2023-02-24] MEDS: MEGESTROL ACETATE 400 MG/10 ML SUSPENSION UDCUP PO SCH (12:34)
[2023-02-24 16:07] VITALS: BP 133/80
[2023-02-24 21:25] VITALS: BP 128/82
[2023-02-25] MEDS: ZOLPIDEM TARTRATE 10 MG TABLET PO PRN (01:46)
[2023-02-25] MEDS: LORazepam 2 MG TABLET PO PRN ×2 (01:46→17:17)
[2023-02-25] MEDS: MEGESTROL ACETATE 400 MG/10 ML SUSPENSION UDCUP PO SCH (08:26)
[2023-02-25] MEDS: VENLAFAXINE HCL 150 MG ER CAPSULE PO SCH (08:27)
[2023-02-25] MEDS: BusPIRone HCL 15 MG TABLET PO SCH ×2 (08:27→17:17)
[2023-02-25] MEDS: MULTIVITAMINS WITH MINERALS, THERAPEUTIC TABLET PO SCH (08:27)
[2023-02-25 20:19] VITALS: BP 130/82
[2023-02-26] MEDS: BusPIRone HCL 15 MG TABLET PO SCH ×2 (08:36→17:03)
[2023-02-26] MEDS: MEGESTROL ACETATE 400 MG/10 ML SUSPENSION UDCUP PO SCH (08:38)
[2023-02-26] MEDS: VENLAFAXINE HCL 150 MG ER CAPSULE PO SCH (08:38)
[2023-02-26 08:41] VITALS: BP 131/76
[2023-02-26] MEDS: MULTIVITAMINS WITH MINERALS, THERAPEUTIC TABLET PO SCH (09:04)
[2023-02-26] MEDS: LORazepam 2 MG TABLET PO PRN (17:03)
[2023-02-26 20:19] VITALS: BP 113/78
[2023-02-27 08:26] VITALS: BP 122/84
[2023-02-27] MEDS: MEGESTROL ACETATE 400 MG/10 ML SUSPENSION UDCUP PO SCH (08:26)
[2023-02-27] MEDS: BusPIRone HCL 15 MG TABLET PO SCH ×2 (08:32→16:29)
[2023-02-27] MEDS: MULTIVITAMINS WITH MINERALS, THERAPEUTIC TABLET PO SCH (08:33)
[2023-02-27] MEDS: VENLAFAXINE HCL 150 MG ER CAPSULE PO SCH (08:33)
[2023-02-27] MEDS: ZOLPIDEM TARTRATE 10 MG TABLET PO PRN (20:08)
[2023-02-27 20:09] VITALS: BP 119/83
[2023-02-28 08:21] LABS: GLUCOMETER DEV NAME(LOC) POC.BV
[2023-02-28] MEDS: BusPIRone HCL 15 MG TABLET PO SCH ×2 (08:45→17:28)
[2023-02-28] MEDS: MULTIVITAMINS WITH MINERALS, THERAPEUTIC TABLET PO SCH (08:45)
[2023-02-28] MEDS: VENLAFAXINE HCL 150 MG ER CAPSULE PO SCH (08:45)
[2023-02-28] MEDS: MEGESTROL ACETATE 400 MG/10 ML SUSPENSION UDCUP PO SCH (08:45)
[2023-02-28 08:49] VITALS: BP 126/61
[2023-02-28] MEDS: LORazepam 2 MG TABLET PO PRN (17:28)
[2023-02-28 20:00] VITALS: BP 128/88
[2023-03-01] MEDS: BusPIRone HCL 15 MG TABLET PO SCH ×2 (08:13→16:50)
[2023-03-01] MEDS: MULTIVITAMINS WITH MINERALS, THERAPEUTIC TABLET PO SCH (08:13)
[2023-03-01] MEDS: VENLAFAXINE HCL 150 MG ER CAPSULE PO SCH (08:13)
[2023-03-01] MEDS: MEGESTROL ACETATE 400 MG/10 ML SUSPENSION UDCUP PO SCH (08:14)
[2023-03-01 08:32] VITALS: BP 125/75
[2023-03-01] MEDS: LORazepam 2 MG TABLET PO PRN (16:50)
[2023-03-01 20:12] VITALS: BP 128/64
[2023-03-02 08:11] VITALS: BP 160/84
[2023-03-02] MEDS: VENLAFAXINE HCL 150 MG ER CAPSULE PO SCH (09:13)
[2023-03-02] MEDS: MULTIVITAMINS WITH MINERALS, THERAPEUTIC TABLET PO SCH (09:13)
[2023-03-02] MEDS: BusPIRone HCL 15 MG TABLET PO SCH ×2 (09:13→16:48)
[2023-03-02] MEDS: MEGESTROL ACETATE 400 MG/10 ML SUSPENSION UDCUP PO SCH (09:14)
[2023-03-02 16:17] VITALS: BP 143/86
[2023-03-02 21:45] VITALS: BP 143/86
[2023-03-03 01:15] VITALS: BP 138/74
[2023-03-03] MEDS: MULTIVITAMINS WITH MINERALS, THERAPEUTIC TABLET PO SCH (09:10)
[2023-03-03] MEDS: VENLAFAXINE HCL 150 MG ER CAPSULE PO SCH (09:10)
[2023-03-03] MEDS: BusPIRone HCL 15 MG TABLET PO SCH ×2 (09:10→17:02)
[2023-03-03] MEDS: MEGESTROL ACETATE 400 MG/10 ML SUSPENSION UDCUP PO SCH (09:11)
[2023-03-03 10:14] VITALS: BP 132/78
[2023-03-03 20:23] VITALS: BP 124/70
[2023-03-04 08:15] VITALS: BP 119/69
[2023-03-04] MEDS: MULTIVITAMINS WITH MINERALS, THERAPEUTIC TABLET PO SCH (08:19)
[2023-03-04] MEDS: VENLAFAXINE HCL 150 MG ER CAPSULE PO SCH (08:19)
[2023-03-04] MEDS: BusPIRone HCL 15 MG TABLET PO SCH ×2 (08:19→16:01)
[2023-03-04] MEDS: MEGESTROL ACETATE 400 MG/10 ML SUSPENSION UDCUP PO SCH (08:20)
[2023-03-04 20:12] VITALS: BP 127/65
[2023-03-05 08:10] VITALS: BP 136/83
[2023-03-05] MEDS: BusPIRone HCL 15 MG TABLET PO SCH ×2 (08:26→16:03)
[2023-03-05] MEDS: MEGESTROL ACETATE 400 MG/10 ML SUSPENSION UDCUP PO SCH (08:27)
[2023-03-05] MEDS: VENLAFAXINE HCL 150 MG ER CAPSULE PO SCH (08:27)
[2023-03-05] MEDS: MULTIVITAMINS WITH MINERALS, THERAPEUTIC TABLET PO SCH (08:27)
[2023-03-05 20:44] VITALS: BP 118/84
[2023-03-06] MEDS: MULTIVITAMINS WITH MINERALS, THERAPEUTIC TABLET PO SCH (08:16)
[2023-03-06] MEDS: BusPIRone HCL 15 MG TABLET PO SCH ×2 (08:16→16:51)
[2023-03-06] MEDS: MEGESTROL ACETATE 400 MG/10 ML SUSPENSION UDCUP PO SCH (08:17)
[2023-03-06] MEDS: VENLAFAXINE HCL 150 MG ER CAPSULE PO SCH (08:17)
[2023-03-06 08:20] VITALS: BP 115/74
[2023-03-06 20:15] VITALS: BP 118/76
[2023-03-07] MEDS: VENLAFAXINE HCL 150 MG ER CAPSULE PO SCH (08:13)
[2023-03-07] MEDS: MULTIVITAMINS WITH MINERALS, THERAPEUTIC TABLET PO SCH (08:13)
[2023-03-07] MEDS: MEGESTROL ACETATE 400 MG/10 ML SUSPENSION UDCUP PO SCH (08:13)
[2023-03-07] MEDS: BusPIRone HCL 15 MG TABLET PO SCH ×2 (08:13→16:54)
[2023-03-07 09:53] VITALS: BP 137/77
[2023-03-07 20:06] VITALS: BP 140/82
[2023-03-08 08:02] VITALS: BP 119/75
[2023-03-08] MEDS: BusPIRone HCL 15 MG TABLET PO SCH ×2 (08:13→16:34)
[2023-03-08] MEDS: VENLAFAXINE HCL 150 MG ER CAPSULE PO SCH (08:13)
[2023-03-08] MEDS: MEGESTROL ACETATE 400 MG/10 ML SUSPENSION UDCUP PO SCH (08:13)
[2023-03-08] MEDS: MULTIVITAMINS WITH MINERALS, THERAPEUTIC TABLET PO SCH (08:13)
[2023-03-08 16:16] LABS: GLUCOMETER DEV NAME(LOC) POC.BV
[2023-03-08 20:19] VITALS: BP 129/78
[2023-03-09 08:08] VITALS: BP 134/71
[2023-03-09] MEDS: BusPIRone HCL 15 MG TABLET PO SCH ×2 (08:45→16:13)
[2023-03-09] MEDS: MEGESTROL ACETATE 400 MG/10 ML SUSPENSION UDCUP PO SCH (08:45)
[2023-03-09] MEDS: VENLAFAXINE HCL 150 MG ER CAPSULE PO SCH (08:45)
[2023-03-09] MEDS: MULTIVITAMINS WITH MINERALS, THERAPEUTIC TABLET PO SCH (08:45)
[2023-03-09 20:06] VITALS: BP 119/75
[2023-03-09] MEDS: LORazepam 2 MG TABLET PO PRN (20:16)
[2023-03-10] MEDS: MULTIVITAMINS WITH MINERALS, THERAPEUTIC TABLET PO SCH (08:18)
[2023-03-10] MEDS: VENLAFAXINE HCL 150 MG ER CAPSULE PO SCH (08:19)
[2023-03-10] MEDS: BusPIRone HCL 15 MG TABLET PO SCH ×2 (08:19→16:15)
[2023-03-10] MEDS: MEGESTROL ACETATE 400 MG/10 ML SUSPENSION UDCUP PO SCH (08:19)
[2023-03-10 08:40] VITALS: BP 110/78
[2023-03-10 20:09] VITALS: BP 107/79
[2023-03-11] MEDS: MEGESTROL ACETATE 400 MG/10 ML SUSPENSION UDCUP PO SCH (08:05)
[2023-03-11] MEDS: VENLAFAXINE HCL 150 MG ER CAPSULE PO SCH (08:05)
[2023-03-11] MEDS: MULTIVITAMINS WITH MINERALS, THERAPEUTIC TABLET PO SCH (08:05)
[2023-03-11] MEDS: BusPIRone HCL 15 MG TABLET PO SCH ×2 (08:05→16:05)
[2023-03-11 08:28] VITALS: BP 140/87
[2023-03-11 20:16] VITALS: BP 145/92
[2023-03-11] MEDS: ZOLPIDEM TARTRATE 10 MG TABLET PO PRN (23:27)
[2023-03-12] MEDS: VENLAFAXINE HCL 150 MG ER CAPSULE PO SCH (08:02)
[2023-03-12] MEDS: MULTIVITAMINS WITH MINERALS, THERAPEUTIC TABLET PO SCH (08:02)
[2023-03-12] MEDS: MEGESTROL ACETATE 400 MG/10 ML SUSPENSION UDCUP PO SCH (08:02)
[2023-03-12] MEDS: BusPIRone HCL 15 MG TABLET PO SCH ×2 (08:03→17:00)
[2023-03-12 08:44] VITALS: BP 128/85
[2023-03-12 20:12] VITALS: BP 124/70
[2023-03-12] MEDS: ZOLPIDEM TARTRATE 10 MG TABLET PO PRN (23:50)
[2023-03-13 08:25] VITALS: BP 119/77
[2023-03-13] MEDS: MULTIVITAMINS WITH MINERALS, THERAPEUTIC TABLET PO SCH (08:25)
[2023-03-13] MEDS: BusPIRone HCL 15 MG TABLET PO SCH ×2 (08:25→16:20)
[2023-03-13] MEDS: VENLAFAXINE HCL 150 MG ER CAPSULE PO SCH (08:25)
[2023-03-13] MEDS: MEGESTROL ACETATE 400 MG/10 ML SUSPENSION UDCUP PO SCH (08:25)
[2023-03-13] MEDS ORDERED: PALIPERIDONE PALMITATE 234 MG/1.5 ML SYRINGE IM SCH (09:00)
[2023-03-13 20:16] VITALS: BP 143/84
[2023-03-13] MEDS: ZOLPIDEM TARTRATE 10 MG TABLET PO PRN (22:54)
[2023-03-14] MEDS: MULTIVITAMINS WITH MINERALS, THERAPEUTIC TABLET PO SCH (08:55)
[2023-03-14] MEDS: BusPIRone HCL 15 MG TABLET PO SCH ×2 (08:55→16:26)
[2023-03-14] MEDS: MEGESTROL ACETATE 400 MG/10 ML SUSPENSION UDCUP PO SCH (08:55)
[2023-03-14] MEDS: PALIPERIDONE PALMITATE 234 MG/1.5 ML SYRINGE IM SCH (08:55)
[2023-03-14] MEDS: VENLAFAXINE HCL 150 MG ER CAPSULE PO SCH (10:18)
[2023-03-14 10:20] VITALS: BP 133/78
[2023-03-14 20:15] VITALS: BP 107/88
[2023-03-15] MEDS: VENLAFAXINE HCL 150 MG ER CAPSULE PO SCH (08:58)
[2023-03-15] MEDS: MULTIVITAMINS WITH MINERALS, THERAPEUTIC TABLET PO SCH (08:58)
[2023-03-15] MEDS: BusPIRone HCL 15 MG TABLET PO SCH ×2 (08:58→16:35)
[2023-03-15] MEDS: MEGESTROL ACETATE 400 MG/10 ML SUSPENSION UDCUP PO SCH (08:58)
[2023-03-15 09:24] VITALS: BP 132/83
[2023-03-15] MEDS: IBUPROFEN 400 MG TABLET PO PRN (09:39)
[2023-03-15 15:56] LABS: GLUCOMETER DEV NAME(LOC) POC.BV
[2023-03-15 20:11] VITALS: BP 122/83
[2023-03-16] MEDS: BusPIRone HCL 15 MG TABLET PO SCH ×2 (08:58→16:44)
[2023-03-16] MEDS: MULTIVITAMINS WITH MINERALS, THERAPEUTIC TABLET PO SCH (08:59)
[2023-03-16] MEDS: MEGESTROL ACETATE 400 MG/10 ML SUSPENSION UDCUP PO SCH (08:59)
[2023-03-16] MEDS: VENLAFAXINE HCL 150 MG ER CAPSULE PO SCH (08:59)
[2023-03-16 09:38] VITALS: BP 124/97
[2023-03-16 20:14] VITALS: BP 130/82
[2023-03-17 08:46] VITALS: BP 134/92
[2023-03-17] MEDS: MULTIVITAMINS WITH MINERALS, THERAPEUTIC TABLET PO SCH (08:46)
[2023-03-17] MEDS: VENLAFAXINE HCL 150 MG ER CAPSULE PO SCH (08:46)
[2023-03-17] MEDS: MEGESTROL ACETATE 400 MG/10 ML SUSPENSION UDCUP PO SCH (08:46)
[2023-03-17] MEDS: BusPIRone HCL 15 MG TABLET PO SCH ×2 (08:46→16:26)
[2023-03-17 20:23] VITALS: BP 124/84
[2023-03-18 08:29] VITALS: BP 132/80
[2023-03-18] MEDS: VENLAFAXINE HCL 150 MG ER CAPSULE PO SCH (08:38)
[2023-03-18] MEDS: BusPIRone HCL 15 MG TABLET PO SCH ×2 (08:38→16:29)
[2023-03-18] MEDS: MULTIVITAMINS WITH MINERALS, THERAPEUTIC TABLET PO SCH (08:38)
[2023-03-18] MEDS: MEGESTROL ACETATE 400 MG/10 ML SUSPENSION UDCUP PO SCH (08:39)
[2023-03-18 20:12] VITALS: BP 146/87
[2023-03-18] MEDS: ZOLPIDEM TARTRATE 10 MG TABLET PO PRN (21:02)
[2023-03-19] MEDS: BusPIRone HCL 15 MG TABLET PO SCH ×2 (08:52→16:06)
[2023-03-19] MEDS: VENLAFAXINE HCL 150 MG ER CAPSULE PO SCH (08:52)
[2023-03-19] MEDS: MULTIVITAMINS WITH MINERALS, THERAPEUTIC TABLET PO SCH (08:52)
[2023-03-19] MEDS: MEGESTROL ACETATE 400 MG/10 ML SUSPENSION UDCUP PO SCH (08:53)
[2023-03-19 09:12] VITALS: BP 122/71
[2023-03-19 20:40] VITALS: BP 133/91
[2023-03-19 21:31] LABS: GLUCOMETER DEV NAME(LOC) POC.BV
[2023-03-20 08:34] VITALS: BP 118/76
[2023-03-20] MEDS: MEGESTROL ACETATE 400 MG/10 ML SUSPENSION UDCUP PO SCH (08:45)
[2023-03-20] MEDS: BusPIRone HCL 15 MG TABLET PO SCH ×2 (08:46→16:03)
[2023-03-20] MEDS: VENLAFAXINE HCL 150 MG ER CAPSULE PO SCH (08:46)
[2023-03-20] MEDS: MULTIVITAMINS WITH MINERALS, THERAPEUTIC TABLET PO SCH (08:46)
[2023-03-20 20:13] VITALS: BP 112/75
[2023-03-21 08:50] VITALS: BP 140/80
[2023-03-21] MEDS: MULTIVITAMINS WITH MINERALS, THERAPEUTIC TABLET PO SCH (09:03)
[2023-03-21] MEDS: VENLAFAXINE HCL 150 MG ER CAPSULE PO SCH (09:03)
[2023-03-21] MEDS: BusPIRone HCL 15 MG TABLET PO SCH ×2 (09:03→16:57)
[2023-03-21] MEDS: MEGESTROL ACETATE 400 MG/10 ML SUSPENSION UDCUP PO SCH (09:03)
[2023-03-21 20:32] VITALS: BP 134/84
[2023-03-22 08:50] VITALS: BP 100/66
[2023-03-22] MEDS: BusPIRone HCL 15 MG TABLET PO SCH ×2 (09:09→16:43)
[2023-03-22] MEDS: MEGESTROL ACETATE 400 MG/10 ML SUSPENSION UDCUP PO SCH (09:47)
[2023-03-22] MEDS: VENLAFAXINE HCL 150 MG ER CAPSULE PO SCH (09:49)
[2023-03-22] MEDS: MULTIVITAMINS WITH MINERALS, THERAPEUTIC TABLET PO SCH (09:50)
[2023-03-22 21:00] VITALS: BP 142/94
[2023-03-23] MEDS: BusPIRone HCL 15 MG TABLET PO SCH ×2 (08:40→16:31)
[2023-03-23] MEDS: VENLAFAXINE HCL 150 MG ER CAPSULE PO SCH (08:40)
[2023-03-23] MEDS: MULTIVITAMINS WITH MINERALS, THERAPEUTIC TABLET PO SCH (08:40)
[2023-03-23] MEDS: MEGESTROL ACETATE 400 MG/10 ML SUSPENSION UDCUP PO SCH (08:41)
[2023-03-23 09:00] VITALS: BP 133/88
[2023-03-23 21:01] VITALS: BP 133/94
[2023-03-24] MEDS: MEGESTROL ACETATE 400 MG/10 ML SUSPENSION UDCUP PO SCH (08:42)
[2023-03-24] MEDS: BusPIRone HCL 15 MG TABLET PO SCH ×2 (08:42→16:46)
[2023-03-24] MEDS: VENLAFAXINE HCL 150 MG ER CAPSULE PO SCH (08:42)
[2023-03-24] MEDS: MULTIVITAMINS WITH MINERALS, THERAPEUTIC TABLET PO SCH (08:42)
[2023-03-24 10:09] VITALS: BP 122/77
[2023-03-24 20:30] VITALS: BP 136/91
[2023-03-25 00:34] VITALS: BP 128/96
[2023-03-25] MEDS: ZOLPIDEM TARTRATE 10 MG TABLET PO PRN (00:34)
[2023-03-25] MEDS: LORazepam 2 MG TABLET PO PRN (00:34)
[2023-03-25] MEDS: MEGESTROL ACETATE 400 MG/10 ML SUSPENSION UDCUP PO SCH (08:16)
[2023-03-25] MEDS: BusPIRone HCL 15 MG TABLET PO SCH ×2 (08:16→17:07)
[2023-03-25] MEDS: MULTIVITAMINS WITH MINERALS, THERAPEUTIC TABLET PO SCH (08:16)
[2023-03-25] MEDS: VENLAFAXINE HCL 150 MG ER CAPSULE PO SCH (08:16)
[2023-03-25 20:34] VITALS: BP 130/82
[2023-03-26] MEDS: VENLAFAXINE HCL 150 MG ER CAPSULE PO SCH (08:05)
[2023-03-26] MEDS: BusPIRone HCL 15 MG TABLET PO SCH ×2 (08:05→16:44)
[2023-03-26] MEDS: MULTIVITAMINS WITH MINERALS, THERAPEUTIC TABLET PO SCH (08:05)
[2023-03-26] MEDS: MEGESTROL ACETATE 400 MG/10 ML SUSPENSION UDCUP PO SCH (08:05)
[2023-03-26 08:20] VITALS: BP 106/74
[2023-03-26 20:14] VITALS: BP 133/85
[2023-03-26] MEDS: LORazepam 2 MG TABLET PO PRN (21:56)
[2023-03-27] MEDS: BusPIRone HCL 15 MG TABLET PO SCH ×2 (08:44→17:12)
[2023-03-27] MEDS: LORazepam 2 MG TABLET PO PRN (08:44)
[2023-03-27] MEDS: MULTIVITAMINS WITH MINERALS, THERAPEUTIC TABLET PO SCH (08:44)
[2023-03-27] MEDS: VENLAFAXINE HCL 150 MG ER CAPSULE PO SCH (08:44)
[2023-03-27] MEDS: MEGESTROL ACETATE 400 MG/10 ML SUSPENSION UDCUP PO SCH (08:44)
[2023-03-27 08:59] VITALS: BP 120/82
[2023-03-27 20:19] VITALS: BP 130/82
[2023-03-28] MEDS: BusPIRone HCL 15 MG TABLET PO SCH ×2 (08:06→16:11)
[2023-03-28] MEDS: VENLAFAXINE HCL 150 MG ER CAPSULE PO SCH (08:06)
[2023-03-28] MEDS: MEGESTROL ACETATE 400 MG/10 ML SUSPENSION UDCUP PO SCH (08:06)
[2023-03-28] MEDS: MULTIVITAMINS WITH MINERALS, THERAPEUTIC TABLET PO SCH (08:06)
[2023-03-28 08:30] VITALS: BP 121/66
[2023-03-28 20:33] VITALS: BP 152/91
[2023-03-28] MEDS: LORazepam 2 MG TABLET PO PRN (20:40)
[2023-03-29 08:39] VITALS: BP 113/81
[2023-03-29] MEDS: BusPIRone HCL 15 MG TABLET PO SCH ×2 (08:39→16:53)
[2023-03-29] MEDS: MULTIVITAMINS WITH MINERALS, THERAPEUTIC TABLET PO SCH (08:39)
[2023-03-29] MEDS: VENLAFAXINE HCL 150 MG ER CAPSULE PO SCH (08:39)
[2023-03-29] MEDS: MEGESTROL ACETATE 400 MG/10 ML SUSPENSION UDCUP PO SCH (08:39)
[2023-03-29 16:47] LABS: GLUCOMETER DEV NAME(LOC) POC.BV
[2023-03-29 20:17] VITALS: BP 126/80
[2023-03-30] MEDS: VENLAFAXINE HCL 150 MG ER CAPSULE PO SCH (08:03)
[2023-03-30] MEDS: MEGESTROL ACETATE 400 MG/10 ML SUSPENSION UDCUP PO SCH (08:03)
[2023-03-30] MEDS: BusPIRone HCL 15 MG TABLET PO SCH ×2 (08:03→17:09)
[2023-03-30] MEDS: MULTIVITAMINS WITH MINERALS, THERAPEUTIC TABLET PO SCH (08:04)
[2023-03-30 08:29] VITALS: BP 115/70
[2023-03-30] MEDS: LORazepam 2 MG TABLET PO PRN (09:19)
[2023-03-30 20:13] VITALS: BP 122/78
[2023-03-31 08:00] VITALS: BP 101/65
[2023-03-31] MEDS: MULTIVITAMINS WITH MINERALS, THERAPEUTIC TABLET PO SCH (08:38)
[2023-03-31] MEDS: VENLAFAXINE HCL 150 MG ER CAPSULE PO SCH (08:38)
[2023-03-31] MEDS: MEGESTROL ACETATE 400 MG/10 ML SUSPENSION UDCUP PO SCH (08:38)
[2023-03-31] MEDS: BusPIRone HCL 15 MG TABLET PO SCH ×2 (08:38→17:01)
[2023-03-31] MEDS: LORazepam 2 MG TABLET PO PRN (20:05)
[2023-03-31 20:20] VITALS: BP 123/80
[2023-04-01 07:53] VITALS: BP 120/79
[2023-04-01 08:05] VITALS: BP 120/79
[2023-04-01] MEDS: MEGESTROL ACETATE 400 MG/10 ML SUSPENSION UDCUP PO SCH (08:14)
[2023-04-01] MEDS: VENLAFAXINE HCL 150 MG ER CAPSULE PO SCH (08:14)
[2023-04-01] MEDS: BusPIRone HCL 15 MG TABLET PO SCH ×2 (08:15→16:18)
[2023-04-01] MEDS: MULTIVITAMINS WITH MINERALS, THERAPEUTIC TABLET PO SCH (08:15)
[2023-04-01] MEDS: LORazepam 2 MG TABLET PO PRN (20:07)
[2023-04-01 20:17] VITALS: BP 117/71
[2023-04-02] MEDS: VENLAFAXINE HCL 150 MG ER CAPSULE PO SCH (08:02)
[2023-04-02] MEDS: MEGESTROL ACETATE 400 MG/10 ML SUSPENSION UDCUP PO SCH (08:02)
[2023-04-02] MEDS: MULTIVITAMINS WITH MINERALS, THERAPEUTIC TABLET PO SCH (08:02)
[2023-04-02] MEDS: BusPIRone HCL 15 MG TABLET PO SCH ×2 (08:02→16:16)
[2023-04-02 08:49] VITALS: BP 135/83
[2023-04-02] MEDS: LORazepam 2 MG TABLET PO PRN (16:16)
[2023-04-02 20:46] VITALS: BP 131/87
[2023-04-03 08:04] VITALS: BP 111/69
[2023-04-03] MEDS: MULTIVITAMINS WITH MINERALS, THERAPEUTIC TABLET PO SCH (08:44)
[2023-04-03] MEDS: VENLAFAXINE HCL 150 MG ER CAPSULE PO SCH (08:44)
[2023-04-03] MEDS: BusPIRone HCL 15 MG TABLET PO SCH ×2 (08:44→17:10)
[2023-04-03] MEDS: MEGESTROL ACETATE 400 MG/10 ML SUSPENSION UDCUP PO SCH (08:48)
[2023-04-03] MEDS: LORazepam 2 MG TABLET PO PRN (17:10)
[2023-04-03] MEDS: ZOLPIDEM TARTRATE 10 MG TABLET PO PRN (20:04)
[2023-04-03 20:09] VITALS: BP 140/82
[2023-04-04] MEDS: MEGESTROL ACETATE 400 MG/10 ML SUSPENSION UDCUP PO SCH (08:11)
[2023-04-04] MEDS: MULTIVITAMINS WITH MINERALS, THERAPEUTIC TABLET PO SCH (08:11)
[2023-04-04] MEDS: VENLAFAXINE HCL 150 MG ER CAPSULE PO SCH (08:11)
[2023-04-04] MEDS: BusPIRone HCL 15 MG TABLET PO SCH ×2 (08:11→16:14)
[2023-04-04] MEDS: LORazepam 2 MG TABLET PO PRN ×2 (08:14→16:14)
[2023-04-04 08:26] VITALS: BP 132/87
[2023-04-04 21:28] VITALS: BP 122/80
[2023-04-05 08:10] VITALS: BP 113/68
[2023-04-05] MEDS: MEGESTROL ACETATE 400 MG/10 ML SUSPENSION UDCUP PO SCH (08:32)
[2023-04-05] MEDS: BusPIRone HCL 15 MG TABLET PO SCH ×2 (08:32→16:45)
[2023-04-05] MEDS: HALOPERIDOL 5 MG TABLET PO PRN ×2 (08:32→18:40)
[2023-04-05] MEDS: MULTIVITAMINS WITH MINERALS, THERAPEUTIC TABLET PO SCH (08:32)
[2023-04-05] MEDS: VENLAFAXINE HCL 150 MG ER CAPSULE PO SCH (08:32)
[2023-04-05] MEDS: LORazepam 2 MG TABLET PO PRN ×2 (08:32→18:40)
[2023-04-05] MEDS: BACITRACIN 28 GM OINTMENT TP PRN (12:29)
[2023-04-05 20:40] VITALS: BP 100/69
[2023-04-06] MEDS: LORazepam 2 MG TABLET PO PRN (07:38)
[2023-04-06] MEDS: VENLAFAXINE HCL 150 MG ER CAPSULE PO SCH (08:00)
[2023-04-06] MEDS: BusPIRone HCL 15 MG TABLET PO SCH ×2 (08:00→16:19)
[2023-04-06] MEDS: MULTIVITAMINS WITH MINERALS, THERAPEUTIC TABLET PO SCH (08:01)
[2023-04-06] MEDS: MEGESTROL ACETATE 400 MG/10 ML SUSPENSION UDCUP PO SCH (08:01)
[2023-04-06 08:18] VITALS: BP 138/94
[2023-04-06 11:00] VITALS: BP 127/85
[2023-04-06] MEDS ORDERED: LORazepam 2 MG/ML VIAL IM ONE ×2 (11:00)
[2023-04-06] MEDS ORDERED: DiphenhydrAMINE HCL 50 MG/ML VIAL IM ONE ×2 (11:00)
[2023-04-06] MEDS ORDERED: HALOPERIDOL LACTATE 5 MG/ML VIAL IM ONE ×2 (11:00)
[2023-04-06] MEDS ORDERED: HALOPERIDOL LACTATE 5 MG/ML VIAL ONE (11:01)
[2023-04-06] MEDS ORDERED: DiphenhydrAMINE HCL 50 MG/ML VIAL ONE (11:01)
[2023-04-06] MEDS ORDERED: LORazepam 2 MG/ML VIAL ONE (11:01)
[2023-04-06 12:30] VITALS: BP 127/84
[2023-04-06 20:07] VITALS: BP 119/75
[2023-04-07] MEDS: MEGESTROL ACETATE 400 MG/10 ML SUSPENSION UDCUP PO SCH (08:20)
[2023-04-07] MEDS: BusPIRone HCL 15 MG TABLET PO SCH ×2 (08:20→16:02)
[2023-04-07] MEDS: VENLAFAXINE HCL 150 MG ER CAPSULE PO SCH (08:20)
[2023-04-07 08:48] VITALS: BP 126/75
[2023-04-07] MEDS: MULTIVITAMINS WITH MINERALS, THERAPEUTIC TABLET PO SCH (09:31)
[2023-04-07 20:11] VITALS: BP 115/63
[2023-04-08] VITALS (7 sets, daily range): BP systolic 124–156; BP diastolic 78–94
[2023-04-08] MEDS: ZOLPIDEM TARTRATE 10 MG TABLET PO PRN (01:26)
[2023-04-08] MEDS: LORazepam 2 MG TABLET PO PRN ×2 (01:27→12:55)
[2023-04-08] MEDS: HALOPERIDOL 5 MG TABLET PO PRN ×2 (01:27→12:55)
[2023-04-08] MEDS: VENLAFAXINE HCL 150 MG ER CAPSULE PO SCH (08:08)
[2023-04-08] MEDS: BusPIRone HCL 15 MG TABLET PO SCH ×2 (08:08→17:13)
[2023-04-08] MEDS: MEGESTROL ACETATE 400 MG/10 ML SUSPENSION UDCUP PO SCH (08:08)
[2023-04-08] MEDS: MULTIVITAMINS WITH MINERALS, THERAPEUTIC TABLET PO SCH (08:08)
[2023-04-09] MEDS: VENLAFAXINE HCL 150 MG ER CAPSULE PO SCH (08:00)
[2023-04-09] MEDS: BusPIRone HCL 15 MG TABLET PO SCH ×2 (08:00→16:32)
[2023-04-09] MEDS: MEGESTROL ACETATE 400 MG/10 ML SUSPENSION UDCUP PO SCH (08:00)
[2023-04-09] MEDS: MULTIVITAMINS WITH MINERALS, THERAPEUTIC TABLET PO SCH (08:00)
[2023-04-09 08:32] LABS: BASOPHILS % (AUTO) 0.3 % (0.0-2.0); EOSINOPHILS % (AUTO) 1.9 % (1.0-6.0); HEMATOCRIT 42.1 % (41-53); HEMOGLOBIN 14.3 g/dL (13.5-17.5); LYMPHOCYTES # (AUTO) 1.9 K/uL (1.0-4.8); LYMPHOCYTES % (AUTO) 19.5 % (22.0-44.0); MEAN CORPUSCULAR HEMOGLOBIN 34.1 pg (26.0-34.0); MEAN CORPUSCULAR HGB CONC 34.1 G/dL (31.0-37.0); MEAN CORPUSCULAR VOLUME 100 fL (80-100); MONOCYTES # (AUTO) 0.4 K/uL (0.1-1.0); MONOCYTES % (AUTO) 4.4 % (2.0-9.0); NEUTROPHILS # (AUTO) 7.1 K/uL (1.8-7.7); NEUTROPHILS % (AUTO) 73.9 % (40.0-70.0); PLATELET COUNT (AUTO) 311 K/uL (150-450); RED BLOOD CELL COUNT(AUTO) 4.21 MIL/uL (4.50-5.90); RED CELL DISTRIBUTION WIDTH 13.3 % (11.5-14.5)
[2023-04-09 08:38] LABS: ANION GAP 13 mmol/L (8-16); CALCIUM, TOTAL 8.5 mg/dL (8.8-10.5); CARBON DIOXIDE 22 mmol/L (22-29); CHLORIDE 105 mmol/L (98-107); CREATININE 0.85 mg/dL (0.60-1.30); GLOMERULAR FILTR. RATE CALC > 60 mL/min (>60); GLUCOSE,RANDOM 64 mg/dL (70-110); POTASSIUM 3.8 mmol/L (3.5-5.1); SODIUM SERUM 140 mmol/L (136-145)
[2023-04-09 09:38] VITALS: BP 123/80
[2023-04-09] MEDS: LORazepam 2 MG TABLET PO PRN (10:04)
[2023-04-09] MEDS: HALOPERIDOL 5 MG TABLET PO PRN (10:23)
[2023-04-09 20:27] VITALS: BP 126/85
[2023-04-10] MEDS: BusPIRone HCL 15 MG TABLET PO SCH ×2 (08:11→16:05)
[2023-04-10] MEDS: MULTIVITAMINS WITH MINERALS, THERAPEUTIC TABLET PO SCH (08:11)
[2023-04-10] MEDS: VENLAFAXINE HCL 150 MG ER CAPSULE PO SCH (08:11)
[2023-04-10] MEDS: MEGESTROL ACETATE 400 MG/10 ML SUSPENSION UDCUP PO SCH (08:12)
[2023-04-10 08:23] VITALS: BP 150/95
[2023-04-10] MEDS: LORazepam 2 MG TABLET PO PRN ×2 (13:14→20:51)
[2023-04-10] MEDS: HALOPERIDOL 5 MG TABLET PO PRN ×2 (13:14→20:51)
[2023-04-10 20:32] VITALS: BP 145/98
[2023-04-10] MEDS: ZOLPIDEM TARTRATE 10 MG TABLET PO PRN (20:51)
[2023-04-11] MEDS: VENLAFAXINE HCL 150 MG ER CAPSULE PO SCH (08:16)
[2023-04-11] MEDS: MEGESTROL ACETATE 400 MG/10 ML SUSPENSION UDCUP PO SCH (08:16)
[2023-04-11] MEDS: MULTIVITAMINS WITH MINERALS, THERAPEUTIC TABLET PO SCH (08:16)
[2023-04-11] MEDS: BusPIRone HCL 15 MG TABLET PO SCH ×2 (08:16→16:29)
[2023-04-11 08:34] VITALS: BP 144/92
[2023-04-11] MEDS: PALIPERIDONE PALMITATE 234 MG/1.5 ML SYRINGE IM SCH (13:41)
[2023-04-11 20:16] VITALS: BP 138/94
[2023-04-12] MEDS: LORazepam 2 MG TABLET PO PRN ×2 (02:38→17:21)
[2023-04-12] MEDS: ZOLPIDEM TARTRATE 10 MG TABLET PO PRN (02:38)
[2023-04-12] MEDS: MULTIVITAMINS WITH MINERALS, THERAPEUTIC TABLET PO SCH (08:41)
[2023-04-12] MEDS: BusPIRone HCL 15 MG TABLET PO SCH ×2 (08:41→17:21)
[2023-04-12] MEDS: VENLAFAXINE HCL 150 MG ER CAPSULE PO SCH (08:41)
[2023-04-12] MEDS: MEGESTROL ACETATE 400 MG/10 ML SUSPENSION UDCUP PO SCH (08:41)
[2023-04-12 08:55] VITALS: BP 128/82
[2023-04-12] MEDS: HALOPERIDOL 5 MG TABLET PO PRN (17:21)
[2023-04-12 21:21] VITALS: BP 129/78
[2023-04-13] MEDS: ZOLPIDEM TARTRATE 10 MG TABLET PO PRN (00:20)
[2023-04-13] MEDS: LORazepam 2 MG TABLET PO PRN (00:20)
[2023-04-13 08:43] VITALS: BP 131/82
[2023-04-13] MEDS: BusPIRone HCL 15 MG TABLET PO SCH ×2 (09:20→17:21)
[2023-04-13] MEDS: HALOPERIDOL 5 MG TABLET PO PRN (09:20)
[2023-04-13] MEDS: MULTIVITAMINS WITH MINERALS, THERAPEUTIC TABLET PO SCH (09:20)
[2023-04-13] MEDS: VENLAFAXINE HCL 150 MG ER CAPSULE PO SCH (09:20)
[2023-04-13] MEDS: MEGESTROL ACETATE 400 MG/10 ML SUSPENSION UDCUP PO SCH (09:21)
[2023-04-13 19:45] VITALS: BP 122/82
[2023-04-13 21:24] VITALS: BP 114/79
[2023-04-14 08:31] VITALS: BP 113/75
[2023-04-14 09:18] VITALS: BP 118/76
[2023-04-14] MEDS: MULTIVITAMINS WITH MINERALS, THERAPEUTIC TABLET PO SCH (09:18)
[2023-04-14] MEDS: MEGESTROL ACETATE 400 MG/10 ML SUSPENSION UDCUP PO SCH (09:18)
[2023-04-14] MEDS: IBUPROFEN 400 MG TABLET PO PRN (09:18)
[2023-04-14] MEDS: BusPIRone HCL 15 MG TABLET PO SCH ×2 (09:18→16:41)
[2023-04-14] MEDS: VENLAFAXINE HCL 150 MG ER CAPSULE PO SCH (09:18)
[2023-04-14] MEDS: HALOPERIDOL 5 MG TABLET PO PRN (09:21)
[2023-04-14 10:18] VITALS: BP 106/74
[2023-04-14 20:56] VITALS: BP 148/91
[2023-04-14] MEDS: ZOLPIDEM TARTRATE 10 MG TABLET PO PRN (21:20)
[2023-04-15 08:42] VITALS: BP_SYST 120; BP_SYST 138; BP_DIAS 59; BP_DIAS 90
[2023-04-15] MEDS: MEGESTROL ACETATE 400 MG/10 ML SUSPENSION UDCUP PO SCH (09:05)
[2023-04-15] MEDS: HALOPERIDOL 5 MG TABLET PO PRN (09:06)
[2023-04-15] MEDS: MULTIVITAMINS WITH MINERALS, THERAPEUTIC TABLET PO SCH (09:06)
[2023-04-15] MEDS: BusPIRone HCL 15 MG TABLET PO SCH ×2 (09:06→16:12)
[2023-04-15] MEDS: VENLAFAXINE HCL 150 MG ER CAPSULE PO SCH (09:06)
[2023-04-15] MEDS ORDERED: GADOTERATE MEGLUMINE 10 MMOL/20 ML VIAL IVP ONE (09:17)
[2023-04-16] MEDS ORDERED: LIDOCAINE/PF 1% 30 ML VIAL ONE (07:38)
[2023-04-16 08:26] VITALS: BP 146/76
[2023-04-16] MEDS: MULTIVITAMINS WITH MINERALS, THERAPEUTIC TABLET PO SCH (08:28)
[2023-04-16] MEDS: MEGESTROL ACETATE 400 MG/10 ML SUSPENSION UDCUP PO SCH (08:28)
[2023-04-16] MEDS: VENLAFAXINE HCL 150 MG ER CAPSULE PO SCH (08:29)
[2023-04-16] MEDS: BusPIRone HCL 15 MG TABLET PO SCH ×2 (08:29→16:17)
[2023-04-16] MEDS: BACITRACIN 28 GM OINTMENT TP PRN (08:30)
[2023-04-16] MEDS ORDERED: LIDOCAINE 1% 10 ML VIAL SQ ONE ×2 (09:00)
[2023-04-16] MEDS ORDERED: NEOMYCIN/BACITRACIN/POLYMYXIN B OINTMENT PACKET TP ONE (09:00)
[2023-04-16 14:02] VITALS: BP 126/80
[2023-04-16] MEDS: IBUPROFEN 400 MG TABLET PO PRN (14:02)
[2023-04-16 15:02] VITALS: BP 131/82
[2023-04-16 21:28] VITALS: BP 133/79
[2023-04-17] MEDS: NEOMYCIN/BACITRACIN/POLYMYXIN B 30 GM OINTMENT TP SCH (08:19)
[2023-04-17] MEDS: MULTIVITAMINS WITH MINERALS, THERAPEUTIC TABLET PO SCH (08:19)
[2023-04-17] MEDS: MEGESTROL ACETATE 400 MG/10 ML SUSPENSION UDCUP PO SCH (08:19)
[2023-04-17] MEDS: BusPIRone HCL 15 MG TABLET PO SCH ×2 (08:20→16:34)
[2023-04-17] MEDS: VENLAFAXINE HCL 150 MG ER CAPSULE PO SCH (08:20)
[2023-04-17 08:24] VITALS: BP 122/77
[2023-04-17] MEDS: ZOLPIDEM TARTRATE 10 MG TABLET PO PRN (21:00)
[2023-04-17] MEDS: ATORVASTATIN CALCIUM 40 MG TABLET PO SCH (21:00)
[2023-04-18 08:50] VITALS: BP 133/84
[2023-04-18] MEDS: MULTIVITAMINS WITH MINERALS, THERAPEUTIC TABLET PO SCH (09:05)
[2023-04-18] MEDS: VENLAFAXINE HCL 150 MG ER CAPSULE PO SCH (09:06)
[2023-04-18] MEDS: MEGESTROL ACETATE 400 MG/10 ML SUSPENSION UDCUP PO SCH (09:06)
[2023-04-18] MEDS: BusPIRone HCL 15 MG TABLET PO SCH ×2 (09:06→16:13)
[2023-04-18] MEDS: IBUPROFEN 400 MG TABLET PO PRN (14:48)
[2023-04-18] MEDS: ATORVASTATIN CALCIUM 40 MG TABLET PO SCH (20:31)
[2023-04-19 08:26] VITALS: BP 149/77
[2023-04-19] MEDS: MEGESTROL ACETATE 400 MG/10 ML SUSPENSION UDCUP PO SCH (09:24)
[2023-04-19] MEDS: BusPIRone HCL 15 MG TABLET PO SCH ×2 (09:25→16:08)
[2023-04-19] MEDS: MULTIVITAMINS WITH MINERALS, THERAPEUTIC TABLET PO SCH (09:25)
[2023-04-19] MEDS: VENLAFAXINE HCL 150 MG ER CAPSULE PO SCH (09:25)
[2023-04-19] MEDS: NEOMYCIN/BACITRACIN/POLYMYXIN B 30 GM OINTMENT TP SCH (09:43)
[2023-04-19] MEDS: MAGNESIUM HYDROXIDE SUSPENSION 30 ML UDCUP PO PRN ×2 (11:18→11:22)
[2023-04-19] MEDS: ATORVASTATIN CALCIUM 40 MG TABLET PO SCH (20:05)
[2023-04-19 21:05] VITALS: BP 138/83
[2023-04-19] MEDS: ZOLPIDEM TARTRATE 10 MG TABLET PO PRN (21:21)
[2023-04-20 08:00] VITALS: BP 141/95
[2023-04-20] MEDS: BusPIRone HCL 15 MG TABLET PO SCH ×2 (09:00→17:37)
[2023-04-20] MEDS: MEGESTROL ACETATE 400 MG/10 ML SUSPENSION UDCUP PO SCH (09:00)
[2023-04-20] MEDS: VENLAFAXINE HCL 150 MG ER CAPSULE PO SCH (09:00)
[2023-04-20] MEDS: MULTIVITAMINS WITH MINERALS, THERAPEUTIC TABLET PO SCH (09:00)
[2023-04-20 20:00] VITALS: BP 109/78
[2023-04-20] MEDS: ATORVASTATIN CALCIUM 40 MG TABLET PO SCH (21:53)
[2023-04-21 09:25] VITALS: BP 141/94
== END 2023-04-21 09:37 | disposition short-term general hospital (02) | DRG 750 ==
LOC: EMS 14:09 → UNDOADMIN 02-23 17:06 → B3A 02-23 17:06 → 3EI 04-13 20:45
PROVIDERS: ADMIT Psychiatry & Neurology Psychiatry; ATTEND Psychiatry & Neurology Psychiatry
DX: F25.1 Schizoaffective disorder, depressive type (principal); I62.02 Nontraumatic subacute subdural hemorrhage; E46 Unspecified protein-calorie malnutrition; F31.9 Bipolar disorder, unspecified; F41.9 Anxiety disorder, unspecified; I10 Essential (primary) hypertension; E78.5 Hyperlipidemia, unspecified; F10.10 Alcohol abuse, uncomplicated; J44.9 Chronic obstructive pulmonary disease, unspecified; R45.851 Suicidal ideations; S80.212A Abrasion, left knee, initial encounter; S80.211A Abrasion, right knee, initial encounter; W18.39XA Other fall on same level, initial encounter; R62.7 Adult failure to thrive; Z20.822 Contact with and (suspected) exposure to COVID-19; S80.01XA Contusion of right knee, initial encounter; Z79.899 Other long term (current) drug therapy; Z87.891 Personal history of nicotine dependence; Z91.51 Personal history of suicidal behavior; Z91.81 History of falling; Y93.89 Activity, other specified; Y92.89 Other specified places as the place of occurrence of the external cause; Y99.8 Other external cause status; Z88.8 Allergy status to other drugs, medicaments and biological substances; Z68.1 Body mass index [BMI] 19.9 or less, adult
CPT/HCPCS: 70450; 70553; 80048; 80053; 80307; 81001; 84443; 85025; 87081; 87205; 88300; 92610; 97163; 99285; G0480; J1200; J1630; J2060; J3490

== ENCOUNTER 2023-04-21 10:15 | Inpatient (IN) | payer MEDICAID, OTHER ==
[~2023-04-21 10:15] MED LIST changes: -MEGE400O17 PO
[2023-04-21] MEDS ORDERED: ONDANSETRON HCL 4 MG/2 ML VIAL IVP PRN (10:30)
[2023-04-21] MEDS ORDERED: ACETAMINOPHEN 325 MG TABLET PO PRN (10:30)
[2023-04-21] MEDS ORDERED: SODIUM CHLORIDE 0.9% 1,000 ML IV ONE (10:30)
[2023-04-21 12:45] VITALS: BP 134/88; PULSE 121; RESP 18; TEMP 98
[2023-04-21 12:50] LABS: BASOPHILS % (AUTO) 0.2 % (0.0-2.0); EOSINOPHILS % (AUTO) 1.3 % (1.0-6.0); HEMATOCRIT 44.3 % (41-53); HEMOGLOBIN 14.6 g/dL (13.5-17.5); LYMPHOCYTES # (AUTO) 1.6 K/uL (1.0-4.8); LYMPHOCYTES % (AUTO) 12.2 % (22.0-44.0); MEAN CORPUSCULAR HEMOGLOBIN 33.1 pg (26.0-34.0); MEAN CORPUSCULAR HGB CONC 32.8 G/dL (31.0-37.0); MEAN CORPUSCULAR VOLUME 101 fL (80-100); MONOCYTES # (AUTO) 0.6 K/uL (0.1-1.0); MONOCYTES % (AUTO) 4.4 % (2.0-9.0); NEUTROPHILS # (AUTO) 10.9 K/uL (1.8-7.7); NEUTROPHILS % (AUTO) 81.9 % (40.0-70.0); PLATELET COUNT (AUTO) 372 K/uL (150-450); RED CELL DISTRIBUTION WIDTH 13.4 % (11.5-14.5)
[2023-04-21 13:04] LABS: ANION GAP 13 mmol/L (8-16); CALCIUM, TOTAL 8.8 mg/dL (8.8-10.5); CARBON DIOXIDE 23 mmol/L (22-29); CHLORIDE 107 mmol/L (98-107); CREATININE 0.98 mg/dL (0.60-1.30); GLOMERULAR FILTR. RATE CALC > 60 mL/min (>60); GLUCOSE,RANDOM 142 mg/dL (70-110); POTASSIUM 3.9 mmol/L (3.5-5.1); SODIUM SERUM 143 mmol/L (136-145)
[2023-04-21 13:18] LABS: ALANINE AMINOTRANSFERASE 14 U/L (12-78); ALKALINE PHOSPHATASE 69 U/L (46-116); ASPARTATE AMINOTRANSFERASE 11 U/L (15-37); BILIRUBIN,TOTAL 0.4 mg/dL (0.1-1.0); THYROID STIMULATING HORMONE 1.14 uIU/mL (0.36-3.74); TOTAL PROTEIN, SERUM 6.9 g/dL (6.4-8.2)
[2023-04-21 16:42] VITALS: BP 137/88; PULSE 112; RESP 18; TEMP 97.6
[2023-04-21] MEDS: HEPARIN SODIUM,PORCINE 5,000 UNITS/ML VIAL SQ SCH ×2 (16:49→23:50)
[2023-04-21 20:07] VITALS: BP 144/99; PULSE 118; RESP 18; TEMP 98.9
[2023-04-21 20:08] LABS: APPEARANCE,URINE CLEAR (CLEAR); BILIRUBIN,URINE NEGATIVE (NEGATIVE); GLUCOSE, URINE (UA) NEGATIVE (NEGATIVE); KETONES,URINE NEGATIVE (NEGATIVE); LEUKOCYTE ESTERASE ,URINE NEGATIVE (NEGATIVE); NITRATE,URINE NEGATIVE (NEGATIVE); OCCULT BLOOD,URINE NEGATIVE (NEGATIVE); PROTEIN,URINE TRACE mg/dL (NEGATIVE); SPECIFIC GRAVITIY, URINE 1.036 (1.003-1.030); UROBILINOGEN,URINE <=1.0 mg/dL (<=1.0)
[2023-04-21] MEDS: DOCUSATE SODIUM 100 MG CAPSULE PO SCH (21:00)
[2023-04-22 00:35] VITALS: BP 140/89; PULSE 119; RESP 18; TEMP 98.7
[2023-04-22 04:00] VITALS: BP 130/81; PULSE 100; RESP 18; TEMP 98
[2023-04-22 06:45] LABS: BASOPHILS % (AUTO) 0.5 % (0.0-2.0); EOSINOPHILS % (AUTO) 0.8 % (1.0-6.0); HEMATOCRIT 41.6 % (41-53); HEMOGLOBIN 13.8 g/dL (13.5-17.5); LYMPHOCYTES # (AUTO) 1.8 K/uL (1.0-4.8); MEAN CORPUSCULAR HEMOGLOBIN 33.2 pg (26.0-34.0); MEAN CORPUSCULAR HGB CONC 33.2 G/dL (31.0-37.0); MEAN CORPUSCULAR VOLUME 100 fL (80-100); MONOCYTES # (AUTO) 0.5 K/uL (0.1-1.0); MONOCYTES % (AUTO) 4.6 % (2.0-9.0); NEUTROPHILS # (AUTO) 8.8 K/uL (1.8-7.7); NEUTROPHILS % (AUTO) 78.1 % (40.0-70.0); PLATELET COUNT (AUTO) 385 K/uL (150-450); RED BLOOD CELL COUNT(AUTO) 4.16 MIL/uL (4.50-5.90); RED CELL DISTRIBUTION WIDTH 12.8 % (11.5-14.5)
[2023-04-22 07:10] LABS: ANION GAP 10 mmol/L (8-16); CALCIUM, TOTAL 8.6 mg/dL (8.8-10.5); CARBON DIOXIDE 23 mmol/L (22-29); CHLORIDE 110 mmol/L (98-107); CREATININE 0.75 mg/dL (0.60-1.30); GLOMERULAR FILTR. RATE CALC > 60 mL/min (>60); GLUCOSE,RANDOM 92 mg/dL (70-110); POTASSIUM 4.1 mmol/L (3.5-5.1); SODIUM SERUM 143 mmol/L (136-145)
[2023-04-22 08:09] VITALS: BP 159/111; PULSE 122; RESP 22; TEMP 99.2
[2023-04-22] MEDS: DOCUSATE SODIUM 100 MG CAPSULE PO SCH ×2 (08:45→19:36)
[2023-04-22] MEDS: HEPARIN SODIUM,PORCINE 5,000 UNITS/ML VIAL SQ SCH ×3 (08:47→23:39)
[2023-04-22] MEDS: PANTOPRAZOLE SODIUM 40 MG/VIAL IVP SCH (08:50)
[2023-04-22 11:25] VITALS: BP 159/120; PULSE 126; RESP 21; TEMP 98.2
[2023-04-22] MEDS: DEXTROSE 5%-0.45% SODIUM CHL 1,000 ML IV SCH (11:40)
[2023-04-22 15:24] VITALS: BP 162/112; PULSE 116; RESP 22; TEMP 98.5
[2023-04-22 21:00] VITALS: BP 151/95; PULSE 101; RESP 18; TEMP 98.8
[2023-04-23] VITALS: BP 172/106; PULSE 105; RESP 17; TEMP 98.1
[2023-04-23 04:00] VITALS: BP 140/92; PULSE 97; RESP 18; TEMP 98.3
[2023-04-23] MEDS: DEXTROSE 5%-0.45% SODIUM CHL 1,000 ML IV SCH ×2 (04:22→20:03)
[2023-04-23 07:21] VITALS: BP 138/96; PULSE 100; RESP 18; TEMP 98.1
[2023-04-23] MEDS: DOCUSATE SODIUM 100 MG CAPSULE PO SCH ×2 (09:00→20:03)
[2023-04-23] MEDS: HEPARIN SODIUM,PORCINE 5,000 UNITS/ML VIAL SQ SCH ×3 (09:16→23:30)
[2023-04-23] MEDS: PANTOPRAZOLE SODIUM 40 MG/VIAL IVP SCH (09:16)
[2023-04-23 11:35] VITALS: BP 159/99; PULSE 100; RESP 18; TEMP 97.6
[2023-04-23 16:01] VITALS: BP 149/90; PULSE 101; RESP 18; TEMP 98
[2023-04-23 20:01] VITALS: BP 140/85; PULSE 95; RESP 13; TEMP 98.8
[2023-04-23] MEDS: ETHYL ALCOHOL 62% ANTISEPTIC NASAL SANITIZER 0.6 ML AMPUL NASAL SCH (20:10)
[2023-04-24] VITALS (8 sets, daily range): BP systolic 138–160; BP diastolic 86–99; PULSE 84–100; RESP 11–19; TEMP 97.7–98.9
[2023-04-24] MEDS: ETHYL ALCOHOL 62% ANTISEPTIC NASAL SANITIZER 0.6 ML AMPUL NASAL SCH ×2 (08:52→20:31)
[2023-04-24] MEDS: DOCUSATE SODIUM 100 MG CAPSULE PO SCH ×2 (08:53→20:31)
[2023-04-24] MEDS: PANTOPRAZOLE SODIUM 40 MG/VIAL IVP SCH (08:53)
[2023-04-24] MEDS: HEPARIN SODIUM,PORCINE 5,000 UNITS/ML VIAL SQ SCH ×3 (08:53→23:48)
[2023-04-24 13:05] LABS: APPEARANCE,URINE CLEAR (CLEAR); BILIRUBIN,URINE NEGATIVE (NEGATIVE); GLUCOSE, URINE (UA) NEGATIVE (NEGATIVE); KETONES,URINE NEGATIVE (NEGATIVE); LEUKOCYTE ESTERASE ,URINE NEGATIVE (NEGATIVE); NITRATE,URINE NEGATIVE (NEGATIVE); OCCULT BLOOD,URINE NEGATIVE (NEGATIVE); PH,URINE 5.5 (5.0-8.0); PROTEIN,URINE NEGATIVE (NEGATIVE); SPECIFIC GRAVITIY, URINE 1.027 (1.003-1.030); UROBILINOGEN,URINE <=1.0 mg/dL (<=1.0)
[2023-04-24 13:06] LABS: BACTERIA,URINE None Seen /HPF (None Seen); RBC,URINE None Seen /HPF (0-2); WBC,URINE None Seen /HPF (0-5)
[2023-04-24] MEDS: DEXTROSE 5%-0.45% SODIUM CHL 1,000 ML IV SCH (13:06)
[2023-04-24] MEDS: THIAMINE 100 MG/ML 2 ML VIAL IVP SCH (13:41)
[2023-04-24] MEDS: ATORVASTATIN CALCIUM 40 MG TABLET PO SCH (20:31)
[2023-04-24] MEDS: FOLIC ACID 1 MG TABLET PO SCH (20:31)
[2023-04-25 04:18] VITALS: BP 155/93; PULSE 96; RESP 20; TEMP 97.4
[2023-04-25 06:46] LABS: BASOPHILS % (AUTO) 0.2 % (0.0-2.0); EOSINOPHILS % (AUTO) 2.1 % (1.0-6.0); HEMATOCRIT 41.4 % (41-53); HEMOGLOBIN 14.1 g/dL (13.5-17.5); LYMPHOCYTES # (AUTO) 2.1 K/uL (1.0-4.8); LYMPHOCYTES % (AUTO) 20.6 % (22.0-44.0); MEAN CORPUSCULAR HEMOGLOBIN 33.9 pg (26.0-34.0); MEAN CORPUSCULAR HGB CONC 34.1 G/dL (31.0-37.0); MEAN CORPUSCULAR VOLUME 100 fL (80-100); MONOCYTES # (AUTO) 0.5 K/uL (0.1-1.0); MONOCYTES % (AUTO) 4.9 % (2.0-9.0); NEUTROPHILS # (AUTO) 7.3 K/uL (1.8-7.7); NEUTROPHILS % (AUTO) 72.2 % (40.0-70.0); PLATELET COUNT (AUTO) 315 K/uL (150-450); RED BLOOD CELL COUNT(AUTO) 4.16 MIL/uL (4.50-5.90); RED CELL DISTRIBUTION WIDTH 12.6 % (11.5-14.5)
[2023-04-25 07:02] LABS: ANION GAP 10 mmol/L (8-16); CALCIUM, TOTAL 8.5 mg/dL (8.8-10.5); CARBON DIOXIDE 23 mmol/L (22-29); CHLORIDE 108 mmol/L (98-107); CREATININE 0.64 mg/dL (0.60-1.30); GLOMERULAR FILTR. RATE CALC > 60 mL/min (>60); GLUCOSE,RANDOM 96 mg/dL (70-110); POTASSIUM 3.9 mmol/L (3.5-5.1); SODIUM SERUM 141 mmol/L (136-145)
[2023-04-25 08:00] VITALS: BP 164/111; PULSE 111; RESP 18; TEMP 98
[2023-04-25] MEDS: HEPARIN SODIUM,PORCINE 5,000 UNITS/ML VIAL SQ SCH ×2 (08:00→17:48)
[2023-04-25] MEDS: DOCUSATE SODIUM 100 MG CAPSULE PO SCH ×3 (09:33→21:44)
[2023-04-25] MEDS: AmLODIPine BESYLATE 5 MG TABLET PO SCH (09:33)
[2023-04-25] MEDS: ASPIRIN 81 MG CHEWABLE TABLET PO SCH (09:33)
[2023-04-25] MEDS: PANTOPRAZOLE SODIUM 40 MG/VIAL IVP SCH (09:33)
[2023-04-25] MEDS: THIAMINE 100 MG/ML 2 ML VIAL IVP SCH (09:34)
[2023-04-25] MEDS: ETHYL ALCOHOL 62% ANTISEPTIC NASAL SANITIZER 0.6 ML AMPUL NASAL SCH ×2 (09:34→21:44)
[2023-04-25 12:00] VITALS: BP 125/77; PULSE 91; RESP 18; TEMP 98
[2023-04-25 13:04] LABS: CREATINE KINASE, TOTAL ONLY 50 U/L (39-308)
[2023-04-25 16:00] VITALS: BP 157/98; PULSE 107; RESP 19; TEMP 98
[2023-04-25 17:30] LABS: COVID AG,FIA SOURCE NASAL SWAB
[2023-04-25 19:49] VITALS: BP 153/95; PULSE 108; RESP 19; TEMP 98.3
[2023-04-25] MEDS: ATORVASTATIN CALCIUM 40 MG TABLET PO SCH (21:45)
[2023-04-25] MEDS: FOLIC ACID 1 MG TABLET PO SCH (21:45)
[2023-04-25 23:54] VITALS: BP 144/93; PULSE 104; RESP 19; TEMP 98.9
[2023-04-26] MEDS: HEPARIN SODIUM,PORCINE 5,000 UNITS/ML VIAL SQ SCH ×3 (01:53→16:52)
[2023-04-26 05:21] VITALS: BP 145/96; PULSE 102; RESP 19; TEMP 99
[2023-04-26 06:14] LABS: BASOPHILS % (AUTO) 0.3 % (0.0-2.0); EOSINOPHILS % (AUTO) 1.6 % (1.0-6.0); HEMATOCRIT 43.1 % (41-53); HEMOGLOBIN 14.6 g/dL (13.5-17.5); LYMPHOCYTES # (AUTO) 1.7 K/uL (1.0-4.8); LYMPHOCYTES % (AUTO) 17.1 % (22.0-44.0); MEAN CORPUSCULAR HEMOGLOBIN 33.7 pg (26.0-34.0); MEAN CORPUSCULAR HGB CONC 33.9 G/dL (31.0-37.0); MEAN CORPUSCULAR VOLUME 99 fL (80-100); MONOCYTES # (AUTO) 0.5 K/uL (0.1-1.0); MONOCYTES % (AUTO) 5.2 % (2.0-9.0); NEUTROPHILS # (AUTO) 7.5 K/uL (1.8-7.7); NEUTROPHILS % (AUTO) 75.8 % (40.0-70.0); PLATELET COUNT (AUTO) 350 K/uL (150-450); RED BLOOD CELL COUNT(AUTO) 4.33 MIL/uL (4.50-5.90); RED CELL DISTRIBUTION WIDTH 12.9 % (11.5-14.5)
[2023-04-26 06:27] LABS: ANION GAP 8 mmol/L (8-16); CALCIUM, TOTAL 8.8 mg/dL (8.8-10.5); CARBON DIOXIDE 23 mmol/L (22-29); CHLORIDE 105 mmol/L (98-107); CREATININE 0.66 mg/dL (0.60-1.30); GLOMERULAR FILTR. RATE CALC > 60 mL/min (>60); GLUCOSE,RANDOM 102 mg/dL (70-110); SODIUM SERUM 136 mmol/L (136-145)
[2023-04-26 08:04] VITALS: BP 143/99; PULSE 99; RESP 18; TEMP 98.9
[2023-04-26] MEDS: PANTOPRAZOLE SODIUM 40 MG/VIAL IVP SCH (08:24)
[2023-04-26] MEDS: ETHYL ALCOHOL 62% ANTISEPTIC NASAL SANITIZER 0.6 ML AMPUL NASAL SCH ×2 (08:24→21:51)
[2023-04-26] MEDS: THIAMINE 100 MG/ML 2 ML VIAL IVP SCH (08:24)
[2023-04-26] MEDS: DOCUSATE SODIUM 100 MG CAPSULE PO SCH ×2 (08:25→21:51)
[2023-04-26] MEDS: ASPIRIN 81 MG CHEWABLE TABLET PO SCH (08:25)
[2023-04-26] MEDS: AmLODIPine BESYLATE 5 MG TABLET PO SCH (08:25)
[2023-04-26] MEDS: SODIUM CHLORIDE 0.45% 1,000 ML IV SCH (08:26)
[2023-04-26 11:55] VITALS: BP 153/89; PULSE 106; RESP 19; TEMP 98.5
[2023-04-26 15:58] VITALS: BP 136/99; PULSE 92; RESP 20; TEMP 98.4
[2023-04-26 19:33] VITALS: BP 127/67; PULSE 89; RESP 19; TEMP 98.9
[2023-04-26] MEDS: ATORVASTATIN CALCIUM 40 MG TABLET PO SCH (21:51)
[2023-04-26] MEDS: FOLIC ACID 1 MG TABLET PO SCH (21:51)
[2023-04-27 00:01] VITALS: BP 115/77; PULSE 68; RESP 19; TEMP 97
[2023-04-27] MEDS: HEPARIN SODIUM,PORCINE 5,000 UNITS/ML VIAL SQ SCH ×3 (01:12→16:44)
[2023-04-27 04:53] VITALS: BP 112/79; PULSE 96; RESP 16; TEMP 98
[2023-04-27 06:56] LABS: BASOPHILS % (AUTO) 0.3 % (0.0-2.0); EOSINOPHILS % (AUTO) 1.1 % (1.0-6.0); HEMATOCRIT 42.3 % (41-53); HEMOGLOBIN 14.4 g/dL (13.5-17.5); LYMPHOCYTES # (AUTO) 1.4 K/uL (1.0-4.8); LYMPHOCYTES % (AUTO) 10.4 % (22.0-44.0); MEAN CORPUSCULAR HEMOGLOBIN 34.2 pg (26.0-34.0); MEAN CORPUSCULAR HGB CONC 34.1 G/dL (31.0-37.0); MEAN CORPUSCULAR VOLUME 100 fL (80-100); MONOCYTES # (AUTO) 0.4 K/uL (0.1-1.0); MONOCYTES % (AUTO) 3.2 % (2.0-9.0); NEUTROPHILS # (AUTO) 11.3 K/uL (1.8-7.7); PLATELET COUNT (AUTO) 298 K/uL (150-450); RED BLOOD CELL COUNT(AUTO) 4.22 MIL/uL (4.50-5.90); RED CELL DISTRIBUTION WIDTH 13.1 % (11.5-14.5)
[2023-04-27 07:06] LABS: ANION GAP 12 mmol/L (8-16); CARBON DIOXIDE 23 mmol/L (22-29); CHLORIDE 104 mmol/L (98-107); CREATININE 0.71 mg/dL (0.60-1.30); GLOMERULAR FILTR. RATE CALC > 60 mL/min (>60); GLUCOSE,RANDOM 75 mg/dL (70-110); POTASSIUM 3.9 mmol/L (3.5-5.1); SODIUM SERUM 139 mmol/L (136-145)
[2023-04-27] MEDS: SODIUM CHLORIDE 0.45% 1,000 ML IV SCH (07:53)
[2023-04-27] MEDS: PANTOPRAZOLE SODIUM 40 MG/VIAL IVP SCH (08:35)
[2023-04-27] MEDS: THIAMINE 100 MG/ML 2 ML VIAL IVP SCH (08:35)
[2023-04-27] MEDS: ETHYL ALCOHOL 62% ANTISEPTIC NASAL SANITIZER 0.6 ML AMPUL NASAL SCH ×2 (08:36→20:54)
[2023-04-27] MEDS: DOCUSATE SODIUM 100 MG CAPSULE PO SCH ×2 (08:39→20:55)
[2023-04-27] MEDS: AmLODIPine BESYLATE 5 MG TABLET PO SCH (08:39)
[2023-04-27] MEDS: ASPIRIN 81 MG CHEWABLE TABLET PO SCH (08:39)
[2023-04-27 11:15] VITALS: BP 126/71; PULSE 88; RESP 18; TEMP 98.2
[2023-04-27 19:39] VITALS: BP 119/83; PULSE 98; RESP 19; TEMP 98.1
[2023-04-27] MEDS: FOLIC ACID 1 MG TABLET PO SCH (20:54)
[2023-04-27] MEDS: ATORVASTATIN CALCIUM 40 MG TABLET PO SCH (20:54)
[2023-04-27 23:52] VITALS: BP 146/95; PULSE 110; RESP 19; TEMP 97.8
[2023-04-28] MEDS: HEPARIN SODIUM,PORCINE 5,000 UNITS/ML VIAL SQ SCH ×3 (01:50→17:06)
[2023-04-28] MEDS: SODIUM CHLORIDE 0.45% 1,000 ML IV SCH ×2 (01:51→20:54)
[2023-04-28 04:47] VITALS: BP 155/82; PULSE 124; RESP 19; TEMP 98.4
[2023-04-28 07:59] VITALS: BP 131/82; PULSE 90; RESP 16; TEMP 98.1
[2023-04-28] MEDS: ETHYL ALCOHOL 62% ANTISEPTIC NASAL SANITIZER 0.6 ML AMPUL NASAL SCH ×2 (09:17→20:55)
[2023-04-28] MEDS: AmLODIPine BESYLATE 5 MG TABLET PO SCH (09:17)
[2023-04-28] MEDS: DOCUSATE SODIUM 100 MG CAPSULE PO SCH ×2 (09:17→20:54)
[2023-04-28] MEDS: PANTOPRAZOLE SODIUM 40 MG/VIAL IVP SCH (09:17)
[2023-04-28] MEDS: ASPIRIN 81 MG CHEWABLE TABLET PO SCH (09:17)
[2023-04-28] MEDS: THIAMINE 100 MG/ML 2 ML VIAL IVP SCH (09:18)
[2023-04-28 11:00] VITALS: BP 125/80; PULSE 115; RESP 18; TEMP 98.1
[2023-04-28 16:03] VITALS: BP 130/78; PULSE 101; RESP 19; TEMP 98
[2023-04-28 20:54] VITALS: BP 135/85; PULSE 102; RESP 24; TEMP 98.3
[2023-04-28] MEDS: ATORVASTATIN CALCIUM 40 MG TABLET PO SCH (20:54)
[2023-04-28] MEDS: FOLIC ACID 1 MG TABLET PO SCH (20:55)
[2023-04-29 00:32] VITALS: BP 125/78; PULSE 92; RESP 20; TEMP 99
[2023-04-29] MEDS: HEPARIN SODIUM,PORCINE 5,000 UNITS/ML VIAL SQ SCH ×3 (00:32→16:01)
[2023-04-29 05:18] VITALS: BP 136/87; PULSE 92; RESP 20; TEMP 98
[2023-04-29 06:38] LABS: MAGNESIUM 2.2 mg/dL (1.80-2.40)
[2023-04-29 08:27] VITALS: BP 127/85; PULSE 88; RESP 18; TEMP 97.9
[2023-04-29] MEDS: PANTOPRAZOLE SODIUM 40 MG/VIAL IVP SCH (08:59)
[2023-04-29] MEDS: DOCUSATE SODIUM 100 MG CAPSULE PO SCH ×2 (09:00→21:11)
[2023-04-29] MEDS: AmLODIPine BESYLATE 5 MG TABLET PO SCH (09:00)
[2023-04-29] MEDS: THIAMINE 100 MG/ML 2 ML VIAL IVP SCH (09:00)
[2023-04-29] MEDS: ASPIRIN 81 MG CHEWABLE TABLET PO SCH (09:01)
[2023-04-29] MEDS: ETHYL ALCOHOL 62% ANTISEPTIC NASAL SANITIZER 0.6 ML AMPUL NASAL SCH ×2 (09:03→21:11)
[2023-04-29 13:45] VITALS: BP 127/84; PULSE 97; RESP 18; TEMP 99
[2023-04-29] MEDS: SODIUM CHLORIDE 0.45% 1,000 ML IV SCH (15:46)
[2023-04-29 16:20] VITALS: BP 125/76; PULSE 93; RESP 20; TEMP 99.1
[2023-04-29 20:20] VITALS: BP 126/79; PULSE 84; RESP 18; TEMP 98.6
[2023-04-29] MEDS: FOLIC ACID 1 MG TABLET PO SCH (21:11)
[2023-04-29] MEDS: ATORVASTATIN CALCIUM 40 MG TABLET PO SCH (21:11)
[2023-04-30] MEDS: HEPARIN SODIUM,PORCINE 5,000 UNITS/ML VIAL SQ SCH (00:10)
[2023-04-30 00:32] VITALS: BP 122/75; PULSE 82; RESP 18; TEMP 98.5
[2023-04-30 04:00] VITALS: BP 124/76; PULSE 83; RESP 15; TEMP 98.4
[2023-04-30 08:23] VITALS: BP 119/78; PULSE 97; RESP 18; TEMP 98.5
[2023-04-30] MEDS: THIAMINE 100 MG/ML 2 ML VIAL IVP SCH (09:40)
[2023-04-30] MEDS: PANTOPRAZOLE SODIUM 40 MG/VIAL IVP SCH (09:40)
[2023-04-30] MEDS: DOCUSATE SODIUM 100 MG CAPSULE PO SCH ×2 (09:41→20:06)
[2023-04-30] MEDS: AmLODIPine BESYLATE 5 MG TABLET PO SCH (09:41)
[2023-04-30] MEDS: ETHYL ALCOHOL 62% ANTISEPTIC NASAL SANITIZER 0.6 ML AMPUL NASAL SCH ×2 (09:42→20:06)
[2023-04-30 11:15] VITALS: BP 138/76; PULSE 55; RESP 18; TEMP 98.1
[2023-04-30 15:27] VITALS: BP 112/80; PULSE 85; RESP 17; TEMP 98.2
[2023-04-30 19:58] VITALS: BP 141/86; PULSE 92; RESP 18; TEMP 98.3
[2023-04-30] MEDS: FOLIC ACID 1 MG TABLET PO SCH (20:06)
[2023-04-30] MEDS: ATORVASTATIN CALCIUM 40 MG TABLET PO SCH (20:06)
[2023-05-01] VITALS (7 sets, daily range): BP systolic 111–144; BP diastolic 72–89; PULSE 83–108; RESP 18–20; TEMP 97.8–98.7
[2023-05-01] MEDS: AmLODIPine BESYLATE 5 MG TABLET PO SCH (08:12)
[2023-05-01] MEDS: PANTOPRAZOLE SODIUM 40 MG/VIAL IVP SCH (08:12)
[2023-05-01] MEDS: THIAMINE 100 MG/ML 2 ML VIAL IVP SCH (08:13)
[2023-05-01] MEDS: DOCUSATE SODIUM 100 MG CAPSULE PO SCH ×2 (08:13→19:39)
[2023-05-01] MEDS: ETHYL ALCOHOL 62% ANTISEPTIC NASAL SANITIZER 0.6 ML AMPUL NASAL SCH ×2 (08:13→19:39)
[2023-05-01] MEDS: ATORVASTATIN CALCIUM 40 MG TABLET PO SCH (19:38)
[2023-05-01] MEDS: FOLIC ACID 1 MG TABLET PO SCH (19:39)
[2023-05-02 05:12] VITALS: BP 117/74; PULSE 91; RESP 18; TEMP 98
[2023-05-02 08:05] VITALS: BP 134/80; PULSE 88; RESP 18; TEMP 98
[2023-05-02] MEDS: ETHYL ALCOHOL 62% ANTISEPTIC NASAL SANITIZER 0.6 ML AMPUL NASAL SCH (08:36)
[2023-05-02] MEDS: DOCUSATE SODIUM 100 MG CAPSULE PO SCH (08:36)
[2023-05-02] MEDS: THIAMINE 100 MG/ML 2 ML VIAL IVP SCH (08:37)
[2023-05-02] MEDS: AmLODIPine BESYLATE 5 MG TABLET PO SCH (08:37)
[2023-05-02] MEDS: PANTOPRAZOLE SODIUM 40 MG/VIAL IVP SCH (08:37)
[2023-05-02] MEDS ORDERED: ATOR40TA28 PO (12:58)
[2023-05-02] MEDS ORDERED: FOLI-130 PO (12:59)
[2023-05-02] MEDS ORDERED: THIA100T80 PO (12:59)
[2023-05-02 15:19] VITALS: BP 109/52; PULSE 68; RESP 17; TEMP 97.8
[2023-05-02 15:21] VITALS: BP 114/78; PULSE 74; RESP 20; TEMP 98.1
[2023-05-02 16:11] LABS: COVID AG,FIA SOURCE NASOPHARYNGEAL
[2023-05-09] MEDS ORDERED: PALIPERIDONE PALMITATE 234 MG/1.5 ML SYRINGE IM SCH (09:00)
== END 2023-05-02 19:00 | DRG 55 ==
LOC: 5S 10:30 → 6S 05-01 21:25
PROVIDERS: ADMIT Internal Medicine; ATTEND Internal Medicine
DX: S06.5XAA Traumatic subdural hemorrhage with loss of consciousness status unknown, initial encounter (principal); G93.40 Encephalopathy, unspecified; E43 Unspecified severe protein-calorie malnutrition; R62.7 Adult failure to thrive; F25.0 Schizoaffective disorder, bipolar type; I10 Essential (primary) hypertension; R00.0 Tachycardia, unspecified; Z20.822 Contact with and (suspected) exposure to COVID-19; J44.9 Chronic obstructive pulmonary disease, unspecified; R13.10 Dysphagia, unspecified; S60.929A Unspecified superficial injury of unspecified hand, initial encounter; Y92.230 Patient room in hospital as the place of occurrence of the external cause; E78.5 Hyperlipidemia, unspecified; W06.XXXA Fall from bed, initial encounter; R27.0 Ataxia, unspecified; B35.1 Tinea unguium; F31.9 Bipolar disorder, unspecified; F41.9 Anxiety disorder, unspecified; S80.211A Abrasion, right knee, initial encounter; S80.212A Abrasion, left knee, initial encounter; Z59.00 Homelessness unspecified; Z91.81 History of falling; Z88.8 Allergy status to other drugs, medicaments and biological substances; Z79.899 Other long term (current) drug therapy; Y93.89 Activity, other specified; Y99.8 Other external cause status
CPT/HCPCS: 70450; 70553; 71045; 74230; 80048; 80053; 81001; 81003; 82140; 82550; 83735; 84100; 84443; 85025; 85379; 87081; 92526; 92610; 92611; 93970; C9113; G0378; J1644; J3411; J7030; 36415-L1; 36415-TC

== ENCOUNTER 2024-10-08 18:57 | Inpatient (IN) | payer MEDICAID, OTHER ==
[~2024-10-08] VITALS: Ht 177.8 cm; Wt 47.2 kg
[~2024-10-08 18:57] MED LIST changes: +ATOR40TA28 PO; +FOLI-130 PO; +THIA100T80 PO; -VENL150C4 PO; +VENL150C5 PO
[2024-10-08 19:40] LABS: BASOPHILS % (AUTO) 0.4 % (0.0-2.0); EOSINOPHILS % (AUTO) 2.5 % (1.0-6.0); HEMATOCRIT 39.2 % (41-53); HEMOGLOBIN 13.5 g/dL (13.5-17.5); LYMPHOCYTES # (AUTO) 2.3 K/uL (1.0-4.8); LYMPHOCYTES % (AUTO) 23.5 % (22.0-44.0); MEAN CORPUSCULAR HEMOGLOBIN 34.8 pg (26.0-34.0); MEAN CORPUSCULAR HGB CONC 34.5 G/dL (31.0-37.0); MEAN CORPUSCULAR VOLUME 101 fL (80-100); MONOCYTES # (AUTO) 0.5 K/uL (0.1-1.0); MONOCYTES % (AUTO) 5.1 % (2.0-9.0); NEUTROPHILS # (AUTO) 6.7 K/uL (1.8-7.7); NEUTROPHILS % (AUTO) 68.5 % (40.0-70.0); PLATELET COUNT (AUTO) 223 K/uL (150-450); RED BLOOD CELL COUNT(AUTO) 3.89 MIL/uL (4.50-5.90); RED CELL DISTRIBUTION WIDTH 13.6 % (11.5-14.5); WHITE BLOOD COUNT (AUTO) 9.7 K/uL (4.5-11.0)
[2024-10-08 19:45] LABS: ANION GAP 5 mmol/L (8-16); CALCIUM, TOTAL 8.6 mg/dL (8.8-10.5); CARBON DIOXIDE 30 mmol/L (22-29); CHLORIDE 105 mmol/L (98-107); CREATININE 1.09 mg/dL (0.60-1.30); GLOMERULAR FILTR. RATE CALC > 60 mL/min (>60); GLUCOSE,RANDOM 127 mg/dL (70-110); POTASSIUM 4.1 mmol/L (3.5-5.1); SODIUM SERUM 140 mmol/L (136-145); UREA NITROGEN, BLOOD 15 mg/dL (7-18)
[2024-10-08 19:56] LABS: ALCOHOL, BLOOD (SERUM) < 3 mg/dL (0-10)
[2024-10-08 20:24] LABS: COVID AG,FIA SOURCE NASAL SWAB
[2024-10-08 20:43] LABS: SARS-COV2 (COVID) ANTIGEN,FIA Negative (Negative)
[2024-10-08 23:15] LABS: ALCOHOL, URINE DRUG SCREEN NEGATIVE (NEGATIVE); AMPHET/METH SCREEN,URINE NEGATIVE (NEGATIVE); BARBITURATE SCREEN, URINE NEGATIVE (NEGATIVE); BENZODIAZEPINES SCREEN,URINE NEGATIVE (NEGATIVE); CANNABINOID SCREEN,URINE NEGATIVE (NEGATIVE); COCAINE SCREEN,URINE NEGATIVE (NEGATIVE); METHADONE SCREEN, URINE NEGATIVE (NEGATIVE); OPIATE SCREEN,URINE NEGATIVE (NEGATIVE); PHENCYCLIDINE SCREEN,URINE NEGATIVE (NEGATIVE)
[2024-10-09] VITALS (8 sets, daily range): BP systolic 109–129; BP diastolic 69–88; PULSE 64–79; RESP 16–18; TEMP 97.5–98.7; O2SAT 98–99
[2024-10-09] MEDS ORDERED: MAGNESIUM HYDROXIDE SUSPENSION 30 ML UDCUP PO PRN (06:30)
[2024-10-09] MEDS ORDERED: ONDANSETRON 4 MG TABLET PO PRN (06:30)
[2024-10-09] MEDS ORDERED: ACETAMINOPHEN 325 MG TABLET PO PRN (06:30)
[2024-10-09] MEDS ORDERED: GuaiFENesin/D-METHORPHAN [SUGAR-FREE] 200-20MG/10 ML SYRUP UDCUP PO PRN (06:30)
[2024-10-09] MEDS ORDERED: PETROLATUM,WHITE 28 GM JELLY TP PRN (06:30)
[2024-10-09] MEDS ORDERED: CloNIDine HCL 0.1 MG TABLET PO PRN (06:30)
[2024-10-09] MEDS ORDERED: MAG HYDROX/ALUMINUM HYD/SIMETH ES 30 ML SUSPENSION UDCUP PO PRN (06:30)
[2024-10-09] MEDS ORDERED: LOPERAMIDE HCL 2 MG CAPSULE PO PRN (06:30)
[2024-10-09] MEDS ORDERED: NICOTINE 14 MG/24 HOUR PATCH TD PRN (06:30)
[2024-10-09] MEDS ORDERED: IBUPROFEN 400 MG TABLET PO PRN (06:30)
[2024-10-09] MEDS ORDERED: ALBUTEROL SULFATE HFA 90 MCG/PUFF 8 GM INHALER IH PRN (06:30)
[2024-10-09] MEDS: LORazepam 2 MG TABLET PO PRN (09:40)
[2024-10-09] MEDS: AmLODIPine BESYLATE 5 MG TABLET PO SCH (09:40)
[2024-10-09] MEDS: THIAMINE 100 MG TABLET PO SCH (09:40)
[2024-10-09] MEDS: PANTOPRAZOLE SODIUM 40 MG DR TABLET PO SCH (09:40)
[2024-10-09] MEDS: CHOLECALCIFEROL (VIT D3) 1,000 UNITS [25 MCG] TABLET PO SCH (09:40)
[2024-10-09] MEDS: FOLIC ACID 1 MG TABLET PO SCH (21:06)
[2024-10-09] MEDS: ATORVASTATIN CALCIUM 40 MG TABLET PO SCH (21:07)
[2024-10-09] MEDS: ZOLPIDEM TARTRATE 10 MG TABLET PO PRN (21:07)
[2024-10-10] MEDS: HALOPERIDOL 5 MG TABLET PO PRN (04:04)
[2024-10-10 07:30] LABS: HEMOGLOBIN A1C 5.4 % (3.8-5.6)
[2024-10-10 07:41] VITALS: BP 100/79; RESP 17; O2SAT 99
[2024-10-10 07:56] LABS: CHOL/HDL RATIO 2.1 (4.2-7.3); THYROID STIMULATING HORMONE 1.51 uIU/mL (0.36-3.74)
[2024-10-10 12:15] VITALS: BP 124/87; PULSE 100; RESP 17; TEMP 97.9; O2SAT 99
[2024-10-10] MEDS: SERTRALINE HCL 50 MG TABLET PO SCH (14:40)
[2024-10-10 20:30] VITALS: BP 12/78; PULSE 86; RESP 18; TEMP 97.4; O2SAT 97
[2024-10-11 12:33] VITALS: BP 99/59; PULSE 68; RESP 18; TEMP 97.3; O2SAT 97
[2024-10-11 20:50] VITALS: RESP 18
[2024-10-12 08:00] VITALS: BP 113/73; PULSE 63; RESP 17; TEMP 98; O2SAT 98
[2024-10-12 20:28] VITALS: RESP 18
[2024-10-13 08:05] VITALS: BP 94/54; PULSE 74; RESP 18; TEMP 98.6; O2SAT 94
[2024-10-13 09:30] VITALS: BP 98/54; PULSE 62; RESP 18; TEMP 98.6; O2SAT 96
[2024-10-13 20:03] VITALS: RESP 18
[2024-10-14 08:00] VITALS: BP 114/70; PULSE 75; RESP 18; TEMP 97.8; O2SAT 98
[2024-10-14] MEDS: MULTIVITAMINS WITH MINERALS, THERAPEUTIC TABLET PO SCH (09:17)
[2024-10-14 21:15] VITALS: RESP 18; TEMP 98.5
[2024-10-15 11:23] VITALS: BP 122/60; PULSE 84; RESP 18; TEMP 97.5; O2SAT 98
[2024-10-15 20:48] VITALS: BP 119/77; PULSE 77; TEMP 97
[2024-10-16 08:08] VITALS: BP 117/73; PULSE 78; RESP 18; TEMP 97.9; O2SAT 98
[2024-10-16] MEDS ORDERED: MECLIZINE HCL 25 MG TABLET PO PRN (14:45)
[2024-10-16 20:06] VITALS: RESP 19; TEMP 97.8
[2024-10-17 08:12] VITALS: BP 108/65; PULSE 65; RESP 16; TEMP 97.3; O2SAT 98
[2024-10-17] MEDS: DOCUSATE SODIUM 100 MG CAPSULE PO PRN (12:31)
[2024-10-17] MEDS: BusPIRone HCL 10 MG TABLET PO SCH (17:44)
[2024-10-17 21:15] VITALS: RESP 16; TEMP 97
[2024-10-18 09:00] VITALS: BP 108/72; PULSE 74; RESP 17; TEMP 99.2; O2SAT 97
[2024-10-18 20:19] VITALS: RESP 18
[2024-10-19 08:48] VITALS: BP 113/66; PULSE 65; RESP 16; TEMP 98.6; O2SAT 98
[2024-10-19 20:46] VITALS: RESP 18
[2024-10-20 08:02] VITALS: BP 98/63; PULSE 68; RESP 17; TEMP 97.8; O2SAT 98
[2024-10-20] MEDS ORDERED: SERT-158 PO (15:32)
[2024-10-20] MEDS ORDERED: BUSP10TA23 PO (15:34)
[2024-10-28] MEDS ORDERED: PALIPERIDONE PALMITATE 234 MG/1.5 ML SYRINGE IM SCH (09:00)
== END 2024-10-20 18:54 | DRG 750 ==
LOC: EMS 18:57 → 3EC 10-09 00:32
PROVIDERS: ADMIT Psychiatry & Neurology Psychiatry; ATTEND Psychiatry & Neurology Psychiatry
PROC: GZHZZZZ Group Psychotherapy (ICD-10-PCS; principal; 2024-10-09)
PROC: GZ52ZZZ Individual Psychotherapy, Cognitive (ICD-10-PCS; 2024-10-12)
DX: F25.0 Schizoaffective disorder, bipolar type (principal); R45.851 Suicidal ideations; J44.9 Chronic obstructive pulmonary disease, unspecified; E78.5 Hyperlipidemia, unspecified; F41.9 Anxiety disorder, unspecified; I10 Essential (primary) hypertension; G47.00 Insomnia, unspecified; Z20.822 Contact with and (suspected) exposure to COVID-19; F32.A Depression, unspecified; Z79.899 Other long term (current) drug therapy; Z87.891 Personal history of nicotine dependence; Z91.81 History of falling; Z91.51 Personal history of suicidal behavior
CPT/HCPCS: 80048; 80061; 80307; 83036; 84443; 85025; 87081; 87481; 99285; G0480

== ENCOUNTER 2024-10-23 12:54 | Inpatient (IN) | payer MEDICAID, OTHER ==
[~2024-10-23] VITALS: Ht 167.6 cm; Wt 45.0 kg
[~2024-10-23 12:54] MED LIST changes: +BUSP10TA23 PO; -BUSP15 PO; -MULT-1239 PO; +SERT-158 PO; -VENL150C5 PO
[2024-10-23] MEDS ORDERED: MAG HYDROX/ALUMINUM HYD/SIMETH ES 30 ML SUSPENSION UDCUP PO PRN (13:30)
[2024-10-23] MEDS ORDERED: MAGNESIUM HYDROXIDE SUSPENSION 30 ML UDCUP PO PRN (13:30)
[2024-10-23] MEDS ORDERED: ACETAMINOPHEN 325 MG TABLET PO PRN (13:30)
[2024-10-23] MEDS ORDERED: LOPERAMIDE HCL 2 MG CAPSULE PO PRN (13:30)
[2024-10-23 13:47] LABS: BASOPHILS % (AUTO) 0.3 % (0.0-2.0); EOSINOPHILS % (AUTO) 0.2 % (1.0-6.0); HEMATOCRIT 44.8 % (41-53); LYMPHOCYTES # (AUTO) 1.3 K/uL (1.0-4.8); LYMPHOCYTES % (AUTO) 16.6 % (22.0-44.0); MEAN CORPUSCULAR HEMOGLOBIN 34.2 pg (26.0-34.0); MEAN CORPUSCULAR HGB CONC 33.5 G/dL (31.0-37.0); MEAN CORPUSCULAR VOLUME 102 fL (80-100); MONOCYTES # (AUTO) 0.3 K/uL (0.1-1.0); MONOCYTES % (AUTO) 3.6 % (2.0-9.0); NEUTROPHILS # (AUTO) 6.2 K/uL (1.8-7.7); NEUTROPHILS % (AUTO) 79.3 % (40.0-70.0); PLATELET COUNT (AUTO) 243 K/uL (150-450); RED BLOOD CELL COUNT(AUTO) 4.38 MIL/uL (4.50-5.90); RED CELL DISTRIBUTION WIDTH 13.4 % (11.5-14.5); WHITE BLOOD COUNT (AUTO) 7.8 K/uL (4.5-11.0)
[2024-10-23 13:55] LABS: ANION GAP 7 mmol/L (8-16); CALCIUM, TOTAL 8.8 mg/dL (8.8-10.5); CARBON DIOXIDE 28 mmol/L (22-29); CHLORIDE 107 mmol/L (98-107); CREATININE 1.03 mg/dL (0.60-1.30); GLOMERULAR FILTR. RATE CALC > 60 mL/min (>60); GLUCOSE,RANDOM 97 mg/dL (70-110); POTASSIUM 3.8 mmol/L (3.5-5.1); SODIUM SERUM 142 mmol/L (136-145); UREA NITROGEN, BLOOD 15 mg/dL (7-18)
[2024-10-23 14:08] LABS: ALCOHOL, BLOOD (SERUM) < 3 mg/dL (0-10)
[2024-10-23 14:33] LABS: COVID AG,FIA SOURCE NASAL SWAB
[2024-10-23 14:41] LABS: PH,URINE DRUG SCREEN 5.5 (5.0-8.0)
[2024-10-23 14:51] LABS: SARS-COV2 (COVID) ANTIGEN,FIA Negative (Negative)
[2024-10-23 15:02] LABS: ALCOHOL, URINE DRUG SCREEN NEGATIVE (NEGATIVE); AMPHET/METH SCREEN,URINE NEGATIVE (NEGATIVE); BARBITURATE SCREEN, URINE NEGATIVE (NEGATIVE); BENZODIAZEPINES SCREEN,URINE NEGATIVE (NEGATIVE); CANNABINOID SCREEN,URINE NEGATIVE (NEGATIVE); COCAINE SCREEN,URINE NEGATIVE (NEGATIVE); METHADONE SCREEN, URINE NEGATIVE (NEGATIVE); OPIATE SCREEN,URINE NEGATIVE (NEGATIVE); PHENCYCLIDINE SCREEN,URINE NEGATIVE (NEGATIVE)
[2024-10-24] MEDS: SERTRALINE HCL 50 MG TABLET PO SCH (08:30)
[2024-10-24] MEDS: BusPIRone HCL 10 MG TABLET PO SCH (08:30)
[2024-10-25] MEDS ORDERED: PALI234D IM (11:44)
[2024-10-26 03:57] VITALS: BP 146/83; PULSE 70; RESP 18; TEMP 98.4; O2SAT 98
[2024-10-26] MEDS ORDERED: INFLUENZA VIRUS VACCINE TVS (6MO+) 2024-25/PF 45 MCG/0.5 ML SYRINGE IM. ONE (04:45)
[2024-10-26 10:15] VITALS: BP 135/83; PULSE 85; RESP 19; TEMP 98.3; O2SAT 98
[2024-10-26] MEDS ORDERED: PETROLATUM,WHITE 28 GM JELLY TP PRN (15:30)
[2024-10-26] MEDS ORDERED: GuaiFENesin/D-METHORPHAN [SUGAR-FREE] 200-20MG/10 ML SYRUP UDCUP PO PRN (15:30)
[2024-10-26] MEDS ORDERED: IBUPROFEN 400 MG TABLET PO PRN (15:30)
[2024-10-26] MEDS ORDERED: ACETAMINOPHEN 325 MG TABLET PO PRN (15:30)
[2024-10-26] MEDS ORDERED: CloNIDine HCL 0.1 MG TABLET PO PRN (15:30)
[2024-10-26] MEDS ORDERED: ONDANSETRON 4 MG TABLET PO PRN (15:30)
[2024-10-26] MEDS ORDERED: MAG HYDROX/ALUMINUM HYD/SIMETH ES 30 ML SUSPENSION UDCUP PO PRN (15:30)
[2024-10-26] MEDS ORDERED: ALBUTEROL SULFATE HFA 90 MCG/PUFF 8 GM INHALER IH PRN (15:30)
[2024-10-26] MEDS ORDERED: NICOTINE 14 MG/24 HOUR PATCH TD PRN (15:30)
[2024-10-26] MEDS ORDERED: LOPERAMIDE HCL 2 MG CAPSULE PO PRN (15:30)
[2024-10-26 21:51] VITALS: BP 114/62; PULSE 81; RESP 18; TEMP 98.9; O2SAT 96
[2024-10-27 07:25] LABS: BASOPHILS % (AUTO) 0.3 % (0.0-2.0); EOSINOPHILS % (AUTO) 3.3 % (1.0-6.0); HEMATOCRIT 41.8 % (41-53); HEMOGLOBIN 14.1 g/dL (13.5-17.5); LYMPHOCYTES # (AUTO) 2.4 K/uL (1.0-4.8); LYMPHOCYTES % (AUTO) 29.6 % (22.0-44.0); MEAN CORPUSCULAR HEMOGLOBIN 34.2 pg (26.0-34.0); MEAN CORPUSCULAR HGB CONC 33.8 G/dL (31.0-37.0); MEAN CORPUSCULAR VOLUME 102 fL (80-100); MONOCYTES # (AUTO) 0.3 K/uL (0.1-1.0); MONOCYTES % (AUTO) 3.9 % (2.0-9.0); NEUTROPHILS # (AUTO) 5.1 K/uL (1.8-7.7); NEUTROPHILS % (AUTO) 62.9 % (40.0-70.0); PLATELET COUNT (AUTO) 247 K/uL (150-450); RED BLOOD CELL COUNT(AUTO) 4.12 MIL/uL (4.50-5.90); RED CELL DISTRIBUTION WIDTH 13.2 % (11.5-14.5); WHITE BLOOD COUNT (AUTO) 8.1 K/uL (4.5-11.0)
[2024-10-27 07:32] LABS: HEMOGLOBIN A1C 4.9 % (3.8-5.6)
[2024-10-27 07:41] LABS: ALANINE AMINOTRANSFERASE 16 U/L (12-78); ALBUMIN 3.1 g/dL (3.4-5.0); ALKALINE PHOSPHATASE 61 U/L (46-116); ANION GAP 3 mmol/L (8-16); ASPARTATE AMINOTRANSFERASE 10 U/L (15-37); BILIRUBIN,TOTAL 0.3 mg/dL (0.1-1.0); CALCIUM, TOTAL 8.1 mg/dL (8.8-10.5); CARBON DIOXIDE 29 mmol/L (22-29); CHLORIDE 109 mmol/L (98-107); CREATININE 1.01 mg/dL (0.60-1.30); GLOMERULAR FILTR. RATE CALC > 60 mL/min (>60); GLUCOSE,RANDOM 91 mg/dL (70-110); PHOSPHORUS 3.6 mg/dL (2.5-4.9); POTASSIUM 4.5 mmol/L (3.5-5.1); SODIUM SERUM 141 mmol/L (136-145); THYROID STIMULATING HORMONE 0.99 uIU/mL (0.36-3.74); TOTAL PROTEIN, SERUM 6.1 g/dL (6.4-8.2); UREA NITROGEN, BLOOD 17 mg/dL (7-18)
[2024-10-27 08:35] LABS: RBC MORPHOLOGY COMMENT ABNORMAL RBC MORPH
[2024-10-27 09:04] LABS: CHOL/HDL RATIO 1.9 (4.2-7.3); CHOLESTEROL 111 mg/dL (131-200); HDL CHOLESTEROL 57 mg/dL (40-60); LDL CHOL (CALC.) 50 mg/dL (0-130); TRIGLYCERIDES 20 mg/dL (15-150)
[2024-10-27 10:29] VITALS: BP 100/62; PULSE 73; RESP 17; TEMP 98.4; O2SAT 98
[2024-10-27] MEDS: MULTIVITAMINS, THERAPEUTIC TABLET PO SCH (10:32)
[2024-10-27] MEDS: THIAMINE 100 MG TABLET PO SCH (10:32)
[2024-10-27] MEDS: CIPROFLOXACIN HCL 0.3% 2.5 ML OPHTHALMIC SOLUTION OU SCH (20:35)
[2024-10-27 21:08] VITALS: BP 110/67; PULSE 72; RESP 18; TEMP 98.3; O2SAT 96
[2024-10-28 09:10] VITALS: BP 108/71; PULSE 79; RESP 18; TEMP 98.2; O2SAT 98
[2024-10-28] MEDS: PALIPERIDONE PALMITATE 234 MG/1.5 ML SYRINGE IM SCH (09:38)
[2024-10-28] MEDS: LORazepam 2 MG TABLET PO PRN (15:55)
[2024-10-28 20:18] VITALS: BP 114/74; PULSE 76; RESP 19; TEMP 98; O2SAT 97
[2024-10-28] MEDS: DOCUSATE SODIUM 100 MG CAPSULE PO PRN (21:54)
[2024-10-28] MEDS: ZOLPIDEM TARTRATE 10 MG TABLET PO PRN (22:36)
[2024-10-29 11:05] VITALS: BP 137/78; PULSE 88; RESP 18; TEMP 98.1; O2SAT 98
[2024-10-29] MEDS: MAGNESIUM HYDROXIDE SUSPENSION 30 ML UDCUP PO PRN (16:12)
[2024-10-29] MEDS: HALOPERIDOL 5 MG TABLET PO PRN (22:27)
[2024-10-29 23:40] VITALS: BP 130/69; PULSE 86; RESP 18; TEMP 98.2; O2SAT 97
[2024-10-30 08:29] VITALS: BP 118/74; PULSE 78; RESP 18; TEMP 97.2; O2SAT 98
[2024-10-30 20:17] VITALS: BP 117/73; PULSE 83; RESP 16; TEMP 98.5; O2SAT 96
[2024-10-31 11:39] VITALS: BP 104/70; PULSE 94; RESP 18; TEMP 97.7; O2SAT 96
[2024-10-31 18:28] VITALS: RESP 18
[2024-10-31 22:07] VITALS: BP 113/74; PULSE 98; RESP 18; TEMP 98.8; O2SAT 94
[2024-11-01 08:21] VITALS: BP 110/71; PULSE 85; RESP 17; TEMP 97.9; O2SAT 95
[2024-11-01] MEDS ORDERED: CIPR2.5D17 OU (13:36)
== END 2024-11-01 19:27 | DRG 750 ==
LOC: EMS 12:55 → 3EI 10-26 03:53
PROVIDERS: ADMIT Psychiatry & Neurology Psychiatry; ATTEND Psychiatry & Neurology Psychiatry
PROC: GZHZZZZ Group Psychotherapy (ICD-10-PCS; principal; 2024-10-27)
DX: F25.0 Schizoaffective disorder, bipolar type (principal); E78.5 Hyperlipidemia, unspecified; J44.9 Chronic obstructive pulmonary disease, unspecified; F17.210 Nicotine dependence, cigarettes, uncomplicated; F41.9 Anxiety disorder, unspecified; F31.9 Bipolar disorder, unspecified; Z20.822 Contact with and (suspected) exposure to COVID-19; I10 Essential (primary) hypertension; K21.9 Gastro-esophageal reflux disease without esophagitis; H10.9 Unspecified conjunctivitis; Z88.8 Allergy status to other drugs, medicaments and biological substances; Z79.899 Other long term (current) drug therapy
CPT/HCPCS: 80048; 80053; 80061; 80307; 83036; 83735; 84100; 84443; 85025; 87081; 87481; 99285; G0480

== ENCOUNTER 2024-12-28 11:00 | Inpatient (IN) | payer MEDICAID, OTHER ==
[~2024-12-28] VITALS: Ht 167.6 cm; Wt 46.2 kg
[~2024-12-28 11:00] MED LIST changes: -ATOR40TA28 PO; +CIPR2.5D17 OU; -FOLI-130 PO
[2024-12-28 12:50] LABS: BASOPHILS % (AUTO) 0.4 % (0.0-2.0); EOSINOPHILS % (AUTO) 0.4 % (1.0-6.0); HEMOGLOBIN 14.9 g/dL (13.5-17.5); LYMPHOCYTES # (AUTO) 1.1 K/uL (1.0-4.8); MEAN CORPUSCULAR HEMOGLOBIN 34.5 pg (26.0-34.0); MEAN CORPUSCULAR HGB CONC 33.8 G/dL (31.0-37.0); MEAN CORPUSCULAR VOLUME 102 fL (80-100); MONOCYTES # (AUTO) 0.2 K/uL (0.1-1.0); MONOCYTES % (AUTO) 3.4 % (2.0-9.0); NEUTROPHILS # (AUTO) 4.6 K/uL (1.8-7.7); NEUTROPHILS % (AUTO) 77.8 % (40.0-70.0); PLATELET COUNT (AUTO) 187 K/uL (150-450); RED BLOOD CELL COUNT(AUTO) 4.31 MIL/uL (4.50-5.90); RED CELL DISTRIBUTION WIDTH 12.6 % (11.5-14.5); WHITE BLOOD COUNT (AUTO) 5.9 K/uL (4.5-11.0)
[2024-12-28 13:01] LABS: ANION GAP 8 mmol/L (8-16); CALCIUM, TOTAL 8.7 mg/dL (8.8-10.5); CARBON DIOXIDE 28 mmol/L (22-29); CHLORIDE 108 mmol/L (98-107); CREATININE 0.87 mg/dL (0.60-1.30); GLOMERULAR FILTR. RATE CALC > 60 mL/min (>60); GLUCOSE,RANDOM 97 mg/dL (70-110); POTASSIUM 4.4 mmol/L (3.5-5.1); SODIUM SERUM 144 mmol/L (136-145); UREA NITROGEN, BLOOD 12 mg/dL (7-18)
[2024-12-28 13:06] LABS: ALCOHOL, BLOOD (SERUM) < 3 mg/dL (0-10)
[2024-12-28 13:13] LABS: RBC MORPHOLOGY COMMENT ABNORMAL RBC MORPH
[2024-12-28 13:35] LABS: APPEARANCE,URINE CLEAR (CLEAR); BILIRUBIN,URINE NEGATIVE (NEGATIVE); COLOR,URINE LIGHT YELLOW (YELLOW); GLUCOSE, URINE (UA) NEGATIVE (NEGATIVE); KETONES,URINE NEGATIVE (NEGATIVE); LEUKOCYTE ESTERASE ,URINE NEGATIVE (NEGATIVE); NITRATE,URINE NEGATIVE (NEGATIVE); OCCULT BLOOD,URINE NEGATIVE (NEGATIVE); PROTEIN,URINE NEGATIVE (NEGATIVE); SPECIFIC GRAVITIY, URINE 1.021 (1.003-1.030); UROBILINOGEN,URINE <=1.0 mg/dL (<=1.0)
[2024-12-28 13:51] LABS: ALCOHOL, URINE DRUG SCREEN NEGATIVE (NEGATIVE); AMPHET/METH SCREEN,URINE NEGATIVE (NEGATIVE); BARBITURATE SCREEN, URINE NEGATIVE (NEGATIVE); BENZODIAZEPINES SCREEN,URINE NEGATIVE (NEGATIVE); CANNABINOID SCREEN,URINE NEGATIVE (NEGATIVE); COCAINE SCREEN,URINE NEGATIVE (NEGATIVE); METHADONE SCREEN, URINE NEGATIVE (NEGATIVE); OPIATE SCREEN,URINE NEGATIVE (NEGATIVE); PHENCYCLIDINE SCREEN,URINE NEGATIVE (NEGATIVE)
[2024-12-28 14:55] LABS: COVID AG,FIA SOURCE NASAL SWAB
[2024-12-28 15:36] LABS: SARS-COV2 (COVID) ANTIGEN,FIA Negative (Negative)
[2024-12-28] MEDS ORDERED: LORazepam 2 MG TABLET PO PRN (15:45)
[2024-12-28] MEDS ORDERED: HALOPERIDOL 5 MG TABLET PO PRN (15:45)
[2024-12-28 17:18] VITALS: BP 124/79; PULSE 96; RESP 17; TEMP 98; O2SAT 97
[2024-12-28] MEDS ORDERED: MAGNESIUM HYDROXIDE SUSPENSION 30 ML UDCUP PO PRN (18:00)
[2024-12-28] MEDS ORDERED: PROMETHAZINE HCL 25 MG TABLET PO PRN (18:00)
[2024-12-28] MEDS ORDERED: GuaiFENesin/D-METHORPHAN [SUGAR-FREE] 200-20MG/10 ML SYRUP UDCUP PO PRN (18:00)
[2024-12-28] MEDS ORDERED: LOPERAMIDE HCL 2 MG CAPSULE PO PRN (18:00)
[2024-12-28] MEDS ORDERED: MAG HYDROX/ALUMINUM HYD/SIMETH ES 30 ML SUSPENSION UDCUP PO PRN (18:00)
[2024-12-28] MEDS: BENZTROPINE MESYLATE 2 MG TABLET PO ONE (18:43)
[2024-12-28 21:33] VITALS: BP 125/75; PULSE 78; RESP 18; TEMP 97.6; O2SAT 98
[2024-12-28] MEDS: GABAPENTIN 300 MG CAPSULE PO SCH (21:46)
[2024-12-28] MEDS: PROPRANOLOL HCL 10 MG TABLET PO SCH (21:47)
[2024-12-28] MEDS: ROPINIRole HCL 0.25 MG TABLET PO SCH (21:47)
[2024-12-29 07:32] LABS: BASOPHILS % (AUTO) 0.5 % (0.0-2.0); EOSINOPHILS % (AUTO) 2.8 % (1.0-6.0); HEMATOCRIT 40.6 % (41-53); HEMOGLOBIN 13.7 g/dL (13.5-17.5); LYMPHOCYTES # (AUTO) 2.3 K/uL (1.0-4.8); LYMPHOCYTES % (AUTO) 34.2 % (22.0-44.0); MEAN CORPUSCULAR HEMOGLOBIN 34.3 pg (26.0-34.0); MEAN CORPUSCULAR HGB CONC 33.6 G/dL (31.0-37.0); MEAN CORPUSCULAR VOLUME 102 fL (80-100); MONOCYTES # (AUTO) 0.3 K/uL (0.1-1.0); MONOCYTES % (AUTO) 5.3 % (2.0-9.0); NEUTROPHILS # (AUTO) 3.8 K/uL (1.8-7.7); NEUTROPHILS % (AUTO) 57.2 % (40.0-70.0); PLATELET COUNT (AUTO) 195 K/uL (150-450); RED BLOOD CELL COUNT(AUTO) 3.98 MIL/uL (4.50-5.90); RED CELL DISTRIBUTION WIDTH 12.5 % (11.5-14.5); WHITE BLOOD COUNT (AUTO) 6.6 K/uL (4.5-11.0)
[2024-12-29 08:01] LABS: HEMOGLOBIN A1C 5.2 % (3.8-5.6)
[2024-12-29 08:15] LABS: ALANINE AMINOTRANSFERASE 24 U/L (12-78); ALBUMIN 3.2 g/dL (3.4-5.0); ALKALINE PHOSPHATASE 56 U/L (46-116); ANION GAP 7 mmol/L (8-16); ASPARTATE AMINOTRANSFERASE 17 U/L (15-37); BILIRUBIN,TOTAL 0.6 mg/dL (0.1-1.0); CALCIUM, TOTAL 8.2 mg/dL (8.8-10.5); CARBON DIOXIDE 28 mmol/L (22-29); CHLORIDE 108 mmol/L (98-107); CHOL/HDL RATIO 2.6 (4.2-7.3); CHOLESTEROL 140 mg/dL (131-200); CREATININE 0.85 mg/dL (0.60-1.30); FREE T4 (FREE THYROXINE) 0.94 ng/dL (0.76-1.46); GLOMERULAR FILTR. RATE CALC > 60 mL/min (>60); GLUCOSE,RANDOM 79 mg/dL (70-110); HDL CHOLESTEROL 54 mg/dL (40-60); LDL CHOL (CALC.) 79 mg/dL (0-130); SODIUM SERUM 143 mmol/L (136-145); THYROID STIMULATING HORMONE 1.05 uIU/mL (0.36-3.74); TOTAL PROTEIN, SERUM 6.1 g/dL (6.4-8.2); TRIGLYCERIDES 34 mg/dL (15-150); UREA NITROGEN, BLOOD 14 mg/dL (7-18)
[2024-12-29] MEDS: THIAMINE 100 MG TABLET PO SCH (10:14)
[2024-12-29] MEDS: MULTIVITAMINS WITH MINERALS, THERAPEUTIC TABLET PO SCH (10:14)
[2024-12-29] MEDS: BENZTROPINE MESYLATE 2 MG TABLET PO SCH (10:14)
[2024-12-29] MEDS: FOLIC ACID 1 MG TABLET PO SCH (10:16)
[2024-12-29] MEDS: CloZAPine 25 MG TABLET PO SCH (11:16)
[2024-12-29 12:23] VITALS: BP 84/53; PULSE 51; RESP 17; TEMP 98.3; O2SAT 96
[2024-12-29 21:38] VITALS: BP 87/57; PULSE 60; RESP 18; TEMP 97.5; O2SAT 98
[2024-12-30] MEDS: CloZAPine 25 MG TABLET PO SCH ×2 (09:12→20:50)
[2024-12-30 10:13] VITALS: BP 98/56; PULSE 74; RESP 19; TEMP 97.4; O2SAT 98
[2024-12-30] MEDS: HydrOXYzine PAMOATE 50 MG CAPSULE PO PRN (18:51)
[2024-12-30 22:36] VITALS: BP 90/60; PULSE 85; RESP 18; TEMP 97.5; O2SAT 98
[2024-12-31 08:38] VITALS: BP 114/68; PULSE 98; RESP 18; TEMP 98.2; O2SAT 96
[2024-12-31] MEDS: CloZAPine 25 MG TABLET PO SCH ×2 (09:23→21:39)
[2024-12-31] MEDS: GABAPENTIN 300 MG CAPSULE PO PRN (10:10)
[2024-12-31] MEDS: OLANZapine 5 MG RAPDIS TABLET PO PRN (10:12)
[2024-12-31 21:17] VITALS: RESP 18
[2024-12-31] MEDS: MIRTAZAPINE 15 MG TABLET PO SCH (21:38)
[2024-12-31] MEDS: ZOLPIDEM TARTRATE 10 MG TABLET PO PRN (21:38)
[2024-12-31] MEDS: DIVALPROEX SODIUM 125 MG DR CAPSULE PO SCH (21:39)
[2025-01-01 09:52] VITALS: BP 153/82; PULSE 106; RESP 17; TEMP 97.9; O2SAT 98
[2025-01-01] MEDS: CloZAPine 25 MG TABLET PO SCH (10:21)
[2025-01-01] MEDS: DIVALPROEX SODIUM 125 MG DR CAPSULE PO SCH (10:22)
[2025-01-01] MEDS: MEGESTROL ACETATE 400 MG/10 ML SUSPENSION UDCUP PO SCH (18:43)
[2025-01-01 21:45] VITALS: BP 159/96; PULSE 100; RESP 16; TEMP 98; O2SAT 96
[2025-01-02 10:25] LABS: BASOPHILS % (AUTO) 0.2 % (0.0-2.0); EOSINOPHILS % (AUTO) 0.4 % (1.0-6.0); HEMATOCRIT 48.1 % (41-53); HEMOGLOBIN 16.1 g/dL (13.5-17.5); LYMPHOCYTES # (AUTO) 1.4 K/uL (1.0-4.8); MEAN CORPUSCULAR HEMOGLOBIN 34.1 pg (26.0-34.0); MEAN CORPUSCULAR HGB CONC 33.3 G/dL (31.0-37.0); MEAN CORPUSCULAR VOLUME 102 fL (80-100); MONOCYTES # (AUTO) 0.7 K/uL (0.1-1.0); MONOCYTES % (AUTO) 4.9 % (2.0-9.0); NEUTROPHILS # (AUTO) 11.6 K/uL (1.8-7.7); NEUTROPHILS % (AUTO) 84.5 % (40.0-70.0); PLATELET COUNT (AUTO) 208 K/uL (150-450); RED BLOOD CELL COUNT(AUTO) 4.71 MIL/uL (4.50-5.90); RED CELL DISTRIBUTION WIDTH 13.3 % (11.5-14.5); WHITE BLOOD COUNT (AUTO) 13.8 K/uL (4.5-11.0)
[2025-01-02 10:29] LABS: ANION GAP 14 mmol/L (8-16); CARBON DIOXIDE 25 mmol/L (22-29); CHLORIDE 102 mmol/L (98-107); CREATININE 1.13 mg/dL (0.60-1.30); GLOMERULAR FILTR. RATE CALC > 60 mL/min (>60); GLUCOSE,RANDOM 116 mg/dL (70-110); POTASSIUM 4.5 mmol/L (3.5-5.1); SODIUM SERUM 141 mmol/L (136-145); UREA NITROGEN, BLOOD 17 mg/dL (7-18)
[2025-01-02 10:34] LABS: ALANINE AMINOTRANSFERASE 33 U/L (12-78); ALBUMIN 3.2 g/dL (3.4-5.0); ALKALINE PHOSPHATASE 67 U/L (46-116); ASPARTATE AMINOTRANSFERASE 62 U/L (15-37); BILIRUBIN,TOTAL 0.7 mg/dL (0.1-1.0); TOTAL PROTEIN, SERUM 7.6 g/dL (6.4-8.2)
[2025-01-02 10:35] LABS: APPEARANCE,URINE CLEAR (CLEAR); BILIRUBIN,URINE NEGATIVE (NEGATIVE); COLOR,URINE YELLOW (YELLOW); GLUCOSE, URINE (UA) NEGATIVE (NEGATIVE); LEUKOCYTE ESTERASE ,URINE NEGATIVE (NEGATIVE); NITRATE,URINE NEGATIVE (NEGATIVE); OCCULT BLOOD,URINE SMALL (NEGATIVE); PROTEIN,URINE TRACE mg/dL (NEGATIVE); SPECIFIC GRAVITIY, URINE 1.027 (1.003-1.030); UROBILINOGEN,URINE <=1.0 mg/dL (<=1.0)
[2025-01-02 10:57] VITALS: BP 127/82; PULSE 70; RESP 17; TEMP 100.2; O2SAT 100
[2025-01-02 10:57] LABS: BACTERIA,URINE None Seen /HPF (None Seen); SQUAMOUS EPITHELIAL CELL,UR Few /LPF (None Seen); WBC,URINE None Seen /HPF (0-5)
[2025-01-02] MEDS: ACETAMINOPHEN 325 MG TABLET PO PRN (11:18)
[2025-01-02 16:47] VITALS: TEMP 100.4
[2025-01-03] MEDS ORDERED: CloZAPine 25 MG TABLET PO SCH (09:00)
[2025-01-03] MEDS ORDERED: CloZAPine 100 MG TABLET PO SCH (21:00)
[2025-01-04] MEDS ORDERED: CloZAPine 25 MG TABLET PO SCH (09:00)
[2025-01-04] MEDS ORDERED: CloZAPine 100 MG TABLET PO SCH (21:00)
[2025-01-05] MEDS ORDERED: CloZAPine 25 MG TABLET PO SCH (09:00)
[2025-01-05] MEDS ORDERED: CloZAPine 100 MG TABLET PO SCH (21:00)
[2025-01-06] MEDS ORDERED: CloZAPine 100 MG TABLET PO SCH (09:00)
[2025-01-08] MEDS ORDERED: CloZAPine 25 MG TABLET PO SCH (09:00)
[2025-01-08] MEDS ORDERED: CloZAPine 100 MG TABLET PO SCH (21:00)
[2025-01-09] MEDS ORDERED: CloZAPine 25 MG TABLET PO SCH (09:00)
[2025-01-09] MEDS ORDERED: CloZAPine 100 MG TABLET PO SCH (21:00)
[2025-01-10] MEDS ORDERED: CloZAPine 100 MG TABLET PO SCH ×2 (09:00→21:00)
== END 2025-01-02 21:30 | disposition short-term general hospital (02) | DRG 750 ==
LOC: EMS 11:01 → 3EI 14:33
PROVIDERS: ADMIT Psychiatry & Neurology Psychiatry; ATTEND Psychiatry & Neurology Psychiatry
PROC: GZHZZZZ Group Psychotherapy (ICD-10-PCS; principal; 2024-12-29)
PROC: GZ51ZZZ Individual Psychotherapy, Behavioral (ICD-10-PCS; 2024-12-29)
PROC: GZ58ZZZ Individual Psychotherapy, Cognitive-Behavioral (ICD-10-PCS; 2024-12-29)
DX: F20.0 Paranoid schizophrenia (principal); A41.9 Sepsis, unspecified organism; E46 Unspecified protein-calorie malnutrition; G47.00 Insomnia, unspecified; I10 Essential (primary) hypertension; K59.00 Constipation, unspecified; Z20.822 Contact with and (suspected) exposure to COVID-19; E78.00 Pure hypercholesterolemia, unspecified; F31.9 Bipolar disorder, unspecified; G20.A1 Parkinson's disease without dyskinesia, without mention of fluctuations; J44.9 Chronic obstructive pulmonary disease, unspecified; K21.9 Gastro-esophageal reflux disease without esophagitis; R62.7 Adult failure to thrive; Z88.8 Allergy status to other drugs, medicaments and biological substances; Z82.49 Family history of ischemic heart disease and other diseases of the circulatory system; Z87.891 Personal history of nicotine dependence; Z91.148 Patient's other noncompliance with medication regimen for other reason; Z68.1 Body mass index [BMI] 19.9 or less, adult
CPT/HCPCS: 70450; 71045; 80048; 80053; 80061; 80307; 81001; 81003; 83036; 84439; 84443; 85025; 86592; 87081; 99285; G0480; 36415-L1; 36415-TC

== ENCOUNTER → 2025-01-11 | Emergency (ER) | payer MEDICAID, OTHER ==
[~2025-01-11] MED LIST changes: +CLOZ100T61 PO; +DIVA-153 PO; +DULO20CA71 PO; +MODA100T65 PO; +OMEG100033 PO
== END | disposition still patient (30) ==
LOC: EMS 01:59 → UNDOADMIN 02:01 → 3EI 02:01
DX: Z53.21 Procedure and treatment not carried out due to patient leaving prior to being seen by health care provider (principal)